=== PATIENT | male | born 1950 ===

== ENCOUNTER 2020-12-06 06:42 | Inpatient (IN) | payer MEDICARE ==
[2020-12-06] MEDS ORDERED: SODIUM CHLORIDE 0.9% 1000 ML 1,000 ML IV ONE (07:09)
--- NOTE | 2020-12-06 07:13 | Emergency Department Report ---
ED General Adult HPI - General Chief complaint: Altered Mental Status Stated complaint: AMS Time Seen by Provider: 12/06/20 06:56 Source: patient, EMS Mode of arrival: Stretcher Limitations: Altered Mental Status - History of Present Illness Initial comments: The patient presents to the emergency department via EMS for altered mental status. The patient has a history of diabetes, hypertension, and hyperlipidemia. Due to the patient's mental status is not able to participate in the gathering of information. Patient is hypotensive on arrival with a BP of 93/59 -: unknown Consistency: constant Improves with: none Worsens with: none Treatments Prior to Arrival: none - Related Data Allergies Allergy/AdvReac Type Severity Reaction Status Date / Time Unable to Assess Allergy Unverified 12/06/20 07:58 ED Review of Systems ROS: Stated complaint: AMS Other details as noted in HPI Comment: Unobtainable due to pts medical conditions ED Past Medical Hx - Past Medical History Previous Medical History?: Yes Hx Hypertension: Yes Hx Diabetes: Yes Hx Renal Disease: Yes Additional medical history: high cholesterol - Surgical History Past Surgical History?: No Additional Surgical History: unobtainable ED Physical Exam - General Limitations: Altered Mental Status General appearance: other (Altered) - Head Head exam: Present: atraumatic, normocephalic - Eye Eye exam: Absent: scleral icterus - ENT ENT exam: Present: mucous membranes dry - Respiratory Respiratory exam: Present: normal lung sounds bilaterally. Absent: respiratory distress - Cardiovascular Cardiovascular Exam: Present: normal rhythm, tachycardia - GI/Abdominal GI/Abdominal exam: Present: soft. Absent: distended - Extremities Exam Extremities exam: Present: normal inspection - Neurological Exam Neurological exam: Present: altered - Psychiatric Psychiatric exam: Present: other (Not able to assess due to the patient's condition) - Skin Skin exam: Present: warm, dry, intact ED Course Vital Signs 12/06/20 12/06/20 12/06/20 06:54 07:00 07:25 Temperature 98.4 F Pulse Rate 111 H 108 H Respiratory 23 13 Rate Blood Pressure 93/66 90/61 Blood Pressure 93/59 [Left] O2 Sat by Pulse 100 95 100 Oximetry 12/06/20 12/06/20 12/06/20 07:35 08:00 08:21 Temperature Pulse Rate 105 H 106 H 103 H Respiratory 26 H 26 H 21 Rate Blood Pressure 95/66 102/69 90/61 Blood Pressure [Left] O2 Sat by Pulse 97 99 99 Oximetry 12/06/20 09:31 Temperature Pulse Rate 101 H Respiratory 24 Rate Blood Pressure 120/81 Blood Pressure [Left] O2 Sat by Pulse 100 Oximetry ED Medical Decision Making - Lab Data Result diagrams: 12/06/20 07:36 Lab Results 12/06/20 12/06/20 12/06/20 Range/Units 07:36 07:36 07:36 WBC 17.0 H (4.5-11.0) K/mm3 RBC 2.37 L (3.65-5.03) M/mm3 Hgb 7.3 L (11.8-15.2) gm/dl Hct 21.6 L (35.5-45.6) % MCV 91 (84-94) fl MCH 31 (28-32) pg MCHC 34 (32-34) % RDW 14.8 (13.2-15.2) % Plt Count 156 (140-440) K/mm3 Add Manual Diff Complete Total Counted 100 Seg Neuts % (Manual) 96.0 H (40.0-70.0) % Lymphocytes % (Manual) 2.0 L (13.4-35.0) % Monocytes % (Manual) 2.0 (0.0-7.3) % Nucleated RBC % Not Reportable Seg Neutrophils # Man 16.3 H (1.8-7.7) K/mm3 Band Neutrophils # 0.0 K/mm3 Lymphocytes # (Manual) 0.3 L (1.2-5.4) K/mm3 Abs React Lymphs (Man) 0.0 K/mm3 Monocytes # (Manual) 0.3 (0.0-0.8) K/mm3 Eosinophils # (Manual) 0.0 (0.0-0.4) K/mm3 Basophils # (Manual) 0.0 (0.0-0.1) K/mm3 Metamyelocytes # 0.0 K/mm3 Myelocytes # 0.0 K/mm3 Promyelocytes # 0.0 K/mm3 Blast Cells # 0.0 K/mm3 WBC Morphology Not Reportable Hypersegmented Neuts Not Reportable Hyposegmented Neuts Not Reportable Hypogranular Neuts Not Reportable Smudge Cells Not Reportable Toxic Granulation Not Reportable Toxic Vacuolation Not Reportable Dohle Bodies Not Reportable Pelger-Huet Anomaly Not Reportable Brianda Rods Not Reportable Platelet Estimate Consistent w auto Clumped Platelets Not Reportable Plt Clumps, EDTA Not Reportable Large Platelets Not Reportable Giant Platelets Not Reportable Platelet Satelliting Not Reportable Plt Morphology Comment Not Reportable RBC Morphology Not Reportable Dimorphic RBCs Not Reportable Polychromasia Not Reportable Hypochromasia Not Reportable Poikilocytosis Not Reportable Anisocytosis Not Reportable Microcytosis Not Reportable Macrocytosis Not Reportable Spherocytes Not Reportable Pappenheimer Bodies Not Reportable Sickle Cells Not Reportable Target Cells Not Reportable Tear Drop Cells Not Reportable Ovalocytes Not Reportable Helmet Cells Not Reportable Rangel-Movico Bodies Not Reportable [place] Rings Not Reportable [place] Cells Not Reportable Bite Cells Not Reportable Crenated Cell Not Reportable Elliptocytes Not Reportable Acanthocytes (Spur) Not Reportable Rouleaux Not Reportable Hemoglobin C Crystals Not Reportable Schistocytes Rare Malaria parasites Not Reportable [place] Bodies Not Reportable Hem Pathologist Commnt No PT 21.3 H (12.2-14.9) Sec. INR 1.84 H (0.87-1.13) APTT 35.4 (24.2-36.6) Sec. Lactic Acid 2.30 H* (0.7-2.0) mmol/L Ammonia (25-60) umol/L Total Creatine Kinase (55-170) units/L NT-Pro-B Natriuret Pep (0-900) pg/mL TSH (0.270-4.200) mlU/mL Salicylates (2.8-20.0) mg/dL Acetaminophen (10.0-30.0) ug/mL Plasma/Serum Alcohol (0-0.07) % Blood Type Antibody Screen 12/06/20 12/06/20 12/06/20 Range/Units 07:36 07:36 07:36 WBC (4.5-11.0) K/mm3 RBC (3.65-5.03) M/mm3 Hgb (11.8-15.2) gm/dl Hct (35.5-45.6) % MCV (84-94) fl MCH (28-32) pg MCHC (32-34) % RDW (13.2-15.2) % Plt Count (140-440) K/mm3 Add Manual Diff Total Counted Seg Neuts % (Manual) (40.0-70.0) % Lymphocytes % (Manual) (13.4-35.0) % Monocytes % (Manual) (0.0-7.3) % Nucleated RBC % Seg Neutrophils # Man (1.8-7.7) K/mm3 Band Neutrophils # K/mm3 Lymphocytes # (Manual) (1.2-5.4) K/mm3 Abs React Lymphs (Man) K/mm3 Monocytes # (Manual) (0.0-0.8) K/mm3 Eosinophils # (Manual) (0.0-0.4) K/mm3 Basophils # (Manual) (0.0-0.1) K/mm3 Metamyelocytes # K/mm3 Myelocytes # K/mm3 Promyelocytes # K/mm3 Blast Cells # K/mm3 WBC Morphology Hypersegmented Neuts Hyposegmented Neuts Hypogranular Neuts Smudge Cells Toxic Granulation Toxic Vacuolation Dohle Bodies Pelger-Huet Anomaly Brianda Rods Platelet Estimate Clumped Platelets Plt Clumps, EDTA Large Platelets Giant Platelets Platelet Satelliting Plt Morphology Comment RBC Morphology Dimorphic RBCs Polychromasia Hypochromasia Poikilocytosis Anisocytosis Microcytosis Macrocytosis Spherocytes Pappenheimer Bodies Sickle Cells Target Cells Tear Drop Cells Ovalocytes Helmet Cells Rangel-Movico Bodies [place] Rings Boyd Cells Bite Cells Crenated Cell Elliptocytes Acanthocytes (Spur) Rouleaux Hemoglobin C Crystals Schistocytes Malaria parasites [place] Bodies Hem Pathologist Commnt PT (12.2-14.9) Sec. INR (0.87-1.13) APTT (24.2-36.6) Sec. Lactic Acid (0.7-2.0) mmol/L Ammonia (25-60) umol/L Total Creatine Kinase (55-170) units/L NT-Pro-B Natriuret Pep (0-900) pg/mL TSH (0.270-4.200) mlU/mL Salicylates 0.3 L (2.8-20.0) mg/dL Acetaminophen 5.0 L (10.0-30.0) ug/mL Plasma/Serum Alcohol < 0.01 (0-0.07) % Blood Type Antibody Screen 12/06/20 12/06/20 12/06/20 Range/Units 07:36 07:36 07:36 WBC (4.5-11.0) K/mm3 RBC (3.65-5.03) M/mm3 Hgb (11.8-15.2) gm/dl Hct (35.5-45.6) % MCV (84-94) fl MCH (28-32) pg MCHC (32-34) % RDW (13.2-15.2) % Plt Count (140-440) K/mm3 Add Manual Diff Total Counted Seg Neuts % (Manual) (40.0-70.0) % Lymphocytes % (Manual) (13.4-35.0) % Monocytes % (Manual) (0.0-7.3) % Nucleated RBC % Seg Neutrophils # Man (1.8-7.7) K/mm3 Band Neutrophils # K/mm3 Lymphocytes # (Manual) (1.2-5.4) K/mm3 Abs React Lymphs (Man) K/mm3 Monocytes # (Manual) (0.0-0.8) K/mm3 Eosinophils # (Manual) (0.0-0.4) K/mm3 Basophils # (Manual) (0.0-0.1) K/mm3 Metamyelocytes # K/mm3 Myelocytes # K/mm3 Promyelocytes # K/mm3 Blast Cells # K/mm3 WBC Morphology Hypersegmented Neuts Hyposegmented Neuts Hypogranular Neuts Smudge Cells Toxic Granulation Toxic Vacuolation Dohle Bodies Pelger-Huet Anomaly Brianda Rods Platelet Estimate Clumped Platelets Plt Clumps, EDTA Large Platelets Giant Platelets Platelet Satelliting Plt Morphology Comment RBC Morphology Dimorphic RBCs Polychromasia Hypochromasia Poikilocytosis Anisocytosis Microcytosis Macrocytosis Spherocytes Pappenheimer Bodies Sickle Cells Target Cells Tear Drop Cells Ovalocytes Helmet Cells Rangel-Movico Bodies [place] Rings Dung Cells Bite Cells Crenated Cell Elliptocytes Acanthocytes (Spur) Rouleaux Hemoglobin C Crystals Schistocytes Malaria parasites [place] Bodies Hem Pathologist Commnt PT (12.2-14.9) Sec. INR (0.87-1.13) APTT (24.2-36.6) Sec. Lactic Acid (0.7-2.0) mmol/L Ammonia 14.0 L (25-60) umol/L Total Creatine Kinase 573 H (55-170) units/L NT-Pro-B Natriuret Pep (0-900) pg/mL TSH 2.020 (0.270-4.200) mlU/mL Salicylates (2.8-20.0) mg/dL Acetaminophen (10.0-30.0) ug/mL Plasma/Serum Alcohol (0-0.07) % Blood Type Antibody Screen 12/06/20 12/06/20 Range/Units 07:36 07:36 WBC (4.5-11.0) K/mm3 RBC (3.65-5.03) M/mm3 Hgb (11.8-15.2) gm/dl Hct (35.5-45.6) % MCV (84-94) fl MCH (28-32) pg MCHC (32-34) % RDW (13.2-15.2) % Plt Count (140-440) K/mm3 Add Manual Diff Total Counted Seg Neuts % (Manual) (40.0-70.0) % Lymphocytes % (Manual) (13.4-35.0) % Monocytes % (Manual) (0.0-7.3) % Nucleated RBC % Seg Neutrophils # Man (1.8-7.7) K/mm3 Band Neutrophils # K/mm3 Lymphocytes # (Manual) (1.2-5.4) K/mm3 Abs React Lymphs (Man) K/mm3 Monocytes # (Manual) (0.0-0.8) K/mm3 Eosinophils # (Manual) (0.0-0.4) K/mm3 Basophils # (Manual) (0.0-0.1) K/mm3 Metamyelocytes # K/mm3 Myelocytes # K/mm3 Promyelocytes # K/mm3 Blast Cells # K/mm3 WBC Morphology Hypersegmented Neuts Hyposegmented Neuts Hypogranular Neuts Smudge Cells Toxic Granulation Toxic Vacuolation Dohle Bodies Pelger-Huet Anomaly Brianda Rods Platelet Estimate Clumped Platelets Plt Clumps, EDTA Large Platelets Giant Platelets Platelet Satelliting Plt Morphology Comment RBC Morphology Dimorphic RBCs Polychromasia Hypochromasia Poikilocytosis Anisocytosis Microcytosis Macrocytosis Spherocytes Pappenheimer Bodies Sickle Cells Target Cells Tear Drop Cells Ovalocytes Helmet Cells Rangel-Movico Bodies [place] Rings Dung Cells Bite Cells Crenated Cell Elliptocytes Acanthocytes (Spur) Rouleaux Hemoglobin C Crystals Schistocytes Malaria parasites [place] Bodies Hem Pathologist Commnt PT (12.2-14.9) Sec. INR (0.87-1.13) APTT (24.2-36.6) Sec. Lactic Acid (0.7-2.0) mmol/L Ammonia (25-60) umol/L Total Creatine Kinase (55-170) units/L NT-Pro-B Natriuret Pep 16873 H (0-900) pg/mL TSH (0.270-4.200) mlU/mL Salicylates (2.8-20.0) mg/dL Acetaminophen (10.0-30.0) ug/mL Plasma/Serum Alcohol (0-0.07) % Blood Type A POSITIVE Antibody Screen Negative - Radiology Data Radiology results: report reviewed - Medical Decision Making Upon patient's arrival sepsis protocol initiated Due to the patient's hypotension IV fluids given which were successful and maintaining a systolic blood pressure greater than 100 IV Lasix given IV antibiotics given Critical Care Time: Yes Critical care time in (mins) excluding proc time.: 35 Critical care attestation.: If time is entered above; I have spent that time in minutes in the direct care of this critically ill patient, excluding procedure time. ED Disposition Clinical Impression: Sepsis, Pulmonary vascular congestion Disposition: OP ADMIT IP TO THIS HOSP Is pt being admited?: Yes Does the pt Need Aspirin: No Condition: Fair Referrals: PRIMARY CARE, [Primary Care Provider] - 3-5 Days
[2020-12-06 07:47] LABS: Hematocrit 21.6 % (35.5-45.6); Hemoglobin 7.3 gm/dl (11.8-15.2); Mean Corpuscular HGB Conc 34 % (32-34); Mean Corpuscular Volume 91 fl (84-94); Platelet Count 156 K/mm3 (140-440); Red Blood Count 2.37 M/mm3 (3.65-5.03); Red Cell Distribution Width 14.8 % (13.2-15.2)
--- NOTE | 2020-12-06 07:48 | XRay Report ---
CHEST 1 VIEW INDICATION: Altered Mental Status. COMPARISON: None FINDINGS: Support devices: None. Heart: Mild cardiomegaly is evident. The aorta is mildly ectatic but well defined. Lungs/Pleura: There is mild central pulmonary venous congestion. No infiltrate, pleural effusion or p neumothorax. Additional findings: None. IMPRESSION: Mild cardiomegaly and pulmonary venous congestion but no CHF. Ectatic aorta. Signer Name: Wagner Reece Jr, MD Signed: 12/06/2020 7:43 AM Workstation Name: [id number]
[2020-12-06 07:58] LABS: INR 1.84 (0.87-1.13); Partial Thromboplastin Time 35.4 Sec. (24.2-36.6)
--- NOTE | 2020-12-06 08:04 | Cat Scan Report ---
CT HEAD WITHOUT CONTRAST INDICATION: Altered Mental Status TECHNIQUE: All CT scans at this location are performed using CT dose reduction for ALARA by means of automated exposure control. COMPARISON: None available. FINDINGS: BRAIN: No hemorrhage or mass effect are seen. No evidence of acute cortical infarction is noted. Mode rate white matter microvascular changes are seen. Atrophic changes are noted. ORBITS: Normal as visualized. SOFT TISSUES OF HEAD: Normal. CALVARIUM: Normal. VISUALIZED PARANASAL SINUSES AND MASTOID AIR CELLS: Clear. ADDITIONAL FINDINGS: None. IMPRESSION: No acute intracranial abnormality. Signer Name: Selwyn Pedraza MD Signed: 12/06/2020 8:00 AM Workstation Name: [id number]
[2020-12-06 09:47] LABS: Total Cells Counted 100
[2020-12-06 09:49] LABS: Platelet Estimate Consistent w Auto; Schistocytes Rare
[2020-12-06] MEDS ORDERED: CEFEPIME/NS 2 GM/100 ML 2 GM/100 ML BAG IV ONE (09:52)
[2020-12-06] MEDS ORDERED: FUROSEMIDE 40 MG/4 ML INJ IV ONE (10:20)
[2020-12-06 10:46] LABS: Amphetamine Screen,Urine PRESUMPTIVE NEGATIVE; Benzodiazepines Screen,Urine PRESUMPTIVE NEGATIVE; Cannabinoid Screen,Urine PRESUMPTIVE NEGATIVE; Cocaine Screen,Urine PRESUMPTIVE NEGATIVE; Methadone Screen,Urine PRESUMPTIVE NEGATIVE; Opiate Screen,Urine PRESUMPTIVE NEGATIVE
[2020-12-06 10:48] LABS: Bacteria,Urine 4+ /HPF (Negative); Bilirubin,Urine NEG (Negative); Blood,Urine MOD (Negative); Color,Urine Amber (Yellow); Mucus,Urine FEW /HPF; Urobilinogen,Urine < 2.0 mg/dL (<2.0)
[2020-12-06 10:51] LABS: Protein,Urine >500 mg/dL (Negative)
[2020-12-06 10:54] LABS: Albumin 2.8 g/dL (3.9-5)
[2020-12-06 11:23] LABS: Chol/HDL Ratio 7.35 %
[2020-12-06] MEDS ORDERED: ASPIRIN 600 MG RECT SUPP PR ONE (11:36)
[2020-12-06] MEDS: ASPIRIN 300 MG RECT SUPP PR SCH (11:39)
--- NOTE | 2020-12-06 11:40 | History and Physical Report ---
History of Present Illness Date of examination: 12/06/20 Date of admission: 12/06/20 10:35 Chief complaint: Altered mental status History of present illness: 70-year-old -[place] male was presented via EMS for altered mental status. Patient could not give any history. I called his Ms. Baumann and she gave me his history. 70-year-old -[place] male with past medical history significant for diabetes on insulin, DVT, on Eliquis, hypertension, CKD was complaining of abdominal pain, cramping after he was eating at [employer] last day. Progressively patient was getting weak. Patient was also complaining diarrhea multiple times, did not characterize the diarrhea. She said he was incontinent to urine occasionally. She stated that he is a and follow-up at [facility], she states he has some heart problems and he has something placed in his chart that she do not know. Patient did not answer questions but he said yes for chest pain. In the emergency department patient was altered and was not able to give any history. Labs are significant for leukocytosis, elevated troponin level, elevated BUN and creatinine with GFR of 8%. Urinalysis is suggestive of UTI. Patient was placed on cefepime. Chest x-ray was negative, CT head was negative. Nephrology was consulted but his said she does not want to start dialysis on him at this time. Covid test was ordered and ID was consulted. For anemia GI consult was placed. For non-STEMI cardiology was consulted. Vital signs were stable. Patient will be admitted to medical floor. Past History Past Medical History: diabetes, DVT, hypertension, renal failure Past Surgical History: Other (Device placement in his chest) Social history: full code. denies: smoking, alcohol abuse, prescription drug abuse, IV drug use Family history: other (Could not obtain because patient was altered.) Medications and Allergies Allergies Allergy/AdvReac Type Severity Reaction Status Date / Time Unable to Assess Allergy Unverified 12/06/20 07:58 Home Medications Medication Instructions Recorded Confirmed Last Taken Type No Known Home Medications [No 12/06/20 12/06/20 Unknown History Reported Home Medications] Active Meds: Active Medications Aspirin (Aspirin 300 Mg Rect Supp) 300 mg [place] QDAY [facility] Last Admin: 12/06/20 11:39 Dose: 300 mg Documented by: Review of Systems ROS unobtainable: due to mental status (Could not obtain because patient was altered) Exam - Physical Exam Narrative exam: Not in cardiopulmonary distress. The patient appeared well nourished and normally developed. Vital signs as documented. Head exam is unremarkable. No scleral icterus . Neck is without jugular venous distension, thyromegaly, or carotid bruits. Lungs are clear to auscultation. Cardiac exam reveals regular rate and Rhythm. Abdominal exam reveals normal bowel sounds, nontender, no organomegaly. Extremities are nonedematous and both femoral and pedal pulses are normal. [employer]: Patient was altered - Constitutional Vitals: Temp Pulse Resp BP Pulse Ox 98.4 F 90 20 112/77 100 12/06/20 06:54 12/06/20 11:15 12/06/20 11:15 12/06/20 11:15 12/06/20 11:15 HEART Score - HEART Score Troponin: Troponin T 3.350 ng/mL (0.00-0.029) H* 12/06/20 07:36 Results - Labs CBC & Chem 7: 12/06/20 07:36 12/06/20 07:36 Labs: Laboratory Last Values WBC 17.0 K/mm3 (4.5-11.0) H 12/06/20 07:36 RBC 2.37 M/mm3 (3.65-5.03) L 12/06/20 07:36 Hgb 7.3 gm/dl (11.8-15.2) L 12/06/20 07:36 Hct 21.6 % (35.5-45.6) L 12/06/20 07:36 MCV 91 fl (84-94) 12/06/20 07:36 MCH 31 pg (28-32) 12/06/20 07:36 MCHC 34 % (32-34) 12/06/20 07:36 RDW 14.8 % (13.2-15.2) 12/06/20 07:36 Plt Count 156 K/mm3 (140-440) 12/06/20 07:36 Add Manual Diff Complete 12/06/20 07:36 Total Counted 100 12/06/20 07:36 Seg Neuts % (Manual) 96.0 % (40.0-70.0) H 12/06/20 07:36 Lymphocytes % (Manual) 2.0 % (13.4-35.0) L 12/06/20 07:36 Monocytes % (Manual) 2.0 % (0.0-7.3) 12/06/20 07:36 Nucleated RBC % Not Reportable 12/06/20 07:36 Seg Neutrophils # Man 16.3 K/mm3 (1.8-7.7) H 12/06/20 07:36 Band Neutrophils # 0.0 K/mm3 12/06/20 07:36 Lymphocytes # (Manual) 0.3 K/mm3 (1.2-5.4) L 12/06/20 07:36 Abs React Lymphs (Man) 0.0 K/mm3 12/06/20 07:36 Monocytes # (Manual) 0.3 K/mm3 (0.0-0.8) 12/06/20 07:36 Eosinophils # (Manual) 0.0 K/mm3 (0.0-0.4) 12/06/20 07:36 Basophils # (Manual) 0.0 K/mm3 (0.0-0.1) 12/06/20 07:36 Metamyelocytes # 0.0 K/mm3 12/06/20 07:36 Myelocytes # 0.0 K/mm3 12/06/20 07:36 Promyelocytes # 0.0 K/mm3 12/06/20 07:36 Blast Cells # 0.0 K/mm3 12/06/20 07:36 WBC Morphology Not Reportable 12/06/20 07:36 Hypersegmented Neuts Not Reportable 12/06/20 07:36 Hyposegmented Neuts Not Reportable 12/06/20 07:36 Hypogranular Neuts Not Reportable 12/06/20 07:36 Smudge Cells Not Reportable 12/06/20 07:36 Toxic Granulation Not Reportable 12/06/20 07:36 Toxic Vacuolation Not Reportable 12/06/20 07:36 Dohle Bodies Not Reportable 12/06/20 07:36 Pelger-Huet Anomaly Not Reportable 12/06/20 07:36 Brianda Rods Not Reportable 12/06/20 07:36 Platelet Estimate Consistent w auto 12/06/20 07:36 Clumped Platelets Not Reportable 12/06/20 07:36 Plt Clumps, EDTA Not Reportable 12/06/20 07:36 Large Platelets Not Reportable 12/06/20 07:36 Giant Platelets Not Reportable 12/06/20 07:36 Platelet Satelliting Not Reportable 12/06/20 07:36 Plt Morphology Comment Not Reportable 12/06/20 07:36 RBC Morphology Not Reportable 12/06/20 07:36 Dimorphic RBCs Not Reportable 12/06/20 07:36 Polychromasia Not Reportable 12/06/20 07:36 Hypochromasia Not Reportable 12/06/20 07:36 Poikilocytosis Not Reportable 12/06/20 07:36 Anisocytosis Not Reportable 12/06/20 07:36 Microcytosis Not Reportable 12/06/20 07:36 Macrocytosis Not Reportable 12/06/20 07:36 Spherocytes Not Reportable 12/06/20 07:36 Pappenheimer Bodies Not Reportable 12/06/20 07:36 Sickle Cells Not Reportable 12/06/20 07:36 Target Cells Not Reportable 12/06/20 07:36 Tear Drop Cells Not Reportable 12/06/20 07:36 Ovalocytes Not Reportable 12/06/20 07:36 Helmet Cells Not Reportable 12/06/20 07:36 Rangel-Samson Bodies Not Reportable 12/06/20 07:36 [place] Rings Not Reportable 12/06/20 07:36 [place] Cells Not Reportable 12/06/20 07:36 Bite Cells Not Reportable 12/06/20 07:36 Crenated Cell Not Reportable 12/06/20 07:36 Elliptocytes Not Reportable 12/06/20 07:36 Acanthocytes (Spur) Not Reportable 12/06/20 07:36 Rouleaux Not Reportable 12/06/20 07:36 Hemoglobin C Crystals Not Reportable 12/06/20 07:36 Schistocytes Rare 12/06/20 07:36 Malaria parasites Not Reportable 12/06/20 07:36 [place] Bodies Not Reportable 12/06/20 07:36 Hem Pathologist Commnt No 12/06/20 07:36 PT 21.3 Sec. (12.2-14.9) H 12/06/20 07:36 INR 1.84 (0.87-1.13) H 12/06/20 07:36 APTT 35.4 Sec. (24.2-36.6) 12/06/20 07:36 Sodium 131 mmol/L (137-145) L 12/06/20 07:36 Potassium 4.9 mmol/L (3.6-5.0) 12/06/20 07:36 Chloride 97.5 mmol/L (98-107) L 12/06/20 07:36 Carbon Dioxide 15 mmol/L (22-30) L 12/06/20 07:36 Anion Gap 23 mmol/L 12/06/20 07:36 BUN 79 mg/dL (9-20) H 12/06/20 07:36 Creatinine 7.2 mg/dL (0.8-1.3) H 12/06/20 07:36 Estimated GFR 8 ml/min 12/06/20 07:36 BUN/Creatinine Ratio 11 % 12/06/20 07:36 Glucose 147 mg/dL (75-100) H 12/06/20 07:36 Lactic Acid 1.80 mmol/L (0.7-2.0) 12/06/20 10:26 Calcium 8.0 mg/dL (8.4-10.2) L 12/06/20 07:36 Total Bilirubin 0.70 mg/dL (0.1-1.2) 12/06/20 07:36 AST 52 units/L (5-40) H 12/06/20 07:36 ALT 14 units/L (7-56) 12/06/20 07:36 Alkaline Phosphatase 80 units/L (35-129) 12/06/20 07:36 Ammonia 14.0 umol/L (25-60) L 12/06/20 07:36 Total Creatine Kinase 573 units/L (55-170) H 12/06/20 07:36 Troponin T 3.350 ng/mL (0.00-0.029) H* 12/06/20 07:36 NT-Pro-B Natriuret Pep 75731 pg/mL (0-900) H 12/06/20 07:36 Total Protein 8.6 g/dL (6.3-8.2) H 12/06/20 07:36 Albumin 2.8 g/dL (3.9-5) L 12/06/20 07:36 Albumin/Globulin Ratio 0.5 % 12/06/20 07:36 Triglycerides 226 mg/dL (2-149) H 12/06/20 07:36 Cholesterol 103 mg/dL (50-199) 12/06/20 07:36 LDL Cholesterol Direct 13 mg/dL (50-130) L 12/06/20 07:36 HDL Cholesterol 14 mg/dL (40-59) L 12/06/20 07:36 Cholesterol/HDL Ratio 7.35 % 12/06/20 07:36 TSH 2.020 mlU/mL (0.270-4.200) 12/06/20 07:36 Urine Color Hina (Yellow) 12/06/20 Unknown Urine Turbidity Cloudy (Clear) 12/06/20 Unknown Urine pH 5.0 (5.0-7.0) 12/06/20 Unknown Ur Specific [place] 1.014 (1.003-1.030) 12/06/20 Unknown Urine Protein >500 mg/dL (Negative) 12/06/20 Unknown Urine Glucose (UA) Neg mg/dL (Negative) 12/06/20 Unknown Urine Ketones Neg mg/dL (Negative) 12/06/20 Unknown Urine Blood Mod (Negative) 12/06/20 Unknown Urine Nitrite Neg (Negative) 12/06/20 Unknown Urine Bilirubin Neg (Negative) 12/06/20 Unknown Urine Urobilinogen < 2.0 mg/dL (<2.0) 12/06/20 Unknown Ur Leukocyte Esterase Lg (Negative) 12/06/20 Unknown Urine WBC (Auto) 58.0 /HPF (0.0-6.0) H 12/06/20 Unknown Urine RBC (Auto) 9.0 /HPF (0.0-6.0) 12/06/20 Unknown U Epithel Cells (Auto) < 1.0 /HPF (0-13.0) 12/06/20 Unknown Urine Bacteria (Auto) 4+ /HPF (Negative) 12/06/20 Unknown Urine WBC Clumps 2+ /HPF 12/06/20 Unknown Urine Mucus Few /HPF 12/06/20 Unknown Salicylates 0.3 mg/dL (2.8-20.0) L 12/06/20 07:36 Urine Opiates Screen Presumptive negative 12/06/20 Unknown Urine Methadone Screen Presumptive negative 12/06/20 Unknown Acetaminophen 5.0 ug/mL (10.0-30.0) L 12/06/20 07:36 Ur Barbiturates Screen Presumptive negative 12/06/20 Unknown Ur Phencyclidine Scrn Presumptive negative 12/06/20 Unknown Ur Amphetamines Screen Presumptive negative 12/06/20 Unknown U Benzodiazepines Scrn Presumptive negative 12/06/20 Unknown Urine Cocaine Screen Presumptive negative 12/06/20 Unknown U Marijuana (THC) Screen Presumptive negative 12/06/20 Unknown Drugs of Abuse Note Disclamer 12/06/20 Unknown Plasma/Serum Alcohol < 0.01 % (0-0.07) 12/06/20 07:36 Blood Type A POSITIVE 12/06/20 07:36 Antibody Screen Negative 12/06/20 07:36 Microbiology: Microbiology 12/06/20 07:36 Peripheral/Venous Blood Culture - Preliminary Culture in Progress 12/06/20 07:36 Peripheral/Venous Blood Culture - Preliminary Culture in Progress Assessment and Plan Assessment and plan: Altered mental Status, metabolic encephalopathy -CT head was negative -No grossly focal neurologic deficit -We will treat underlying condition Acute on chronic renal failure -Patient has CKD, and currently GFR is 8 -Patient was diagnosed with CKD before and was suggested for dialysis but patient declined. -I discussed with his over the phone and she does not want dialysis. -Nephrology consulted. NSTEMI -Troponin was more than 3 -EKG normal sinus rhythm, no ST elevation, cardiology consulted Severe sepsis, PUI -Likely due to UTI -Patient is on cefepime -We will get urine and blood culture -Covid test is pending Acute gastroenteritis -Symptomatic management -Continue antibiotics -C. difficile ordered Anemia -Hemoglobin this morning was 7.3 -Anemia work-up was ordered, and consulted GI Diabetes mellitus -Sliding scale insulin, Accu-Chek, ADA diet and adjust insulin as needed History of DVT, on Eliquis -I will hold Eliquis for now due to anemia -Ordered D-dimer Hypertension -Blood pressure is on the low side of normal and I will hold blood pressure med ication for now DVT prophylaxis; SCDs for now because of severe anemia CODE STATUS; full Disposition; to medical floor Management plan was discussed with the daughter and was in agreement with the plan of care. Advance Directives: Yes VTE prophylaxis?: Mechanical Contraindication Mechanical VTE Prophylaxis: Contraindicated Reason for no VTE Prophylaxis: Medical contraindication Plan of care discussed with patient/family: Yes
[2020-12-06] MEDS ORDERED: DEXTROSE 50% IN WATER (25GM) 50 ML SYRINGE IV PRN (11:45)
--- NOTE | 2020-12-06 12:05 | Consultation ---
History of Present Illness - Reason for Consult Consult date: 12/06/20 acute renal failure, chronic renal failure - History of Present Illness patient was admitted today for worsening weakness and alteredd mental status, I Labs are significant for leukocytosis, elevated troponin level, elevated BUN and creatinine with GFR of 8%. Urinalysis is suggestive of UTI. Patient was placed on cefepime. Chest x-ray was negative, CT head was negative.. Covid test was ordered and ID was consulted. renal consult was requested for severe renal failure, however, per hospitalist note, stated the patient does not want dialysis Past History Past Medical History: diabetes, DVT, hypertension, renal failure Past Surgical History: Other (Device placement in his chest) Social history: full code. denies: smoking, alcohol abuse, prescription drug abuse, IV drug use Family history: other (Could not obtain because patient was altered.) Medications and Allergies Allergies Allergy/AdvReac Type Severity Reaction Status Date / Time No Known Allergies Allergy Unverified 12/06/20 12:39 Home Medications Medication Instructions Recorded Confirmed Last Taken Type Acetaminophen [Non-Aspirin Extra 1,000 mg PO TID PRN 12/06/20 12/06/20 Unknown History Strength] Apixaban [Eliquis] 5 mg PO BID 12/06/20 12/06/20 Unknown History AtorvaSTATin [Lipitor] 40 mg PO QHS 12/06/20 12/06/20 Unknown History Metoprolol [Lopressor] 12.5 mg PO QDAY 12/06/20 12/06/20 Unknown History Active Meds: Active Medications Aspirin (Aspirin 300 Mg Rect Supp) 300 mg [place] [facility]DAY [facility] Last Admin: 12/06/20 11:39 Dose: 300 mg Documented by: Dextrose (Dextrose 50% In Water (25gm) 50 Ml Syringe) 50 ml IV Q30MIN PRN; Protocol PRN Reason: Hypoglycemia Cefepime HCl (Cefepime/Ns 1 Gm/100 Ml) 1 gm in 100 mls @ 200 mls/hr IV QPM [facility]; Protocol Exam - Vital Signs Vital signs: Vital Signs Temp Pulse Resp BP Pulse Ox 98.4 F 111 H 23 93/59 100 12/06/20 06:54 12/06/20 06:54 12/06/20 06:54 12/06/20 06:54 12/06/20 06:54 - General Appearance General appearance: well-developed, well-nourished EENT: ATNC, PERRL Neck: Present: neck supple Respiratory: Clear to Ascultation Heart: regular Gastrointestinal: Present: normoactive bowel sounds. Absent: tenderness, distended Integumentary: no rash, warm and dry Musculoskeletal: Present: other Results - Lab Results 12/06/20 07:36 12/06/20 07:36 Most recent lab results Calcium 8.0 mg/dL (8.4-10.2) L 12/06/20 07:36 Assessment and Plan Altered mental Status, metabolic encephalopathy Acute on chronic renal failure NSTEMI Acute gastroenteritis Anemia Diabetes mellitus History of DVT, on Eliquis Hypertension patient with advanced CKD per chart and was nearing dialysis but declined in the past currently with pulm congestion and elevated BNP, will no start IV fluid challenge renal US ordered urine lytes, CK and secondary GN work up ordered reanlly dose meds strict I&O daily weight
[2020-12-06 12:55] LABS: Iron 11 ug/dL (49-181); Total Iron Binding Capacity 129 mcg/dL (250-450)
[2020-12-06 12:56] LABS: C-Reactive Protein 28.5 mg/dL (0.00-1.30)
--- NOTE | 2020-12-06 13:40 | Consultation ---
History of Present Illness - Reason for Consult Consult date: 12/06/20 sepsis Requesting physician: CALEB MARLEY - History of Present Illness The patient is a 70-year-old male with diabetes, hypertension, DVT, CKD was admitted to the hospital with altered mental status. Upon evaluation in the ER, noted to be hypotensive, labs showed leukocytosis. Patient otherwise afebrile. Infectious diseases was consulted to evaluate for sepsis. Chest x-ray did not reveal any pneumonia. CT head without any acute abnormality. Review of Systems: Limited due to altered mental status Past History Past Medical History: diabetes, DVT, hypertension, renal failure Past Surgical History: Other (Device placement in his chest) Social history: full code. denies: smoking, alcohol abuse, prescription drug abuse, IV drug use Family history: other (Could not obtain because patient was altered.) Medications and Allergies Allergies Allergy/AdvReac Type Severity Reaction Status Date / Time No Known Allergies Allergy Unverified 12/06/20 12:39 Home Medications Medication Instructions Recorded Confirmed Last Taken Type Acetaminophen [Non-Aspirin Extra 1,000 mg PO TID PRN 12/06/20 12/06/20 Unknown History Strength] Apixaban [Eliquis] 5 mg PO BID 12/06/20 12/06/20 Unknown History AtorvaSTATin [Lipitor] 40 mg PO QHS 12/06/20 12/06/20 Unknown History Metoprolol [Lopressor] 12.5 mg PO QDAY 12/06/20 12/06/20 Unknown History Active Meds: Active Medications Aspirin (Aspirin 300 Mg Rect Supp) 300 mg [place] QDAY [facility] Last Admin: 12/06/20 11:39 Dose: 300 mg Documented by: Dextrose (Dextrose 50% In Water (25gm) 50 Ml Syringe) 50 ml IV Q30MIN PRN; Protocol PRN Reason: Hypoglycemia Cefepime HCl (Cefepime/Ns 1 Gm/100 Ml) 1 gm in 100 mls @ 200 mls/hr IV QPM [facility]; Protocol Sodium Chloride (Nacl 0.9% 1000 Ml) 1,000 mls @ 100 mls/hr IV DIRECT [facility] Metronidazole (Flagyl 500 Mg/100 Ml) 500 mg in 100 mls @ 100 mls/hr IV Q8H [facility]; Protocol Physical Examination - Physical Exam Narrative exam: Physical Exam: Constitutional: Awake, confused Head, Ears, Nose: Normocephalic, atraumatic. External ears, nose normal Eyes: Conjunctivae/corneas clear. No icterus. No ptosis. Neck: Supple, no meningeal signs Cardiovascular: S1, S2 normal. Respiratory: Good air entry, clear to auscultation bilaterally GI: Tenderness present, bowel sounds present Musculoskeletal: No pedal edema, no cyanosis. Skin: No rash or abscess Hem/Lymphatic: No palpable cervical or supraclavicular nodes. No lymphangitis Psych: No agitation Neurological: Awake, not oriented - Constitutional Vitals: Vital Signs Temp Pulse Resp BP Pulse Ox 98.4 F 92 H 22 112/77 100 12/06/20 06:54 12/06/20 12:55 12/06/20 12:55 12/06/20 11:15 12/06/20 11:15 Temperature -Last 24 Hours Temperature 98.4 F Results - Labs CBC & Chem 7: 12/06/20 07:36 12/06/20 07:36 Labs: Abnormal lab results 12/06/20 12/06/20 12/06/20 Range/Units 07:36 07:36 07:36 WBC 17.0 H (4.5-11.0) K/mm3 RBC 2.37 L (3.65-5.03) M/mm3 Hgb 7.3 L (11.8-15.2) gm/dl Hct 21.6 L (35.5-45.6) % Seg Neuts % (Manual) 96.0 H (40.0-70.0) % Lymphocytes % (Manual) 2.0 L (13.4-35.0) % Seg Neutrophils # Man 16.3 H (1.8-7.7) K/mm3 Lymphocytes # (Manual) 0.3 L (1.2-5.4) K/mm3 PT 21.3 H (12.2-14.9) Sec. INR 1.84 H (0.87-1.13) D-Dimer (0-234) ng/mlDDU Sodium 131 L (137-145) mmol/L Chloride 97.5 L (98-107) mmol/L Carbon Dioxide 15 L (22-30) mmol/L BUN 79 H (9-20) mg/dL Creatinine 7.2 H (0.8-1.3) mg/dL Glucose 147 H (75-100) mg/dL Lactic Acid (0.7-2.0) mmol/L Calcium 8.0 L (8.4-10.2) mg/dL Iron (49-181) ug/dL TIBC (250-450) mcg/dL Ferritin (30.0-300.0) ng/mL AST 52 H (5-40) units/L Ammonia (25-60) umol/L Lactate Dehydrogenase (91-180) units/L Total Creatine Kinase (55-170) units/L Troponin T 3.350 H* (0.00-0.029) ng/mL C-Reactive Protein (0.00-1.30) mg/dL NT-Pro-B Natriuret Pep (0-900) pg/mL Total Protein 8.6 H (6.3-8.2) g/dL Albumin 2.8 L (3.9-5) g/dL Triglycerides 226 H (2-149) mg/dL LDL Cholesterol Direct 13 L (50-130) mg/dL HDL Cholesterol 14 L (40-59) mg/dL Urine WBC (Auto) (0.0-6.0) /HPF Salicylates (2.8-20.0) mg/dL Acetaminophen (10.0-30.0) ug/mL 12/06/20 12/06/20 12/06/20 Range/Units 07:36 07:36 07:36 WBC (4.5-11.0) K/mm3 RBC (3.65-5.03) M/mm3 Hgb (11.8-15.2) gm/dl Hct (35.5-45.6) % Seg Neuts % (Manual) (40.0-70.0) % Lymphocytes % (Manual) (13.4-35.0) % Seg Neutrophils # Man (1.8-7.7) K/mm3 Lymphocytes # (Manual) (1.2-5.4) K/mm3 PT (12.2-14.9) Sec. INR (0.87-1.13) D-Dimer (0-234) ng/mlDDU Sodium (137-145) mmol/L Chloride (98-107) mmol/L Carbon Dioxide (22-30) mmol/L BUN (9-20) mg/dL Creatinine (0.8-1.3) mg/dL Glucose (75-100) mg/dL Lactic Acid 2.30 H* (0.7-2.0) mmol/L Calcium (8.4-10.2) mg/dL Iron (49-181) ug/dL TIBC (250-450) mcg/dL Ferritin (30.0-300.0) ng/mL AST (5-40) units/L Ammonia (25-60) umol/L Lactate Dehydrogenase (91-180) units/L Total Creatine Kinase (55-170) units/L Troponin T (0.00-0.029) ng/mL C-Reactive Protein (0.00-1.30) mg/dL NT-Pro-B Natriuret Pep (0-900) pg/mL Total Protein (6.3-8.2) g/dL Albumin (3.9-5) g/dL Triglycerides (2-149) mg/dL LDL Cholesterol Direct (50-130) mg/dL HDL Cholesterol (40-59) mg/dL Urine WBC (Auto) (0.0-6.0) /HPF Salicylates 0.3 L (2.8-20.0) mg/dL Acetaminophen 5.0 L (10.0-30.0) ug/mL 12/06/20 12/06/20 12/06/20 Range/Units 07:36 07:36 07:36 WBC (4.5-11.0) K/mm3 RBC (3.65-5.03) M/mm3 Hgb (11.8-15.2) gm/dl Hct (35.5-45.6) % Seg Neuts % (Manual) (40.0-70.0) % Lymphocytes % (Manual) (13.4-35.0) % Seg Neutrophils # Man (1.8-7.7) K/mm3 Lymphocytes # (Manual) (1.2-5.4) K/mm3 PT (12.2-14.9) Sec. INR (0.87-1.13) D-Dimer (0-234) ng/mlDDU Sodium (137-145) mmol/L Chloride (98-107) mmol/L Carbon Dioxide (22-30) mmol/L BUN (9-20) mg/dL Creatinine (0.8-1.3) mg/dL Glucose (75-100) mg/dL Lactic Acid (0.7-2.0) mmol/L Calcium (8.4-10.2) mg/dL Iron (49-181) ug/dL TIBC (250-450) mcg/dL Ferritin (30.0-300.0) ng/mL AST (5-40) units/L Ammonia 14.0 L (25-60) umol/L Lactate Dehydrogenase (91-180) units/L Total Creatine Kinase 573 H (55-170) units/L Troponin T (0.00-0.029) ng/mL C-Reactive Protein (0.00-1.30) mg/dL NT-Pro-B Natriuret Pep 87822 H (0-900) pg/mL Total Protein (6.3-8.2) g/dL Albumin (3.9-5) g/dL Triglycerides (2-149) mg/dL LDL Cholesterol Direct (50-130) mg/dL HDL Cholesterol (40-59) mg/dL Urine WBC (Auto) (0.0-6.0) /HPF Salicylates (2.8-20.0) mg/dL Acetaminophen (10.0-30.0) ug/mL 12/06/20 12/06/20 12/06/20 Range/Units 11:54 11:54 11:54 WBC (4.5-11.0) K/mm3 RBC (3.65-5.03) M/mm3 Hgb (11.8-15.2) gm/dl Hct (35.5-45.6) % Seg Neuts % (Manual) (40.0-70.0) % Lymphocytes % (Manual) (13.4-35.0) % Seg Neutrophils # Man (1.8-7.7) K/mm3 Lymphocytes # (Manual) (1.2-5.4) K/mm3 PT (12.2-14.9) Sec. INR (0.87-1.13) D-Dimer 3967.83 H (0-234) ng/mlDDU Sodium (137-145) mmol/L Chloride (98-107) mmol/L Carbon Dioxide (22-30) mmol/L BUN (9-20) mg/dL Creatinine (0.8-1.3) mg/dL Glucose (75-100) mg/dL Lactic Acid (0.7-2.0) mmol/L Calcium (8.4-10.2) mg/dL Iron (49-181) ug/dL TIBC (250-450) mcg/dL Ferritin 722.5 H (30.0-300.0) ng/mL AST (5-40) units/L Ammonia (25-60) umol/L Lactate Dehydrogenase 274 H (91-180) units/L Total Creatine Kinase (55-170) units/L Troponin T (0.00-0.029) ng/mL C-Reactive Protein 28.50 H (0.00-1.30) mg/dL NT-Pro-B Natriuret Pep (0-900) pg/mL Total Protein (6.3-8.2) g/dL Albumin (3.9-5) g/dL Triglycerides (2-149) mg/dL LDL Cholesterol Direct (50-130) mg/dL HDL Cholesterol (40-59) mg/dL Urine WBC (Auto) (0.0-6.0) /HPF Salicylates (2.8-20.0) mg/dL Acetaminophen (10.0-30.0) ug/mL 12/06/20 12/06/20 12/06/20 Range/Units 11:54 11:54 Unknown WBC (4.5-11.0) K/mm3 RBC (3.65-5.03) M/mm3 Hgb (11.8-15.2) gm/dl Hct (35.5-45.6) % Seg Neuts % (Manual) (40.0-70.0) % Lymphocytes % (Manual) (13.4-35.0) % Seg Neutrophils # Man (1.8-7.7) K/mm3 Lymphocytes # (Manual) (1.2-5.4) K/mm3 PT (12.2-14.9) Sec. INR (0.87-1.13) D-Dimer (0-234) ng/mlDDU Sodium (137-145) mmol/L Chloride (98-107) mmol/L Carbon Dioxide (22-30) mmol/L BUN (9-20) mg/dL Creatinine (0.8-1.3) mg/dL Glucose (75-100) mg/dL Lactic Acid (0.7-2.0) mmol/L Calcium (8.4-10.2) mg/dL Iron 11 L (49-181) ug/dL TIBC 129 L (250-450) mcg/dL Ferritin (30.0-300.0) ng/mL AST (5-40) units/L Ammonia 11.0 L (25-60) umol/L Lactate Dehydrogenase (91-180) units/L Total Creatine Kinase (55-170) units/L Troponin T (0.00-0.029) ng/mL C-Reactive Protein (0.00-1.30) mg/dL NT-Pro-B Natriuret Pep (0-900) pg/mL Total Protein (6.3-8.2) g/dL Albumin (3.9-5) g/dL Triglycerides (2-149) mg/dL LDL Cholesterol Direct (50-130) mg/dL HDL Cholesterol (40-59) mg/dL Urine WBC (Auto) 58.0 H (0.0-6.0) /HPF Salicylates (2.8-20.0) mg/dL Acetaminophen (10.0-30.0) ug/mL - Imaging and Cardiology Chest x-ray: report reviewed, image reviewed (no pneumonia seen) Assessment and Plan Cultures: 12/06/2020 blood culture: In process A/P: 70-year-old male with diabetes, hypertension, DVT, CKD was admitted to the hospital with altered mental status: #Sepsis: Possibly from UTI. Does have abdominal tenderness. Not hypoxic. #UTI: UA showed pyuria. Cultures pending. CRP is elevated. #DEX versus advanced CKD: Nephrology following. #Diarrhea: Agree with checking for C. difficile #Acute encephalopathy: ?uremia v/s infection. Recs: Continue IV cefepime, renally dosed Follow-up CT abdomen and pelvis Empiric Flagyl added Agree with checking for C. difficile Anthony Walker MD, FACP [facility] O: [phone] F: [phone]
[2020-12-06] MEDS: metroNIDAZOLE/NS 500 MG/100 ML 500 MG/100 ML BAG IV SCH ×2 (14:28→21:23)
--- NOTE | 2020-12-06 16:02 | Nuclear Medicine Report ---
NM perfusion only lung scan INDICATION / CLINICAL INFORMATION: elevated d-dimer, hx of DVT. TRACER: Technetium 99m MAA 4.8 mCi IV injection. COMPARISON: Chest x-ray earlier the same day. FINDINGS: No suspicious perfusion defect. IMPRESSION: No suspicious perfusion defect. Signer Name: Clark Alcantara MD Signed: 12/06/2020 3:57 PM Workstation Name: [id number]
--- NOTE | 2020-12-06 16:09 | Cat Scan Report ---
CT ABDOMEN AND PELVIS WITHOUT CONTRAST INDICATION / CLINICAL INFORMATION: abdominal pain. TECHNIQUE: Axial CT images were obtained through the abdomen and pelvis without IV contrast. All CT scans at this location are performed using CT dose reduction for ALARA by means of automated exposure control. COMPARISON: None available. FINDINGS: LOWER CHEST: Mild basilar interstitial disease and left basilar atelectasis. He Morton and dense tisha nary artery calcification. LIVER: No significant abnormality. GALLBLADDER: Multiple calcified gallstones. BILE DUCTS: No significant abnormality. PANCREAS: No significant abnormality. SPLEEN: No significant abnormality. ADRENALS: No significant abnormality. RIGHT KIDNEY / URETER: Chronic appearing perirenal inflammation. LEFT KIDNEY / URETER: Chronic appearing perirenal inflammation. Mild distention left renal collecting system and ureter. STOMACH / SMALL BOWEL: No significant abnormality. COLON: A few noninflamed diverticula greatest at the sigmoid colon. Possible fecal impaction. APPENDIX: No significant abnormality. PERITONEUM: No free fluid. No free air. No fluid collection. LYMPH NODES: Multiple retroperitoneal nodes. The largest is at the left periaortic region just below the left renal hilum measuring 2.3 x 1.3 cm (series 2, image 85). VASCULAR STRUCTURES: Diffuse atherosclerotic vascular calcification. Mild atherosclerotic ectasia of the aorta. URINARY BLADDER: Mild/moderate diffuse symmetric thickening. REPRODUCTIVE ORGANS: No significant abnormality. ADDITIONAL FINDINGS: None. SKELETAL SYSTEM: No significant abnormality. IMPRESSION: 1. Diffuse symmetric bladder wall thickening. Dilatation of the left renal collecting system may be o n this basis. Inflammation adjacent to the kidneys is favored to be chronic. 2. Retroperitoneal adenopathy of uncertain etiology/significance. Findings are worrisome for malignan cy. 3. Calcified gallstones. 4. Noninflamed colonic diverticulosis. 5. Possible fecal impaction. Signer Name: Clark Alcantara MD Signed: 12/06/2020 4:04 PM Workstation Name: [email or web address]
--- NOTE | 2020-12-06 16:21 | Consultation ---
History of Present Illness Consult date: 12/06/20 Requesting physician: LUIS E ACOSTA Consult reason: elevated troponin History of present illness: This patient is a 70-year-old male with a significant history of insulin- dependent diabetes, DVT anticoagulated at home on Eliquis, hypertension, CKD. Patient is previously unknown to our practice. He presents to [facility] ER with altered mental status. states patient has been deteriorating over several days complaining of weakness, abdominal pain, urine incontinence. In the ER labs are significant for severe anemia, leukocytosis, elevated troponins, elevated BUN and creatinine with a GFR of 8%. Urinalysis suggestive of UTI. Patient is a Covid PUI and PCR testing is pending. states patient does not want to start dialysis at this time. Patient is a and regularly followed at the [facility]. reports patient has cardiac history but is unsure of any details. Patient is altered mental status thus history is obtained via the chart. Past History Past Medical History: diabetes, DVT, hypertension, renal failure, other (Per HPI) Past Surgical History: Other (Device placement in his chest) Social history: full code. denies: smoking, alcohol abuse, prescription drug abuse, IV drug use Family history: other (Could not obtain because patient was altered.) Medications and Allergies Allergies Allergy/AdvReac Type Severity Reaction Status Date / Time No Known Allergies Allergy Unverified 12/06/20 12:39 Home Medications Medication Instructions Recorded Confirmed Last Taken Type Acetaminophen [Non-Aspirin Extra 1,000 mg PO TID PRN 12/06/20 12/06/20 Unknown History Strength] Apixaban [Eliquis] 5 mg PO BID 12/06/20 12/06/20 Unknown History AtorvaSTATin [Lipitor] 40 mg PO QHS 12/06/20 12/06/20 Unknown History Metoprolol [Lopressor] 12.5 mg PO QDAY 12/06/20 12/06/20 Unknown History Active Meds: Active Medications Aspirin (Aspirin 300 Mg Rect Supp) 300 mg AK QDAY KIRK Last Admin: 12/06/20 11:39 Dose: 300 mg Documented by: Dextrose (Dextrose 50% In Water (25gm) 50 Ml Syringe) 50 ml IV Q30MIN PRN; Protocol PRN Reason: Hypoglycemia Cefepime HCl (Cefepime/Ns 1 Gm/100 Ml) 1 gm in 100 mls @ 200 mls/hr IV QPM KIRK; Protocol Sodium Chloride (Nacl 0.9% 1000 Ml) 1,000 mls @ 100 mls/hr IV DIRECT KIRK Metronidazole (Flagyl 500 Mg/100 Ml) 500 mg in 100 mls @ 100 mls/hr IV Q8H KIRK; Protocol Last Admin: 12/06/20 14:28 Dose: 100 mls/hr Documented by: Review of Systems ROS unobtainable: due to mental status Physical Examination Last Vital Signs Temp 98.4 F 12/06/20 06:54 Pulse 107 H 12/06/20 14:01 Resp 16 12/06/20 14:01 BP 119/86 12/06/20 14:01 Pulse Ox 100 12/06/20 12:00 General appearance: other (Altered mental status) HEENT: Positive: Other (Altered mental status) Neck: Positive: neck supple, trachea midline Cardiac: Positive: Reg Rate and Rhythm, S1/S2 Lungs: Positive: Decreased Breath Sounds Neuro: Positive: Other (Altered mental status) Abdomen: Positive: Unremarkable Skin: Negative: Rash, Wound Extremities: Present: upper extr. pulses, lower extr. pulses. Absent: edema Results 12/06/20 07:36 12/06/20 11:54 Cardiac Enzymes 12/06/20 12/06/20 Range/Units 07:36 11:54 AST 52 H (5-40) units/L Lactate Dehydrogenase 274 H (91-180) units/L Coagulation 12/06/20 Range/Units 07:36 PT 21.3 H (12.2-14.9) Sec. INR 1.84 H (0.87-1.13) APTT 35.4 (24.2-36.6) Sec. Lipids 12/06/20 Range/Units 07:36 Triglycerides 226 H (2-149) mg/dL Cholesterol 103 (50-199) mg/dL HDL Cholesterol 14 L (40-59) mg/dL Cholesterol/HDL Ratio 7.35 % CBC 12/06/20 Range/Units 07:36 WBC 17.0 H (4.5-11.0) K/mm3 RBC 2.37 L (3.65-5.03) M/mm3 Hgb 7.3 L (11.8-15.2) gm/dl Hct 21.6 L (35.5-45.6) % Plt Count 156 (140-440) K/mm3 Comprehensive Metabolic Panel 12/06/20 12/06/20 Range/Units 07:36 11:54 Sodium 131 L (137-145) mmol/L Potassium 4.9 (3.6-5.0) mmol/L Chloride 97.5 L (98-107) mmol/L Carbon Dioxide 15 L (22-30) mmol/L BUN 79 H (9-20) mg/dL Creatinine 7.2 H (0.8-1.3) mg/dL Glucose 147 H 147 H (75-100) mg/dL Calcium 8.0 L (8.4-10.2) mg/dL AST 52 H (5-40) units/L ALT 14 (7-56) units/L Alkaline Phosphatase 80 (35-129) units/L Total Protein 8.6 H (6.3-8.2) g/dL Albumin 2.8 L (3.9-5) g/dL - Imaging and Cardiology Echo: pending EKG: report reviewed, image reviewed EKG interpretations - Telemetry EKG Rhythm: Sinus Rhythm - EKG Sinus rhythms and dysrhythmias: sinus rhythm Assessment and Plan Altered mental status secondary to suspected sepsis UTI Currently on IV antibiotics. Management per primary team NSTEMI 12-lead reviewed no ST segment elevation. Troponins are elevated x1. Continue to trend CE's. Echocardiogram pending resolution of Covid 19 status. Hypertension Patient has history of hypertension. Currently he is normotensive. Home medications are unknown. Continue supportive measures. acute on chronic renal disease Patient's baseline renal function is unknown. No ALEX inhibitor in setting of DEX. Avoid nephrotoxic agents. Nephrology is following. Repeat BMP in a.m. DVT prophylaxis Patient anticoagulated on Eliquis We will follow. This patient was seen in conjunction with Dr Hernandes who agrees with this assess ment and plan of care. - Patient Problems (1) Altered mental status Current Visit: Yes Status: Acute (2) NSTEMI (non-ST elevated myocardial infarction) Current Visit: Yes Status: Acute (3) Person under investigation for COVID-19 Current Visit: Yes Status: Acute (4) Sepsis Current Visit: Yes Status: Acute (5) Anemia Current Visit: Yes Status: Acute (6) Metabolic acidosis Current Visit: Yes Status: Acute (7) Acute kidney injury Current Visit: Yes Status: Acute (8) UTI (urinary tract infection) Current Visit: Yes Status: Acute (9) Insulin dependent diabetes mellitus Current Visit: Yes Status: Chronic (10) History of DVT (deep vein thrombosis) Current Visit: Yes Status: Chronic (11) Chronic anticoagulation Current Visit: Yes Status: Acute (12) Hypertension Current Visit: Yes Status: Chronic (13) CKD (chronic kidney disease) Current Visit: Yes Status: Chronic
--- NOTE | 2020-12-06 17:29 | Vascular Lab Report ---
DUPLEX DOPPLER LOWER EXTREMITY VEINS, BILATERAL INDICATION / CLINICAL INFORMATION: hx of DVT, elevated d-dimer. TECHNIQUE: Duplex doppler imaging was performed through the veins of both lower extremities using venous mathew kierra and other maneuvers. COMPARISON: None available. FINDINGS: RIGHT COMMON FEMORAL VEIN: Negative. RIGHT FEMORAL VEIN: Negative. RIGHT POPLITEAL VEIN: Negative. RIGHT CALF VEINS: Negative. LEFT COMMON FEMORAL VEIN: Negative. LEFT FEMORAL VEIN: Negative. LEFT POPLITEAL VEIN: Negative. LEFT CALF VEINS: Negative. ADDITIONAL FINDINGS: None. IMPRESSION: 1. No sonographic evidence for DVT in either lower extremity. Signer Name: Irvin Espinal MD Signed: 12/06/2020 5:24 PM Workstation Name: [id number]
--- NOTE | 2020-12-06 17:32 | Gastroenterology Consultation ---
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 He is a poor historian. He also has dark stools on Eliquis but no gross hematemesis or hematochezia. 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 He denies a hx of PUD. He denies NSAID use OTC. The patient denies any abdominal pain, but feels swollen; he has a poor appetite with nausea, but no gross vomiting. Past History Past Medical History: diabetes, DVT, hypertension, renal failure, other (Per HPI) Past Surgical History: Other (Device placement in his chest) Social history: full code. denies: smoking, alcohol abuse, prescription drug abuse, IV drug use Family history: other (Could not obtain because patient was altered.) Medications and Allergies Allergies Allergy/AdvReac Type Severity Reaction Status Date / Time No Known Allergies Allergy Unverified 12/06/20 12:39 Home Medications Medication Instructions Recorded Confirmed Last Taken Type Acetaminophen [Non-Aspirin Extra 1,000 mg PO TID PRN 12/06/20 12/06/20 Unknown History Strength] Apixaban [Eliquis] 5 mg PO BID 12/06/20 12/06/20 Unknown History AtorvaSTATin [Lipitor] 40 mg PO QHS 12/06/20 12/06/20 Unknown History Metoprolol [Lopressor] 12.5 mg PO QDAY 12/06/20 12/06/20 Unknown History Active Meds: Active Medications Aspirin (Aspirin 300 Mg Rect Supp) 300 mg FL QDAY KIRK Last Admin: 12/06/20 11:39 Dose: 300 mg Documented by: Dextrose (Dextrose 50% In Water (25gm) 50 Ml Syringe) 50 ml IV Q30MIN PRN; Protocol PRN Reason: Hypoglycemia Cefepime HCl (Cefepime/Ns 1 Gm/100 Ml) 1 gm in 100 mls @ 200 mls/hr IV QPM KIRK; Protocol Sodium Chloride (Nacl 0.9% 1000 Ml) 1,000 mls @ 100 mls/hr IV DIRECT KIRK Metronidazole (Flagyl 500 Mg/100 Ml) 500 mg in 100 mls @ 100 mls/hr IV Q8H [facility]; Protocol Last Admin: 12/06/20 14:28 Dose: 100 mls/hr Documented by: I HAVE REVIEWED/RECONCILED MEDS Review of Systems - Review of Systems All systems: negative (as noted in the HPI) Exam - Constitutional Vital Signs: Temp Pulse Resp BP Pulse Ox 98.4 F 107 H 16 119/86 100 12/06/20 06:54 12/06/20 14:01 12/06/20 14:01 12/06/20 14:01 12/06/20 12:00 General appearance: no acute distress - EENT Eyes: PERRL, EOM intact ENT: hearing intact, clear oral mucosa - Neck Neck: supple, normal ROM - Respiratory Respiratory effort: normal Respiratory: bilateral: CTA - Cardiovascular Rhythm: regular Heart Sounds: Present: S1 & S2 Extremities: no ischemia, No edema - Gastrointestinal General gastrointestinal: Present: soft, non-tender, non-distended - Integumentary Integumentary: Present: clear, warm, dry - Neurologic Neurological: alert and oriented x3 - Labs CBC & Chem 7: 12/06/20 18:19 12/06/20 11:54 Lab Results: Laboratory Results - last 24 hr 12/06/20 12/06/20 12/06/20 07:36 07:36 07:36 WBC 17.0 H RBC 2.37 L Hgb 7.3 L Hct 21.6 L MCV 91 MCH 31 MCHC 34 RDW 14.8 Plt Count 156 Add Manual Diff Complete Total Counted 100 Seg Neuts % (Manual) 96.0 H Lymphocytes % (Manual) 2.0 L Monocytes % (Manual) 2.0 Nucleated RBC % Not Reportable Seg Neutrophils # Man 16.3 H Band Neutrophils # 0.0 Lymphocytes # (Manual) 0.3 L Abs React Lymphs (Man) 0.0 Monocytes # (Manual) 0.3 Eosinophils # (Manual) 0.0 Basophils # (Manual) 0.0 Metamyelocytes # 0.0 Myelocytes # 0.0 Promyelocytes # 0.0 Blast Cells # 0.0 WBC Morphology Not Reportable Hypersegmented Neuts Not Reportable Hyposegmented Neuts Not Reportable Hypogranular Neuts Not Reportable Smudge Cells Not Reportable Toxic Granulation Not Reportable Toxic Vacuolation Not Reportable Dohle Bodies Not Reportable Pelger-Huet Anomaly Not Reportable Brianda Rods Not Reportable Platelet Estimate Consistent w auto Clumped Platelets Not Reportable Plt Clumps, EDTA Not Reportable Large Platelets Not Reportable Giant Platelets Not Reportable Platelet Satelliting Not Reportable Plt Morphology Comment Not Reportable RBC Morphology Not Reportable Dimorphic RBCs Not Reportable Polychromasia Not Reportable Hypochromasia Not Reportable Poikilocytosis Not Reportable Anisocytosis Not Reportable Microcytosis Not Reportable Macrocytosis Not Reportable Spherocytes Not Reportable Pappenheimer Bodies Not Reportable Sickle Cells Not Reportable Target Cells Not Reportable Tear Drop Cells Not Reportable Ovalocytes Not Reportable Helmet Cells Not Reportable Rangel-Barnard Bodies Not Reportable [place] Rings Not Reportable Dung Cells Not Reportable Bite Cells Not Reportable Crenated Cell Not Reportable Elliptocytes Not Reportable Acanthocytes (Spur) Not Reportable Rouleaux Not Reportable Hemoglobin C Crystals Not Reportable Schistocytes Rare Malaria parasites Not Reportable [place] Bodies Not Reportable Hem Pathologist Commnt No PT 21.3 H INR 1.84 H APTT 35.4 D-Dimer Sodium 131 L Potassium 4.9 Chloride 97.5 L Carbon Dioxide 15 L Anion Gap 23 BUN 79 H Creatinine 7.2 H Estimated GFR 8 BUN/Creatinine Ratio 11 Glucose 147 H Lactic Acid Calcium 8.0 L Iron TIBC Ferritin Total Bilirubin 0.70 AST 52 H ALT 14 Alkaline Phosphatase 80 Ammonia Lactate Dehydrogenase Total Creatine Kinase Troponin T 3.350 H* C-Reactive Protein NT-Pro-B Natriuret Pep Total Protein 8.6 H Albumin 2.8 L Albumin/Globulin Ratio 0.5 Triglycerides 226 H Cholesterol 103 LDL Cholesterol Direct 13 L HDL Cholesterol 14 L Cholesterol/HDL Ratio 7.35 Vitamin B12 Procalcitonin TSH Urine Color Urine Turbidity Urine pH Ur Specific [place] Urine Protein Urine Glucose (UA) Urine Ketones Urine Blood Urine Nitrite Urine Bilirubin Urine Urobilinogen Ur Leukocyte Esterase Urine WBC (Auto) Urine RBC (Auto) U Epithel Cells (Auto) Urine Bacteria (Auto) Urine WBC Clumps Urine Mucus Salicylates Urine Opiates Screen Urine Methadone Screen Acetaminophen Ur Barbiturates Screen Ur Phencyclidine Scrn Ur Amphetamines Screen U Benzodiazepines Scrn Urine Cocaine Screen U Marijuana (THC) Screen Drugs of Abuse Note Plasma/Serum Alcohol Hep Bs Antigen Blood Type Antibody Screen 05/11/2312/06/20 12/06/20 07:36 07:36 07:36 WBC RBC Hgb Hct MCV MCH MCHC RDW Plt Count Add Manual Diff Total Counted Seg Neuts % (Manual) Lymphocytes % (Manual) Monocytes % (Manual) Nucleated RBC % Seg Neutrophils # Man Band Neutrophils # Lymphocytes # (Manual) Abs React Lymphs (Man) Monocytes # (Manual) Eosinophils # (Manual) Basophils # (Manual) Metamyelocytes # Myelocytes # Promyelocytes # Blast Cells # WBC Morphology Hypersegmented Neuts Hyposegmented Neuts Hypogranular Neuts Smudge Cells Toxic Granulation Toxic Vacuolation Dohle Bodies Pelger-Huet Anomaly Brianda Rods Platelet Estimate Clumped Platelets Plt Clumps, EDTA Large Platelets Giant Platelets Platelet Satelliting Plt Morphology Comment RBC Morphology Dimorphic RBCs Polychromasia Hypochromasia Poikilocytosis Anisocytosis Microcytosis Macrocytosis Spherocytes Pappenheimer Bodies Sickle Cells Target Cells Tear Drop Cells Ovalocytes Helmet Cells Rangel-Barnard Bodies [place] Cells Bite Cells Crenated Cell Elliptocytes Acanthocytes (Spur) Rouleaux Hemoglobin C Crystals Schistocytes Malaria parasites [place] Bodies Hem Pathologist Commnt PT INR APTT D-Dimer Sodium Potassium Chloride Carbon Dioxide Anion Gap BUN Creatinine Estimated GFR BUN/Creatinine Ratio Glucose Lactic Acid 2.30 H* Calcium Iron TIBC Ferritin Total Bilirubin AST ALT Alkaline Phosphatase Ammonia Lactate Dehydrogenase Total Creatine Kinase Troponin T C-Reactive Protein NT-Pro-B Natriuret Pep Total Protein Albumin Albumin/Globulin Ratio Triglycerides Cholesterol LDL Cholesterol Direct HDL Cholesterol Cholesterol/HDL Ratio Vitamin B12 Procalcitonin TSH Urine Color Urine Turbidity Urine pH Ur Specific [place] Urine Protein Urine Glucose (UA) Urine Ketones Urine Blood Urine Nitrite Urine Bilirubin Urine Urobilinogen Ur Leukocyte Esterase Urine WBC (Auto) Urine RBC (Auto) U Epithel Cells (Auto) Urine Bacteria (Auto) Urine WBC Clumps Urine Mucus Salicylates 0.3 L Urine Opiates Screen Urine Methadone Screen Acetaminophen 5.0 L Ur Barbiturates Screen Ur Phencyclidine Scrn Ur Amphetamines Screen U Benzodiazepines Scrn Urine Cocaine Screen U Marijuana (THC) Screen Drugs of Abuse Note Plasma/Serum Alcohol Hep Bs Antigen Blood Type Antibody Screen 12/06/20 12/06/20 12/06/20 07:36 07:36 07:36 WBC RBC Hgb Hct MCV MCH MCHC RDW Plt Count Add Manual Diff Total Counted Seg Neuts % (Manual) Lymphocytes % (Manual) Monocytes % (Manual) Nucleated RBC % Seg Neutrophils # Man Band Neutrophils # Lymphocytes # (Manual) Abs React Lymphs (Man) Monocytes # (Manual) Eosinophils # (Manual) Basophils # (Manual) Metamyelocytes # Myelocytes # Promyelocytes # Blast Cells # WBC Morphology Hypersegmented Neuts Hyposegmented Neuts Hypogranular Neuts Smudge Cells Toxic Granulation Toxic Vacuolation Dohle Bodies Pelger-Huet Anomaly Brianda Rods Platelet Estimate Clumped Platelets Plt Clumps, EDTA Large Platelets Giant Platelets Platelet Satelliting Plt Morphology Comment RBC Morphology Dimorphic RBCs Polychromasia Hypochromasia Poikilocytosis Anisocytosis Microcytosis Macrocytosis Spherocytes Pappenheimer Bodies Sickle Cells Target Cells Tear Drop Cells Ovalocytes Helmet Cells Rangel-Barnard Bodies [place] Rings Dung Cells Bite Cells Crenated Cell Elliptocytes Acanthocytes (Spur) Rouleaux Hemoglobin C Crystals Schistocytes Malaria parasites [place] Bodies Hem Pathologist Commnt PT INR APTT D-Dimer Sodium Potassium Chloride Carbon Dioxide Anion Gap BUN Creatinine Estimated GFR BUN/Creatinine Ratio Glucose Lactic Acid Calcium Iron TIBC Ferritin Total Bilirubin AST ALT Alkaline Phosphatase Ammonia 14.0 L Lactate Dehydrogenase Total Creatine Kinase 573 H Troponin T C-Reactive Protein NT-Pro-B Natriuret Pep Total Protein Albumin Albumin/Globulin Ratio Triglycerides Cholesterol LDL Cholesterol Direct HDL Cholesterol Cholesterol/HDL Ratio Vitamin B12 Procalcitonin TSH Urine Color Urine Turbidity Urine pH Ur Specific [place] Urine Protein Urine Glucose (UA) Urine Ketones Urine Blood Urine Nitrite Urine Bilirubin Urine Urobilinogen Ur Leukocyte Esterase Urine WBC (Auto) Urine RBC (Auto) U Epithel Cells (Auto) Urine Bacteria (Auto) Urine WBC Clumps Urine Mucus Salicylates Urine Opiates Screen Urine Methadone Screen Acetaminophen Ur Barbiturates Screen Ur Phencyclidine Scrn Ur Amphetamines Screen U Benzodiazepines Scrn Urine Cocaine Screen U Marijuana (THC) Screen Drugs of Abuse Note Plasma/Serum Alcohol < 0.01 Hep Bs Antigen Blood Type Antibody Screen 12/06/20 12/06/20 12/06/20 07:36 07:36 07:36 WBC RBC Hgb Hct MCV MCH MCHC RDW Plt Count Add Manual Diff Total Counted Seg Neuts % (Manual) Lymphocytes % (Manual) Monocytes % (Manual) Nucleated RBC % Seg Neutrophils # Man Band Neutrophils # Lymphocytes # (Manual) Abs React Lymphs (Man) Monocytes # (Manual) Eosinophils # (Manual) Basophils # (Manual) Metamyelocytes # Myelocytes # Promyelocytes # Blast Cells # WBC Morphology Hypersegmented Neuts Hyposegmented Neuts Hypogranular Neuts Smudge Cells Toxic Granulation Toxic Vacuolation Dohle Bodies Pelger-Huet Anomaly Brianda Rods Platelet Estimate Clumped Platelets Plt Clumps, EDTA Large Platelets Giant Platelets Platelet Satelliting Plt Morphology Comment RBC Morphology Dimorphic RBCs Polychromasia Hypochromasia Poikilocytosis Anisocytosis Microcytosis Macrocytosis Spherocytes Pappenheimer Bodies Sickle Cells Target Cells Tear Drop Cells Ovalocytes Helmet Cells Rangel-Barnard Bodies [place] Cells Bite Cells Crenated Cell Elliptocytes Acanthocytes (Spur) Rouleaux Hemoglobin C Crystals Schistocytes Malaria parasites [place] Bodies Hem Pathologist Commnt PT INR APTT D-Dimer Sodium Potassium Chloride Carbon Dioxide Anion Gap BUN Creatinine Estimated GFR BUN/Creatinine Ratio Glucose Lactic Acid Calcium Iron TIBC Ferritin Total Bilirubin AST ALT Alkaline Phosphatase Ammonia Lactate Dehydrogenase Total Creatine Kinase Troponin T C-Reactive Protein NT-Pro-B Natriuret Pep 46656 H Total Protein Albumin Albumin/Globulin Ratio Triglycerides Cholesterol LDL Cholesterol Direct HDL Cholesterol Cholesterol/HDL Ratio Vitamin B12 Procalcitonin TSH 2.020 Urine Color Urine Turbidity Urine pH Ur Specific [place] Urine Protein Urine Glucose (UA) Urine Ketones Urine Blood Urine Nitrite Urine Bilirubin Urine Urobilinogen Ur Leukocyte Esterase Urine WBC (Auto) Urine RBC (Auto) U Epithel Cells (Auto) Urine Bacteria (Auto) Urine WBC Clumps Urine Mucus Salicylates Urine Opiates Screen Urine Methadone Screen Acetaminophen Ur Barbiturates Screen Ur Phencyclidine Scrn Ur Amphetamines Screen U Benzodiazepines Scrn Urine Cocaine Screen U Marijuana (THC) Screen Drugs of Abuse Note Plasma/Serum Alcohol Hep Bs Antigen Blood Type A POSITIVE Antibody Screen Negative 12/06/20 12/06/20 12/06/20 10:26 10:26 11:54 WBC RBC Hgb Hct MCV MCH MCHC RDW Plt Count Add Manual Diff Total Counted Seg Neuts % (Manual) Lymphocytes % (Manual) Monocytes % (Manual) Nucleated RBC % Seg Neutrophils # Man Band Neutrophils # Lymphocytes # (Manual) Abs React Lymphs (Man) Monocytes # (Manual) Eosinophils # (Manual) Basophils # (Manual) Metamyelocytes # Myelocytes # Promyelocytes # Blast Cells # WBC Morphology Hypersegmented Neuts Hyposegmented Neuts Hypogranular Neuts Smudge Cells Toxic Granulation Toxic Vacuolation Dohle Bodies Pelger-Huet Anomaly Brianda Rods Platelet Estimate Clumped Platelets Plt Clumps, EDTA Large Platelets Giant Platelets Platelet Satelliting Plt Morphology Comment RBC Morphology Dimorphic RBCs Polychromasia Hypochromasia Poikilocytosis Anisocytosis Microcytosis Macrocytosis Spherocytes Pappenheimer Bodies Sickle Cells Target Cells Tear Drop Cells Ovalocytes Helmet Cells Rangel-Barnard Bodies [place] Rings Dung Cells Bite Cells Crenated Cell Elliptocytes Acanthocytes (Spur) Rouleaux Hemoglobin C Crystals Schistocytes Malaria parasites [place] Bodies Hem Pathologist Commnt PT INR APTT D-Dimer Sodium Potassium Chloride Carbon Dioxide Anion Gap BUN Creatinine Estimated GFR BUN/Creatinine Ratio Glucose Lactic Acid 1.80 Calcium Iron TIBC Ferritin Total Bilirubin AST ALT Alkaline Phosphatase Ammonia Lactate Dehydrogenase Total Creatine Kinase Troponin T 3.100 H* C-Reactive Protein NT-Pro-B Natriuret Pep Total Protein Albumin Albumin/Globulin Ratio Triglycerides Cholesterol LDL Cholesterol Direct HDL Cholesterol Cholesterol/HDL Ratio Vitamin B12 Procalcitonin > 200.00 TSH Urine Color Urine Turbidity Urine pH Ur Specific [place] Urine Protein Urine Glucose (UA) Urine Ketones Urine Blood Urine Nitrite Urine Bilirubin Urine Urobilinogen Ur Leukocyte Esterase Urine WBC (Auto) Urine RBC (Auto) U Epithel Cells (Auto) Urine Bacteria (Auto) Urine WBC Clumps Urine Mucus Salicylates Urine Opiates Screen Urine Methadone Screen Acetaminophen Ur Barbiturates Screen Ur Phencyclidine Scrn Ur Amphetamines Screen U Benzodiazepines Scrn Urine Cocaine Screen U Marijuana (THC) Screen Drugs of Abuse Note Plasma/Serum Alcohol Hep Bs Antigen Blood Type Antibody Screen 12/06/20 12/06/20 12/06/20 11:54 11:54 11:54 WBC RBC Hgb Hct MCV MCH MCHC RDW Plt Count Add Manual Diff Total Counted Seg Neuts % (Manual) Lymphocytes % (Manual) Monocytes % (Manual) Nucleated RBC % Seg Neutrophils # Man Band Neutrophils # Lymphocytes # (Manual) Abs React Lymphs (Man) Monocytes # (Manual) Eosinophils # (Manual) Basophils # (Manual) Metamyelocytes # Myelocytes # Promyelocytes # Blast Cells # WBC Morphology Hypersegmented Neuts Hyposegmented Neuts Hypogranular Neuts Smudge Cells Toxic Granulation Toxic Vacuolation Dohle Bodies Pelger-Huet Anomaly Brianda Rods Platelet Estimate Clumped Platelets Plt Clumps, EDTA Large Platelets Giant Platelets Platelet Satelliting Plt Morphology Comment RBC Morphology Dimorphic RBCs Polychromasia Hypochromasia Poikilocytosis Anisocytosis Microcytosis Macrocytosis Spherocytes Pappenheimer Bodies Sickle Cells Target Cells Tear Drop Cells Ovalocytes Helmet Cells Rangel-Barnard Bodies [place] Rings [place] Cells Bite Cells Crenated Cell Elliptocytes Acanthocytes (Spur) Rouleaux Hemoglobin C Crystals Schistocytes Malaria parasites [place] Bodies Hem Pathologist Commnt PT INR APTT D-Dimer 3967.83 H Sodium Potassium Chloride Carbon Dioxide Anion Gap BUN Creatinine Estimated GFR BUN/Creatinine Ratio Glucose 147 H Lactic Acid Calcium Iron TIBC Ferritin 722.5 H Total Bilirubin AST ALT Alkaline Phosphatase Ammonia Lactate Dehydrogenase 274 H Total Creatine Kinase Troponin T C-Reactive Protein 28.50 H NT-Pro-B Natriuret Pep Total Protein Albumin Albumin/Globulin Ratio Triglycerides Cholesterol LDL Cholesterol Direct HDL Cholesterol Cholesterol/HDL Ratio Vitamin B12 Procalcitonin TSH Urine Color Urine Turbidity Urine pH Ur Specific [place] Urine Protein Urine Glucose (UA) Urine Ketones Urine Blood Urine Nitrite Urine Bilirubin Urine Urobilinogen Ur Leukocyte Esterase Urine WBC (Auto) Urine RBC (Auto) U Epithel Cells (Auto) Urine Bacteria (Auto) Urine WBC Clumps Urine Mucus Salicylates Urine Opiates Screen Urine Methadone Screen Acetaminophen Ur Barbiturates Screen Ur Phencyclidine Scrn Ur Amphetamines Screen U Benzodiazepines Scrn Urine Cocaine Screen U Marijuana (THC) Screen Drugs of Abuse Note Plasma/Serum Alcohol Hep Bs Antigen Blood Type Antibody Screen 12/06/20 12/06/20 12/06/20 11:54 11:54 11:54 WBC RBC Hgb Hct MCV MCH MCHC RDW Plt Count Add Manual Diff Total Counted Seg Neuts % (Manual) Lymphocytes % (Manual) Monocytes % (Manual) Nucleated RBC % Seg Neutrophils # Man Band Neutrophils # Lymphocytes # (Manual) Abs React Lymphs (Man) Monocytes # (Manual) Eosinophils # (Manual) Basophils # (Manual) Metamyelocytes # Myelocytes # Promyelocytes # Blast Cells # WBC Morphology Hypersegmented Neuts Hyposegmented Neuts Hypogranular Neuts Smudge Cells Toxic Granulation Toxic Vacuolation Dohle Bodies Pelger-Huet Anomaly Brianda Rods Platelet Estimate Clumped Platelets Plt Clumps, EDTA Large Platelets Giant Platelets Platelet Satelliting Plt Morphology Comment RBC Morphology Dimorphic RBCs Polychromasia Hypochromasia Poikilocytosis Anisocytosis Microcytosis Macrocytosis Spherocytes Pappenheimer Bodies Sickle Cells Target Cells Tear Drop Cells Ovalocytes Helmet Cells Rangel-Barnard Bodies [place] Rings [place] Cells Bite Cells Crenated Cell Elliptocytes Acanthocytes (Spur) Rouleaux Hemoglobin C Crystals Schistocytes Malaria parasites [place] Bodies Hem Pathologist Commnt PT INR APTT D-Dimer Sodium Potassium Chloride Carbon Dioxide Anion Gap BUN Creatinine Estimated GFR BUN/Creatinine Ratio Glucose Lactic Acid Calcium Iron 11 L TIBC 129 L Ferritin Total Bilirubin AST ALT Alkaline Phosphatase Ammonia 11.0 L Lactate Dehydrogenase Total Creatine Kinase Troponin T C-Reactive Protein NT-Pro-B Natriuret Pep Total Protein Albumin Albumin/Globulin Ratio Triglycerides Cholesterol LDL Cholesterol Direct HDL Cholesterol Cholesterol/HDL Ratio Vitamin B12 605.9 Procalcitonin TSH Urine Color Urine Turbidity Urine pH Ur Specific [place] Urine Protein Urine Glucose (UA) Urine Ketones Urine Blood Urine Nitrite Urine Bilirubin Urine Urobilinogen Ur Leukocyte Esterase Urine WBC (Auto) Urine RBC (Auto) U Epithel Cells (Auto) Urine Bacteria (Auto) Urine WBC Clumps Urine Mucus Salicylates Urine Opiates Screen Urine Methadone Screen Acetaminophen Ur Barbiturates Screen Ur Phencyclidine Scrn Ur Amphetamines Screen U Benzodiazepines Scrn Urine Cocaine Screen U Marijuana (THC) Screen Drugs of Abuse Note Plasma/Serum Alcohol Hep Bs Antigen Blood Type Antibody Screen 12/06/20 12/06/20 12/06/20 13:24 13:24 Unknown WBC RBC Hgb Hct MCV MCH MCHC RDW Plt Count Add Manual Diff Total Counted Seg Neuts % (Manual) Lymphocytes % (Manual) Monocytes % (Manual) Nucleated RBC % Seg Neutrophils # Man Band Neutrophils # Lymphocytes # (Manual) Abs React Lymphs (Man) Monocytes # (Manual) Eosinophils # (Manual) Basophils # (Manual) Metamyelocytes # Myelocytes # Promyelocytes # Blast Cells # WBC Morphology Hypersegmented Neuts Hyposegmented Neuts Hypogranular Neuts Smudge Cells Toxic Granulation Toxic Vacuolation Dohle Bodies Pelger-Huet Anomaly Brianda Rods Platelet Estimate Clumped Platelets Plt Clumps, EDTA Large Platelets Giant Platelets Platelet Satelliting Plt Morphology Comment RBC Morphology Dimorphic RBCs Polychromasia Hypochromasia Poikilocytosis Anisocytosis Microcytosis Macrocytosis Spherocytes Pappenheimer Bodies Sickle Cells Target Cells Tear Drop Cells Ovalocytes Helmet Cells Rangel-Barnard Bodies [place] Rings Dung Cells Bite Cells Crenated Cell Elliptocytes Acanthocytes (Spur) Rouleaux Hemoglobin C Crystals Schistocytes Malaria parasites [place] Bodies Hem Pathologist Commnt PT INR APTT D-Dimer Sodium Potassium Chloride Carbon Dioxide Anion Gap BUN Creatinine Estimated GFR BUN/Creatinine Ratio Glucose Lactic Acid Calcium Iron TIBC Ferritin Total Bilirubin AST ALT Alkaline Phosphatase Ammonia Lactate Dehydrogenase Total Creatine Kinase 872 H Troponin T C-Reactive Protein NT-Pro-B Natriuret Pep Total Protein Albumin Albumin/Globulin Ratio Triglycerides Cholesterol LDL Cholesterol Direct HDL Cholesterol Cholesterol/HDL Ratio Vitamin B12 Procalcitonin TSH Urine Color Hina Urine Turbidity Cloudy Urine pH 5.0 Ur Specific [place] 1.014 Urine Protein >500 Urine Glucose (UA) Neg Urine Ketones Neg Urine Blood Mod Urine Nitrite Neg Urine Bilirubin Neg Urine Urobilinogen < 2.0 Ur Leukocyte Esterase Lg Urine WBC (Auto) 58.0 H Urine RBC (Auto) 9.0 U Epithel Cells (Auto) < 1.0 Urine Bacteria (Auto) 4+ Urine WBC Clumps 2+ Urine Mucus Few Salicylates Urine Opiates Screen Urine Methadone Screen Acetaminophen Ur Barbiturates Screen Ur Phencyclidine Scrn Ur Amphetamines Screen U Benzodiazepines Scrn Urine Cocaine Screen U Marijuana (THC) Screen Drugs of Abuse Note Plasma/Serum Alcohol Hep Bs Antigen Non-reactive Blood Type Antibody Screen 12/06/20 Unknown WBC RBC Hgb Hct MCV MCH MCHC RDW Plt Count Add Manual Diff Total Counted Seg Neuts % (Manual) Lymphocytes % (Manual) Monocytes % (Manual) Nucleated RBC % Seg Neutrophils # Man Band Neutrophils # Lymphocytes # (Manual) Abs React Lymphs (Man) Monocytes # (Manual) Eosinophils # (Manual) Basophils # (Manual) Metamyelocytes # Myelocytes # Promyelocytes # Blast Cells # WBC Morphology Hypersegmented Neuts Hyposegmented Neuts Hypogranular Neuts Smudge Cells Toxic Granulation Toxic Vacuolation Dohle Bodies Pelger-Huet Anomaly Brianda Rods Platelet Estimate Clumped Platelets Plt Clumps, EDTA Large Platelets Giant Platelets Platelet Satelliting Plt Morphology Comment RBC Morphology Dimorphic RBCs Polychromasia Hypochromasia Poikilocytosis Anisocytosis Microcytosis Macrocytosis Spherocytes Pappenheimer Bodies Sickle Cells Target Cells Tear Drop Cells Ovalocytes Helmet Cells Rangel-Barnard Bodies [place] Rings Dung Cells Bite Cells Crenated Cell Elliptocytes Acanthocytes (Spur) Rouleaux Hemoglobin C Crystals Schistocytes Malaria parasites [place] Bodies Hem Pathologist Commnt PT INR APTT D-Dimer Sodium Potassium Chloride Carbon Dioxide Anion Gap BUN Creatinine Estimated GFR BUN/Creatinine Ratio Glucose Lactic Acid Calcium Iron TIBC Ferritin Total Bilirubin AST ALT Alkaline Phosphatase Ammonia Lactate Dehydrogenase Total Creatine Kinase Troponin T C-Reactive Protein NT-Pro-B Natriuret Pep Total Protein Albumin Albumin/Globulin Ratio Triglycerides Cholesterol LDL Cholesterol Direct HDL Cholesterol Cholesterol/HDL Ratio Vitamin B12 Procalcitonin TSH Urine Color Urine Turbidity Urine pH Ur Specific [place] Urine Protein Urine Glucose (UA) Urine Ketones Urine Blood Urine Nitrite Urine Bilirubin Urine Urobilinogen Ur Leukocyte Esterase Urine WBC (Auto) Urine RBC (Auto) U Epithel Cells (Auto) Urine Bacteria (Auto) Urine WBC Clumps Urine Mucus Salicylates Urine Opiates Screen Presumptive negative Urine Methadone Screen Presumptive negative Acetaminophen Ur Barbiturates Screen Presumptive negative Ur Phencyclidine Scrn Presumptive negative Ur Amphetamines Screen Presumptive negative U Benzodiazepines Scrn Presumptive negative Urine Cocaine Screen Presumptive negative U Marijuana (THC) Screen Presumptive negative Drugs of Abuse Note Disclamer Plasma/Serum Alcohol Hep Bs Antigen Blood Type Antibody Screen Assessment and Plan - Patient Problems (1) Symptomatic anemia Current Visit: Yes Status: Acute Plan to address problem: - Unclear what his hct baseline is, but on likely low given ESRD. - The patient and decline HD therapy, and may be a candidate for hospice at this point. - Will stop his eliquis, and start protonix therapy. - Appropriate rise in hct with transfusion, and will monitor conservatively given his tenuous electrolyte status.
[2020-12-06] MEDS: SODIUM CHLORIDE 0.9% 1000 ML 1,000 ML IV SCH (17:41)
[2020-12-06] MEDS: PANTOPRAZOLE 40 MG INJ IV SCH (17:41)
[2020-12-06 19:02] LABS: Hematocrit 26.2 % (35.5-45.6); Hemoglobin 8.6 gm/dl (11.8-15.2)
[2020-12-06 23:44] LABS: Bacteria,Urine 1+ /HPF (Negative); Bilirubin,Urine NEG (Negative); Blood,Urine LG (Negative); Color,Urine Yellow (Yellow); Creatinine,Urine 147.7 mg/dL (0.1-20.0); Urobilinogen,Urine < 2.0 mg/dL (<2.0)
[2020-12-07 00:02] LABS: WBC,Urine > 182.0 /HPF (0.0-6.0)
[2020-12-07] MEDS: metroNIDAZOLE/NS 500 MG/100 ML 500 MG/100 ML BAG IV SCH ×3 (05:09→22:24)
--- NOTE | 2020-12-07 08:36 | Progress Note ---
Assessment and Plan Assessment and plan: Altered mental Status, metabolic encephalopathy -CT head was negative -No grossly focal neurologic deficit -We will treat underlying condition Acute on chronic renal failure -Patient has CKD, and currently GFR is 8 -Patient was diagnosed with CKD before and was suggested for dialysis but patient declined. -I discussed with his over the phone and she does not want dialysis. -Nephrology consulted. NSTEMI -Troponin was more than 3 -EKG normal sinus rhythm, no ST elevation, cardiology consulted Severe sepsis, PUI -Likely due to UTI -Patient is on cefepime -We will get urine and blood culture -Covid test is pending Acute gastroenteritis -Symptomatic management -Continue antibiotics -C. difficile ordered Anemia -Hemoglobin this morning was 7.3 -Anemia work-up was ordered, and consulted GI Diabetes mellitus -Sliding scale insulin, Accu-Chek, ADA diet and adjust insulin as needed History of DVT, on Eliquis -I will hold Eliquis for now due to anemia -Ordered D-dimer Hypertension -Blood pressure is on the low side of normal and I will hold blood pressure medication for now DVT prophylaxis; SCDs for now because of severe anemia CODE STATUS; full Disposition; to medical floor Management plan was discussed with the daughter and was in agreement with the plan of care. 12/07/2020 -Patient still altered -Morning labs pending -Was seen by ID and recommended cefepime for now -Was seen by nephrology, his declined dialysis. She also told me he declined dialysis as an outpatient -H&H improved. GI said the likely cause of anemia is renal failure. Recommend to put him on PPI and hold Eliquis -VQ scan and Doppler ultrasound of the lower extremities was done and negative -Uremic encephalopathy; not improved -Non-STEMI; management as per cardiology History Interval history: Patient was seen and evaluated this morning Patient was still confused and could not answer any questions Hospitalist Physical - Physical exam Narrative exam: Not in cardiopulmonary distress. The patient appeared well nourished and normally developed. Vital signs as documented. Head exam is unremarkable. No scleral icterus . Neck is without jugular venous distension, thyromegaly, or carotid bruits. Lungs are clear to auscultation. Cardiac exam reveals regular rate and Rhythm. Abdominal exam reveals normal bowel sounds, nontender, no organomegaly. Extremities are nonedematous and both femoral and pedal pulses are normal. FILTER WASHER: Patient is confused, altered. - Constitutional Vitals: Temp Pulse Resp BP Pulse Ox 98.2 F 96 H 20 108/74 97 12/07/20 04:38 12/07/20 04:38 12/07/20 04:38 12/07/20 04:38 12/07/20 04:38 General appearance: Present: other (Altered mental status) HEART Score - HEART Score Troponin: Troponin T 3.100 ng/mL (0.00-0.029) H* 12/06/20 10:26 Results - Labs CBC & Chem 7: 12/07/20 11:08 12/06/20 11:54 Labs: Laboratory Last Values WBC 17.0 K/mm3 (4.5-11.0) H 12/06/20 07:36 RBC 2.37 M/mm3 (3.65-5.03) L 12/06/20 07:36 Hgb 8.6 gm/dl (11.8-15.2) L 12/06/20 18:19 Hct 26.2 % (35.5-45.6) L 12/06/20 18:19 MCV 91 fl (84-94) 12/06/20 07:36 MCH 31 pg (28-32) 12/06/20 07:36 MCHC 34 % (32-34) 12/06/20 07:36 RDW 14.8 % (13.2-15.2) 12/06/20 07:36 Plt Count 156 K/mm3 (140-440) 12/06/20 07:36 Add Manual Diff Complete 12/06/20 07:36 Total Counted 100 12/06/20 07:36 Seg Neuts % (Manual) 96.0 % (40.0-70.0) H 12/06/20 07:36 Lymphocytes % (Manual) 2.0 % (13.4-35.0) L 12/06/20 07:36 Monocytes % (Manual) 2.0 % (0.0-7.3) 12/06/20 07:36 Nucleated RBC % Not Reportable 12/06/20 07:36 Seg Neutrophils # Man 16.3 K/mm3 (1.8-7.7) H 12/06/20 07:36 Band Neutrophils # 0.0 K/mm3 12/06/20 07:36 Lymphocytes # (Manual) 0.3 K/mm3 (1.2-5.4) L 12/06/20 07:36 Abs React Lymphs (Man) 0.0 K/mm3 12/06/20 07:36 Monocytes # (Manual) 0.3 K/mm3 (0.0-0.8) 12/06/20 07:36 Eosinophils # (Manual) 0.0 K/mm3 (0.0-0.4) 12/06/20 07:36 Basophils # (Manual) 0.0 K/mm3 (0.0-0.1) 12/06/20 07:36 Metamyelocytes # 0.0 K/mm3 12/06/20 07:36 Myelocytes # 0.0 K/mm3 12/06/20 07:36 Promyelocytes # 0.0 K/mm3 12/06/20 07:36 Blast Cells # 0.0 K/mm3 12/06/20 07:36 WBC Morphology Not Reportable 12/06/20 07:36 Hypersegmented Neuts Not Reportable 12/06/20 07:36 Hyposegmented Neuts Not Reportable 12/06/20 07:36 Hypogranular Neuts Not Reportable 12/06/20 07:36 Smudge Cells Not Reportable 12/06/20 07:36 Toxic Granulation Not Reportable 12/06/20 07:36 Toxic Vacuolation Not Reportable 12/06/20 07:36 Dohle Bodies Not Reportable 12/06/20 07:36 Pelger-Huet Anomaly Not Reportable 12/06/20 07:36 Brianda Rods Not Reportable 12/06/20 07:36 Platelet Estimate Consistent w auto 12/06/20 07:36 Clumped Platelets Not Reportable 12/06/20 07:36 Plt Clumps, EDTA Not Reportable 12/06/20 07:36 Large Platelets Not Reportable 12/06/20 07:36 Giant Platelets Not Reportable 12/06/20 07:36 Platelet Satelliting Not Reportable 12/06/20 07:36 Plt Morphology Comment Not Reportable 12/06/20 07:36 RBC Morphology Not Reportable 12/06/20 07:36 Dimorphic RBCs Not Reportable 12/06/20 07:36 Polychromasia Not Reportable 12/06/20 07:36 Hypochromasia Not Reportable 12/06/20 07:36 Poikilocytosis Not Reportable 12/06/20 07:36 Anisocytosis Not Reportable 12/06/20 07:36 Microcytosis Not Reportable 12/06/20 07:36 Macrocytosis Not Reportable 12/06/20 07:36 Spherocytes Not Reportable 12/06/20 07:36 Pappenheimer Bodies Not Reportable 12/06/20 07:36 Sickle Cells Not Reportable 12/06/20 07:36 Target Cells Not Reportable 12/06/20 07:36 Tear Drop Cells Not Reportable 12/06/20 07:36 Ovalocytes Not Reportable 12/06/20 07:36 Helmet Cells Not Reportable 12/06/20 07:36 [place] Bodies Not Reportable 12/06/20 07:36 [place] Rings Not Reportable 12/06/20 07:36 [place] Cells Not Reportable 12/06/20 07:36 Bite Cells Not Reportable 12/06/20 07:36 Crenated Cell Not Reportable 12/06/20 07:36 Elliptocytes Not Reportable 12/06/20 07:36 Acanthocytes (Spur) Not Reportable 12/06/20 07:36 Rouleaux Not Reportable 12/06/20 07:36 Hemoglobin C Crystals Not Reportable 12/06/20 07:36 Schistocytes Rare 12/06/20 07:36 Malaria parasites Not Reportable 12/06/20 07:36 [place] Bodies Not Reportable 12/06/20 07:36 Hem Pathologist Commnt No 12/06/20 07:36 PT 21.3 Sec. (12.2-14.9) H 12/06/20 07:36 INR 1.84 (0.87-1.13) H 12/06/20 07:36 APTT 35.4 Sec. (24.2-36.6) 12/06/20 07:36 D-Dimer 3967.83 ng/mlDDU (0-234) H 12/06/20 11:54 Sodium 131 mmol/L (137-145) L 12/06/20 07:36 Potassium 4.9 mmol/L (3.6-5.0) 12/06/20 07:36 Chloride 97.5 mmol/L (98-107) L 12/06/20 07:36 Carbon Dioxide 15 mmol/L (22-30) L 12/06/20 07:36 Anion Gap 23 mmol/L 12/06/20 07:36 BUN 79 mg/dL (9-20) H 12/06/20 07:36 Creatinine 7.2 mg/dL (0.8-1.3) H 12/06/20 07:36 Estimated GFR 8 ml/min 12/06/20 07:36 BUN/Creatinine Ratio 11 % 12/06/20 07:36 Glucose 147 mg/dL (75-100) H 12/06/20 11:54 Lactic Acid 1.80 mmol/L (0.7-2.0) 12/06/20 10:26 Calcium 8.0 mg/dL (8.4-10.2) L 12/06/20 07:36 Iron 11 ug/dL (49-181) L 12/06/20 11:54 TIBC 129 mcg/dL (250-450) L 12/06/20 11:54 Ferritin 722.5 ng/mL (30.0-300.0) H 12/06/20 11:54 Total Bilirubin 0.70 mg/dL (0.1-1.2) 12/06/20 07:36 AST 52 units/L (5-40) H 12/06/20 07:36 ALT 14 units/L (7-56) 12/06/20 07:36 Alkaline Phosphatase 80 units/L (35-129) 12/06/20 07:36 Ammonia 11.0 umol/L (25-60) L 12/06/20 11:54 Lactate Dehydrogenase 289 units/L (91-180) H 12/06/20 13:24 Total Creatine Kinase 872 units/L (55-170) H 12/06/20 13:24 Troponin T 3.100 ng/mL (0.00-0.029) H* 12/06/20 10:26 C-Reactive Protein 28.50 mg/dL (0.00-1.30) H 12/06/20 11:54 NT-Pro-B Natriuret Pep 81001 pg/mL (0-900) H 12/06/20 07:36 Total Protein 8.6 g/dL (6.3-8.2) H 12/06/20 07:36 Albumin 2.8 g/dL (3.9-5) L 12/06/20 07:36 Albumin/Globulin Ratio 0.5 % 12/06/20 07:36 Triglycerides 226 mg/dL (2-149) H 12/06/20 07:36 Cholesterol 103 mg/dL (50-199) 12/06/20 07:36 LDL Cholesterol Direct 13 mg/dL (50-130) L 12/06/20 07:36 HDL Cholesterol 14 mg/dL (40-59) L 12/06/20 07:36 Cholesterol/HDL Ratio 7.35 % 12/06/20 07:36 Vitamin B12 605.9 pg/mL (211-911) 12/06/20 11:54 Procalcitonin > 200.00 ng/mL (<0.15) 12/06/20 11:54 TSH 2.020 mlU/mL (0.270-4.200) 12/06/20 07:36 Urine Color [place] (Yellow) 12/06/20 Unknown Urine Turbidity Cloudy (Clear) 12/06/20 Unknown Urine pH 5.0 (5.0-7.0) 12/06/20 Unknown Ur Specific [place] 1.014 (1.003-1.030) 12/06/20 Unknown Urine Protein >500 mg/dL (Negative) 12/06/20 Unknown Urine Glucose (UA) Neg mg/dL (Negative) 12/06/20 Unknown Urine Ketones Neg mg/dL (Negative) 12/06/20 Unknown Urine Blood Mod (Negative) 12/06/20 Unknown Urine Nitrite Neg (Negative) 12/06/20 Unknown Urine Bilirubin Neg (Negative) 12/06/20 Unknown Urine Urobilinogen < 2.0 mg/dL (<2.0) 12/06/20 Unknown Ur Leukocyte Esterase Lg (Negative) 12/06/20 Unknown Urine WBC (Auto) 58.0 /HPF (0.0-6.0) H 12/06/20 Unknown Urine RBC (Auto) 9.0 /HPF (0.0-6.0) 12/06/20 Unknown U Epithel Cells (Auto) < 1.0 /HPF (0-13.0) 12/06/20 Unknown Urine Bacteria (Auto) 4+ /HPF (Negative) 12/06/20 Unknown Urine WBC Clumps 2+ /HPF 12/06/20 Unknown Urine Mucus Few /HPF 12/06/20 Unknown Urine Yeast (Budding) 1+ /HPF 12/06/20 23:15 Urine Creatinine 147.7 mg/dL (0.1-20.0) H 12/06/20 23:15 Urine Sodium 38 mmol/L 12/06/20 23:15 Salicylates 0.3 mg/dL (2.8-20.0) L 12/06/20 07:36 Urine Opiates Screen Presumptive negative 12/06/20 Unknown Urine Methadone Screen Presumptive negative 12/06/20 Unknown Acetaminophen 5.0 ug/mL (10.0-30.0) L 12/06/20 07:36 Ur Barbiturates Screen Presumptive negative 12/06/20 Unknown Ur Phencyclidine Scrn Presumptive negative 12/06/20 Unknown Ur Amphetamines Screen Presumptive negative 12/06/20 Unknown U Benzodiazepines Scrn Presumptive negative 12/06/20 Unknown Urine Cocaine Screen Presumptive negative 12/06/20 Unknown U Marijuana (THC) Screen Presumptive negative 12/06/20 Unknown Drugs of Abuse Note Disclamer 12/06/20 Unknown Plasma/Serum Alcohol < 0.01 % (0-0.07) 12/06/20 07:36 Hep Bs Antigen Non-reactive (Negative) 12/06/20 13:24 Blood Type A POSITIVE 12/06/20 07:36 Antibody Screen Negative 12/06/20 07:36 Microbiology: Microbiology 12/06/20 07:36 Peripheral/Venous Blood Culture - Preliminary 12/06/20 07:36 Peripheral/Venous Blood Culture - Preliminary [place]/IV: Voiding Method Condom Catheter Active Medications - Current Medications Current Medications: Generic Name Dose Route Start Last Admin Trade Name Freq PRN Reason Stop Dose Admin Aspirin 300 mg 12/06/20 12:00 12/06/20 11:39 Aspirin [address] 300 mg QDAY KIRK Administration Dextrose 50 ml 12/06/20 11:45 Dextrose 50% In Water (25gm) 50 Ml Syringe IV Q30MIN PRN Hypoglycemia Protocol Cefepime HCl 1 gm in 100 mls @ 200 mls/hr 12/07/20 18:00 Cefepime/Ns 1 Gm/100 Ml IV QPM KIRK Protocol Sodium Chloride 1,000 mls @ 100 mls/hr 12/06/20 13:30 12/06/20 17:41 Nacl 0.9% 1000 Ml IV 100 mls/hr DIRECT KIRK Administration Metronidazole 500 mg in 100 mls @ 100 mls/hr 12/06/20 14:00 12/07/20 05:09 Flagyl 500 Mg/100 Ml IV 100 mls/hr Q8H KIRK Administration Protocol Pantoprazole Sodium 40 mg 12/06/20 10:00 12/06/20 17:41 Pantoprazole 40 Mg Inj IV Not Given QDAY KIRK
--- NOTE | 2020-12-07 09:34 | Progress Note ---
Assessment and Plan Altered mental status secondary to suspected sepsis UTI Currently on IV antibiotics. Management per primary team NSTEMI 12-lead reviewed no ST segment elevation. Troponins are elevated x1. Continue to trend CE's. Echocardiogram pending resolution of Covid 19 status. Hypertension Patient has history of hypertension. Currently he is normotensive. Home medications are unknown. Continue supportive measures. acute on chronic renal disease Patient's baseline renal function is unknown. No ALEX inhibitor in setting of DEX. Avoid nephrotoxic agents. Nephrology is following. Repeat BMP in a.m. DVT prophylaxis Patient anticoagulated on Eliquis We will follow. This patient was seen in conjunction with Dr Hernandes who agrees with this assessment and plan of care. - Patient Problems (1) Altered mental status Current Visit: Yes Status: Acute (2) NSTEMI (non-ST elevated myocardial infarction) Current Visit: Yes Status: Acute (3) Person under investigation for COVID-19 Current Visit: Yes Status: Acute (4) Sepsis Current Visit: Yes Status: Acute (5) Anemia Current Visit: Yes Status: Acute (6) Metabolic acidosis Current Visit: Yes Status: Acute (7) Acute kidney injury Current Visit: Yes Status: Acute (8) UTI (urinary tract infection) Current Visit: Yes Status: Acute (9) Insulin dependent diabetes mellitus Current Visit: Yes Status: Chronic (10) History of DVT (deep vein thrombosis) Current Visit: Yes Status: Chronic (11) Chronic anticoagulation Current Visit: Yes Status: Acute (12) Hypertension Current Visit: Yes Status: Chronic (13) CKD (chronic kidney disease) Current Visit: Yes Status: Chronic Subjective Date of service: 12/07/20 Principal diagnosis: Altered Mental Status, sepsis Objective Last Vital Signs Temp 98.2 F 12/07/20 04:38 Pulse 96 H 12/07/20 04:38 Resp 20 12/07/20 04:38 BP 108/74 12/07/20 04:38 Pulse Ox 97 12/07/20 04:38 - Physical Examination HEENT: Positive: Other (Altered mental status) Neck: Positive: neck supple, trachea midline Neuro: Positive: Other (Altered mental status) Abdomen: Positive: Unremarkable Skin: Negative: Rash, Wound Extremities: Present: upper extr. pulses, lower extr. pulses. Absent: edema - Labs and Meds Cardiac Enzymes 12/06/20 12/06/20 12/06/20 Range/Units 07:36 11:54 13:24 AST 52 H (5-40) units/L Lactate Dehydrogenase 274 H 289 H (91-180) units/L Lipids 12/06/20 Range/Units 07:36 Triglycerides 226 H (2-149) mg/dL Cholesterol 103 (50-199) mg/dL HDL Cholesterol 14 L (40-59) mg/dL Cholesterol/HDL Ratio 7.35 % CBC 12/06/20 12/06/20 Range/Units 07:36 18:19 WBC 17.0 H (4.5-11.0) K/mm3 RBC 2.37 L (3.65-5.03) M/mm3 Hgb 7.3 L 8.6 L (11.8-15.2) gm/dl Hct 21.6 L 26.2 L (35.5-45.6) % Plt Count 156 (140-440) K/mm3 Comprehensive Metabolic Panel 12/06/20 12/06/20 Range/Units 07:36 11:54 Sodium 131 L (137-145) mmol/L Potassium 4.9 (3.6-5.0) mmol/L Chloride 97.5 L (98-107) mmol/L Carbon Dioxide 15 L (22-30) mmol/L BUN 79 H (9-20) mg/dL Creatinine 7.2 H (0.8-1.3) mg/dL Glucose 147 H 147 H (75-100) mg/dL Calcium 8.0 L (8.4-10.2) mg/dL AST 52 H (5-40) units/L ALT 14 (7-56) units/L Alkaline Phosphatase 80 (35-129) units/L Total Protein 8.6 H (6.3-8.2) g/dL Albumin 2.8 L (3.9-5) g/dL - Imaging and Cardiology EKG: report reviewed, image reviewed Echo: pending - EKG Sinus rhythms and dysrhythmias: sinus rhythm
[2020-12-07] MEDS: ASPIRIN 300 MG RECT SUPP PR SCH (11:09)
[2020-12-07] MEDS: PANTOPRAZOLE 40 MG INJ IV SCH (11:09)
[2020-12-07 11:30] LABS: Basophils % (Auto) 0.2 % (0.0-1.8); Eosinophils # (Auto) 0.2 K/mm3 (0.0-0.4); Eosinophils % (Auto) 1.8 % (0.0-4.3); Hematocrit 23.7 % (35.5-45.6); Hemoglobin 7.8 gm/dl (11.8-15.2); Lymphocytes # (Auto) 0.5 K/mm3 (1.2-5.4); Lymphocytes % (Auto) 4.4 % (13.4-35.0); Mean Corpuscular HGB Conc 33 % (32-34); Mean Corpuscular Volume 92 fl (84-94); Monocytes % (Auto) 8.4 % (0.0-7.3); Platelet Count 146 K/mm3 (140-440); Red Blood Count 2.58 M/mm3 (3.65-5.03)
[2020-12-07 11:39] LABS: INR 1.56 (0.87-1.13)
[2020-12-07 11:53] LABS: Calcium 7.8 mg/dL (8.4-10.2)
--- NOTE | 2020-12-07 12:32 | Progress Note ---
Assessment and Plan Assessment: Altered mental Status, metabolic encephalopathy Acute on chronic renal failure NSTEMI Acute gastroenteritis Anemia Diabetes mellitus History of DVT, on Eliquis Hypertension Plan: -No new CMP or BMP levels noted for today but serum creatinine yesterday was 7.2 with a GFR of 8 ml/min -Patient with advanced CKD per chart and was nearing dialysis but declined in t he past, today patient's has agreed for dialysis initiation -Consulted Dr. Saenz for perm-catheter placement -Hemodialysis orders are placed for dialysis after perm-catheter is placed -Currently with pulmonary congestion and elevated BNP, will not start IV fluid challenge -Urine lytes reviewed, has proteinuria -VIANEY,ANCA,C3, C4, Anti-GBM, SPEP and Hep C-pending -Hep B surface antigen-negative -Renal Ultrasound-pending -Renally dose medications -Strict I&O's monitoring -Obtain daily weights -Assess dialysis needs daily -Continue to monitor Subjective Date of service: 12/07/20 Principal diagnosis: Altered Mental Status, sepsis Interval history: Patient seen lying in bed and he is confused. Was updated by hospitalist that now wants HD for patient. Will arrange. Objective - Vital Signs Vital signs: Vital Signs - 12hr 12/07/20 04:38 Temperature 98.2 F Pulse Rate 96 H Respiratory 20 Rate Blood Pressure 108/74 O2 Sat by Pulse 97 Oximetry - General Appearance General appearance: fatigue, other (coughing) EENT: ATNC Neck: no JVD, supple Respiratory: Present: Decreased Breath Sounds Cardiology: S1S2 Gastrointestinal: normoactive bowel sounds Integumentary: warm and dry Neurologic: other (Awakes to verbla stimuli. Not oriented to time or place) Musculoskeletal: other (positive edema) - Lab 12/07/20 11:08 12/07/20 11:08 Most recent lab results Calcium 7.8 mg/dL (8.4-10.2) L 12/07/20 11:08 Phosphorus 4.20 mg/dL (2.5-4.5) 12/07/20 11:08 Urine Creatinine 147.7 mg/dL (0.1-20.0) H 12/06/20 23:15 Urine Sodium 38 mmol/L 12/06/20 23:15 Medications & Allergies - Medications Allergies/Adverse Reactions: Allergies No Known Allergies Allergy (Unverified 12/06/20 12:39) Home Medications: Home Medications Medication Instructions Recorded Confirmed Last Taken Type Acetaminophen [Non-Aspirin Extra 1,000 mg PO TID PRN 12/06/20 12/06/20 Unknown History Strength] Apixaban [Eliquis] 5 mg PO BID 12/06/20 12/06/20 Unknown History AtorvaSTATin [Lipitor] 40 mg PO QHS 12/06/20 12/06/20 Unknown History Metoprolol [Lopressor] 12.5 mg PO QDAY 12/06/20 12/06/20 Unknown History Active Medications: Generic Name Dose Route Start Last Admin Trade Name Freq PRN Reason Stop Dose Admin Aspirin 300 mg 12/06/20 12:00 12/07/20 11:09 Aspirin 300 Mg Rect Supp [place] 300 mg QDAY KIRK Administration Dextrose 50 ml 12/06/20 11:45 Dextrose 50% In Water (25gm) 50 Ml Syringe IV Q30MIN PRN Hypoglycemia Protocol Cefepime HCl 1 gm in 100 mls @ 200 mls/hr 12/07/20 18:00 Cefepime/Ns 1 Gm/100 Ml IV QPM KIRK Protocol Sodium Chloride 1,000 mls @ 100 mls/hr 12/06/20 13:30 12/06/20 17:41 Nacl 0.9% 1000 Ml IV 100 mls/hr DIRECT KIRK Administration Metronidazole 500 mg in 100 mls @ 100 mls/hr 12/06/20 14:00 12/07/20 05:09 Flagyl 500 Mg/100 Ml IV 100 mls/hr Q8H KIRK Administration Protocol Pantoprazole Sodium 40 mg 12/06/20 10:00 12/07/20 11:09 Pantoprazole 40 Mg Inj IV 40 mg QDAY KIRK Administration
--- NOTE | 2020-12-07 14:02 | Progress Note ---
Assessment and Plan Cultures: 12/06/2020 blood culture: GNR A/P: 70-year-old male with diabetes, hypertension, DVT, CKD was admitted to the hospital with altered mental status: #Sepsis: Possibly from UTI. Does have abdominal tenderness. Not hypoxic. CT showed diffuse symmetric bladder wall thickening, dilatation of the left renal collecting system. There was also retroperitoneal adenopathy seen, ?of malignancy raised by radiologist. #UTI: UA showed pyuria. Cultures pending. CRP is elevated. #DEX versus advanced CKD: Nephrology following. #Diarrhea: no more diarrhea, sample for c.diff not collected. #Acute encephalopathy: ?uremia v/s infection. Recs: Continue IV cefepime, renally dosed + Flagyl repeat blood cultures ordered Anthony Walker MD, FACP [facility] ([facility] O: [phone] F: [phone] Subjective Date of service: 12/07/20 Principal diagnosis: Altered Mental Status, sepsis Interval history: Low grade fever. Poor historian. No specific complaints. No diarrhea. Objective - Exam Narrative Exam: Physical Exam: Constitutional: Awake, no distress Head, Ears, Nose: Normocephalic, atraumatic. External ears, nose normal Eyes: Conjunctivae/corneas clear. No icterus. No ptosis. Neck: Supple, no meningeal signs Cardiovascular: S1, S2 normal. Respiratory: Good air entry, clear to auscultation bilaterally GI: Tenderness present, bowel sounds present Musculoskeletal: No pedal edema, no cyanosis. Skin: No rash or abscess Hem/Lymphatic: No palpable cervical or supraclavicular nodes. No lymphangitis Psych: No agitation Neurological: Awake, alert - Constitutional Vitals: Vital Signs Temp Pulse Resp BP Pulse Ox 97.4 F L 87 18 131/83 98 12/07/20 11:05 12/07/20 11:05 12/07/20 11:05 12/07/20 11:05 12/07/20 11:05 Temperature -Last 24 Hours Temperature 97.4 F Temperature 98.2 F Temperature 99.6 F - Labs CBC & Chem 7: 12/07/20 11:08 12/07/20 11:08 Labs: Abnormal lab results 12/06/20 12/06/20 12/06/20 Range/Units 10:26 11:54 13:24 WBC (4.5-11.0) K/mm3 RBC (3.65-5.03) M/mm3 Hgb (11.8-15.2) gm/dl Hct (35.5-45.6) % Lymph % (Auto) (13.4-35.0) % [place] % (Auto) (0.0-7.3) % Lymph # (Auto) (1.2-5.4) K/mm3 [place] # (Auto) (0.0-0.8) K/mm3 Seg Neutrophils % (40.0-70.0) % Seg Neutrophils # (1.8-7.7) K/mm3 PT (12.2-14.9) Sec. INR (0.87-1.13) Sodium (137-145) mmol/L Carbon Dioxide (22-30) mmol/L BUN (9-20) mg/dL Creatinine (0.8-1.3) mg/dL Glucose 147 H (75-100) mg/dL Calcium (8.4-10.2) mg/dL Iron (49-181) ug/dL TIBC (250-450) mcg/dL Ferritin (30.0-300.0) ng/mL Lactate Dehydrogenase (91-180) units/L Total Creatine Kinase 872 H (55-170) units/L Troponin T 3.100 H* (0.00-0.029) ng/mL Urine WBC (Auto) (0.0-6.0) /HPF Urine Creatinine (0.1-20.0) mg/dL 12/06/20 12/06/20 12/06/20 Range/Units 13:24 18:19 23:15 WBC (4.5-11.0) K/mm3 RBC (3.65-5.03) M/mm3 Hgb 8.6 L (11.8-15.2) gm/dl Hct 26.2 L (35.5-45.6) % Lymph % (Auto) (13.4-35.0) % [place] % (Auto) (0.0-7.3) % Lymph # (Auto) (1.2-5.4) K/mm3 [place] # (Auto) (0.0-0.8) K/mm3 Seg Neutrophils % (40.0-70.0) % Seg Neutrophils # (1.8-7.7) K/mm3 PT (12.2-14.9) Sec. INR (0.87-1.13) Sodium (137-145) mmol/L Carbon Dioxide (22-30) mmol/L BUN (9-20) mg/dL Creatinine (0.8-1.3) mg/dL Glucose (75-100) mg/dL Calcium (8.4-10.2) mg/dL Iron (49-181) ug/dL TIBC (250-450) mcg/dL Ferritin (30.0-300.0) ng/mL Lactate Dehydrogenase 289 H (91-180) units/L Total Creatine Kinase (55-170) units/L Troponin T (0.00-0.029) ng/mL Urine WBC (Auto) > 182.0 H (0.0-6.0) /HPF Urine Creatinine (0.1-20.0) mg/dL 12/06/20 12/07/20 12/07/20 Range/Units 23:15 11:08 11:08 WBC 12.2 H (4.5-11.0) K/mm3 RBC 2.58 L (3.65-5.03) M/mm3 Hgb 7.8 L (11.8-15.2) gm/dl Hct 23.7 L (35.5-45.6) % Lymph % (Auto) 4.4 L (13.4-35.0) % [place] % (Auto) 8.4 H (0.0-7.3) % Lymph # (Auto) 0.5 L (1.2-5.4) K/mm3 [place] # (Auto) 1.0 H (0.0-0.8) K/mm3 Seg Neutrophils % 85.2 H (40.0-70.0) % Seg Neutrophils # 10.4 H (1.8-7.7) K/mm3 PT (12.2-14.9) Sec. INR (0.87-1.13) Sodium (137-145) mmol/L Carbon Dioxide (22-30) mmol/L BUN (9-20) mg/dL Creatinine (0.8-1.3) mg/dL Glucose (75-100) mg/dL Calcium (8.4-10.2) mg/dL Iron 22 L (49-181) ug/dL TIBC 119 L (250-450) mcg/dL Ferritin (30.0-300.0) ng/mL Lactate Dehydrogenase (91-180) units/L Total Creatine Kinase (55-170) units/L Troponin T (0.00-0.029) ng/mL Urine WBC (Auto) (0.0-6.0) /HPF Urine Creatinine 147.7 H (0.1-20.0) mg/dL 12/07/20 12/07/20 12/07/20 Range/Units 11:08 11:08 11:08 WBC (4.5-11.0) K/mm3 RBC (3.65-5.03) M/mm3 Hgb (11.8-15.2) gm/dl Hct (35.5-45.6) % Lymph % (Auto) (13.4-35.0) % [place] % (Auto) (0.0-7.3) % Lymph # (Auto) (1.2-5.4) K/mm3 [place] # (Auto) (0.0-0.8) K/mm3 Seg Neutrophils % (40.0-70.0) % Seg Neutrophils # (1.8-7.7) K/mm3 PT 18.7 H (12.2-14.9) Sec. INR 1.56 H (0.87-1.13) Sodium 134 L (137-145) mmol/L Carbon Dioxide 14 L (22-30) mmol/L BUN 94 H (9-20) mg/dL Creatinine 7.4 H (0.8-1.3) mg/dL Glucose 123 H (75-100) mg/dL Calcium 7.8 L (8.4-10.2) mg/dL Iron (49-181) ug/dL TIBC (250-450) mcg/dL Ferritin 800.0 H (30.0-300.0) ng/mL Lactate Dehydrogenase (91-180) units/L Total Creatine Kinase (55-170) units/L Troponin T 3.020 H* (0.00-0.029) ng/mL Urine WBC (Auto) (0.0-6.0) /HPF Urine Creatinine (0.1-20.0) mg/dL
--- NOTE | 2020-12-07 15:08 | Progress Note ---
Assessment and Plan Altered mental status secondary to sepsis UTI Blood cultures: GNR. Currently on IV antibiotics. Management per primary team NSTEMI suspect type II 12-lead reviewed no ST segment elevation. Troponins are elevated x3, trending down. Continue to trend CE's. Echocardiogram is pending. We will plan for stress test once patient is medically stabilized. Anemia GI is consulted. No AC in setting of anemia. Elevated D-dimer VQ scan is not suspicious for VTE Hypertension Patient has history of hypertension. Currently he is normotensive. Home medications are unknown. Continue supportive measures. acute on chronic renal disease Patient's baseline renal function is unknown. No ALEX inhibitor in setting of DEX. Avoid nephrotoxic agents. Nephrology is following. Repeat BMP in a.m. DVT prophylaxis with history of DVT BLE duplex ultrasound negative for DVT AC on hold in setting of anemia We will follow. This patient was seen in conjunction with Dr Hernandes who agrees with this assessment and plan of care. - Patient Problems (1) Altered mental status Current Visit: Yes Status: Acute (2) NSTEMI (non-ST elevated myocardial infarction) Current Visit: Yes Status: Acute (3) Person under investigation for COVID-19 Current Visit: Yes Status: Acute (4) Sepsis Current Visit: Yes Status: Acute (5) Anemia Current Visit: Yes Status: Acute (6) Metabolic acidosis Current Visit: Yes Status: Acute (7) Acute kidney injury Current Visit: Yes Status: Acute (8) UTI (urinary tract infection) Current Visit: Yes Status: Acute (9) Insulin dependent diabetes mellitus Current Visit: Yes Status: Chronic (10) History of DVT (deep vein thrombosis) Current Visit: Yes Status: Chronic (11) Chronic anticoagulation Current Visit: Yes Status: Acute (12) Hypertension Current Visit: Yes Status: Chronic (13) CKD (chronic kidney disease) Current Visit: Yes Status: Chronic Subjective Date of service: 12/07/20 Principal diagnosis: Altered Mental Status, sepsis Interval history: Patient resting in bed. Complains of ongoing chest pain overnight described as 3 out of 10 sharp worse with inspiration and exacerbated with palpation. Telemetry reviewed: Sinus rhythm 89. Episode of 3 beat V. tach noted overnight. Objective Vital Signs Temp Pulse Resp BP Pulse Ox 12/07/20 11:05 97.4 F L 87 18 131/83 98 12/07/20 04:38 98.2 F 96 H 20 108/74 97 12/06/20 22:19 99.6 F 121 H 20 121/90 93 - Physical Examination General: No Apparent Distress HEENT: Positive: PERRL, Normocephaly, Mucus Membranes Moist, Other (Altered mental status) Neck: Positive: neck supple, trachea midline Cardiac: Positive: Reg Rate and Rhythm, S1/S2 Lungs: Positive: clear to auscultation, Normal Breath Sounds Neuro: Positive: Grossly Intact Abdomen: Positive: Unremarkable Skin: Negative: Rash, Wound Extremities: Present: upper extr. pulses, lower extr. pulses. Absent: edema - Labs and Meds Cardiac Enzymes 12/06/20 Range/Units 13:24 Lactate Dehydrogenase 289 H (91-180) units/L Coagulation 12/07/20 Range/Units 11:08 PT 18.7 H (12.2-14.9) Sec. INR 1.56 H (0.87-1.13) CBC 12/06/20 12/07/20 Range/Units 18:19 11:08 WBC 12.2 H (4.5-11.0) K/mm3 RBC 2.58 L (3.65-5.03) M/mm3 Hgb 8.6 L 7.8 L (11.8-15.2) gm/dl Hct 26.2 L 23.7 L (35.5-45.6) % Plt Count 146 (140-440) K/mm3 Lymph # (Auto) 0.5 L (1.2-5.4) K/mm3 [place] # (Auto) 1.0 H (0.0-0.8) K/mm3 Eos # (Auto) 0.2 (0.0-0.4) K/mm3 Baso # (Auto) 0.0 (0.0-0.1) K/mm3 Comprehensive Metabolic Panel 12/06/20 12/07/20 Range/Units 11:54 11:08 Sodium 134 L (137-145) mmol/L Potassium 4.7 (3.6-5.0) mmol/L Chloride 101.8 (98-107) mmol/L Carbon Dioxide 14 L (22-30) mmol/L BUN 94 H (9-20) mg/dL Creatinine 7.4 H (0.8-1.3) mg/dL Glucose 147 H 123 H (75-100) mg/dL Calcium 7.8 L (8.4-10.2) mg/dL - Imaging and Cardiology EKG: report reviewed, image reviewed Nuclear stress test: pending Echo: pending - EKG Sinus rhythms and dysrhythmias: sinus rhythm
[2020-12-07] MEDS ORDERED: LIDOCAINE 1%/EPINEPHRINE 1:100,000 VIAL (20 ML) INFILTRATI ONE (15:41)
[2020-12-07] MEDS ORDERED: HEPARIN 10,000 UNITS/10 ML VIAL ONE (15:41)
[2020-12-07] MEDS ORDERED: HEPARIN/NS 5000 UNIT/500ML 500 ML IR ONE (15:41)
[2020-12-07] MEDS ORDERED: SODIUM CHLORIDE 0.9% 250ML 250 ML ONE (15:44)
--- NOTE | 2020-12-07 16:51 | Consultation ---
History of Present Illness - Reason for Consult Consult date: 12/07/20 [facility] Requesting physician: VEGA LUU - History of Present Illness 70-year-old male with a significant history of insulin-dependent diabetes, DVT anticoagulated at home on Eliquis, hypertension, CKD, who presents with altered mental status. states patient has been deteriorating over several days complaining of weakness, abdominal pain, urine incontinence. In the ER labs are significant for severe anemia, leukocytosis, elevated troponins, elevated BUN and creatinine with a GFR of 8%. Nephrology had a long conversation with the patient's and they decided upon dialysis. Vascular consulted. Patient has altered mental status and dialysis access discussed with patient's who agrees with dialysis access placement. Past History Past Medical History: diabetes, DVT, hypertension, renal failure, other (Per HPI) Past Surgical History: Other (Device placement in his chest) Social history: full code. denies: smoking, alcohol abuse, prescription drug abuse, IV drug use Family history: other (Could not obtain because patient was altered.) Medications and Allergies Allergies Allergy/AdvReac Type Severity Reaction Status Date / Time No Known Allergies Allergy Unverified 12/06/20 12:39 Home Medications Medication Instructions Recorded Confirmed Last Taken Type Acetaminophen [Non-Aspirin Extra 1,000 mg PO TID PRN 12/06/20 12/06/20 Unknown History Strength] Apixaban [Eliquis] 5 mg PO BID 12/06/20 12/06/20 Unknown History AtorvaSTATin [Lipitor] 40 mg PO QHS 12/06/20 12/06/20 Unknown History Metoprolol [Lopressor] 12.5 mg PO QDAY 12/06/20 12/06/20 Unknown History Active Meds: Active Medications Aspirin (Aspirin 300 Mg Rect Supp) 300 mg CA QDAY KIRK Last Admin: 12/07/20 11:09 Dose: 300 mg Documented by: Dextrose (Dextrose 50% In Water (25gm) 50 Ml Syringe) 50 ml IV Q30MIN PRN; Protocol PRN Reason: Hypoglycemia Cefepime HCl (Cefepime/Ns 1 Gm/100 Ml) 1 gm in 100 mls @ 200 mls/hr IV QPM KIRK; Protocol Sodium Chloride (Nacl 0.9% 1000 Ml) 1,000 mls @ 100 mls/hr IV DIRECT KIRK Last Admin: 12/06/20 17:41 Dose: 100 mls/hr Documented by: Metronidazole (Flagyl 500 Mg/100 Ml) 500 mg in 100 mls @ 100 mls/hr IV Q8H [facility]; Protocol Last Admin: 12/07/20 13:44 Dose: 100 mls/hr Documented by: Pantoprazole Sodium (Pantoprazole 40 Mg Inj) 40 mg IV QDAY [facility] Last Admin: 12/07/20 11:09 Dose: 40 mg Documented by: Review of Systems ROS unobtainable: due to mental status Exam - Constitutional Vitals: Temp Pulse Resp BP Pulse Ox 97.4 F L 87 18 131/83 98 12/07/20 11:05 12/07/20 11:05 12/07/20 11:05 12/07/20 11:12/07/20 11:05 General appearance: Present: other (Confused) - EENT Eyes: Present: EOM intact ENT: hearing intact - Respiratory Respiratory effort: normal - Psychiatric Psychiatric: no intact judgment & insight, no memory intact, other (Confused) Results - Labs CBC & Chem 7: 12/07/20 11:08 12/07/20 11:08 Labs: Abnormal lab results 12/06/20 12/06/20 12/06/20 Range/Units 13:24 13:24 18:19 WBC (4.5-11.0) K/mm3 RBC (3.65-5.03) M/mm3 Hgb 8.6 L (11.8-15.2) gm/dl Hct 26.2 L (35.5-45.6) % Lymph % (Auto) (13.4-35.0) % [place] % (Auto) (0.0-7.3) % Lymph # (Auto) (1.2-5.4) K/mm3 [place] # (Auto) (0.0-0.8) K/mm3 Seg Neutrophils % (40.0-70.0) % Seg Neutrophils # (1.8-7.7) K/mm3 PT (12.2-14.9) Sec. INR (0.87-1.13) Sodium (137-145) mmol/L Carbon Dioxide (22-30) mmol/L BUN (9-20) mg/dL Creatinine (0.8-1.3) mg/dL Glucose (75-100) mg/dL Calcium (8.4-10.2) mg/dL Iron (49-181) ug/dL TIBC (250-450) mcg/dL Ferritin (30.0-300.0) ng/mL Lactate Dehydrogenase 289 H (91-180) units/L Total Creatine Kinase 872 H (55-170) units/L Troponin T (0.00-0.029) ng/mL Urine WBC (Auto) (0.0-6.0) /HPF Urine Creatinine (0.1-20.0) mg/dL 12/06/20 12/06/20 12/07/20 Range/Units 23:15 23:15 11:08 WBC 12.2 H (4.5-11.0) K/mm3 RBC 2.58 L (3.65-5.03) M/mm3 Hgb 7.8 L (11.8-15.2) gm/dl Hct 23.7 L (35.5-45.6) % Lymph % (Auto) 4.4 L (13.4-35.0) % [place] % (Auto) 8.4 H (0.0-7.3) % Lymph # (Auto) 0.5 L (1.2-5.4) K/mm3 [place] # (Auto) 1.0 H (0.0-0.8) K/mm3 Seg Neutrophils % 85.2 H (40.0-70.0) % Seg Neutrophils # 10.4 H (1.8-7.7) K/mm3 PT (12.2-14.9) Sec. INR (0.87-1.13) Sodium (137-145) mmol/L Carbon Dioxide (22-30) mmol/L BUN (9-20) mg/dL Creatinine (0.8-1.3) mg/dL Glucose (75-100) mg/dL Calcium (8.4-10.2) mg/dL Iron (49-181) ug/dL TIBC (250-450) mcg/dL Ferritin (30.0-300.0) ng/mL Lactate Dehydrogenase (91-180) units/L Total Creatine Kinase (55-170) units/L Troponin T (0.00-0.029) ng/mL Urine WBC (Auto) > 182.0 H (0.0-6.0) /HPF Urine Creatinine 147.7 H (0.1-20.0) mg/dL 12/07/20 12/07/20 12/07/20 Range/Units 11:08 11:08 11:08 WBC (4.5-11.0) K/mm3 RBC (3.65-5.03) M/mm3 Hgb (11.8-15.2) gm/dl Hct (35.5-45.6) % Lymph % (Auto) (13.4-35.0) % [place] % (Auto) (0.0-7.3) % Lymph # (Auto) (1.2-5.4) K/mm3 [place] # (Auto) (0.0-0.8) K/mm3 Seg Neutrophils % (40.0-70.0) % Seg Neutrophils # (1.8-7.7) K/mm3 PT 18.7 H (12.2-14.9) Sec. INR 1.56 H (0.87-1.13) Sodium 134 L (137-145) mmol/L Carbon Dioxide 14 L (22-30) mmol/L BUN 94 H (9-20) mg/dL Creatinine 7.4 H (0.8-1.3) mg/dL Glucose 123 H (75-100) mg/dL Calcium 7.8 L (8.4-10.2) mg/dL Iron 22 L (49-181) ug/dL TIBC 119 L (250-450) mcg/dL Ferritin (30.0-300.0) ng/mL Lactate Dehydrogenase (91-180) units/L Total Creatine Kinase (55-170) units/L Troponin T 3.020 H* (0.00-0.029) ng/mL Urine WBC (Auto) (0.0-6.0) /HPF Urine Creatinine (0.1-20.0) mg/dL 12/07/20 Range/Units 11:08 WBC (4.5-11.0) K/mm3 RBC (3.65-5.03) M/mm3 Hgb (11.8-15.2) gm/dl Hct (35.5-45.6) % Lymph % (Auto) (13.4-35.0) % [place] % (Auto) (0.0-7.3) % Lymph # (Auto) (1.2-5.4) K/mm3 [place] # (Auto) (0.0-0.8) K/mm3 Seg Neutrophils % (40.0-70.0) % Seg Neutrophils # (1.8-7.7) K/mm3 PT (12.2-14.9) Sec. INR (0.87-1.13) Sodium (137-145) mmol/L Carbon Dioxide (22-30) mmol/L BUN (9-20) mg/dL Creatinine (0.8-1.3) mg/dL Glucose (75-100) mg/dL Calcium (8.4-10.2) mg/dL Iron (49-181) ug/dL TIBC (250-450) mcg/dL Ferritin 800.0 H (30.0-300.0) ng/mL Lactate Dehydrogenase (91-180) units/L Total Creatine Kinase (55-170) units/L Troponin T (0.00-0.029) ng/mL Urine WBC (Auto) (0.0-6.0) /HPF Urine Creatinine (0.1-20.0) mg/dL Assessment and Plan 70-year-old male who presents with altered mental status, gram-negative sepsis, and end-stage renal disease. Nephrology request dialysis access. Discussed access placement with patient's who agrees with placement for dialysis. Patient is actively bacteremic. PermCath cannot be placed at this time. Patient is also anticoagulated with Eliquis and PermCath cannot be placed for 2 days. Recommend conversion of Eliquis to heparin drip. Recommend obtaining new blood cultures. Once blood cultures negative for 48 hours, heparin drip on board for 48 hours, then PermCath can be placed. Once PermCath placement has occurred, then can be restarted on Eliquis the next day. Plan for Vas-Cath at this time.
--- NOTE | 2020-12-07 17:21 | Operative Report ---
Operative Report Operative Report: EXAM: 1. Ultrasound-guided puncture of the right internal jugular vein 2. Fluoroscopic-guided placement of a right internal jugular nontunneled noncuffed hemodialysis catheter. DATE: 12/07/2020 INDICATION: End-stage renal disease requiring hemodialysis. MEDICATIONS: Please see nursing report for full details. DEVICES: 15 cm triple lumen hemodialysis catheter STRINGING MACHINE TENDER: ANA RANDHAWA MD CONTRAST: None PROCEDURE: The risks, benefits, and alternatives were discussed and informed consent was obtained with the patient's . The patient was transported to the angiography suite in satisfactory/stable condition and was transported onto the angiography table. The patient's right internal jugular vein was assessed with ultrasound and determined to be patent prior to procedure. The patient was prepped and draped in a sterile fashion. The puncture site was anesthetized. The right internal jugular vein was patent on ultrasound. Under sonographic guidance, the right internal jugular vein was punctured with a 21-gauge micropuncture needle and a 0.018 inch wire was advanced through the needle. Needle was exchanged for transitional dilator. The inner dilator and wire was removed and a 0.035 inch wire was advanced through the transitional dilator into the inferior vena cava. Over the 0.035 inch wire, serial dilatation was performed. The catheter was advanced over the wire and positioned centrally under fluoroscopic guidance. 2-0 nylon suture was used to secure the catheter. The catheter was charged with heparin 1000 units/mL of space. Sterile dressing and Biopatch applied. The patient was transferred from the angiography suite back to the dialysis unit in stable condition. FINDINGS: 1. Excellent flow was obtained through the dialysis catheter with 20 mL syringes. 2. The catheter tip is in the right atrium. IMPRESSION: 1. Successful sonographically and fluoroscopically guided placement of a right internal jugular nontunneled noncuffed hemodialysis catheter.
--- NOTE | 2020-12-07 17:37 | Gastroenterology Progress Note ---
Assessment and Plan - Patient Problems (1) Symptomatic anemia Current Visit: Yes Status: Acute Plan to address problem: - Unclear what his hct baseline is, but is likely low given ESRD. - The consents to HD therapy, and this will be initiated after VasCath placed. - Will stay off his eliquis, and continue protonix therapy. - Possible endoscopic evaluation based on response to HD. Subjective Date of service: 12/07/20 Principal diagnosis: Acute Blood Loss Anemia Interval history: The patient's consented to HD, so a VasCath has been placed today. HD will begin later today or tomorrow. He has had no hematemesis and no severe melena this afternoon. His vitals are stabilized, and his hct is at 23 after transfusion. He remains confused/disoriented. Objective - Constitutional Vitals: Temp Pulse Resp BP Pulse Ox 97.4 F L 87 18 131/83 98 12/07/20 11:05 12/07/20 11:05 12/07/20 11:05 12/07/20 11:05 12/07/20 11:05 General appearance: no acute distress - Respiratory Respiratory effort: normal Respiratory: bilateral: CTA - Cardiovascular Rhythm: regular Heart Sounds: Present: S1 & S2 - Gastrointestinal General gastrointestinal: Present: soft, non-tender, non-distended - Labs CBC & Chem 7: 12/07/20 11:08 12/07/20 11:08 Labs: Laboratory Results - last 24 hr 12/06/20 12/06/20 12/06/20 09:15 13:24 18:19 WBC RBC Hgb 8.6 L Hct 26.2 L MCV MCH MCHC RDW Plt Count Lymph % (Auto) [place] % (Auto) Eos % (Auto) Baso % (Auto) Lymph # (Auto) [place] # (Auto) Eos # (Auto) Baso # (Auto) Seg Neutrophils % Seg Neutrophils # PT INR Sodium Potassium Chloride Carbon Dioxide Anion Gap BUN Creatinine Estimated GFR BUN/Creatinine Ratio Glucose Calcium Phosphorus Iron TIBC Ferritin Lactate Dehydrogenase 289 H Troponin T Urine Color Urine Turbidity Urine pH Ur Specific [place] Urine Protein Urine Glucose (UA) Urine Ketones Urine Blood Urine Nitrite Urine Bilirubin Urine Urobilinogen Ur Leukocyte Esterase Urine WBC (Auto) Urine RBC (Auto) U Epithel Cells (Auto) Urine Bacteria (Auto) Urine WBC Clumps Urine Yeast (Budding) Urine Creatinine Urine Sodium Coronavirus (PCR) Negative 12/06/20 12/06/20 12/07/20 23:15 23:15 11:08 WBC 12.2 H RBC 2.58 L Hgb 7.8 L Hct 23.7 L MCV 92 MCH 30 MCHC 33 RDW 15.0 Plt Count 146 Lymph % (Auto) 4.4 L [place] % (Auto) 8.4 H Eos % (Auto) 1.8 Baso % (Auto) 0.2 Lymph # (Auto) 0.5 L [place] # (Auto) 1.0 H Eos # (Auto) 0.2 Baso # (Auto) 0.0 Seg Neutrophils % 85.2 H Seg Neutrophils # 10.4 H PT INR Sodium Potassium Chloride Carbon Dioxide Anion Gap BUN Creatinine Estimated GFR BUN/Creatinine Ratio Glucose Calcium Phosphorus Iron TIBC Ferritin Lactate Dehydrogenase Troponin T Urine Color Yellow Urine Turbidity Cloudy Urine pH 5.0 Ur Specific [place] 1.013 Urine Protein 100 mg/dl Urine Glucose (UA) Neg Urine Ketones Neg Urine Blood Lg Urine Nitrite Neg Urine Bilirubin Neg Urine Urobilinogen < 2.0 Ur Leukocyte Esterase Lg Urine WBC (Auto) > 182.0 H Urine RBC (Auto) 29.0 U Epithel Cells (Auto) < 1.0 Urine Bacteria (Auto) 1+ Urine WBC Clumps 2+ Urine Yeast (Budding) 1+ Urine Creatinine 147.7 H Urine Sodium 38 Coronavirus (PCR) 12/07/20 12/07/20 12/07/20 11:08 11:08 11:08 WBC RBC Hgb Hct MCV MCH MCHC RDW Plt Count Lymph % (Auto) [place] % (Auto) Eos % (Auto) Baso % (Auto) Lymph # (Auto) [place] # (Auto) Eos # (Auto) Baso # (Auto) Seg Neutrophils % Seg Neutrophils # PT 18.7 H INR 1.56 H Sodium 134 L Potassium 4.7 Chloride 101.8 Carbon Dioxide 14 L Anion Gap 23 BUN 94 H Creatinine 7.4 H Estimated GFR 7 BUN/Creatinine Ratio 13 Glucose 123 H Calcium 7.8 L Phosphorus 4.20 Iron 22 L TIBC 119 L Ferritin Lactate Dehydrogenase Troponin T 3.020 H* Urine Color Urine Turbidity Urine pH Ur Specific [place] Urine Protein Urine Glucose (UA) Urine Ketones Urine Blood Urine Nitrite Urine Bilirubin Urine Urobilinogen Ur Leukocyte Esterase Urine WBC (Auto) Urine RBC (Auto) U Epithel Cells (Auto) Urine Bacteria (Auto) Urine WBC Clumps Urine Yeast (Budding) Urine Creatinine Urine Sodium Coronavirus (PCR) 12/07/20 11:08 WBC RBC Hgb Hct MCV MCH MCHC RDW Plt Count Lymph % (Auto) [place] % (Auto) Eos % (Auto) Baso % (Auto) Lymph # (Auto) [place] # (Auto) Eos # (Auto) Baso # (Auto) Seg Neutrophils % Seg Neutrophils # PT INR Sodium Potassium Chloride Carbon Dioxide Anion Gap BUN Creatinine Estimated GFR BUN/Creatinine Ratio Glucose Calcium Phosphorus Iron TIBC Ferritin 800.0 H Lactate Dehydrogenase Troponin T Urine Color Urine Turbidity Urine pH Ur Specific [place] Urine Protein Urine Glucose (UA) Urine Ketones Urine Blood Urine Nitrite Urine Bilirubin Urine Urobilinogen Ur Leukocyte Esterase Urine WBC (Auto) Urine RBC (Auto) U Epithel Cells (Auto) Urine Bacteria (Auto) Urine WBC Clumps Urine Yeast (Budding) Urine Creatinine Urine Sodium Coronavirus (PCR)
[2020-12-07] MEDS: CEFEPIME/NS 1 GM/100 ML 1 GM/100 ML BAG IV SCH (19:05)
[2020-12-08] MEDS: SODIUM CHLORIDE 0.9% 1000 ML 1,000 ML IV SCH ×2 (05:10→23:36)
[2020-12-08] MEDS: metroNIDAZOLE/NS 500 MG/100 ML 500 MG/100 ML BAG IV SCH (05:10)
[2020-12-08 06:28] LABS: Hematocrit 22.9 % (35.5-45.6); Hemoglobin 7.7 gm/dl (11.8-15.2); Mean Corpuscular HGB Conc 34 % (32-34); Mean Corpuscular Volume 90 fl (84-94); Platelet Count 163 K/mm3 (140-440); Red Blood Count 2.53 M/mm3 (3.65-5.03); Red Cell Distribution Width 14.8 % (13.2-15.2)
[2020-12-08 06:48] LABS: Calcium 7.5 mg/dL (8.4-10.2)
[2020-12-08 07:24] LABS: Total Cells Counted 100
[2020-12-08 07:25] LABS: Anisocytosis 1+; Platelet Estimate Consistent w Auto
--- NOTE | 2020-12-08 08:14 | Progress Note ---
Assessment and Plan Assessment and plan: Altered mental Status, metabolic encephalopathy -CT head was negative -No grossly focal neurologic deficit -We will treat underlying condition Acute on chronic renal failure -Patient has CKD, and currently GFR is 8 -Patient was diagnosed with CKD before and was suggested for dialysis but patient declined. -I discussed with his over the phone and she does not want dialysis. -Nephrology consulted. NSTEMI -Troponin was more than 3 -EKG normal sinus rhythm, no ST elevation, cardiology consulted Severe sepsis, PUI -Likely due to UTI -Patient is on cefepime -We will get urine and blood culture -Covid test is pending Acute gastroenteritis -Symptomatic management -Continue antibiotics -C. difficile ordered Anemia -Hemoglobin this morning was 7.3 -Anemia work-up was ordered, and consulted GI Diabetes mellitus -Sliding scale insulin, Accu-Chek, ADA diet and adjust insulin as needed History of DVT, on Eliquis -I will hold Eliquis for now due to anemia -Ordered D-dimer Hypertension -Blood pressure is on the low side of normal and I will hold blood pressure medication for now DVT prophylaxis; SCDs for now because of severe anemia CODE STATUS; full Disposition; to medical floor Management plan was discussed with the daughter and was in agreement with the plan of care. 12/07/2020 -Patient still altered -Morning labs pending -Was seen by ID and recommended cefepime for now -Was seen by nephrology, his declined dialysis. She also told me he declined dialysis as an outpatient -H&H improved. GI said the likely cause of anemia is renal failure. Recommend to put him on PPI and hold Eliquis -VQ scan and Doppler ultrasound of the lower extremities was done and negative -Uremic encephalopathy; not improved -Non-STEMI; management as per cardiology 12/08/2020 -Patient had hemodialysis yesterday, he is alert and oriented -Blood cultures still for gram-negative rods continue antibiotics for now. Identification pending -Non-STEMI management is per cardiology. -We will update the History Interval history: Patient was seen and evaluated this morning Patient was alert and oriented this morning Patient had hemodialysis yesterday Hospitalist Physical - Physical exam Narrative exam: Not in cardiopulmonary distress. The patient appeared well nourished and normally developed. Vital signs as documented. Head exam is unremarkable. No scleral icterus . Neck is without jugular venous distension, thyromegaly, or carotid bruits. Lungs are clear to auscultation. Cardiac exam reveals regular rate and Rhythm. Abdominal exam reveals normal bowel sounds, nontender, no organomegaly. Extremities are nonedematous and both femoral and pedal pulses are normal. MEDICAL DEVICE ENGINEER: Patient was alert and oriented. - Constitutional Vitals: Temp Pulse Resp BP Pulse Ox 98.3 F 91 H 18 107/67 100 12/08/20 04:05 12/07/20 23:08 12/08/20 04:05 12/08/20 04:05 12/07/20 23:08 General appearance: Present: other (Confused) HEART Score - HEART Score Troponin: Troponin T 2.900 ng/mL (0.00-0.029) H* 12/08/20 05:34 Results - Labs CBC & Chem 7: 12/08/20 05:34 12/08/20 05:34 Labs: Laboratory Last Values WBC 11.7 K/mm3 (4.5-11.0) H 12/08/20 05:34 RBC 2.53 M/mm3 (3.65-5.03) L 12/08/20 05:34 Hgb 7.7 gm/dl (11.8-15.2) L 12/08/20 05:34 Hct 22.9 % (35.5-45.6) L 12/08/20 05:34 MCV 90 fl (84-94) 12/08/20 05:34 MCH 31 pg (28-32) 12/08/20 05:34 MCHC 34 % (32-34) 12/08/20 05:34 RDW 14.8 % (13.2-15.2) 12/08/20 05:34 Plt Count 163 K/mm3 (140-440) 12/08/20 05:34 Lymph % (Auto) Surg Physician Asst 12/08/20 05:34 [place] % (Auto) Surg Physician Asst 12/08/20 05:34 Eos % (Auto) Surg Physician Asst 12/08/20 05:34 Baso % (Auto) Surg Physician Asst 12/08/20 05:34 Lymph # (Auto) Surg Physician Asst 12/08/20 05:34 [place] # (Auto) Surg Physician Asst 12/08/20 05:34 Eos # (Auto) Surg Physician Asst 12/08/20 05:34 Baso # (Auto) Surg Physician Asst 12/08/20 05:34 Add Manual Diff Complete 12/08/20 05:34 Total Counted 100 12/08/20 05:34 Seg Neutrophils % Surg Physician Asst 12/08/20 05:34 Seg Neuts % (Manual) 91.0 % (40.0-70.0) H 12/08/20 05:34 Lymphocytes % (Manual) 3.0 % (13.4-35.0) L 12/08/20 05:34 Monocytes % (Manual) 5.0 % (0.0-7.3) 12/08/20 05:34 Eosinophils % (Manual) 1.0 % (0.0-4.3) 12/08/20 05:34 Nucleated RBC % Not Reportable 12/08/20 05:34 Seg Neutrophils # Surg Physician Asst 12/08/20 05:34 Seg Neutrophils # Man 10.6 K/mm3 (1.8-7.7) H 12/08/20 05:34 Band Neutrophils # 0.0 K/mm3 12/08/20 05:34 Lymphocytes # (Manual) 0.4 K/mm3 (1.2-5.4) L 12/08/20 05:34 Abs React Lymphs (Man) 0.0 K/mm3 12/08/20 05:34 Monocytes # (Manual) 0.6 K/mm3 (0.0-0.8) 12/08/20 05:34 Eosinophils # (Manual) 0.1 K/mm3 (0.0-0.4) 12/08/20 05:34 Basophils # (Manual) 0.0 K/mm3 (0.0-0.1) 12/08/20 05:34 Metamyelocytes # 0.0 K/mm3 12/08/20 05:34 Myelocytes # 0.0 K/mm3 12/08/20 05:34 Promyelocytes # 0.0 K/mm3 12/08/20 05:34 Blast Cells # 0.0 K/mm3 12/08/20 05:34 WBC Morphology Not Reportable 12/08/20 05:34 Hypersegmented Neuts Not Reportable 12/08/20 05:34 Hyposegmented Neuts Not Reportable 12/08/20 05:34 Hypogranular Neuts Not Reportable 12/08/20 05:34 Smudge Cells Not Reportable 12/08/20 05:34 Toxic Granulation Not Reportable 12/08/20 05:34 Toxic Vacuolation Not Reportable 12/08/20 05:34 Dohle Bodies Not Reportable 12/08/20 05:34 Pelger-Huet Anomaly Not Reportable 12/08/20 05:34 Brianda Rods Not Reportable 12/08/20 05:34 Platelet Estimate Consistent w auto 12/08/20 05:34 Clumped Platelets Not Reportable 12/08/20 05:34 Plt Clumps, EDTA Not Reportable 12/08/20 05:34 Large Platelets Not Reportable 12/08/20 05:34 Giant Platelets Not Reportable 12/08/20 05:34 Platelet Satelliting Not Reportable 12/08/20 05:34 Plt Morphology Comment Not Reportable 12/08/20 05:34 RBC Morphology Not Reportable 12/08/20 05:34 Dimorphic RBCs Not Reportable 12/08/20 05:34 Polychromasia Not Reportable 12/08/20 05:34 Hypochromasia Not Reportable 12/08/20 05:34 Poikilocytosis Not Reportable 12/08/20 05:34 Anisocytosis 1+ 12/08/20 05:34 Microcytosis Not Reportable 12/08/20 05:34 Macrocytosis Not Reportable 12/08/20 05:34 Spherocytes Not Reportable 12/08/20 05:34 Pappenheimer Bodies Not Reportable 12/08/20 05:34 Sickle Cells Not Reportable 12/08/20 05:34 Target Cells Not Reportable 12/08/20 05:34 Tear Drop Cells Not Reportable 12/08/20 05:34 Ovalocytes Not Reportable 12/08/20 05:34 Helmet Cells Not Reportable 12/08/20 05:34 [place] Bodies Not Reportable 12/08/20 05:34 [place] Rings Not Reportable 12/08/20 05:34 Dung Cells Not Reportable 12/08/20 05:34 Bite Cells Not Reportable 12/08/20 05:34 Crenated Cell Not Reportable 12/08/20 05:34 Elliptocytes Not Reportable 12/08/20 05:34 Acanthocytes (Spur) Not Reportable 12/08/20 05:34 Rouleaux Not Reportable 12/08/20 05:34 Hemoglobin C Crystals Not Reportable 12/08/20 05:34 Schistocytes Not Reportable 12/08/20 05:34 Malaria parasites Not Reportable 12/08/20 05:34 [place] Bodies Not Reportable 12/08/20 05:34 Hem Pathologist Commnt No 12/08/20 05:34 PT 18.7 Sec. (12.2-14.9) H 12/07/20 11:08 INR 1.56 (0.87-1.13) H 12/07/20 11:08 APTT 35.4 Sec. (24.2-36.6) 12/06/20 07:36 D-Dimer 3967.83 ng/mlDDU (0-234) H 12/06/20 11:54 Sodium 137 mmol/L (137-145) 12/08/20 05:34 Potassium 3.7 mmol/L (3.6-5.0) D 12/08/20 05:34 Chloride 101.0 mmol/L (98-107) 12/08/20 05:34 Carbon Dioxide 22 mmol/L (22-30) D 12/08/20 05:34 Anion Gap 18 mmol/L 12/08/20 05:34 BUN 51 mg/dL (9-20) H 12/08/20 05:34 Creatinine 4.5 mg/dL (0.8-1.3) H 12/08/20 05:34 Estimated GFR 13 ml/min 12/08/20 05:34 BUN/Creatinine Ratio 11 % 12/08/20 05:34 Glucose 96 mg/dL (75-100) 12/08/20 05:34 Lactic Acid 1.80 mmol/L (0.7-2.0) 12/06/20 10:26 Calcium 7.5 mg/dL (8.4-10.2) L 12/08/20 05:34 Phosphorus 2.60 mg/dL (2.5-4.5) D 12/08/20 05:34 Iron 22 ug/dL (49-181) L 12/07/20 11:08 TIBC 119 mcg/dL (250-450) L 12/07/20 11:08 Ferritin 800.0 ng/mL (30.0-300.0) H 12/07/20 11:08 Total Bilirubin 0.70 mg/dL (0.1-1.2) 12/06/20 07:36 AST 52 units/L (5-40) H 12/06/20 07:36 ALT 14 units/L (7-56) 12/06/20 07:36 Alkaline Phosphatase 80 units/L (35-129) 12/06/20 07:36 Ammonia 11.0 umol/L (25-60) L 12/06/20 11:54 Lactate Dehydrogenase 289 units/L (91-180) H 12/06/20 13:24 Total Creatine Kinase 872 units/L (55-170) H 12/06/20 13:24 Troponin T 2.900 ng/mL (0.00-0.029) H* 12/08/20 05:34 C-Reactive Protein 28.50 mg/dL (0.00-1.30) H 12/06/20 11:54 NT-Pro-B Natriuret Pep 97626 pg/mL (0-900) H 12/06/20 07:36 Total Protein 8.6 g/dL (6.3-8.2) H 12/06/20 07:36 Albumin 2.8 g/dL (3.9-5) L 12/06/20 07:36 Albumin/Globulin Ratio 0.5 % 12/06/20 07:36 Triglycerides 226 mg/dL (2-149) H 12/06/20 07:36 Cholesterol 103 mg/dL (50-199) 12/06/20 07:36 LDL Cholesterol Direct 13 mg/dL (50-130) L 12/06/20 07:36 HDL Cholesterol 14 mg/dL (40-59) L 12/06/20 07:36 Cholesterol/HDL Ratio 7.35 % 12/06/20 07:36 Vitamin B12 605.9 pg/mL (211-911) 12/06/20 11:54 Procalcitonin > 200.00 ng/mL (<0.15) 12/06/20 11:54 TSH 2.020 mlU/mL (0.270-4.200) 12/06/20 07:36 Urine Color [place] (Yellow) 12/06/20 Unknown Urine Turbidity Cloudy (Clear) 12/06/20 Unknown Urine pH 5.0 (5.0-7.0) 12/06/20 Unknown Ur Specific [place] 1.014 (1.003-1.030) 12/06/20 Unknown Urine Protein >500 mg/dL (Negative) 12/06/20 Unknown Urine Glucose (UA) Neg mg/dL (Negative) 12/06/20 Unknown Urine Ketones Neg mg/dL (Negative) 12/06/20 Unknown Urine Blood Mod (Negative) 12/06/20 Unknown Urine Nitrite Neg (Negative) 12/06/20 Unknown Urine Bilirubin Neg (Negative) 12/06/20 Unknown Urine Urobilinogen < 2.0 mg/dL (<2.0) 12/06/20 Unknown Ur Leukocyte Esterase Lg (Negative) 12/06/20 Unknown Urine WBC (Auto) 58.0 /HPF (0.0-6.0) H 12/06/20 Unknown Urine RBC (Auto) 9.0 /HPF (0.0-6.0) 12/06/20 Unknown U Epithel Cells (Auto) < 1.0 /HPF (0-13.0) 12/06/20 Unknown Urine Bacteria (Auto) 4+ /HPF (Negative) 12/06/20 Unknown Urine WBC Clumps 2+ /HPF 12/06/20 Unknown Urine Mucus Few /HPF 12/06/20 Unknown Urine Yeast (Budding) 1+ /HPF 12/06/20 23:15 Urine Creatinine 147.7 mg/dL (0.1-20.0) H 12/06/20 23:15 Urine Sodium 38 mmol/L 12/06/20 23:15 Salicylates 0.3 mg/dL (2.8-20.0) L 12/06/20 07:36 Urine Opiates Screen Presumptive negative 12/06/20 Unknown Urine Methadone Screen Presumptive negative 12/06/20 Unknown Acetaminophen 5.0 ug/mL (10.0-30.0) L 12/06/20 07:36 Ur Barbiturates Screen Presumptive negative 12/06/20 Unknown Ur Phencyclidine Scrn Presumptive negative 12/06/20 Unknown Ur Amphetamines Screen Presumptive negative 12/06/20 Unknown U Benzodiazepines Scrn Presumptive negative 12/06/20 Unknown Urine Cocaine Screen Presumptive negative 12/06/20 Unknown U Marijuana (THC) Screen Presumptive negative 12/06/20 Unknown Drugs of Abuse Note Disclamer 12/06/20 Unknown Plasma/Serum Alcohol < 0.01 % (0-0.07) 12/06/20 07:36 Coronavirus (PCR) Negative (Negative) 12/06/20 09:15 Hep Bs Antigen Non-reactive (Negative) 12/06/20 13:24 Blood Type A POSITIVE 12/06/20 07:36 Antibody Screen Negative 12/06/20 07:36 Microbiology: Microbiology 12/07/20 15:58 Peripheral/Venous Blood Culture - Preliminary Culture in Progress 12/07/20 15:58 Peripheral/Venous Blood Culture - Preliminary Culture in Progress 12/06/20 07:36 Peripheral/Venous Blood Culture - Preliminary [place]/IV: Voiding Method Incontinent Active Medications - Current Medications Current Medications: Generic Name Dose Route Start Last Admin Trade Name Freq PRN Reason Stop Dose Admin Aspirin 300 mg 12/06/20 12:00 12/07/20 11:09 Aspirin 300 Mg Rect Supp [place] 300 mg QDAY KIRK Administration Dextrose 50 ml 12/06/20 11:45 Dextrose 50% In Water (25gm) 50 Ml Syringe IV Q30MIN PRN Hypoglycemia Protocol Cefepime HCl 1 gm in 100 mls @ 200 mls/hr 12/07/20 18:00 12/07/20 19:05 Cefepime/Ns 1 Gm/100 Ml IV Not Given QPM KIRK Protocol Sodium Chloride 1,000 mls @ 100 mls/hr 12/06/20 13:30 12/08/20 05:10 Nacl 0.9% 1000 Ml IV 100 mls/hr DIRECT KIRK Administration Metronidazole 500 mg in 100 mls @ 100 mls/hr 12/06/20 14:00 12/08/20 05:10 Flagyl 500 Mg/100 Ml IV 100 mls/hr Q8H KIRK Administration Protocol Pantoprazole Sodium 40 mg 12/06/20 10:00 12/07/20 11:09 Pantoprazole 40 Mg Inj IV 40 mg QDAY KIRK Administration
[2020-12-08] MEDS: PANTOPRAZOLE 40 MG INJ IV SCH (09:49)
[2020-12-08] MEDS: ASPIRIN 325 MG TAB PO SCH (09:52)
[2020-12-08] MEDS ORDERED: SODIUM CHLORIDE 0.9% 100 ML IV PRN (10:10)
--- NOTE | 2020-12-08 10:47 | Gastroenterology Progress Note ---
Assessment and Plan - Patient Problems (1) Symptomatic anemia Current Visit: Yes Status: Acute Plan to address problem: - Unclear what his hct baseline is, but is likely low given ESRD. - The consents to HD therapy, and this will be initiated after VasCath placed. - Will stay off his eliquis, and continue protonix therapy. - Possible endoscopic evaluation based on response to HD; will plan EGD/colon Saturday if OK with Cards once he has had a few more HD sessions (to clear prior to any planned cardiac cath given severe cardiomyopathy noted on his TTE). Subjective Date of service: 12/08/20 Principal diagnosis: Acute Blood Loss Anemia Interval history: The patient is much more alert, and eating without N/V/abdominal pain after HD. He has had no dark stools since admit. Objective - Constitutional Vitals: Temp Pulse Resp BP Pulse Ox 98.3 F 91 H 18 107/67 100 12/08/20 04:05 12/07/20 23:08 12/08/20 04:05 12/08/20 04:05 12/07/20 23:08 General appearance: no acute distress - EENT Eyes: PERRL, EOM intact - Respiratory Respiratory effort: normal Respiratory: bilateral: CTA - Cardiovascular Rhythm: regular Heart Sounds: Present: S1 & S2 - Gastrointestinal General gastrointestinal: Present: soft, non-tender, non-distended - Labs CBC & Chem 7: 12/08/20 05:34 12/08/20 05:34 Labs: Laboratory Results - last 24 hr 12/06/20 12/07/20 12/07/20 09:15 11:08 11:08 WBC 12.2 H RBC 2.58 L Hgb 7.8 L Hct 23.7 L MCV 92 MCH 30 MCHC 33 RDW 15.0 Plt Count 146 Lymph % (Auto) 4.4 L [place] % (Auto) 8.4 H Eos % (Auto) 1.8 Baso % (Auto) 0.2 Lymph # (Auto) 0.5 L [place] # (Auto) 1.0 H Eos # (Auto) 0.2 Baso # (Auto) 0.0 Add Manual Diff Total Counted Seg Neutrophils % 85.2 H Seg Neuts % (Manual) Lymphocytes % (Manual) Monocytes % (Manual) Eosinophils % (Manual) Nucleated RBC % Seg Neutrophils # 10.4 H Seg Neutrophils # Man Band Neutrophils # Lymphocytes # (Manual) Abs React Lymphs (Man) Monocytes # (Manual) Eosinophils # (Manual) Basophils # (Manual) Metamyelocytes # Myelocytes # Promyelocytes # Blast Cells # WBC Morphology Hypersegmented Neuts Hyposegmented Neuts Hypogranular Neuts Smudge Cells Toxic Granulation Toxic Vacuolation Dohle Bodies Pelger-Huet Anomaly Brianda Rods Platelet Estimate Clumped Platelets Plt Clumps, EDTA Large Platelets Giant Platelets Platelet Satelliting Plt Morphology Comment RBC Morphology Dimorphic RBCs Polychromasia Hypochromasia Poikilocytosis Anisocytosis Microcytosis Macrocytosis Spherocytes Pappenheimer Bodies Sickle Cells Target Cells Tear Drop Cells Ovalocytes Helmet Cells [place]angel-[place] Bodies [place] Rings [place] Cells Bite Cells Crenated Cell Elliptocytes Acanthocytes (Spur) Rouleaux Hemoglobin C Crystals Schistocytes Malaria parasites [place] Bodies Hem Pathologist Commnt PT INR Sodium Potassium Chloride Carbon Dioxide Anion Gap BUN Creatinine Estimated GFR BUN/Creatinine Ratio Glucose Calcium Phosphorus 4.20 Iron 22 L TIBC 119 L Ferritin Troponin T Coronavirus (PCR) Negative 12/07/20 12/07/20 12/07/20 11:08 11:08 11:08 WBC RBC Hgb Hct MCV MCH MCHC RDW Plt Count Lymph % (Auto) [place] % (Auto) Eos % (Auto) Baso % (Auto) Lymph # (Auto) [place] # (Auto) Eos # (Auto) Baso # (Auto) Add Manual Diff Total Counted Seg Neutrophils % Seg Neuts % (Manual) Lymphocytes % (Manual) Monocytes % (Manual) Eosinophils % (Manual) Nucleated RBC % Seg Neutrophils # Seg Neutrophils # Man Band Neutrophils # Lymphocytes # (Manual) Abs React Lymphs (Man) Monocytes # (Manual) Eosinophils # (Manual) Basophils # (Manual) Metamyelocytes # Myelocytes # Promyelocytes # Blast Cells # WBC Morphology Hypersegmented Neuts Hyposegmented Neuts Hypogranular Neuts Smudge Cells Toxic Granulation Toxic Vacuolation Dohle Bodies Pelger-Huet Anomaly Brianda Rods Platelet Estimate Clumped Platelets Plt Clumps, EDTA Large Platelets Giant Platelets Platelet Satelliting Plt Morphology Comment RBC Morphology Dimorphic RBCs Polychromasia Hypochromasia Poikilocytosis Anisocytosis Microcytosis Macrocytosis Spherocytes Pappenheimer Bodies Sickle Cells Target Cells Tear Drop Cells Ovalocytes Helmet Cells [place]angel-[place] Bodies [place] Rings Dung Cells Bite Cells Crenated Cell Elliptocytes Acanthocytes (Spur) Rouleaux Hemoglobin C Crystals Schistocytes Malaria parasites [place] Bodies Hem Pathologist Commnt PT 18.7 H INR 1.56 H Sodium 134 L Potassium 4.7 Chloride 101.8 Carbon Dioxide 14 L Anion Gap 23 BUN 94 H Creatinine 7.4 H Estimated GFR 7 BUN/Creatinine Ratio 13 Glucose 123 H Calcium 7.8 L Phosphorus Iron TIBC Ferritin 800.0 H Troponin T 3.020 H* Coronavirus (PCR) 12/08/20 12/08/20 05:34 05:34 WBC 11.7 H RBC 2.53 L Hgb 7.7 L Hct 22.9 L MCV 90 MCH 31 MCHC 34 RDW 14.8 Plt Count 163 Lymph % (Auto) Finance Mgr [place] % (Auto) Finance Mgr Eos % (Auto) Finance Mgr Baso % (Auto) Finance Mgr Lymph # (Auto) Finance Mgr [place] # (Auto) Finance Mgr Eos # (Auto) Finance Mgr Baso # (Auto) Finance Mgr Add Manual Diff Complete Total Counted 100 Seg Neutrophils % Finance Mgr Seg Neuts % (Manual) 91.0 H Lymphocytes % (Manual) 3.0 L Monocytes % (Manual) 5.0 Eosinophils % (Manual) 1.0 Nucleated RBC % Not Reportable Seg Neutrophils # Finance Mgr Seg Neutrophils # Man 10.6 H Band Neutrophils # 0.0 Lymphocytes # (Manual) 0.4 L Abs React Lymphs (Man) 0.0 Monocytes # (Manual) 0.6 Eosinophils # (Manual) 0.1 Basophils # (Manual) 0.0 Metamyelocytes # 0.0 Myelocytes # 0.0 Promyelocytes # 0.0 Blast Cells # 0.0 WBC Morphology Not Reportable Hypersegmented Neuts Not Reportable Hyposegmented Neuts Not Reportable Hypogranular Neuts Not Reportable Smudge Cells Not Reportable Toxic Granulation Not Reportable Toxic Vacuolation Not Reportable Dohle Bodies Not Reportable Pelger-[place]uet Anomaly Not Reportable Brianda Rods Not Reportable Platelet Estimate Consistent w auto Clumped Platelets Not Reportable Plt Clumps, EDTA Not Reportable Large Platelets Not Reportable Giant Platelets Not Reportable Platelet Satelliting Not Reportable Plt Morphology Comment Not Reportable RBC Morphology Not Reportable Dimorphic RBCs Not Reportable Polychromasia Not Reportable Hypochromasia Not Reportable Poikilocytosis Not Reportable Anisocytosis 1+ Microcytosis Not Reportable Macrocytosis Not Reportable Spherocytes Not Reportable Pappenheimer Bodies Not Reportable Sickle Cells Not Reportable Target Cells Not Reportable Tear Drop Cells Not Reportable Ovalocytes Not Reportable Helmet Cells Not Reportable [place]angel-[place] Bodies Not Reportable [place] Rings Not Reportable [place] Cells Not Reportable Bite Cells Not Reportable Crenated Cell Not Reportable Elliptocytes Not Reportable Acanthocytes (Spur) Not Reportable Rouleaux Not Reportable Hemoglobin C Crystals Not Reportable Schistocytes Not Reportable Malaria parasites Not Reportable [place] Bodies Not Reportable Hem Pathologist Commnt No PT INR Sodium 137 Potassium 3.7 D Chloride 101.0 Carbon Dioxide 22 D Anion Gap 18 BUN 51 H Creatinine 4.5 H Estimated GFR 13 BUN/Creatinine Ratio 11 Glucose 96 Calcium 7.5 L Phosphorus 2.60 D Iron TIBC Ferritin Troponin T 2.900 H* Coronavirus (PCR)
--- NOTE | 2020-12-08 11:06 | Progress Note ---
Assessment and Plan Altered mental Status, metabolic encephalopathy Acute on chronic renal failure NSTEMI Acute gastroenteritis Anemia Diabetes mellitus History of DVT, on Eliquis Hypertension Plan: -HD again today for clearance and volume removal -Patient with advanced CKD per chart and was nearing dialysis but declined in the past, today patient's has agreed for dialysis initiation -Consulted Dr. Saenz for perm-catheter placement, vascath was placed because pt needs to be off Eliquis for 48 hours and repeated blood culture needeed -Hep B surface antigen-negative -Renal Ultrasound-pending -Renally dose medications -Strict I&O's monitoring -Obtain daily weights -Assess dialysis needs daily -Continue to monitor Dakota gordillo MD [phone] Subjective Date of service: 12/08/20 Principal diagnosis: Acute Blood Loss Anemia Interval history: tolerated HD yesterday Objective - Vital Signs Vital signs: Vital Signs - 12hr 12/07/20 12/08/20 23:08 04:05 Temperature 98.3 F Pulse Rate 91 H Respiratory 18 Rate Blood Pressure 107/67 O2 Sat by Pulse 100 Oximetry - General Appearance General appearance: well-developed, well-nourished EENT: ATNC, PERRL, mucous membranes moist Neck: no JVD, no carotid bruit Respiratory: Present: Clear to Ascultation Gastrointestinal: normoactive bowel sounds, no tenderness, no distended Integumentary: no rash, warm and dry Neurologic: no focal deficit Musculoskeletal: other (no edema in BLE) Psychiatric: cooperative - Lab 12/08/20 05:34 12/08/20 05:34 Most recent lab results Calcium 7.5 mg/dL (8.4-10.2) L 12/08/20 05:34 Phosphorus 2.60 mg/dL (2.5-4.5) D 12/08/20 05:34 Urine Creatinine 147.7 mg/dL (0.1-20.0) H 12/06/20 23:15 Urine Sodium 38 mmol/L 12/06/20 23:15 Medications & Allergies - Medications Allergies/Adverse Reactions: Allergies No Known Allergies Allergy (Unverified 12/06/20 12:39) Home Medications: Home Medications Medication Instructions Recorded Confirmed Last Taken Type Acetaminophen [Non-Aspirin Extra 1,000 mg PO TID PRN 12/06/20 12/06/20 Unknown History Strength] Apixaban [Eliquis] 5 mg PO BID 12/06/20 12/06/20 Unknown History AtorvaSTATin [Lipitor] 40 mg PO QHS 12/06/20 12/06/20 Unknown History Metoprolol [Lopressor] 12.5 mg PO QDAY 12/06/20 12/06/20 Unknown History Active Medications: Generic Name Dose Route Start Last Admin Trade Name Freq PRN Reason Stop Dose Admin Aspirin 325 mg 12/08/20 10:00 12/08/20 09:52 Aspirin 325 Mg Tab PO 325 mg QDAY KIRK Administration Dextrose 50 ml 12/06/20 11:45 Dextrose 50% In Water (25gm) 50 Ml Syringe IV Q30MIN PRN Hypoglycemia Protocol Cefepime HCl 1 gm in 100 mls @ 200 mls/hr 12/07/20 18:00 12/07/20 19:05 Cefepime/Ns 1 Gm/100 Ml IV Not Given QPM KIRK Protocol Sodium Chloride 1,000 mls @ 100 mls/hr 12/06/20 13:30 12/08/20 05:10 Nacl 0.9% 1000 Ml IV 100 mls/hr DIRECT KIRK Administration Metronidazole 500 mg in 100 mls @ 100 mls/hr 12/06/20 14:00 12/08/20 05:10 Flagyl 500 Mg/100 Ml IV 100 mls/hr Q8H KIRK Administration Protocol Sodium Chloride 100 mls @ 999 mls/hr 12/08/20 10:10 Nacl 0.9% IV CHRISTA PRN Hypotension Pantoprazole Sodium 40 mg 12/06/20 10:00 12/08/20 09:49 Pantoprazole 40 Mg Inj IV 40 mg QDAY KIRK Administration
--- NOTE | 2020-12-08 13:12 | Progress Note ---
Assessment and Plan Telemetry reviewed: Sinus rhythm 92. No events Card consulted for elevated troponin * Bacteremia secondary to UTI * Blood cultures: GNR. Management per primary team * NSTEMI suspect type II * 12-lead reviewed no ST segment elevation. Troponins are elevated x3, trending down. Continue to trend CE's. * Echocardiogram is pending. We will plan for stress test once patient is medically stabilized. * Anemia suspected GI bleed * GI is consulted. No AC in setting of anemia. * Elevated D-dimer * VQ scan is not suspicious for VTE * Hypertension * Patient has history of hypertension. Currently he is normotensive. Home medications are unknown. Continue supportive measures. * acute on chronic renal disease * Vas-Cath placement this a.m. for planned hemodialysis. * Patient has been previously recommended for hemodialysis but has refused. Patient's baseline renal function is unknown. No ALEX inhibitor in setting of DEX. Avoid nephrotoxic agents. Nephrology is following. Repeat BMP in a.m. * DVT prophylaxis with history of DVT * BLE duplex ultrasound negative for DVT * AC on hold in setting of anemia We will follow. This patient was seen in conjunction with Dr Hernandes who agrees with this assessment and plan of care. - Patient Problems (1) Altered mental status Current Visit: Yes Status: Acute (2) NSTEMI (non-ST elevated myocardial infarction) Current Visit: Yes Status: Acute (3) Person under investigation for COVID-19 Current Visit: Yes Status: Acute (4) Sepsis Current Visit: Yes Status: Acute (5) Anemia Current Visit: Yes Status: Acute (6) Metabolic acidosis Current Visit: Yes Status: Acute (7) Acute kidney injury Current Visit: Yes Status: Acute (8) UTI (urinary tract infection) Current Visit: Yes Status: Acute (9) Insulin dependent diabetes mellitus Current Visit: Yes Status: Chronic (10) History of DVT (deep vein thrombosis) Current Visit: Yes Status: Chronic (11) Chronic anticoagulation Current Visit: Yes Status: Acute (12) Hypertension Current Visit: Yes Status: Chronic (13) CKD (chronic kidney disease) Current Visit: Yes Status: Chronic Subjective Date of service: 12/08/20 Principal diagnosis: Acute Blood Loss Anemia Interval history: Patient resting in bed. No chest pain or shortness of breath overnight Telemetry reviewed: Sinus rhythm 92. No events Objective Last Vital Signs Temp 97.9 F 12/08/20 11:11 Pulse 88 12/08/20 12:00 Resp 22 12/08/20 11:11 BP 120/74 12/08/20 12:00 Pulse Ox 97 12/08/20 11:11 - Physical Examination General: No Apparent Distress HEENT: Positive: PERRL, Normocephaly, Mucus Membranes Moist, Other (Altered mental status) Neck: Positive: neck supple, trachea midline Cardiac: Positive: Reg Rate and Rhythm, S1/S2 Lungs: Positive: clear to auscultation, Normal Breath Sounds Neuro: Positive: Grossly Intact Abdomen: Positive: Unremarkable Skin: Negative: Rash, Wound Extremities: Present: upper extr. pulses, lower extr. pulses. Absent: edema - Labs and Meds CBC 12/08/20 Range/Units 05:34 WBC 11.7 H (4.5-11.0) K/mm3 RBC 2.53 L (3.65-5.03) M/mm3 Hgb 7.7 L (11.8-15.2) gm/dl Hct 22.9 L (35.5-45.6) % Plt Count 163 (140-440) K/mm3 Lymph # (Auto) Loans Consultant [place] # (Auto) Loans Consultant Eos # (Auto) Loans Consultant Baso # (Auto) Loans Consultant Comprehensive Metabolic Panel 12/08/20 Range/Units 05:34 Sodium 137 (137-145) mmol/L Potassium 3.7 D (3.6-5.0) mmol/L Chloride 101.0 (98-107) mmol/L Carbon Dioxide 22 D (22-30) mmol/L BUN 51 H (9-20) mg/dL Creatinine 4.5 H (0.8-1.3) mg/dL Glucose 96 (75-100) mg/dL Calcium 7.5 L (8.4-10.2) mg/dL - Imaging and Cardiology EKG: report reviewed, image reviewed Echo: pending - Telemetry EKG Rhythm: Sinus Rhythm - EKG Sinus rhythms and dysrhythmias: sinus rhythm
--- NOTE | 2020-12-08 13:41 | Progress Note ---
Assessment and Plan Cultures: 12/06/2020 blood culture: GNR 12/06/2020 urine culture: mixed oliverio A/P: 70-year-old male with diabetes, hypertension, DVT, CKD was admitted to the hospital with altered mental status: #Sepsis secondary to GNR bacteremia likely from UTI. CT showed diffuse symmetric bladder wall thickening, dilatation of the left renal collecting system. There was also retroperitoneal adenopathy seen, ?of malignancy raised by radiologist. #UTI: UA showed pyuria. Cultures mixed oliverio. CRP is elevated. #DEX versus advanced CKD: Nephrology following, now on HD. #Diarrhea: no more diarrhea, sample for c.diff not collected. #Acute encephalopathy: ?uremia v/s infection. #Retroperitoneal lymphadenopathy: work up per primary. Recs: Continue IV Cefepime till cultures finalize f/u repeat blood cultures, need to be negative till PermCath can be placed Flagyl discontinued Anthony Walker MD, FACP [facility] ([facility] O: [phone] F: [phone] Subjective Date of service: 12/08/20 Principal diagnosis: Acute Blood Loss Anemia Interval history: Seen at dialysis, has no complaints. No abdominal pain. No fever. Objective - Exam Narrative Exam: Physical Exam: Constitutional: Awake, alert, no distress Head, Ears, Nose: Normocephalic, atraumatic. External ears, nose normal Eyes: Conjunctivae/corneas clear. No icterus. No ptosis. Neck: Supple, no meningeal signs Cardiovascular: S1, S2 normal. Respiratory: Good air entry, clear to auscultation bilaterally GI: soft, non tender, bowel sounds present Musculoskeletal: No pedal edema, no cyanosis. Skin: No rash or abscess Hem/Lymphatic: No palpable cervical or supraclavicular nodes. No lymphangitis Psych: No agitation Neurological: Awake, alert - Constitutional Vitals: Vital Signs Temp Pulse Resp BP Pulse Ox 98.2 F 75 18 97/65 97 12/08/20 11:20 12/08/20 13:00 12/08/20 11:20 12/08/20 13:00 12/08/20 11:11 Temperature -Last 24 Hours Temperature 98.2 F Temperature 97.9 F Temperature 98.3 F Temperature 97.6 F Temperature 97.4 F - Labs CBC & Chem 7: 12/08/20 05:34 12/08/20 05:34 Labs: Abnormal lab results 12/08/20 12/08/20 Range/Units 05:34 05:34 WBC 11.7 H (4.5-11.0) K/mm3 RBC 2.53 L (3.65-5.03) M/mm3 Hgb 7.7 L (11.8-15.2) gm/dl Hct 22.9 L (35.5-45.6) % Seg Neuts % (Manual) 91.0 H (40.0-70.0) % Lymphocytes % (Manual) 3.0 L (13.4-35.0) % Seg Neutrophils # Man 10.6 H (1.8-7.7) K/mm3 Lymphocytes # (Manual) 0.4 L (1.2-5.4) K/mm3 BUN 51 H (9-20) mg/dL Creatinine 4.5 H (0.8-1.3) mg/dL Calcium 7.5 L (8.4-10.2) mg/dL Troponin T 2.900 H* (0.00-0.029) ng/mL
[2020-12-08] MEDS: CEFEPIME/NS 1 GM/100 ML 1 GM/100 ML BAG IV SCH (17:14)
--- NOTE | 2020-12-08 17:22 | Electrocardiograph Report ---
[facility] Test Date: 2020-12-06 Test Time: 11:04:06 Pat Name: GUY MONZON Department: Room: A374 Gender: M Reinsurance Claim Analyst: MONCHO : 1950 Requested By: LUIS E ACOSTA Order Number: [id number] Reading MD: Oscar Hernandes Measurements Intervals [place] Rate: 92 P: 39 TX: 175 QRS: -46 QRSD: 94 T: 136 QT: 391 QTc: 483 Interpretive Statements Sinus rhythm Left anterior fascicular block Nonspecific repol abnormality, diffuse leads No previous ECG available for comparison Electronically Signed On 12-08-2020 17:21:51 EDT by Oscar Hernandes
--- NOTE | 2020-12-08 17:58 | Electrocardiograph Report ---
[facility] Test Date: 2020-12-08 Test Time: 07:16:25 Pat Name: GUY MONZON Department: Room: A374 Gender: M Latex Dipper: JAYNA : 1950 Requested By: DAMEON ARELLANO Order Number: [id number] Reading MD: Oscar Hernaneds Measurements Intervals [place] Rate: 85 P: 62 PA: 164 QRS: -61 QRSD: 101 T: 265 QT: 405 QTc: 481 Interpretive Statements Sinus rhythm Atrial premature complex Left anterior fascicular block Repol abnrm suggests ischemia, diffuse leads Compared to ECG 12/06/2020 11:04:06 Atrial premature complex(es) now present Possible ischemia now present Electronically Signed On 12-08-2020 17:58:05 EDT by Oscar Hernandes
--- NOTE | 2020-12-09 07:30 | Progress Note ---
Assessment and Plan Assessment and plan: Altered mental Status, metabolic encephalopathy -CT head was negative -No grossly focal neurologic deficit -We will treat underlying condition Acute on chronic renal failure -Patient has CKD, and currently GFR is 8 -Patient was diagnosed with CKD before and was suggested for dialysis but patient declined. -I discussed with his over the phone and she does not want dialysis. -Nephrology consulted. NSTEMI -Troponin was more than 3 -EKG normal sinus rhythm, no ST elevation, cardiology consulted Severe sepsis, PUI -Likely due to UTI -Patient is on cefepime -We will get urine and blood culture -Covid test is pending Acute gastroenteritis -Symptomatic management -Continue antibiotics -C. difficile ordered Anemia -Hemoglobin this morning was 7.3 -Anemia work-up was ordered, and consulted GI Diabetes mellitus -Sliding scale insulin, Accu-Chek, ADA diet and adjust insulin as needed History of DVT, on Eliquis -I will hold Eliquis for now due to anemia -Ordered D-dimer Hypertension -Blood pressure is on the low side of normal and I will hold blood pressure medication for now DVT prophylaxis; SCDs for now because of severe anemia CODE STATUS; full Disposition; to medical floor Management plan was discussed with the daughter and was in agreement with the plan of care. 12/07/2020 -Patient still altered -Morning labs pending -Was seen by ID and recommended cefepime for now -Was seen by nephrology, his declined dialysis. She also told me he declined dialysis as an outpatient -H&H improved. GI said the likely cause of anemia is renal failure. Recommend to put him on PPI and hold Eliquis -VQ scan and Doppler ultrasound of the lower extremities was done and negative -Uremic encephalopathy; not improved -Non-STEMI; management as per cardiology 12/08/2020 -Patient had hemodialysis yesterday, he is alert and oriented -Blood cultures still for gram-negative rods continue antibiotics for now. Identification pending -Non-STEMI management is per cardiology. -We will update the 12/09/2020 -First set of blood culture was grew gram-negative vishal, repeat blood cultures are negative -Patient had dialysis, yesterday and the day before, patient's mentation is getting better. -We will get records from [place] -Patient need outpatient dialysis arrangement. -Non-STEMI management as per cardiology -Discussed with the about the plan of care and she was in agreement with the plan of care History Interval history: Patient was seen and evaluated this morning Patient was alert and oriented this morning Patient had hemodialysis yesterday and the day before Hospitalist Physical - Physical exam Narrative exam: Not in cardiopulmonary distress. The patient appeared well nourished and normally developed. Vital signs as documented. Head exam is unremarkable. No scleral icterus . Neck is without jugular venous distension, thyromegaly, or carotid bruits. Lungs are clear to auscultation. Cardiac exam reveals regular rate and Rhythm. Abdominal exam reveals normal bowel sounds, nontender, no organomegaly. Extremities are nonedematous and both femoral and pedal pulses are normal. BENEFITS ADMINISTRATOR: Patient was alert and oriented. - Constitutional Vitals: Temp Pulse Resp BP Pulse Ox 98.6 F 88 20 121/78 98 12/09/20 06:25 12/09/20 06:25 12/09/20 06:25 12/09/20 06:25 12/09/20 06:25 General appearance: Present: other (Confused) HEART Score - HEART Score Troponin: Troponin T 2.900 ng/mL (0.00-0.029) H* 12/08/20 05:34 Results - Labs CBC & Chem 7: 12/08/20 05:34 12/08/20 05:34 Labs: Laboratory Last Values WBC 11.7 K/mm3 (4.5-11.0) H 12/08/20 05:34 RBC 2.53 M/mm3 (3.65-5.03) L 12/08/20 05:34 Hgb 7.7 gm/dl (11.8-15.2) L 12/08/20 05:34 Hct 22.9 % (35.5-45.6) L 12/08/20 05:34 MCV 90 fl (84-94) 12/08/20 05:34 MCH 31 pg (28-32) 12/08/20 05:34 MCHC 34 % (32-34) 12/08/20 05:34 RDW 14.8 % (13.2-15.2) 12/08/20 05:34 Plt Count 163 K/mm3 (140-440) 12/08/20 05:34 Lymph % (Auto) Bar Machine Operator 12/08/20 05:34 [place] % (Auto) Bar Machine Operator 12/08/20 05:34 Eos % (Auto) Bar Machine Operator 12/08/20 05:34 Baso % (Auto) Bar Machine Operator 12/08/20 05:34 Lymph # (Auto) Bar Machine Operator 12/08/20 05:34 [place] # (Auto) Bar Machine Operator 12/08/20 05:34 Eos # (Auto) Bar Machine Operator 12/08/20 05:34 Baso # (Auto) Bar Machine Operator 12/08/20 05:34 Add Manual Diff Complete 12/08/20 05:34 Total Counted 100 12/08/20 05:34 Seg Neutrophils % Bar Machine Operator 12/08/20 05:34 Seg Neuts % (Manual) 91.0 % (40.0-70.0) H 12/08/20 05:34 Lymphocytes % (Manual) 3.0 % (13.4-35.0) L 12/08/20 05:34 Monocytes % (Manual) 5.0 % (0.0-7.3) 12/08/20 05:34 Eosinophils % (Manual) 1.0 % (0.0-4.3) 12/08/20 05:34 Nucleated RBC % Not Reportable 12/08/20 05:34 Seg Neutrophils # Bar Machine Operator 12/08/20 05:34 Seg Neutrophils # Man 10.6 K/mm3 (1.8-7.7) H 12/08/20 05:34 Band Neutrophils # 0.0 K/mm3 12/08/20 05:34 Lymphocytes # (Manual) 0.4 K/mm3 (1.2-5.4) L 12/08/20 05:34 Abs React Lymphs (Man) 0.0 K/mm3 12/08/20 05:34 Monocytes # (Manual) 0.6 K/mm3 (0.0-0.8) 12/08/20 05:34 Eosinophils # (Manual) 0.1 K/mm3 (0.0-0.4) 12/08/20 05:34 Basophils # (Manual) 0.0 K/mm3 (0.0-0.1) 12/08/20 05:34 Metamyelocytes # 0.0 K/mm3 12/08/20 05:34 Myelocytes # 0.0 K/mm3 12/08/20 05:34 Promyelocytes # 0.0 K/mm3 12/08/20 05:34 Blast Cells # 0.0 K/mm3 12/08/20 05:34 WBC Morphology Not Reportable 12/08/20 05:34 Hypersegmented Neuts Not Reportable 12/08/20 05:34 Hyposegmented Neuts Not Reportable 12/08/20 05:34 Hypogranular Neuts Not Reportable 12/08/20 05:34 Smudge Cells Not Reportable 12/08/20 05:34 Toxic Granulation Not Reportable 12/08/20 05:34 Toxic Vacuolation Not Reportable 12/08/20 05:34 Dohle Bodies Not Reportable 12/08/20 05:34 Pelger-Huet Anomaly Not Reportable 12/08/20 05:34 Brianda Rods Not Reportable 12/08/20 05:34 Platelet Estimate Consistent w auto 12/08/20 05:34 Clumped Platelets Not Reportable 12/08/20 05:34 Plt Clumps, EDTA Not Reportable 12/08/20 05:34 Large Platelets Not Reportable 12/08/20 05:34 Giant Platelets Not Reportable 12/08/20 05:34 Platelet Satelliting Not Reportable 12/08/20 05:34 Plt Morphology Comment Not Reportable 12/08/20 05:34 RBC Morphology Not Reportable 12/08/20 05:34 Dimorphic RBCs Not Reportable 12/08/20 05:34 Polychromasia Not Reportable 12/08/20 05:34 Hypochromasia Not Reportable 12/08/20 05:34 Poikilocytosis Not Reportable 12/08/20 05:34 Anisocytosis 1+ 12/08/20 05:34 Microcytosis Not Reportable 12/08/20 05:34 Macrocytosis Not Reportable 12/08/20 05:34 Spherocytes Not Reportable 12/08/20 05:34 Pappenheimer Bodies Not Reportable 12/08/20 05:34 Sickle Cells Not Reportable 12/08/20 05:34 Target Cells Not Reportable 12/08/20 05:34 Tear Drop Cells Not Reportable 12/08/20 05:34 Ovalocytes Not Reportable 12/08/20 05:34 Helmet Cells Not Reportable 12/08/20 05:34 Rangel[employer] Bodies Not Reportable 12/08/20 05:34 [place] Rings Not Reportable 12/08/20 05:34 Dung Cells Not Reportable 12/08/20 05:34 Bite Cells Not Reportable 12/08/20 05:34 Crenated Cell Not Reportable 12/08/20 05:34 Elliptocytes Not Reportable 12/08/20 05:34 Acanthocytes (Spur) Not Reportable 12/08/20 05:34 Rouleaux Not Reportable 12/08/20 05:34 Hemoglobin C Crystals Not Reportable 12/08/20 05:34 Schistocytes Not Reportable 12/08/20 05:34 Malaria parasites Not Reportable 12/08/20 05:34 [place] Bodies Not Reportable 12/08/20 05:34 Hem Pathologist Commnt No 12/08/20 05:34 PT 18.7 Sec. (12.2-14.9) H 12/07/20 11:08 INR 1.56 (0.87-1.13) H 12/07/20 11:08 APTT 35.4 Sec. (24.2-36.6) 12/06/20 07:36 D-Dimer 3967.83 ng/mlDDU (0-234) H 12/06/20 11:54 Sodium 137 mmol/L (137-145) 12/08/20 05:34 Potassium 3.7 mmol/L (3.6-5.0) D 12/08/20 05:34 Chloride 101.0 mmol/L (98-107) 12/08/20 05:34 Carbon Dioxide 22 mmol/L (22-30) D 12/08/20 05:34 Anion Gap 18 mmol/L 12/08/20 05:34 BUN 51 mg/dL (9-20) H 12/08/20 05:34 Creatinine 4.5 mg/dL (0.8-1.3) H 12/08/20 05:34 Estimated GFR 13 ml/min 12/08/20 05:34 BUN/Creatinine Ratio 11 % 12/08/20 05:34 Glucose 96 mg/dL (75-100) 12/08/20 05:34 POC Glucose 139 mg/dL (70-105) H 12/08/20 21:58 Lactic Acid 1.80 mmol/L (0.7-2.0) 12/06/20 10:26 Calcium 7.5 mg/dL (8.4-10.2) L 12/08/20 05:34 Phosphorus 2.60 mg/dL (2.5-4.5) D 12/08/20 05:34 Iron 22 ug/dL (49-181) L 12/07/20 11:08 TIBC 119 mcg/dL (250-450) L 12/07/20 11:08 Ferritin 800.0 ng/mL (30.0-300.0) H 12/07/20 11:08 Total Bilirubin 0.70 mg/dL (0.1-1.2) 12/06/20 07:36 AST 52 units/L (5-40) H 12/06/20 07:36 ALT 14 units/L (7-56) 12/06/20 07:36 Alkaline Phosphatase 80 units/L (35-129) 12/06/20 07:36 Ammonia 11.0 umol/L (25-60) L 12/06/20 11:54 Lactate Dehydrogenase 289 units/L (91-180) H 12/06/20 13:24 Total Creatine Kinase 872 units/L (55-170) H 12/06/20 13:24 Troponin T 2.900 ng/mL (0.00-0.029) H* 12/08/20 05:34 C-Reactive Protein 28.50 mg/dL (0.00-1.30) H 12/06/20 11:54 NT-Pro-B Natriuret Pep 98863 pg/mL (0-900) H 12/06/20 07:36 Total Protein 8.6 g/dL (6.3-8.2) H 12/06/20 07:36 Albumin 2.8 g/dL (3.9-5) L 12/06/20 07:36 Albumin/Globulin Ratio 0.5 % 12/06/20 07:36 Triglycerides 226 mg/dL (2-149) H 12/06/20 07:36 Cholesterol 103 mg/dL (50-199) 12/06/20 07:36 LDL Cholesterol Direct 13 mg/dL (50-130) L 12/06/20 07:36 HDL Cholesterol 14 mg/dL (40-59) L 12/06/20 07:36 Cholesterol/HDL Ratio 7.35 % 12/06/20 07:36 Vitamin B12 605.9 pg/mL (211-911) 12/06/20 11:54 Procalcitonin > 200.00 ng/mL (<0.15) 12/06/20 11:54 TSH 2.020 mlU/mL (0.270-4.200) 12/06/20 07:36 Urine Color Hina (Yellow) 12/06/20 Unknown Urine Turbidity Cloudy (Clear) 12/06/20 Unknown Urine pH 5.0 (5.0-7.0) 12/06/20 Unknown Ur Specific [place] 1.014 (1.003-1.030) 12/06/20 Unknown Urine Protein >500 mg/dL (Negative) 12/06/20 Unknown Urine Glucose (UA) Neg mg/dL (Negative) 12/06/20 Unknown Urine Ketones Neg mg/dL (Negative) 12/06/20 Unknown Urine Blood Mod (Negative) 12/06/20 Unknown Urine Nitrite Neg (Negative) 12/06/20 Unknown Urine Bilirubin Neg (Negative) 12/06/20 Unknown Urine Urobilinogen < 2.0 mg/dL (<2.0) 12/06/20 Unknown Ur Leukocyte Esterase Lg (Negative) 12/06/20 Unknown Urine WBC (Auto) 58.0 /HPF (0.0-6.0) H 12/06/20 Unknown Urine RBC (Auto) 9.0 /HPF (0.0-6.0) 12/06/20 Unknown U Epithel Cells (Auto) < 1.0 /HPF (0-13.0) 12/06/20 Unknown Urine Bacteria (Auto) 4+ /HPF (Negative) 12/06/20 Unknown Urine WBC Clumps 2+ /HPF 12/06/20 Unknown Urine Mucus Few /HPF 12/06/20 Unknown Urine Yeast (Budding) 1+ /HPF 12/06/20 23:15 Urine Creatinine 147.7 mg/dL (0.1-20.0) H 12/06/20 23:15 Urine Sodium 38 mmol/L 12/06/20 23:15 Salicylates 0.3 mg/dL (2.8-20.0) L 12/06/20 07:36 Urine Opiates Screen Presumptive negative 12/06/20 Unknown Urine Methadone Screen Presumptive negative 12/06/20 Unknown Acetaminophen 5.0 ug/mL (10.0-30.0) L 12/06/20 07:36 Ur Barbiturates Screen Presumptive negative 12/06/20 Unknown Ur Phencyclidine Scrn Presumptive negative 12/06/20 Unknown Ur Amphetamines Screen Presumptive negative 12/06/20 Unknown U Benzodiazepines Scrn Presumptive negative 12/06/20 Unknown Urine Cocaine Screen Presumptive negative 12/06/20 Unknown U Marijuana (THC) Screen Presumptive negative 12/06/20 Unknown Drugs of Abuse Note Disclamer 12/06/20 Unknown Plasma/Serum Alcohol < 0.01 % (0-0.07) 12/06/20 07:36 Coronavirus (PCR) Negative (Negative) 12/06/20 09:15 Hep Bs Antigen Non-reactive (Negative) 12/06/20 13:24 Blood Type A POSITIVE 12/06/20 07:36 Antibody Screen Negative 12/06/20 07:36 Microbiology: Microbiology 12/07/20 15:58 Peripheral/Venous Blood Culture - Preliminary NO GROWTH AFTER 24 HOURS 12/07/20 15:58 Peripheral/Venous Blood Culture - Preliminary NO GROWTH AFTER 24 HOURS 12/06/20 07:36 Peripheral/Venous Blood Culture - Preliminary Gram Negative Vishal 12/06/20 10:12 Urine,Catheterized - Straight Catheter Urine Culture - Preliminary [place]allister/IV: Voiding Method Incontinent Active Medications - Current Medications Current Medications: Generic Name Dose Route Start Last Admin Trade Name Freq PRN Reason Stop Dose Admin Aspirin 325 mg 12/08/20 10:00 12/08/20 09:52 Aspirin 325 Mg Tab PO 325 mg QDAY KIRK Administration Dextrose 50 ml 12/06/20 11:45 Dextrose 50% In Water (25gm) 50 Ml Syringe IV Q30MIN PRN Hypoglycemia Protocol Cefepime HCl 1 gm in 100 mls @ 200 mls/hr 12/07/20 18:00 12/08/20 17:14 Cefepime/Ns 1 Gm/100 Ml IV 200 mls/hr QPM KIRK Administration Protocol Sodium Chloride 1,000 mls @ 100 mls/hr 12/06/20 13:30 12/08/20 23:36 Nacl 0.9% 1000 Ml IV 100 mls/hr DIRECT KIRK Administration Sodium Chloride 100 mls @ 999 mls/hr 12/08/20 10:10 Nacl 0.9% IV CHRISTA PRN Hypotension Pantoprazole Sodium 40 mg 12/06/20 10:00 12/08/20 09:49 Pantoprazole 40 Mg Inj IV 40 mg QDAY KIRK Administration
--- NOTE | 2020-12-09 07:38 | Ultrasound Report ---
ULTRASOUND RENAL INDICATION / CLINICAL INFORMATION: renal failure. COMPARISON: CT abdomen pelvis 12/06/2020 FINDINGS: RIGHT KIDNEY: Length = 9.5 cm. [normal > 9 cm] - Parenchymal Thickness = 1.2 cm. [normal > 1.5 cm] - Echogenicity: Increased - Hydronephrosis: None. - Cyst or mass: No significant abnormality. - Stones: None seen. LEFT KIDNEY: Length = 10.8 cm. [normal > 9 cm] - Parenchymal Thickness = 1.5 cm. [normal > 1.5 cm] - Echogenicity: Increased - Hydronephrosis: Mild left hydronephrosis is present. - Cyst or mass: No significant abnormality. - Stones: None seen. URINARY BLADDER: There is moderate layering debris in the bladder. No wall abnormality or obvious mas s. FREE FLUID: None. ADDITIONAL FINDINGS: None. IMPRESSION: Echogenic kidneys consistent with medical renal disease. Mild left hydronephrosis. Not significantly changed since the CT 2 days ago. Moderate debris in the bladder suggesting cystitis. Signer Name: Wagner Reece Jr, MD Signed: 12/09/2020 7:34 AM Workstation Name: [id number]
[2020-12-09 07:48] LABS: Basophils % (Auto) 0.3 % (0.0-1.8); Eosinophils # (Auto) 0.1 K/mm3 (0.0-0.4); Eosinophils % (Auto) 0.8 % (0.0-4.3); Hematocrit 23.7 % (35.5-45.6); Hemoglobin 7.7 gm/dl (11.8-15.2); Lymphocytes # (Auto) 1.4 K/mm3 (1.2-5.4); Lymphocytes % (Auto) 11.3 % (13.4-35.0); Mean Corpuscular HGB Conc 33 % (32-34); Mean Corpuscular Volume 92 fl (84-94); Monocytes # (Auto) 1.6 K/mm3 (0.0-0.8); Monocytes % (Auto) 13.1 % (0.0-7.3); Platelet Count 186 K/mm3 (140-440); Red Blood Count 2.57 M/mm3 (3.65-5.03); Red Cell Distribution Width 15.1 % (13.2-15.2)
[2020-12-09 08:07] LABS: Calcium 7.5 mg/dL (8.4-10.2)
[2020-12-09] MEDS: ASPIRIN 325 MG TAB PO SCH (10:00)
[2020-12-09] MEDS: PANTOPRAZOLE 40 MG INJ IV SCH (10:00)
--- NOTE | 2020-12-09 12:25 | Progress Note ---
Assessment and Plan Cultures: 12/06/2020 blood culture: E.coli 12/06/2020 urine culture: mixed oliverio 12/07/2020 blood culture: no growth A/P: 70-year-old male with diabetes, hypertension, DVT, CKD was admitted to the hospital with altered mental status: #Sepsis secondary to E.coli bacteremia likely from UTI. CT showed diffuse symme tric bladder wall thickening, dilatation of the left renal collecting system. There was also retroperitoneal adenopathy seen, ?of malignancy raised by radiologist. #UTI: UA showed pyuria. Cultures mixed oliverio. CRP elevated. #DEX versus advanced CKD: Nephrology following, now on HD. #Diarrhea: no more diarrhea, sample for c.diff not collected. #Acute encephalopathy: ?uremia v/s infection. #Retroperitoneal lymphadenopathy: work up per primary. Recs: -de-escalated to IV Ceftriaxone 2 gm daily -once repeat blood cultures from 12/07/2020 are negative at 48 hrs, OK for Pe rmCath can be placed -when discharged, convert to PO Ciprofloxacin 500 mg daily with end date of 12/03 Anthony Walker MD, FACP [facility] O: [phone] F: [phone] Subjective Date of service: 12/09/20 Principal diagnosis: Acute Blood Loss Anemia Interval history: No fever. States he feels much better. Objective - Exam Narrative Exam: Physical Exam: Constitutional: Awake, alert, no distress Head, Ears, Nose: Normocephalic, atraumatic. External ears, nose normal Eyes: Conjunctivae/corneas clear. No icterus. No ptosis. Neck: Supple, no meningeal signs Cardiovascular: S1, S2 normal. Respiratory: Good air entry, clear to auscultation bilaterally GI: soft, non tender, bowel sounds present Musculoskeletal: No pedal edema, no cyanosis. Skin: No rash or abscess Hem/Lymphatic: No palpable cervical or supraclavicular nodes. No lymphangitis Psych: No agitation Neurological: Awake, alert - Constitutional Vitals: Vital Signs Temp Pulse Resp BP Pulse Ox 98.6 F 88 20 121/78 98 12/09/20 06:25 12/09/20 06:25 12/09/20 06:25 12/09/20 06:25 12/09/20 06:25 Temperature -Last 24 Hours Temperature 98.6 F Temperature 98.3 F Temperature 98.1 F Temperature 97.9 F - Labs CBC & Chem 7: 12/09/20 06:57 12/09/20 06:57 Labs: Abnormal lab results 12/08/20 12/09/20 12/09/20 Range/Units 21:58 06:57 06:57 WBC 12.5 H (4.5-11.0) K/mm3 RBC 2.57 L (3.65-5.03) M/mm3 Hgb 7.7 L (11.8-15.2) gm/dl Hct 23.7 L (35.5-45.6) % Lymph % (Auto) 11.3 L (13.4-35.0) % [place] % (Auto) 13.1 H (0.0-7.3) % [place] # (Auto) 1.6 H (0.0-0.8) K/mm3 Seg Neutrophils % 74.5 H (40.0-70.0) % Seg Neutrophils # 9.3 H (1.8-7.7) K/mm3 Potassium 3.3 L (3.6-5.0) mmol/L BUN 29 H (9-20) mg/dL Creatinine 3.6 H (0.8-1.3) mg/dL Glucose 111 H (75-100) mg/dL POC Glucose 139 H (70-105) mg/dL Calcium 7.5 L (8.4-10.2) mg/dL Phosphorus 2.10 L (2.5-4.5) mg/dL Troponin T 3.130 H* (0.00-0.029) ng/mL
--- NOTE | 2020-12-09 12:46 | Progress Note ---
Assessment and Plan Altered mental Status, metabolic encephalopathy Acute on chronic renal failure NSTEMI Acute gastroenteritis Anemia Diabetes mellitus History of DVT, on Eliquis Hypertension Plan: -no indication for HD today -Consulted Dr. Saenz for perm-catheter placement, vascath was placed because pt needs to be off Eliquis for 48 hours and repeated blood culture needed, hopefully permcath Saturday -Hep B surface antigen-negative -Renal Ultrasound-pending -Renally dose medications -Strict I&O's monitoring -Obtain daily weights -Assess dialysis needs daily -Continue to monitor Dakota gordillo MD [phone] Subjective Date of service: 12/09/20 Principal diagnosis: Acute Blood Loss Anemia Interval history: appears comfortable Objective - Vital Signs Vital signs: Vital Signs - 12hr 12/09/20 12/09/20 06:25 10:00 Temperature 98.6 F Pulse Rate 88 Respiratory 20 20 Rate Blood Pressure 121/78 O2 Sat by Pulse 98 Oximetry - General Appearance General appearance: well-developed, well-nourished, appears stated age EENT: ATNC, PERRL Neck: no JVD, no carotid bruit Respiratory: Present: Clear to Ascultation Gastrointestinal: normoactive bowel sounds - Lab 12/09/20 06:57 12/09/20 06:57 Most recent lab results Calcium 7.5 mg/dL (8.4-10.2) L 12/09/20 06:57 Phosphorus 2.10 mg/dL (2.5-4.5) L 12/09/20 06:57 Urine Creatinine 147.7 mg/dL (0.1-20.0) H 12/06/20 23:15 Urine Sodium 38 mmol/L 12/06/20 23:15 Medications & Allergies - Medications Allergies/Adverse Reactions: Allergies No Known Allergies Allergy (Unverified 12/06/20 12:39) Home Medications: Home Medications Medication Instructions Recorded Confirmed Last Taken Type Acetaminophen [Non-Aspirin Extra 1,000 mg PO TID PRN 12/06/20 12/06/20 Unknown History Strength] Apixaban [Eliquis] 5 mg PO BID 12/06/20 12/06/20 Unknown History AtorvaSTATin [Lipitor] 40 mg PO QHS 12/06/20 12/06/20 Unknown History Metoprolol [Lopressor] 12.5 mg PO QDAY 12/06/20 12/06/20 Unknown History Active Medications: Generic Name Dose Route Start Last Admin Trade Name Torrey PRN Reason Stop Dose Admin Aspirin 325 mg 12/08/20 10:00 12/09/20 10:00 Aspirin 325 Mg Tab PO 325 mg QDAY KIRK Administration Dextrose 50 ml 12/06/20 11:45 Dextrose 50% In Water (25gm) 50 Ml Syringe IV Q30MIN PRN Hypoglycemia Protocol Sodium Chloride 1,000 mls @ 100 mls/hr 12/06/20 13:30 12/08/20 23:36 Nacl 0.9% 1000 Ml IV 100 mls/hr DIRECT KIRK Administration Sodium Chloride 100 mls @ 999 mls/hr 12/08/20 10:10 Nacl 0.9% IV CHRISTA PRN Hypotension Ceftriaxone Sodium 2 gm in 100 mls @ 200 mls/hr 12/09/20 13:00 Rocephin/Ns 2 Gm/100 Ml IV 12/16/20 12:59 Q24HR KIRK Protocol Pantoprazole Sodium 40 mg 12/06/20 10:00 12/09/20 10:00 Pantoprazole 40 Mg Inj IV 12/09/20 12:59 40 mg QDAY KIRK Administration Pantoprazole Sodium 40 mg 12/10/20 07:30 Pantoprazole 40 Mg Tab PO QDAC KIRK
[2020-12-09] MEDS ORDERED: cefTRIAXone/NS 2 GM/100 ML 2 GM/100 ML BAG IV SCH (13:00)
--- NOTE | 2020-12-09 14:24 | Progress Note ---
Assessment and Plan Telemetry reviewed: Sinus rhythm 96. No events Card consulted for elevated troponin * Bacteremia secondary to UTI * Blood cultures: GNR. Management per primary team * NSTEMI suspect type II * 12-lead reviewed no ST segment elevation. Troponins are elevated x3, trending down. Continue to trend CE's. * Echocardiogram reviewed (12/07/2020): LVEF is 20 to 25%. LV SF is moderate to severely decreased. Mild to moderate concentric LVH. There is severe hypokinesis of the mid/distal anterior wall, mid/distal inferior wall, only basal parts moving well. Moderate to severe hypokinesis of the lateral wall and septum noted right ventricle is moderately dilated and markedly hypokinetic. Trace to mild aortic regurg. Mild MR. Trace to mild TR. RVSP is 30 mmHg. * Anemia suspected GI bleed * GI is tentatively planning for endoscopy/colonoscopy on Saturday (12/12/2020) pending clinical course. Cardiology has no objections. We will plan for Lexiscan MPI stress test on Saturday (12/13/2020). Lexiscan MPI stress test discussed with patient who is agreeable to proceed at this time. N.p.o. after midnight Saturday night. No AC in setting of anemia. * Elevated D-dimer * VQ scan is not suspicious for VTE * acute on chronic renal disease * Patient has Vas-Cath placed for hemodialysis. Receiving hemodialysis today . Patient states he feels much better. Mental acuity significantly improved. * Patient has been previously recommended for hemodialysis but has refused. Patient's baseline renal function is unknown. No ALEX inhibitor in setting of DEX. Avoid nephrotoxic agents. Nephrology is following. Repeat BMP in a.m. * DVT prophylaxis with history of DVT * BLE duplex ultrasound negative for DVT * AC on hold in setting of anemia Patient is currently stable cardiac status. No objections to gastro planned Endo/colonoscopy on Saturday. Lexiscan stress test on Saturday. Will follow This patient was seen in conjunction with Dr Hernandes who agrees with this assessment and plan of care. - Patient Problems (1) Altered mental status Current Visit: Yes Status: Acute (2) NSTEMI (non-ST elevated myocardial infarction) Current Visit: Yes Status: Acute (3) Person under investigation for COVID-19 Current Visit: Yes Status: Acute (4) Sepsis Current Visit: Yes Status: Acute (5) Anemia Current Visit: Yes Status: Acute (6) Metabolic acidosis Current Visit: Yes Status: Acute (7) Acute kidney injury Current Visit: Yes Status: Acute (8) UTI (urinary tract infection) Current Visit: Yes Status: Acute (9) Insulin dependent diabetes mellitus Current Visit: Yes Status: Chronic (10) History of DVT (deep vein thrombosis) Current Visit: Yes Status: Chronic (11) Chronic anticoagulation Current Visit: Yes Status: Acute (12) Hypertension Current Visit: Yes Status: Chronic (13) CKD (chronic kidney disease) Current Visit: Yes Status: Chronic Subjective Date of service: 12/09/20 Principal diagnosis: Acute Blood Loss Anemia Interval history: Patient resting in bed. No chest pain or shortness of breath overnight Telemetry reviewed: Sinus rhythm 96. No events Objective Last Vital Signs Temp 98.5 F 12/09/20 10:39 Pulse 87 12/09/20 10:39 Resp 22 12/09/20 10:39 BP 122/80 12/09/20 10:39 Pulse Ox 97 12/09/20 10:39 - Physical Examination General: No Apparent Distress HEENT: Positive: PERRL, Normocephaly, Mucus Membranes Moist, Other (Altered mental status) Neck: Positive: neck supple, trachea midline Cardiac: Positive: Reg Rate and Rhythm, S1/S2 Lungs: Positive: clear to auscultation, Normal Breath Sounds Neuro: Positive: Grossly Intact Abdomen: Positive: Unremarkable Skin: Negative: Rash, Wound Extremities: Present: upper extr. pulses, lower extr. pulses. Absent: edema - Labs and Meds CBC 12/09/20 Range/Units 06:57 WBC 12.5 H (4.5-11.0) K/mm3 RBC 2.57 L (3.65-5.03) M/mm3 Hgb 7.7 L (11.8-15.2) gm/dl Hct 23.7 L (35.5-45.6) % Plt Count 186 (140-440) K/mm3 Lymph # (Auto) 1.4 (1.2-5.4) K/mm3 [place] # (Auto) 1.6 H (0.0-0.8) K/mm3 Eos # (Auto) 0.1 (0.0-0.4) K/mm3 Baso # (Auto) 0.0 (0.0-0.1) K/mm3 Comprehensive Metabolic Panel 12/09/20 Range/Units 06:57 Sodium 138 (137-145) mmol/L Potassium 3.3 L (3.6-5.0) mmol/L Chloride 101.6 (98-107) mmol/L Carbon Dioxide 26 (22-30) mmol/L BUN 29 H (9-20) mg/dL Creatinine 3.6 H (0.8-1.3) mg/dL Glucose 111 H (75-100) mg/dL Calcium 7.5 L (8.4-10.2) mg/dL - Imaging and Cardiology EKG: report reviewed, image reviewed Echo: pending - Telemetry EKG Rhythm: Sinus Rhythm - EKG Sinus rhythms and dysrhythmias: sinus rhythm
--- NOTE | 2020-12-09 18:21 | Gastroenterology Progress Note ---
Assessment and Plan - Patient Problems (1) Symptomatic anemia Current Visit: Yes Status: Acute Plan to address problem: - Unclear what his hct baseline is, but is likely low given ESRD. - The patient started HD this admit, and mental status much improved. - Will stay off his eliquis, and continue protonix therapy. - Possible endoscopic evaluation based on response to HD; will re-assess after his stress test Saturday; call us if needed before then. Subjective Date of service: 12/09/20 Principal diagnosis: Acute Blood Loss Anemia Interval history: The patient is doing well without N/V/abdominal pain. Denies CP or SOB. Objective - Constitutional Vitals: Temp Pulse Resp BP Pulse Ox 98.3 F 92 H 22 119/74 98 12/09/20 17:36 12/09/20 17:36 12/09/20 17:36 12/09/20 17:36 12/09/20 17:36 General appearance: no acute distress - EENT Eyes: PERRL, EOM intact ENT: hearing intact - Respiratory Respiratory effort: normal Respiratory: bilateral: CTA - Gastrointestinal General gastrointestinal: Present: soft, non-tender, non-distended - Labs CBC & Chem 7: 12/09/20 06:57 12/09/20 06:57 Labs: Laboratory Results - last 24 hr 12/06/20 12/06/20 12/08/20 13:24 13:24 21:58 WBC RBC Hgb Hct MCV MCH MCHC RDW Plt Count Lymph % (Auto) [place] % (Auto) Eos % (Auto) Baso % (Auto) Lymph # (Auto) [place] # (Auto) Eos # (Auto) Baso # (Auto) Seg Neutrophils % Seg Neutrophils # Sodium Potassium Chloride Carbon Dioxide Anion Gap BUN Creatinine Estimated GFR BUN/Creatinine Ratio Glucose POC Glucose 139 H Calcium Phosphorus Troponin T Complement C3 145 Complement C4 22 12/09/20 12/09/20 06:57 06:57 WBC 12.5 H RBC 2.57 L Hgb 7.7 L Hct 23.7 L MCV 92 MCH 30 MCHC 33 RDW 15.1 Plt Count 186 Lymph % (Auto) 11.3 L [place] % (Auto) 13.1 H Eos % (Auto) 0.8 Baso % (Auto) 0.3 Lymph # (Auto) 1.4 [place] # (Auto) 1.6 H Eos # (Auto) 0.1 Baso # (Auto) 0.0 Seg Neutrophils % 74.5 H Seg Neutrophils # 9.3 H Sodium 138 Potassium 3.3 L Chloride 101.6 Carbon Dioxide 26 Anion Gap 14 BUN 29 H Creatinine 3.6 H Estimated GFR 17 BUN/Creatinine Ratio 8 Glucose 111 H POC Glucose Calcium 7.5 L Phosphorus 2.10 L Troponin T 3.130 H* Complement C3 Complement C4
--- NOTE | 2020-12-09 21:26 | Event Note ---
Date: 12/09/20 Plan for permcath placement on saturday. NPO after MN except sips of water with meds on saturday.
[2020-12-09] MEDS: cefTRIAXone/NS 2 GM/100 ML 2 GM/100 ML BAG IV SCH (21:27)
[2020-12-10 05:56] LABS: Basophils # (Auto) 0.1 K/mm3 (0.0-0.1); Basophils % (Auto) 0.5 % (0.0-1.8); Eosinophils # (Auto) 0.2 K/mm3 (0.0-0.4); Eosinophils % (Auto) 1.8 % (0.0-4.3); Hematocrit 22.4 % (35.5-45.6); Hemoglobin 7.3 gm/dl (11.8-15.2); Lymphocytes # (Auto) 1.5 K/mm3 (1.2-5.4); Lymphocytes % (Auto) 11.6 % (13.4-35.0); Mean Corpuscular HGB Conc 33 % (32-34); Mean Corpuscular Volume 91 fl (84-94); Monocytes # (Auto) 1.4 K/mm3 (0.0-0.8); Monocytes % (Auto) 10.8 % (0.0-7.3); Platelet Count 191 K/mm3 (140-440); Red Blood Count 2.46 M/mm3 (3.65-5.03); Red Cell Distribution Width 14.8 % (13.2-15.2)
[2020-12-10 06:36] LABS: Calcium 7.5 mg/dL (8.4-10.2)
[2020-12-10] MEDS: PANTOPRAZOLE 40 MG TAB PO SCH (07:30)
--- NOTE | 2020-12-10 08:20 | Progress Note ---
Assessment and Plan Assessment and plan: Altered mental Status, metabolic encephalopathy -CT head was negative -No grossly focal neurologic deficit -We will treat underlying condition Acute on chronic renal failure -Patient has CKD, and currently GFR is 8 -Patient was diagnosed with CKD before and was suggested for dialysis but patient declined. -I discussed with his over the phone and she does not want dialysis. -Nephrology consulted. NSTEMI -Troponin was more than 3 -EKG normal sinus rhythm, no ST elevation, cardiology consulted Severe sepsis, PUI -Likely due to UTI -Patient is on cefepime -We will get urine and blood culture -Covid test is pending Acute gastroenteritis -Symptomatic management -Continue antibiotics -C. difficile ordered Anemia -Hemoglobin this morning was 7.3 -Anemia work-up was ordered, and consulted GI Diabetes mellitus -Sliding scale insulin, Accu-Chek, ADA diet and adjust insulin as needed History of DVT, on Eliquis -I will hold Eliquis for now due to anemia -Ordered D-dimer Hypertension -Blood pressure is on the low side of normal and I will hold blood pressure medication for now DVT prophylaxis; SCDs for now because of severe anemia CODE STATUS; full Disposition; to medical floor Management plan was discussed with the daughter and was in agreement with the plan of care. 12/07/2020 -Patient still altered -Morning labs pending -Was seen by ID and recommended cefepime for now -Was seen by nephrology, his declined dialysis. She also told me he declined dialysis as an outpatient -H&H improved. GI said the likely cause of anemia is renal failure. Recommend to put him on PPI and hold Eliquis -VQ scan and Doppler ultrasound of the lower extremities was done and negative -Uremic encephalopathy; not improved -Non-STEMI; management as per cardiology 12/08/2020 -Patient had hemodialysis yesterday, he is alert and oriented -Blood cultures still for gram-negative rods continue antibiotics for now. Identification pending -Non-STEMI management is per cardiology. -We will update the 12/09/2020 -First set of blood culture was grew gram-negative tevin, repeat blood cultures are negative -Patient had dialysis, yesterday and the day before, patient's mentation is getting better. -We will get records from [place] -Patient need outpatient dialysis arrangement. -Non-STEMI management as per cardiology -Discussed with the about the plan of care and she was in agreement with the plan of care 12/10/2020 -Patient's blood culture grew E. coli and antibiotics deescalated to ceftriaxone -Patient will have permacath on Saturday -Patient will have EGD on Saturday for evaluation of his anemia -Patient has echo which showed EF of 20 to 25% with severe hypokinesis, non- STEMI and cardiology was consulted and will do stress test on Saturday History Interval history: Patient was seen and evaluated this morning Patient was alert and oriented this morning Patient is on dialysis Hospitalist Physical - Physical exam Narrative exam: Not in cardiopulmonary distress. The patient appeared well nourished and normally developed. Vital signs as documented. Head exam is unremarkable. No scleral icterus . Neck is without jugular venous distension, thyromegaly, or carotid bruits. Lungs are clear to auscultation. Cardiac exam reveals regular rate and Rhythm. Abdominal exam reveals normal bowel sounds, nontender, no organomegaly. Extremities are nonedematous and both femoral and pedal pulses are normal. 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 - Constitutional Vitals: Temp Pulse Resp BP Pulse Ox 98.4 F 91 H 20 120/74 93 12/10/20 03:32 12/10/20 03:32 12/10/20 03:32 12/10/20 03:32 12/10/20 03:32 General appearance: Present: other (Confused) HEART Score - HEART Score Troponin: Troponin T 3.200 ng/mL (0.00-0.029) H* 12/10/20 05:20 Results - Labs CBC & Chem 7: 12/10/20 05:20 12/10/20 05:20 Labs: Laboratory Last Values WBC 12.9 K/mm3 (4.5-11.0) H 12/10/20 05:20 RBC 2.46 M/mm3 (3.65-5.03) L 12/10/20 05:20 Hgb 7.3 gm/dl (11.8-15.2) L 12/10/20 05:20 Hct 22.4 % (35.5-45.6) L 12/10/20 05:20 MCV 91 fl (84-94) 12/10/20 05:20 MCH 30 pg (28-32) 12/10/20 05:20 MCHC 33 % (32-34) 12/10/20 05:20 RDW 14.8 % (13.2-15.2) 12/10/20 05:20 Plt Count 191 K/mm3 (140-440) 12/10/20 05:20 Lymph % (Auto) 11.6 % (13.4-35.0) L 12/10/20 05:20 [place] % (Auto) 10.8 % (0.0-7.3) H 12/10/20 05:20 Eos % (Auto) 1.8 % (0.0-4.3) 12/10/20 05:20 Baso % (Auto) 0.5 % (0.0-1.8) 12/10/20 05:20 Lymph # (Auto) 1.5 K/mm3 (1.2-5.4) 12/10/20 05:20 [place] # (Auto) 1.4 K/mm3 (0.0-0.8) H 12/10/20 05:20 Eos # (Auto) 0.2 K/mm3 (0.0-0.4) 12/10/20 05:20 Baso # (Auto) 0.1 K/mm3 (0.0-0.1) 12/10/20 05:20 Add Manual Diff Complete 12/08/20 05:34 Total Counted 100 12/08/20 05:34 Seg Neutrophils % 75.3 % (40.0-70.0) H 12/10/20 05:20 Seg Neuts % (Manual) 91.0 % (40.0-70.0) H 12/08/20 05:34 Lymphocytes % (Manual) 3.0 % (13.4-35.0) L 12/08/20 05:34 Monocytes % (Manual) 5.0 % (0.0-7.3) 12/08/20 05:34 Eosinophils % (Manual) 1.0 % (0.0-4.3) 12/08/20 05:34 Nucleated RBC % Not Reportable 12/08/20 05:34 Seg Neutrophils # 9.7 K/mm3 (1.8-7.7) H 12/10/20 05:20 Seg Neutrophils # Man 10.6 K/mm3 (1.8-7.7) H 12/08/20 05:34 Band Neutrophils # 0.0 K/mm3 12/08/20 05:34 Lymphocytes # (Manual) 0.4 K/mm3 (1.2-5.4) L 12/08/20 05:34 Abs React Lymphs (Man) 0.0 K/mm3 12/08/20 05:34 Monocytes # (Manual) 0.6 K/mm3 (0.0-0.8) 12/08/20 05:34 Eosinophils # (Manual) 0.1 K/mm3 (0.0-0.4) 12/08/20 05:34 Basophils # (Manual) 0.0 K/mm3 (0.0-0.1) 12/08/20 05:34 Metamyelocytes # 0.0 K/mm3 12/08/20 05:34 Myelocytes # 0.0 K/mm3 12/08/20 05:34 Promyelocytes # 0.0 K/mm3 12/08/20 05:34 Blast Cells # 0.0 K/mm3 12/08/20 05:34 WBC Morphology Not Reportable 12/08/20 05:34 Hypersegmented Neuts Not Reportable 12/08/20 05:34 Hyposegmented Neuts Not Reportable 12/08/20 05:34 Hypogranular Neuts Not Reportable 12/08/20 05:34 Smudge Cells Not Reportable 12/08/20 05:34 Toxic Granulation Not Reportable 12/08/20 05:34 Toxic Vacuolation Not Reportable 12/08/20 05:34 Dohle Bodies Not Reportable 12/08/20 05:34 Pelger-Huet Anomaly Not Reportable 12/08/20 05:34 Brianda Rods Not Reportable 12/08/20 05:34 Platelet Estimate Consistent w auto 12/08/20 05:34 Clumped Platelets Not Reportable 12/08/20 05:34 Plt Clumps, EDTA Not Reportable 12/08/20 05:34 Large Platelets Not Reportable 12/08/20 05:34 Giant Platelets Not Reportable 12/08/20 05:34 Platelet Satelliting Not Reportable 12/08/20 05:34 Plt Morphology Comment Not Reportable 12/08/20 05:34 RBC Morphology Not Reportable 12/08/20 05:34 Dimorphic RBCs Not Reportable 12/08/20 05:34 Polychromasia Not Reportable 12/08/20 05:34 Hypochromasia Not Reportable 12/08/20 05:34 Poikilocytosis Not Reportable 12/08/20 05:34 Anisocytosis 1+ 12/08/20 05:34 Microcytosis Not Reportable 12/08/20 05:34 Macrocytosis Not Reportable 12/08/20 05:34 Spherocytes Not Reportable 12/08/20 05:34 Pappenheimer Bodies Not Reportable 12/08/20 05:34 Sickle Cells Not Reportable 12/08/20 05:34 Target Cells Not Reportable 12/08/20 05:34 Tear Drop Cells Not Reportable 12/08/20 05:34 Ovalocytes Not Reportable 12/08/20 05:34 Helmet Cells Not Reportable 12/08/20 05:34 [place] Bodies Not Reportable 12/08/20 05:34 [place] Rings Not Reportable 12/08/20 05:34 Dung Cells Not Reportable 12/08/20 05:34 Bite Cells Not Reportable 12/08/20 05:34 Crenated Cell Not Reportable 12/08/20 05:34 Elliptocytes Not Reportable 12/08/20 05:34 Acanthocytes (Spur) Not Reportable 12/08/20 05:34 Rouleaux Not Reportable 12/08/20 05:34 Hemoglobin C Crystals Not Reportable 12/08/20 05:34 Schistocytes Not Reportable 12/08/20 05:34 Malaria parasites Not Reportable 12/08/20 05:34 [place] Bodies Not Reportable 12/08/20 05:34 Hem Pathologist Commnt No 12/08/20 05:34 PT 18.7 Sec. (12.2-14.9) H 12/07/20 11:08 INR 1.56 (0.87-1.13) H 12/07/20 11:08 APTT 35.4 Sec. (24.2-36.6) 12/06/20 07:36 D-Dimer 3967.83 ng/mlDDU (0-234) H 12/06/20 11:54 Sodium 136 mmol/L (137-145) L 12/10/20 05:20 Potassium 3.1 mmol/L (3.6-5.0) L 12/10/20 05:20 Chloride 97.5 mmol/L (98-107) L 12/10/20 05:20 Carbon Dioxide 29 mmol/L (22-30) 12/10/20 05:20 Anion Gap 13 mmol/L 12/10/20 05:20 BUN 17 mg/dL (9-20) 12/10/20 05:20 Creatinine 3.0 mg/dL (0.8-1.3) H 12/10/20 05:20 Estimated GFR 21 ml/min 12/10/20 05:20 BUN/Creatinine Ratio 6 % 12/10/20 05:20 Glucose 126 mg/dL (75-100) H 12/10/20 05:20 POC Glucose 139 mg/dL (70-105) H 12/08/20 21:58 Lactic Acid 1.80 mmol/L (0.7-2.0) 12/06/20 10:26 Calcium 7.5 mg/dL (8.4-10.2) L 12/10/20 05:20 Phosphorus 2.00 mg/dL (2.5-4.5) L 12/10/20 05:20 Iron 22 ug/dL (49-181) L 12/07/20 11:08 TIBC 119 mcg/dL (250-450) L 12/07/20 11:08 Ferritin 800.0 ng/mL (30.0-300.0) H 12/07/20 11:08 Total Bilirubin 0.70 mg/dL (0.1-1.2) 12/06/20 07:36 AST 52 units/L (5-40) H 12/06/20 07:36 ALT 14 units/L (7-56) 12/06/20 07:36 Alkaline Phosphatase 80 units/L (35-129) 12/06/20 07:36 Ammonia 11.0 umol/L (25-60) L 12/06/20 11:54 Lactate Dehydrogenase 289 units/L (91-180) H 12/06/20 13:24 Total Creatine Kinase 872 units/L (55-170) H 12/06/20 13:24 Troponin T 3.200 ng/mL (0.00-0.029) H* 12/10/20 05:20 C-Reactive Protein 28.50 mg/dL (0.00-1.30) H 12/06/20 11:54 NT-Pro-B Natriuret Pep 29417 pg/mL (0-900) H 12/06/20 07:36 Total Protein 8.6 g/dL (6.3-8.2) H 12/06/20 07:36 Albumin 2.8 g/dL (3.9-5) L 12/06/20 07:36 Albumin/Globulin Ratio 0.5 % 12/06/20 07:36 Triglycerides 226 mg/dL (2-149) H 12/06/20 07:36 Cholesterol 103 mg/dL (50-199) 12/06/20 07:36 LDL Cholesterol Direct 13 mg/dL (50-130) L 12/06/20 07:36 HDL Cholesterol 14 mg/dL (40-59) L 12/06/20 07:36 Cholesterol/HDL Ratio 7.35 % 12/06/20 07:36 Vitamin B12 605.9 pg/mL (211-911) 12/06/20 11:54 Procalcitonin > 200.00 ng/mL (<0.15) 12/06/20 11:54 TSH 2.020 mlU/mL (0.270-4.200) 12/06/20 07:36 Urine Color Hina (Yellow) 12/06/20 Unknown Urine Turbidity Cloudy (Clear) 12/06/20 Unknown Urine pH 5.0 (5.0-7.0) 12/06/20 Unknown Ur Specific Stone 1.014 (1.003-1.030) 12/06/20 Unknown Urine Protein >500 mg/dL (Negative) 12/06/20 Unknown Urine Glucose (UA) Neg mg/dL (Negative) 12/06/20 Unknown Urine Ketones Neg mg/dL (Negative) 12/06/20 Unknown Urine Blood Mod (Negative) 12/06/20 Unknown Urine Nitrite Neg (Negative) 12/06/20 Unknown Urine Bilirubin Neg (Negative) 12/06/20 Unknown Urine Urobilinogen < 2.0 mg/dL (<2.0) 12/06/20 Unknown Ur Leukocyte Esterase Lg (Negative) 12/06/20 Unknown Urine WBC (Auto) 58.0 /HPF (0.0-6.0) H 12/06/20 Unknown Urine RBC (Auto) 9.0 /HPF (0.0-6.0) 12/06/20 Unknown U Epithel Cells (Auto) < 1.0 /HPF (0-13.0) 12/06/20 Unknown Urine Bacteria (Auto) 4+ /HPF (Negative) 12/06/20 Unknown Urine WBC Clumps 2+ /HPF 12/06/20 Unknown Urine Mucus Few /HPF 12/06/20 Unknown Urine Yeast (Budding) 1+ /HPF 12/06/20 23:15 Urine Creatinine 147.7 mg/dL (0.1-20.0) H 12/06/20 23:15 Urine Sodium 38 mmol/L 12/06/20 23:15 Salicylates 0.3 mg/dL (2.8-20.0) L 12/06/20 07:36 Urine Opiates Screen Presumptive negative 12/06/20 Unknown Urine Methadone Screen Presumptive negative 12/06/20 Unknown Acetaminophen 5.0 ug/mL (10.0-30.0) L 12/06/20 07:36 Ur Barbiturates Screen Presumptive negative 12/06/20 Unknown Ur Phencyclidine Scrn Presumptive negative 12/06/20 Unknown Ur Amphetamines Screen Presumptive negative 12/06/20 Unknown U Benzodiazepines Scrn Presumptive negative 12/06/20 Unknown Urine Cocaine Screen Presumptive negative 12/06/20 Unknown U Marijuana (THC) Screen Presumptive negative 12/06/20 Unknown Drugs of Abuse Note Disclamer 12/06/20 Unknown Plasma/Serum Alcohol < 0.01 % (0-0.07) 12/06/20 07:36 Complement C3 145 mg/dL (82-185) 12/06/20 13:24 Complement C4 22 mg/dL (15-53) 12/06/20 13:24 Coronavirus (PCR) Negative (Negative) 12/06/20 09:15 Hep Bs Antigen Non-reactive (Negative) 12/06/20 13:24 Blood Type A POSITIVE 12/06/20 07:36 Antibody Screen Negative 12/06/20 07:36 Microbiology: Microbiology 12/07/20 15:58 Peripheral/Venous Blood Culture - Preliminary NO GROWTH AFTER 48 HOURS 12/07/20 15:58 Peripheral/Venous Blood Culture - Preliminary NO GROWTH AFTER 48 HOURS 12/06/20 10:12 Urine,Catheterized - Straight Catheter Urine Culture - Final 12/06/20 07:36 Peripheral/Venous Blood Culture - Final Escherichia Coli Mcallister/IV: Voiding Method Urinal Active Medications - Current Medications Current Medications: Generic Name Dose Route Start Last Admin Trade Name Freq PRN Reason Stop Dose Admin Aspirin 325 mg 12/08/20 10:00 12/09/20 10:00 Aspirin 325 Mg Tab PO 325 mg QDAY KIRK Administration Dextrose 50 ml 12/06/20 11:45 Dextrose 50% In Water (25gm) 50 Ml Syringe IV Q30MIN PRN Hypoglycemia Protocol Sodium Chloride 1,000 mls @ 100 mls/hr 12/06/20 13:30 12/08/20 23:36 Nacl 0.9% 1000 Ml IV 100 mls/hr DIRECT KIRK Administration Sodium Chloride 100 mls @ 999 mls/hr 12/08/20 10:10 Nacl 0.9% IV CHRISTA PRN Hypotension Ceftriaxone Sodium 2 gm in 100 mls @ 200 mls/hr 12/09/20 20:00 12/09/20 21:27 Rocephin/Ns 2 Gm/100 Ml IV 12/16/20 19:59 200 mls/hr 2000 KIRK Administration Protocol Pantoprazole Sodium 40 mg 12/10/20 07:30 Pantoprazole 40 Mg Tab PO QDAC KIRK
[2020-12-10] MEDS: ASPIRIN 325 MG TAB PO SCH (09:02)
--- NOTE | 2020-12-10 10:45 | Progress Note ---
Assessment and Plan Assessment and Plan Altered mental Status, metabolic encephalopathy Acute on chronic renal failure NSTEMI Acute gastroenteritis Anemia Diabetes mellitus History of DVT, on Eliquis Hypertension Plan: -no indication for HD today -Consulted Dr. Saenz for perm-catheter placement, vascath was placed because pt needs to be off Eliquis for 48 hours and repeated blood culture needed, hopefully permcath Saturday if needed -GN w/u was ordered, so far C3/C4 WNLs -Hep B surface antigen-negative -Renal Ultrasound-pending -Renally dose medications -Strict I&O's monitoring -Obtain daily weights -Assess dialysis needs daily -Continue to monitor Subjective Date of service: 12/10/20 Principal diagnosis: Acute Blood Loss Anemia Interval history: Making urine. Objective - Exam Narrative Exam: - General Appearance General appearance: well-developed, well-nourished EENT: ATNC, PERRL, mucous membranes moist Neck: no JVD, no carotid bruit Respiratory: Present: Clear to Ascultation Gastrointestinal: normoactive bowel sounds, no tenderness, no distended Integumentary: no rash, warm and dry Neurologic: no focal deficit Musculoskeletal: other (no edema in BLE) Psychiatric: cooperative - Vital Signs Vital signs: Vital Signs - 12hr 12/10/20 03:32 Temperature 98.4 F Pulse Rate 91 H Respiratory 20 Rate Blood Pressure 120/74 O2 Sat by Pulse 93 Oximetry - Lab 12/10/20 05:20 12/10/20 05:20 Most recent lab results Calcium 7.5 mg/dL (8.4-10.2) L 12/10/20 05:20 Phosphorus 2.00 mg/dL (2.5-4.5) L 12/10/20 05:20 Urine Creatinine 147.7 mg/dL (0.1-20.0) H 12/06/20 23:15 Urine Sodium 38 mmol/L 12/06/20 23:15 Medications & Allergies - Medications Allergies/Adverse Reactions: Allergies No Known Allergies Allergy (Unverified 12/06/20 12:39) Home Medications: Home Medications Medication Instructions Recorded Confirmed Last Taken Type Acetaminophen [Non-Aspirin Extra 1,000 mg PO TID PRN 12/06/20 12/06/20 Unknown History Strength] Apixaban [Eliquis] 5 mg PO BID 12/06/20 12/06/20 Unknown History AtorvaSTATin [Lipitor] 40 mg PO QHS 12/06/20 12/06/20 Unknown History Metoprolol [Lopressor] 12.5 mg PO QDAY 12/06/20 12/06/20 Unknown History Active Medications: Generic Name Dose Route Start Last Admin Trade Name Freq PRN Reason Stop Dose Admin Aspirin 325 mg 12/08/20 10:00 12/10/20 09:02 Aspirin 325 Mg Tab PO 325 mg QDAY KIRK Administration Dextrose 50 ml 12/06/20 11:45 Dextrose 50% In Water (25gm) 50 Ml Syringe IV Q30MIN PRN Hypoglycemia Protocol Sodium Chloride 1,000 mls @ 100 mls/hr 12/06/20 13:30 12/08/20 23:36 Nacl 0.9% 1000 Ml IV 100 mls/hr DIRECT KIRK Administration Sodium Chloride 100 mls @ 999 mls/hr 12/08/20 10:10 Nacl 0.9% IV CHRISTA PRN Hypotension Ceftriaxone Sodium 2 gm in 100 mls @ 200 mls/hr 12/09/20 20:00 12/09/20 21:27 Rocephin/Ns 2 Gm/100 Ml IV 12/16/20 19:59 200 mls/hr 2000 KIRK Administration Protocol Pantoprazole Sodium 40 mg 12/10/20 07:30 12/10/20 07:30 Pantoprazole 40 Mg Tab PO 40 mg QDAC KIRK Administration
--- NOTE | 2020-12-10 12:34 | Progress Note ---
Assessment and Plan Cultures: 12/06/2020 blood culture: E.coli 12/06/2020 urine culture: mixed oliverio 12/07/2020 blood culture: no growth A/P: 70-year-old male with diabetes, hypertension, DVT, CKD was admitted to the hospital with altered mental status: #Sepsis secondary to E.coli bacteremia likely from UTI. CT showed diffuse symme tric bladder wall thickening, dilatation of the left renal collecting system. There was also retroperitoneal adenopathy seen, ?of malignancy raised by radiologist. #UTI: UA showed pyuria. Cultures mixed oliverio. CRP elevated. #DEX versus advanced CKD: Nephrology following, now on HD. #Diarrhea: no more diarrhea, sample for c.diff not collected. #Acute encephalopathy: ?uremia v/s infection. #Retroperitoneal lymphadenopathy: work up per primary. Recs: -continue IV Ceftriaxone 2 gm daily -blood cultures from 12/07/2020 are negative at 48 hrs, hence OK for PermCath placement -when discharged, convert to PO Ciprofloxacin 500 mg daily with end date of 12/16/2020 ID will sign off. Please call with questions. Anthony Walker MD, FACP [facility] ([facility] O: [phone] F: [phone] Subjective Date of service: 12/10/20 Principal diagnosis: Acute Blood Loss Anemia Interval history: No fever. Feels well, wondering when can he go home. Objective - Exam Narrative Exam: Physical Exam: Constitutional: Awake, alert, no distress Head, Ears, Nose: Normocephalic, atraumatic. External ears, nose normal Eyes: Conjunctivae/corneas clear. No icterus. No ptosis. Neck: Supple, no meningeal signs Cardiovascular: S1, S2 normal. Respiratory: Good air entry, clear to auscultation bilaterally GI: soft, non tender, bowel sounds present Musculoskeletal: No pedal edema, no cyanosis. Skin: No rash or abscess Hem/Lymphatic: No palpable cervical or supraclavicular nodes. No lymphangitis Psych: No agitation Neurological: Awake, alert - Constitutional Vitals: Vital Signs Temp Pulse Resp BP Pulse Ox 98.4 F 91 H 20 120/74 93 12/10/20 03:32 12/10/20 03:32 12/10/20 03:32 12/10/20 03:32 12/10/20 03:32 Temperature -Last 24 Hours Temperature 98.4 F Temperature 98.1 F Temperature 98.3 F Temperature 97.9 F Temperature 98.2 F - Labs CBC & Chem 7: 12/10/20 05:20 12/10/20 05:20 Labs: Abnormal lab results 12/10/20 12/10/20 12/10/20 Range/Units 05:20 05:20 05:20 WBC 12.9 H (4.5-11.0) K/mm3 RBC 2.46 L (3.65-5.03) M/mm3 Hgb 7.3 L (11.8-15.2) gm/dl Hct 22.4 L (35.5-45.6) % Lymph % (Auto) 11.6 L (13.4-35.0) % [place] % (Auto) 10.8 H (0.0-7.3) % [place] # (Auto) 1.4 H (0.0-0.8) K/mm3 Seg Neutrophils % 75.3 H (40.0-70.0) % Seg Neutrophils # 9.7 H (1.8-7.7) K/mm3 Sodium 136 L (137-145) mmol/L Potassium 3.1 L (3.6-5.0) mmol/L Chloride 97.5 L (98-107) mmol/L Creatinine 3.0 H (0.8-1.3) mg/dL Glucose 126 H (75-100) mg/dL Calcium 7.5 L (8.4-10.2) mg/dL Phosphorus 2.00 L (2.5-4.5) mg/dL Troponin T 3.200 H* (0.00-0.029) ng/mL
--- NOTE | 2020-12-10 14:46 | Hem/Onc Consultation ---
History of Present Illness - History of Present Illness heme/onc prelin eval consult requested for retroperitoneal LA seen on imaging 70yo AA man with CKD, adm for confusion, found to have bacteremia, recent diarrhea found to have isch-appearing CM with EF 25% PMH DVT-->taking eliquis-->new u/s neg for DVT has been receiving IV Abx s/p HD catheter placement imaging revealed retroperitoneal LA, largest 2-3cm DATA REVIEWED BELOW IMP: severe anemia partly due to CKD, but heme malignancy is also possible retroperitoneal LA could be lymphoma, but looks like this would be indolent if it were lymphoma CKD/ESRD, r/o myeloma REC/PLAN: RBC transfusion for severe anemia consider bone marrow biopsy consider LN biopsy if it's feasible labs to include SPEP, hgb electrophoresis Laboratory Last Values WBC 12.9 K/mm3 (4.5-11.0) H 12/10/20 05:20 Hgb 7.3 gm/dl (11.8-15.2) L 12/10/20 05:20 Hct 22.4 % (35.5-45.6) L 12/10/20 05:20 Plt Count 191 K/mm3 (140-440) 12/10/20 05:20 Seg Neutrophils % 75.3 % (40.0-70.0) H 12/10/20 05:20 INR 1.56 (0.87-1.13) H 12/07/20 11:08 APTT 35.4 Sec. (24.2-36.6) 12/06/20 07:36 Potassium 3.1 mmol/L (3.6-5.0) L 12/10/20 05:20 Iron 22 ug/dL (49-181) L 12/07/20 11:08 TIBC 119 mcg/dL (250-450) L 12/07/20 11:08 Ferritin 800.0 ng/mL (30.0-300.0) H 12/07/20 11:08 Lactate Dehydrogenase 289 units/L (91-180) H 12/06/20 13:24 Antibody Screen Negative 12/06/20 07:36 . Past History Past Medical History: diabetes, DVT, hypertension, renal failure, other (Per HPI) Past Surgical History: Other (Device placement in his chest) Social history: full code. denies: smoking, alcohol abuse, prescription drug abuse, IV drug use Family history: other (Could not obtain because patient was altered.) Medications and Allergies Allergies Allergy/AdvReac Type Severity Reaction Status Date / Time No Known Allergies Allergy Unverified 12/06/20 12:39 Home Medications Medication Instructions Recorded Confirmed Last Taken Type Acetaminophen [Non-Aspirin Extra 1,000 mg PO TID PRN 12/06/20 12/06/20 Unknown History Strength] Apixaban [Eliquis] 5 mg PO BID 12/06/20 12/06/20 Unknown History AtorvaSTATin [Lipitor] 40 mg PO QHS 12/06/20 12/06/20 Unknown History Metoprolol [Lopressor] 12.5 mg PO QDAY 12/06/20 12/06/20 Unknown History Active Meds: Active Medications Aspirin (Aspirin 325 Mg Tab) 325 mg PO QDAY [facility] Last Admin: 12/10/20 09:02 Dose: 325 mg Documented by: Dextrose (Dextrose 50% In Water (25gm) 50 Ml Syringe) 50 ml IV Q30MIN PRN; Protocol PRN Reason: Hypoglycemia Sodium Chloride (Nacl 0.9% 1000 Ml) 1,000 mls @ 100 mls/hr IV DIRECT KIRK Last Admin: 12/08/20 23:36 Dose: 100 mls/hr Documented by: Sodium Chloride (Nacl 0.9%) 100 mls @ 999 mls/hr IV CHRISTA PRN PRN Reason: Hypotension Ceftriaxone Sodium (Rocephin/Ns 2 Gm/100 Ml) 2 gm in 100 mls @ 200 mls/hr IV 2000 KIRK; Protocol Stop: 12/16/20 19:59 Last Admin: 12/09/20 21:27 Dose: 200 mls/hr Documented by: Pantoprazole Sodium (Pantoprazole 40 Mg Tab) 40 mg PO QDAC [facility] Last Admin: 12/10/20 07:30 Dose: 40 mg Documented by: Exam - Constitutional Vitals: Last Vital Signs Temp 98.4 F 12/10/20 03:32 Pulse 91 H 12/10/20 03:32 Resp 20 12/10/20 03:32 BP 120/74 12/10/20 03:32 Pulse Ox 93 12/10/20 03:32 Results - Labs lab Results: Laboratory Results - last 24 hr 12/10/20 12/10/20 12/10/20 05:20 05:20 05:20 WBC 12.9 H RBC 2.46 L Hgb 7.3 L Hct 22.4 L MCV 91 MCH 30 MCHC 33 RDW 14.8 Plt Count 191 Lymph % (Auto) 11.[address] [place] % (Auto) 10.8 H Eos % (Auto) 1.8 Baso % (Auto) 0.5 Lymph # (Auto) 1.5 [place] # (Auto) 1.4 H Eos # (Auto) 0.2 Baso # (Auto) 0.1 Seg Neutrophils % 75.3 H Seg Neutrophils # 9.7 H Sodium 136 L Potassium 3.1 L Chloride 97.5 L Carbon Dioxide 29 Anion Gap 13 BUN 17 Creatinine 3.0 H Estimated GFR 21 BUN/Creatinine Ratio 6 Glucose 126 H Calcium 7.5 L Phosphorus 2.00 L Troponin T 3.200 H*
[2020-12-10] MEDS ORDERED: SODIUM CHLORIDE 0.9% 500 ML 500 ML IV SCH (15:00)
[2020-12-10] MEDS: cefTRIAXone/NS 2 GM/100 ML 2 GM/100 ML BAG IV SCH (21:47)
--- NOTE | 2020-12-10 23:28 | Progress Note ---
Subjective Date of service: 12/10/20 Principal diagnosis: Acute Blood Loss Anemia Objective Vital Signs Temp Pulse Resp BP Pulse Ox 12/10/20 15:55 98.7 F 94 H 20 142/73 93 12/10/20 11:28 98.5 F 98 H 18 123/75 95 12/10/20 03:32 98.4 F 91 H 20 120/74 93 - Physical Examination General: No Apparent Distress HEENT: Positive: PERRL, Normocephaly, Mucus Membranes Moist, Other (Altered ment al status) Neck: Positive: neck supple, trachea midline Neuro: Positive: Grossly Intact Abdomen: Positive: Unremarkable Skin: Negative: Rash, Wound Extremities: Present: upper extr. pulses, lower extr. pulses. Absent: edema - Labs and Meds CBC 12/10/20 Range/Units 05:20 WBC 12.9 H (4.5-11.0) K/mm3 RBC 2.46 L (3.65-5.03) M/mm3 Hgb 7.3 L (11.8-15.2) gm/dl Hct 22.4 L (35.5-45.6) % Plt Count 191 (140-440) K/mm3 Lymph # (Auto) 1.5 (1.2-5.4) K/mm3 [place] # (Auto) 1.4 H (0.0-0.8) K/mm3 Eos # (Auto) 0.2 (0.0-0.4) K/mm3 Baso # (Auto) 0.1 (0.0-0.1) K/mm3 Comprehensive Metabolic Panel 12/10/20 Range/Units 05:20 Sodium 136 L (137-145) mmol/L Potassium 3.1 L (3.6-5.0) mmol/L Chloride 97.5 L (98-107) mmol/L Carbon Dioxide 29 (22-30) mmol/L BUN 17 (9-20) mg/dL Creatinine 3.0 H (0.8-1.3) mg/dL Glucose 126 H (75-100) mg/dL Calcium 7.5 L (8.4-10.2) mg/dL - Imaging and Cardiology EKG: report reviewed, image reviewed Echo: pending - EKG Sinus rhythms and dysrhythmias: sinus rhythm
--- NOTE | 2020-12-11 00:18 | Event Note ---
Date: 12/11/20 [facility] Pt resting comfortably in bed upon assessment 12/10/20 PM. He is currently declining HD, does not want to proceed with GI workup, and is refusing stress testing next week. He insists his priority is not missing a previously schedule outpatient Ophthalmology appt for eval of cataracts. Implications of the aforementioned interventions and diagnostics discussed in detail with pt. He states "I understand what you're saying, but I'm 70 and I can decide." Pt continues to decline at this time. Will re-assess in AM. If agreeable, plan to proceed with Lexiscan stress MPI tentatively on Saturday if tolerating HD well and table from a GI perspective. Otherwise continue present cardiac mgmt. CLARY LANCASTER MD / DEVON REHMAN NP
[2020-12-11 05:27] LABS: Calcium 7.2 mg/dL (8.4-10.2)
[2020-12-11 06:49] LABS: Basophils % (Auto) 0.3 % (0.0-1.8); Eosinophils # (Auto) 0.1 K/mm3 (0.0-0.4); Eosinophils % (Auto) 1.2 % (0.0-4.3); Hematocrit 22.3 % (35.5-45.6); Hemoglobin 7.3 gm/dl (11.8-15.2); Lymphocytes # (Auto) 1.6 K/mm3 (1.2-5.4); Lymphocytes % (Auto) 13.2 % (13.4-35.0); Mean Corpuscular HGB Conc 33 % (32-34); Mean Corpuscular Volume 92 fl (84-94); Monocytes # (Auto) 1.2 K/mm3 (0.0-0.8); Monocytes % (Auto) 9.6 % (0.0-7.3); Platelet Count 198 K/mm3 (140-440); Red Blood Count 2.41 M/mm3 (3.65-5.03); Red Cell Distribution Width 15.1 % (13.2-15.2)
[2020-12-11] MEDS: PANTOPRAZOLE 40 MG TAB PO SCH (07:30)
--- NOTE | 2020-12-11 09:12 | Progress Note ---
Assessment and Plan Assessment and plan: Altered mental Status, metabolic encephalopathy -CT head was negative -No grossly focal neurologic deficit -We will treat underlying condition Acute on chronic renal failure -Patient has CKD, and currently GFR is 8 -Patient was diagnosed with CKD before and was suggested for dialysis but patient declined. -I discussed with his over the phone and she does not want dialysis. -Nephrology consulted. NSTEMI -Troponin was more than 3 -EKG normal sinus rhythm, no ST elevation, cardiology consulted Severe sepsis, PUI -Likely due to UTI -Patient is on cefepime -We will get urine and blood culture -Covid test is pending Acute gastroenteritis -Symptomatic management -Continue antibiotics -C. difficile ordered Anemia -Hemoglobin this morning was 7.3 -Anemia work-up was ordered, and consulted GI Diabetes mellitus -Sliding scale insulin, Accu-Chek, ADA diet and adjust insulin as needed History of DVT, on Eliquis -I will hold Eliquis for now due to anemia -Ordered D-dimer Hypertension -Blood pressure is on the low side of normal and I will hold blood pressure medication for now DVT prophylaxis; SCDs for now because of severe anemia CODE STATUS; full Disposition; to medical floor Management plan was discussed with the daughter and was in agreement with the plan of care. 12/07/2020 -Patient still altered -Morning labs pending -Was seen by ID and recommended cefepime for now -Was seen by nephrology, his declined dialysis. She also told me he declined dialysis as an outpatient -H&H improved. GI said the likely cause of anemia is renal failure. Recommend to put him on PPI and hold Eliquis -VQ scan and Doppler ultrasound of the lower extremities was done and negative -Uremic encephalopathy; not improved -Non-STEMI; management as per cardiology 12/08/2020 -Patient had hemodialysis yesterday, he is alert and oriented -Blood cultures still for gram-negative rods continue antibiotics for now. Identification pending -Non-STEMI management is per cardiology. -We will update the 12/09/2020 -First set of blood culture was grew gram-negative tevin, repeat blood cultures are negative -Patient had dialysis, yesterday and the day before, patient's mentation is getting better. -We will get records from [place] -Patient need outpatient dialysis arrangement. -Non-STEMI management as per cardiology -Discussed with the about the plan of care and she was in agreement with the plan of care 12/10/2020 -Patient's blood culture grew E. coli and antibiotics deescalated to ceftriaxone -Patient will have permacath on Saturday -Patient will have EGD on Saturday for evaluation of his anemia -Patient has echo which showed EF of 20 to 25% with severe hypokinesis, non- STEMI and cardiology was consulted and will do stress test on Saturday12/11/2020 -Patient is on IV ceftriaxone for E. coli bacteremia -Continue PermCath and EGD tomorrow; but patient not sure he wants to proceed -Patient has echo which showed EF of 20 to 25% with severe hypokinesis, non- STEMI and cardiology was consulted and will do stress test on Saturday -I called his Cecilia Baumann and I discussed with her about PermCath, EGD, stress test and possible lymph node biopsy; she says she will talk to him and she will let us know the plan. Her numbers in the chart follow up with her. -Please get in touch with interventional radiology if they are able to get retroperitoneal lymph node biopsy, if not patient need bone marrow biopsy. History Interval history: Patient was seen and evaluated this morning Patient was alert and oriented this morning Patient is on dialysis Hospitalist Physical - Physical exam Narrative exam: Not in cardiopulmonary distress. The patient appeared well nourished and normally developed. Vital signs as documented. Head exam is unremarkable. No scleral icterus . Neck is without jugular venous distension, thyromegaly, or carotid bruits. Lungs are clear to auscultation. Cardiac exam reveals regular rate and Rhythm. Abdominal exam reveals normal bowel sounds, nontender, no organomegaly. Extremities are nonedematous and both femoral and pedal pulses are normal. MEDICAL CARE MANAGER: Patient was alert and oriented. - Constitutional Vitals: Temp Pulse Resp BP Pulse Ox 98.5 F 103 H 18 116/79 93 12/11/20 06:42 12/11/20 06:42 12/11/20 06:42 12/11/20 06:42 12/10/20 15:55 General appearance: Present: other (Confused) HEART Score - HEART Score Troponin: Troponin T 3.320 ng/mL (0.00-0.029) H* 12/11/20 04:27 Results - Labs CBC & Chem 7: 12/11/20 05:31 12/11/20 04:27 Labs: Laboratory Last Values WBC 12.1 K/mm3 (4.5-11.0) H 12/11/20 05:31 RBC 2.41 M/mm3 (3.65-5.03) L 12/11/20 05:31 Hgb 7.3 gm/dl (11.8-15.2) L 12/11/20 05:31 Hct 22.3 % (35.5-45.6) L 12/11/20 05:31 MCV 92 fl (84-94) 12/11/20 05:31 MCH 30 pg (28-32) 12/11/20 05:31 MCHC 33 % (32-34) 12/11/20 05:31 RDW 15.1 % (13.2-15.2) 12/11/20 05:31 Plt Count 198 K/mm3 (140-440) 12/11/20 05:31 Lymph % (Auto) 13.2 % (13.4-35.0) L 12/11/20 05:31 [place] % (Auto) 9.6 % (0.0-7.3) H 12/11/20 05:31 Eos % (Auto) 1.2 % (0.0-4.3) 12/11/20 05:31 Baso % (Auto) 0.3 % (0.0-1.8) 12/11/20 05:31 Lymph # (Auto) 1.6 K/mm3 (1.2-5.4) 12/11/20 05:31 [place] # (Auto) 1.2 K/mm3 (0.0-0.8) H 12/11/20 05:31 Eos # (Auto) 0.1 K/mm3 (0.0-0.4) 12/11/20 05:31 Baso # (Auto) 0.0 K/mm3 (0.0-0.1) 12/11/20 05:31 Add Manual Diff Complete 12/08/20 05:34 Total Counted 100 12/08/20 05:34 Seg Neutrophils % 75.7 % (40.0-70.0) H 12/11/20 05:31 Seg Neuts % (Manual) 91.0 % (40.0-70.0) H 12/08/20 05:34 Lymphocytes % (Manual) 3.0 % (13.4-35.0) L 12/08/20 05:34 Monocytes % (Manual) 5.0 % (0.0-7.3) 12/08/20 05:34 Eosinophils % (Manual) 1.0 % (0.0-4.3) 12/08/20 05:34 Nucleated RBC % Not Reportable 12/08/20 05:34 Seg Neutrophils # 9.2 K/mm3 (1.8-7.7) H 12/11/20 05:31 Seg Neutrophils # Man 10.6 K/mm3 (1.8-7.7) H 12/08/20 05:34 Band Neutrophils # 0.0 K/mm3 12/08/20 05:34 Lymphocytes # (Manual) 0.4 K/mm3 (1.2-5.4) L 12/08/20 05:34 Abs React Lymphs (Man) 0.0 K/mm3 12/08/20 05:34 Monocytes # (Manual) 0.6 K/mm3 (0.0-0.8) 12/08/20 05:34 Eosinophils # (Manual) 0.1 K/mm3 (0.0-0.4) 12/08/20 05:34 Basophils # (Manual) 0.0 K/mm3 (0.0-0.1) 12/08/20 05:34 Metamyelocytes # 0.0 K/mm3 12/08/20 05:34 Myelocytes # 0.0 K/mm3 12/08/20 05:34 Promyelocytes # 0.0 K/mm3 12/08/20 05:34 Blast Cells # 0.0 K/mm3 12/08/20 05:34 WBC Morphology Not Reportable 12/08/20 05:34 Hypersegmented Neuts Not Reportable 12/08/20 05:34 Hyposegmented Neuts Not Reportable 12/08/20 05:34 Hypogranular Neuts Not Reportable 12/08/20 05:34 Smudge Cells Not Reportable 12/08/20 05:34 Toxic Granulation Not Reportable 12/08/20 05:34 Toxic Vacuolation Not Reportable 12/08/20 05:34 Dohle Bodies Not Reportable 12/08/20 05:34 Pelger-Huet Anomaly Not Reportable 12/08/20 05:34 Brianda Rods Not Reportable 12/08/20 05:34 Platelet Estimate Consistent w auto 12/08/20 05:34 Clumped Platelets Not Reportable 12/08/20 05:34 Plt Clumps, EDTA Not Reportable 12/08/20 05:34 Large Platelets Not Reportable 12/08/20 05:34 Giant Platelets Not Reportable 12/08/20 05:34 Platelet Satelliting Not Reportable 12/08/20 05:34 Plt Morphology Comment Not Reportable 12/08/20 05:34 RBC Morphology Not Reportable 12/08/20 05:34 Dimorphic RBCs Not Reportable 12/08/20 05:34 Polychromasia Not Reportable 12/08/20 05:34 Hypochromasia Not Reportable 12/08/20 05:34 Poikilocytosis Not Reportable 12/08/20 05:34 Anisocytosis 1+ 12/08/20 05:34 Microcytosis Not Reportable 12/08/20 05:34 Macrocytosis Not Reportable 12/08/20 05:34 Spherocytes Not Reportable 12/08/20 05:34 Pappenheimer Bodies Not Reportable 12/08/20 05:34 Sickle Cells Not Reportable 12/08/20 05:34 Target Cells Not Reportable 12/08/20 05:34 Tear Drop Cells Not Reportable 12/08/20 05:34 Ovalocytes Not Reportable 12/08/20 05:34 Helmet Cells Not Reportable 12/08/20 05:34 [employer] Bodies Not Reportable 12/08/20 05:34 [place] Rings Not Reportable 12/08/20 05:34 [place] Cells Not Reportable 12/08/20 05:34 Bite Cells Not Reportable 12/08/20 05:34 Crenated Cell Not Reportable 12/08/20 05:34 Elliptocytes Not Reportable 12/08/20 05:34 Acanthocytes (Spur) Not Reportable 12/08/20 05:34 Rouleaux Not Reportable 12/08/20 05:34 Hemoglobin C Crystals Not Reportable 12/08/20 05:34 Schistocytes Not Reportable 12/08/20 05:34 Malaria parasites Not Reportable 12/08/20 05:34 [place] Bodies Not Reportable 12/08/20 05:34 Hem Pathologist Commnt No 12/08/20 05:34 PT 18.7 Sec. (12.2-14.9) H 12/07/20 11:08 INR 1.56 (0.87-1.13) H 12/07/20 11:08 APTT 35.4 Sec. (24.2-36.6) 12/06/20 07:36 D-Dimer 3967.83 ng/mlDDU (0-234) H 12/06/20 11:54 Sodium 131 mmol/L (137-145) L 12/11/20 04:27 Potassium 3.4 mmol/L (3.6-5.0) L 12/11/20 04:27 Chloride 94.1 mmol/L (98-107) L 12/11/20 04:27 Carbon Dioxide 27 mmol/L (22-30) 12/11/20 04:27 Anion Gap 13 mmol/L 12/11/20 04:27 BUN 21 mg/dL (9-20) H 12/11/20 04:27 Creatinine 4.2 mg/dL (0.8-1.3) H 12/11/20 04:27 Estimated GFR 14 ml/min 12/11/20 04:27 BUN/Creatinine Ratio 5 % 12/11/20 04:27 Glucose 135 mg/dL (75-100) H 12/11/20 04:27 POC Glucose 139 mg/dL (70-105) H 12/08/20 21:58 Lactic Acid 1.80 mmol/L (0.7-2.0) 12/06/20 10:26 Calcium 7.2 mg/dL (8.4-10.2) L 12/11/20 04:27 Phosphorus 2.60 mg/dL (2.5-4.5) D 12/11/20 04:27 Iron 22 ug/dL (49-181) L 12/07/20 11:08 TIBC 119 mcg/dL (250-450) L 12/07/20 11:08 Ferritin 800.0 ng/mL (30.0-300.0) H 12/07/20 11:08 Total Bilirubin 0.70 mg/dL (0.1-1.2) 12/06/20 07:36 AST 52 units/L (5-40) H 12/06/20 07:36 ALT 14 units/L (7-56) 12/06/20 07:36 Alkaline Phosphatase 80 units/L (35-129) 12/06/20 07:36 Ammonia 11.0 umol/L (25-60) L 12/06/20 11:54 Lactate Dehydrogenase 289 units/L (91-180) H 12/06/20 13:24 Total Creatine Kinase 872 units/L (55-170) H 12/06/20 13:24 Troponin T 3.320 ng/mL (0.00-0.029) H* 12/11/20 04:27 C-Reactive Protein 28.50 mg/dL (0.00-1.30) H 12/06/20 11:54 NT-Pro-B Natriuret Pep 23462 pg/mL (0-900) H 12/06/20 07:36 Total Protein 8.6 g/dL (6.3-8.2) H 12/06/20 07:36 Albumin 2.8 g/dL (3.9-5) L 12/06/20 07:36 Albumin/Globulin Ratio 0.5 % 12/06/20 07:36 Triglycerides 226 mg/dL (2-149) H 12/06/20 07:36 Cholesterol 103 mg/dL (50-199) 12/06/20 07:36 LDL Cholesterol Direct 13 mg/dL (50-130) L 12/06/20 07:36 HDL Cholesterol 14 mg/dL (40-59) L 12/06/20 07:36 Cholesterol/HDL Ratio 7.35 % 12/06/20 07:36 Vitamin B12 605.9 pg/mL (211-911) 12/06/20 11:54 Procalcitonin > 200.00 ng/mL (<0.15) 12/06/20 11:54 TSH 2.020 mlU/mL (0.270-4.200) 12/06/20 07:36 Urine Color [place] (Yellow) 12/06/20 Unknown Urine Turbidity Cloudy (Clear) 12/06/20 Unknown Urine pH 5.0 (5.0-7.0) 12/06/20 Unknown Ur Specific [place] 1.014 (1.003-1.030) 12/06/20 Unknown Urine Protein >500 mg/dL (Negative) 12/06/20 Unknown Urine Glucose (UA) Neg mg/dL (Negative) 12/06/20 Unknown Urine Ketones Neg mg/dL (Negative) 12/06/20 Unknown Urine Blood Mod (Negative) 12/06/20 Unknown Urine Nitrite Neg (Negative) 12/06/20 Unknown Urine Bilirubin Neg (Negative) 12/06/20 Unknown Urine Urobilinogen < 2.0 mg/dL (<2.0) 12/06/20 Unknown Ur Leukocyte Esterase Lg (Negative) 12/06/20 Unknown Urine WBC (Auto) 58.0 /HPF (0.0-6.0) H 12/06/20 Unknown Urine RBC (Auto) 9.0 /HPF (0.0-6.0) 12/06/20 Unknown U Epithel Cells (Auto) < 1.0 /HPF (0-13.0) 12/06/20 Unknown Urine Bacteria (Auto) 4+ /HPF (Negative) 12/06/20 Unknown Urine WBC Clumps 2+ /HPF 12/06/20 Unknown Urine Mucus Few /HPF 12/06/20 Unknown Urine Yeast (Budding) 1+ /HPF 12/06/20 23:15 Urine Creatinine 147.7 mg/dL (0.1-20.0) H 12/06/20 23:15 Urine Sodium 38 mmol/L 12/06/20 23:15 Salicylates 0.3 mg/dL (2.8-20.0) L 12/06/20 07:36 Urine Opiates Screen Presumptive negative 12/06/20 Unknown Urine Methadone Screen Presumptive negative 12/06/20 Unknown Acetaminophen 5.0 ug/mL (10.0-30.0) L 12/06/20 07:36 Ur Barbiturates Screen Presumptive negative 12/06/20 Unknown Ur Phencyclidine Scrn Presumptive negative 12/06/20 Unknown Ur Amphetamines Screen Presumptive negative 12/06/20 Unknown U Benzodiazepines Scrn Presumptive negative 12/06/20 Unknown Urine Cocaine Screen Presumptive negative 12/06/20 Unknown U Marijuana (THC) Screen Presumptive negative 12/06/20 Unknown Drugs of Abuse Note Disclamer 12/06/20 Unknown Plasma/Serum Alcohol < 0.01 % (0-0.07) 12/06/20 07:36 Complement C3 145 mg/dL (82-185) 12/06/20 13:24 Complement C4 22 mg/dL (15-53) 12/06/20 13:24 Coronavirus (PCR) Negative (Negative) 12/06/20 09:15 Hep Bs Antigen Non-reactive (Negative) 12/06/20 13:24 Blood Type A POSITIVE 12/11/20 05:31 Antibody Screen Negative 12/11/20 05:31 Crossmatch See Detail 12/11/20 05:31 Microbiology: Microbiology 12/07/20 15:58 Peripheral/Venous Blood Culture - Preliminary NO GROWTH AFTER 72 HOURS 12/07/20 15:58 Peripheral/Venous Blood Culture - Preliminary NO GROWTH AFTER 72 HOURS 12/06/20 07:36 Peripheral/Venous Blood Culture - Preliminary Escherichia Coli Mcallister/IV: Voiding Method Urinal Active Medications - Current Medications Current Medications: Generic Name Dose Route Start Last Admin Trade Name Freq PRN Reason Stop Dose Admin Dextrose 50 ml 12/06/20 11:45 Dextrose 50% In Water (25gm) 50 Ml Syringe IV Q30MIN PRN Hypoglycemia Protocol Sodium Chloride 1,000 mls @ 100 mls/hr 12/06/20 13:30 12/08/20 23:36 Nacl 0.9% 1000 Ml IV 100 mls/hr DIRECT KIRK Administration Sodium Chloride 100 mls @ 999 mls/hr 12/08/20 10:10 Nacl 0.9% IV CHRISTA PRN Hypotension Ceftriaxone Sodium 2 gm in 100 mls @ 200 mls/hr 12/09/20 20:00 12/11/20 05:31 Rocephin/Ns 2 Gm/100 Ml IV 12/16/20 19:59 Infused 2000 KIRK Infusion Protocol Pantoprazole Sodium 40 mg 12/10/20 07:30 12/10/20 07:30 Pantoprazole 40 Mg Tab PO 40 mg QDAC KIRK Administration
[2020-12-11] MEDS ORDERED: POTASSIUM CHLORIDE ER 20 MEQ TAB PO ONE (09:22)
--- NOTE | 2020-12-11 11:49 | Progress Note ---
Assessment and Plan Plans for possible Permcath in AM noted. Cardiac enzymes trending up slightly. Repeat ECG reviewed - SR w/PACs, no acute changes. Pt remains chest pain-free. Will consider ischemic eval on Saturday if clinically stable. Will add low-dose BB for now. Consider addition of ACEi/ARB when consistent HD schedule is established if BP permits. Continue to hold OAC in the setting of severe anemia. Indication to resume Eliquis is minimal given neg V/Q scan and neg BLE Dopplers. Pt seen in conjunction with Dr. Parson, who agrees with the assessment and plan of care. - Patient Problems (1) Altered mental status Current Visit: Yes Status: Acute (2) Sepsis Current Visit: Yes Status: Acute (3) UTI (urinary tract infection) Current Visit: Yes Status: Acute (4) ESRD on hemodialysis Current Visit: Yes Status: Acute (5) Symptomatic anemia Current Visit: Yes Status: Acute (6) Cardiomyopathy Current Visit: Yes Status: Acute Qualifiers: Cardiomyopathy type: unspecified Qualified Code(s): I42.9 - Cardiomyopathy, unspecified (7) NSTEMI (non-ST elevated myocardial infarction) Current Visit: Yes Status: Acute (8) Hypertension Current Visit: Yes Status: Chronic Qualifiers: Hypertension type: essential hypertension Qualified Code(s): I10 - Essential (primary) hypertension (9) Insulin dependent diabetes mellitus Current Visit: Yes Status: Chronic (10) History of DVT (deep vein thrombosis) Current Visit: Yes Status: Chronic Subjective Date of service: 12/11/20 Principal diagnosis: Anemia/?GIB, ESRD/HD, NSTEMI Interval history: More altered upon exam this AM. Still declining stress testing, but no longer seems to understand why we are recommending the aforementioned workup. Pt denies chest pain, SOB, or any additional complaints. Tele reviewed - SR in the low 100s, no events. Objective Last Vital Signs Temp 98.5 F 12/11/20 06:42 Pulse 103 H 12/11/20 06:42 Resp 18 12/11/20 06:42 BP 116/79 12/11/20 06:42 Pulse Ox 93 12/10/20 15:55 - Physical Examination General: No Apparent Distress, Other (confused) HEENT: Positive: EOMI, Normocephaly, Mucus Membranes Moist Neck: Positive: neck supple, trachea midline. Negative: JVD/HJR Cardiac: Positive: Reg Rate and Rhythm, S1/S2 Lungs: Positive: Decreased Breath Sounds (anteriorly) Neuro: Positive: Grossly Intact, Other (confused) Abdomen: Positive: Soft. Negative: Tender Skin: Negative: Rash Musculoskeletal: No Pain, Normal Range of Motion Extremities: Present: upper extr. pulses, lower extr. pulses. Absent: edema - Labs and Meds CBC 12/11/20 Range/Units 05:31 WBC 12.1 H (4.5-11.0) K/mm3 RBC 2.41 L (3.65-5.03) M/mm3 Hgb 7.3 L (11.8-15.2) gm/dl Hct 22.3 L (35.5-45.6) % Plt Count 198 (140-440) K/mm3 Lymph # (Auto) 1.6 (1.2-5.4) K/mm3 [place] # (Auto) 1.2 H (0.0-0.8) K/mm3 Eos # (Auto) 0.1 (0.0-0.4) K/mm3 Baso # (Auto) 0.0 (0.0-0.1) K/mm3 Comprehensive Metabolic Panel 12/11/20 Range/Units 04:27 Sodium 131 L (137-145) mmol/L Potassium 3.4 L (3.6-5.0) mmol/L Chloride 94.1 L (98-107) mmol/L Carbon Dioxide 27 (22-30) mmol/L BUN 21 H (9-20) mg/dL Creatinine 4.2 H (0.8-1.3) mg/dL Glucose 135 H (75-100) mg/dL Calcium 7.2 L (8.4-10.2) mg/dL - Imaging and Cardiology EKG: report reviewed, image reviewed Echo: report reviewed (12/07/2020 - EF 20-25%, mild-mod concentric LVH, severe hypokinesis of mid/distal anterior wall, mid/distal inferior wall, mod-severe hypokinesis of lateral wall & septum, LA pressure severely elevated) - Telemetry EKG Rhythm: Sinus Rhythm - EKG Sinus rhythms and dysrhythmias: sinus rhythm Supraventricular dysrhythmia: atrial premature complexe AV and intraventricular conduction: left anterior fascicular Repolarization changes or abnormalities: nonspecific abnormality, ST segment, and/or T wave
[2020-12-11] MEDS ORDERED: SODIUM CHLORIDE 0.9% 250ML 250 ML IV ONE (11:52)
--- NOTE | 2020-12-11 11:57 | Progress Note ---
Assessment and Plan Assessment and Plan Altered mental Status, metabolic encephalopathy Acute on chronic renal failure NSTEMI Acute gastroenteritis Anemia Diabetes mellitus History of DVT, on Eliquis Hypertension Plan: -no indication for HD today -Consulted Dr. Saenz for perm-catheter placement, vascath was placed because pt needs to be off Eliquis for 48 hours and repeated blood culture needed, hopefully permcath Saturday if needed -GN w/u was ordered, so far C3/C4 WNLs -Hep B surface antigen-negative -Renal Ultrasound-pending -Renally dose medications -Strict I&O's monitoring -Obtain daily weights -Assess dialysis needs daily -Continue to monitor Subjective Date of service: 12/11/20 Principal diagnosis: Anemia/?GIB, ESRD/HD, NSTEMI Interval history: Making urine. Objective - Exam Narrative Exam: - General Appearance General appearance: well-developed, well-nourished EENT: ATNC, PERRL, mucous membranes moist Neck: no JVD, no carotid bruit Respiratory: Present: Clear to Ascultation Gastrointestinal: normoactive bowel sounds, no tenderness, no distended Integumentary: no rash, warm and dry Neurologic: no focal deficit Musculoskeletal: other (no edema in BLE) Psychiatric: cooperative - Vital Signs Vital signs: Vital Signs - 12hr 12/11/20 06:42 Temperature 98.5 F Pulse Rate 103 H Respiratory 18 Rate Blood Pressure 116/79 [Left] - Lab 12/11/20 05:31 12/11/20 04:27 Most recent lab results Calcium 7.2 mg/dL (8.4-10.2) L 12/11/20 04:27 Phosphorus 2.60 mg/dL (2.5-4.5) D 12/11/20 04:27 Urine Creatinine 147.7 mg/dL (0.1-20.0) H 12/06/20 23:15 Urine Sodium 38 mmol/L 12/06/20 23:15 Medications & Allergies - Medications Allergies/Adverse Reactions: Allergies No Known Allergies Allergy (Unverified 12/06/20 12:39) Home Medications: Home Medications Medication Instructions Recorded Confirmed Last Taken Type Acetaminophen [Non-Aspirin Extra 1,000 mg PO TID PRN 12/06/20 12/06/20 Unknown History Strength] Apixaban [Eliquis] 5 mg PO BID 12/06/20 12/06/20 Unknown History AtorvaSTATin [Lipitor] 40 mg PO QHS 12/06/20 12/06/20 Unknown History Metoprolol [Lopressor] 12.5 mg PO QDAY 12/06/20 12/06/20 Unknown History Active Medications: Generic Name Dose Route Start Last Admin Trade Name Freq PRN Reason Stop Dose Admin Dextrose 50 ml 12/06/20 11:45 Dextrose 50% In Water (25gm) 50 Ml Syringe IV Q30MIN PRN Hypoglycemia Protocol Sodium Chloride 1,000 mls @ 100 mls/hr 12/06/20 13:30 12/08/20 23:36 Nacl 0.9% 1000 Ml IV 100 mls/hr DIRECT KIRK Administration Sodium Chloride 100 mls @ 999 mls/hr 12/08/20 10:10 Nacl 0.9% IV CHRISTA PRN Hypotension Ceftriaxone Sodium 2 gm in 100 mls @ 200 mls/hr 12/09/20 20:00 12/11/20 05:31 Rocephin/Ns 2 Gm/100 Ml IV 12/16/20 19:59 Infused 2000 KIRK Infusion Protocol Sodium Chloride 250 mls @ 50 mls/hr 12/11/20 11:52 Nacl 0.9% 250ml IV 12/11/20 16:51 ONCE ONE Pantoprazole Sodium 40 mg 12/10/20 07:30 12/11/20 07:30 Pantoprazole 40 Mg Tab PO 40 mg QDAC KIRK Administration
[2020-12-11] MEDS: ACETAMINOPHEN 325 MG TAB PO PRN (12:29)
[2020-12-11] MEDS: carvediloL 3.125 MG TAB PO SCH ×2 (13:00→21:23)
[2020-12-11] MEDS ORDERED: POLYETHYLENE GLYCOL/ELECT SOLN 4000 ML PO ONE (17:26)
--- NOTE | 2020-12-11 17:30 | Gastroenterology Progress Note ---
Assessment and Plan # Anemia - unknown baseline H/H. - Hgb remains low at 7 but stable. - previous report of black stool while on eliquis but no current symptoms of GI bleeding. - no prior EGD or colonoscopy per patient. - patient evaluated by cardiology and moderate risk for sedation. Rec - will plan for EGD/colonoscopy tomorrow. discussed risks with the patient. - clears today and NPO MN - Golytely prep. - in case, patient is not prepped for colonoscopy, may proceed with only EGD - will need to coordinate with IR as patient is ordered for perm cath placement tomorrow as well. Subjective Date of service: 12/11/20 Principal diagnosis: Anemia/?GIB, ESRD/HD, NSTEMI Interval history: Patient denies any blood in his stools. No abdominal pain. Wants to go home to make the eye appt on Saturday for cataract. Objective - Constitutional Vitals: Temp Pulse Resp BP Pulse Ox 98.0 F 98 H 20 119/86 99 12/11/20 14:35 12/11/20 14:35 12/11/20 14:35 12/11/20 14:35 12/11/20 14:35 General appearance: no acute distress - EENT Eyes: EOM intact ENT: hearing intact - Respiratory Respiratory effort: normal - Cardiovascular Rhythm: regular Heart Sounds: Present: S1 & S2 - Gastrointestinal General gastrointestinal: Present: soft, non-tender, non-distended - Integumentary Integumentary: Present: clear, warm - Psychiatric Psychiatric: appropriate mood/affect - Labs CBC & Chem 7: 12/11/20 05:31 12/11/20 04:27 Labs: Laboratory Results - last 24 hr 12/11/20 12/11/20 12/11/20 04:27 04:27 05:31 WBC 12.1 H RBC 2.41 L Hgb 7.3 L Hct 22.3 L MCV 92 MCH 30 MCHC 33 RDW 15.1 Plt Count 198 Lymph % (Auto) 13.2 L Dickson % (Auto) 9.6 H Eos % (Auto) 1.2 Baso % (Auto) 0.3 Lymph # (Auto) 1.6 Dickson # (Auto) 1.2 H Eos # (Auto) 0.1 Baso # (Auto) 0.0 Seg Neutrophils % 75.7 H Seg Neutrophils # 9.2 H Sodium 131 L Potassium 3.4 L Chloride 94.1 L Carbon Dioxide 27 Anion Gap 13 BUN 21 H Creatinine 4.2 H Estimated GFR 14 BUN/Creatinine Ratio 5 Glucose 135 H Calcium 7.2 L Phosphorus 2.60 D Troponin T 3.320 H* Blood Type Antibody Screen Crossmatch 12/11/20 05:31 WBC RBC Hgb Hct MCV MCH MCHC RDW Plt Count Lymph % (Auto) Dickson % (Auto) Eos % (Auto) Baso % (Auto) Lymph # (Auto) Dickson # (Auto) Eos # (Auto) Baso # (Auto) Seg Neutrophils % Seg Neutrophils # Sodium Potassium Chloride Carbon Dioxide Anion Gap BUN Creatinine Estimated GFR BUN/Creatinine Ratio Glucose Calcium Phosphorus Troponin T Blood Type A POSITIVE Antibody Screen Negative Crossmatch See Detail
--- NOTE | 2020-12-11 17:57 | Event Note ---
Date: 12/11/20 [facility] Case d/w GI this evening. Pt is currently scheduled for Permcath placement, as well as EGD +/- colonoscopy tomorrow. There are no cardiac contraindications to any of the aforementioned procedures at this time; however, if preferred from an Anesthesia perspective, may consider Lexiscan stress MPI in AM prior to proceeding with any procedures that require sedation. Will tentatively schedule stress test for tomorrow AM, though pt is still declining at this time. CLARY LANCASTER MD / DEVON REHMAN NP
[2020-12-11] MEDS: cefTRIAXone/NS 2 GM/100 ML 2 GM/100 ML BAG IV SCH ×2 (20:52→21:24)
[2020-12-11 22:45] LABS: Albumin 2.3 g/dL (3.8-4.8); Gamma Globulin 2.7 g/dL (0.8-1.7)
[2020-12-12 06:45] LABS: Basophils % (Auto) 0.4 % (0.0-1.8); Eosinophils # (Auto) 0.1 K/mm3 (0.0-0.4); Eosinophils % (Auto) 0.8 % (0.0-4.3); Hematocrit 24.8 % (35.5-45.6); Hemoglobin 8.1 gm/dl (11.8-15.2); Lymphocytes # (Auto) 1.1 K/mm3 (1.2-5.4); Lymphocytes % (Auto) 9.3 % (13.4-35.0); Mean Corpuscular HGB Conc 33 % (32-34); Mean Corpuscular Volume 92 fl (84-94); Monocytes # (Auto) 0.9 K/mm3 (0.0-0.8); Monocytes % (Auto) 7.8 % (0.0-7.3); Platelet Count 232 K/mm3 (140-440); Red Blood Count 2.69 M/mm3 (3.65-5.03); Red Cell Distribution Width 16.1 % (13.2-15.2)
[2020-12-12 06:53] LABS: Calcium 7.3 mg/dL (8.4-10.2)
[2020-12-12] MEDS ORDERED: HEPARIN/NS 5000 UNIT/500ML 500 ML IR ONE (08:17)
[2020-12-12] MEDS ORDERED: LIDOCAINE 1%/EPINEPHRINE 1:100,000 VIAL (20 ML) INFILTRATI ONE (08:18)
[2020-12-12] MEDS ORDERED: ceFAZolin/Water 2 GM/20 ML 2 GM/20 ML SYRINGE IV ONE (08:18)
[2020-12-12] MEDS ORDERED: SODIUM CHLORIDE 0.9% 250ML 250 ML ONE (08:18)
[2020-12-12] MEDS ORDERED: HEPARIN 10,000 UNITS/10 ML VIAL ONE (08:18)
[2020-12-12] MEDS ORDERED: REGADENOSON 0.4 MG/5 ML INJ IV ONE (08:35)
[2020-12-12] MEDS: fentaNYL 100 MCG/2 ML INJ ONE ×2 (09:06→09:32)
[2020-12-12] MEDS: MIDAZOLAM 2 MG/2 ML INJ ONE ×2 (09:06→09:32)
[2020-12-12] MEDS ORDERED: diphenhydrAMINE 50 MG/ML VIAL ONE (09:18)
[2020-12-12] MEDS ORDERED: SODIUM CHLORIDE 0.9% 100 ML IV PRN (10:00)
[2020-12-12] MEDS: PANTOPRAZOLE 40 MG TAB PO SCH (10:19)
[2020-12-12] MEDS: carvediloL 3.125 MG TAB PO SCH ×2 (10:19→21:04)
--- NOTE | 2020-12-12 10:19 | Operative Report ---
Operative Report Operative Report: EXAM: 1. Fluoroscopic-guided placement of a tunneled cuffed hemodialysis catheter. DATE: 12/12/2020 INDICATION: End-stage renal disease requiring hemodialysis access. MEDICATIONS: Please see nursing report for full details. DEVICES: 27 cm tip to cuff dual lumen hemodialysis catheter INSULATION NOZZLEMAN: ANA RANDHAWA MD CONTRAST: None PROCEDURE: The risks, benefits, and alternatives were discussed and informed consent was obtained. The patient was transported to the angiography suite in satisfactory/stable condition and was transported onto the angiography table. The patient was prepped and draped in a sterile fashion. The existing vascath was prepped and draped in a sterile fashion. Suture was cut. 0.035 inch wire was advanced through the Vas-Cath into the IVC. Vas-Cath was removed. The wire was cleaned with ChloraPrep. Over the 0.035 inch wire, serial dilatation was performed with ultimate p lacement of a peel-away sheath. A suitable exit site was identified on the patient's chest inferior and lateral to the venotomy. The site was anesthetized with local anesthetic and the track was anesthetized. Dermatotomy was made. Tunneler was then tunneled from dermatotomy to the venotomy site/catheter. The PermCath was attached to the tunneling device and removed through the venotomy. Catheter was then passed through the peel-away sheath and positioned in the right atrium. Peel-away sheath removed. 4-0 Vicryl suture was used to close the venotomy and Dermabond was then applied. 2-0 Ethilon suture was used to secure the catheter at the dermatotomy. The catheter was charged with heparin 1000 units/mL space. Sterile dressing and Biopatch applied. The patient was transferred from the angiography suite back to the floor in stable condition. FINDINGS: 1. Excellent flow was obtained through the dialysis catheter with 20 mL syringes. 2. The catheter tip is in the right atrium. IMPRESSION: 1. Fluoroscopic-guided placement of a tunneled cuffed hemodialysis catheter.
--- NOTE | 2020-12-12 11:06 | Progress Note ---
Assessment and Plan Assessment: Altered mental Status, metabolic encephalopathy Acute on chronic renal failure NSTEMI Acute gastroenteritis Anemia Diabetes mellitus History of DVT, on Eliquis Hypertension Plan: -S/P perm-cath placement this morning -Hemodialysis today for UF and clearance -Renal ultrasound review-Possible cystitis. Medical renal disease. Mild left hydronephrosis. Consulted Urology-Dr. Salomon -GN work-up in progress, so far -VIANEY,ANCA,C3, C4, Anti-GBM, SPEP and Hep C-pending -Hep B surface antigen-negative -Urine lytes reviewed, has proteinuria -Fluid restriction of 1 liter per day -Renally dose medications -Strict I&O's monitoring -Obtain daily weights -Accepted at [facility], T,T,S 10:30 a.m schedule upon discharge -Assess dialysis needs daily -Plan of care reviewed with Dr. Peters Subjective Date of service: 12/12/20 Principal diagnosis: Anemia/?GIB, ESRD/HD, NSTEMI Interval history: Patient seen in dialysis unit. S/p perm-cath placement today. Objective - Vital Signs Vital signs: Vital Signs - 12hr 12/12/20 12/12/20 12/12/20 05:09 10:10 10:15 Temperature 98.4 F 97.8 F Pulse Rate 114 H 90 89 Respiratory 18 21 Rate Blood Pressure 134/81 135/85 Blood Pressure 140/74 [Left] O2 Sat by Pulse 94 Oximetry - General Appearance General appearance: well-developed, appears stated age EENT: ATNC, PERRL, hearing intact, vision intact Neck: no JVD, supple Respiratory: Present: Decreased Breath Sounds Cardiology: S1S2 Gastrointestinal: normoactive bowel sounds Integumentary: warm and dry Neurologic: other (awake and alert) Musculoskeletal: other (No edema) - Lab 12/12/20 05:00 12/12/20 05:00 Most recent lab results Calcium 7.3 mg/dL (8.4-10.2) L 12/12/20 05:00 Phosphorus 2.80 mg/dL (2.5-4.5) 12/12/20 05:00 Urine Creatinine 147.7 mg/dL (0.1-20.0) H 12/06/20 23:15 Urine Sodium 38 mmol/L 12/06/20 23:15 Medications & Allergies - Medications Allergies/Adverse Reactions: Allergies No Known Allergies Allergy (Unverified 12/06/20 12:39) Home Medications: Home Medications Medication Instructions Recorded Confirmed Last Taken Type Acetaminophen [Non-Aspirin Extra 1,000 mg PO TID PRN 12/06/20 12/06/20 Unknown History Strength] Apixaban [Eliquis] 5 mg PO BID 12/06/20 12/06/20 Unknown History AtorvaSTATin [Lipitor] 40 mg PO QHS 12/06/20 12/06/20 Unknown History Metoprolol [Lopressor] 12.5 mg PO QDAY 12/06/20 12/06/20 Unknown History Active Medications: Generic Name Dose Route Start Last Admin Trade Name Freq PRN Reason Stop Dose Admin Acetaminophen 650 mg 12/11/20 12:18 12/11/20 12:29 Acetaminophen 325 Mg Tab PO 650 mg Q6H PRN Administration Pain, Mild (1-3) Carvedilol 3.125 mg 12/11/20 13:00 12/12/20 10:19 Carvedilol 3.125 Mg Tab PO Not Given BID KIRK Dextrose 50 ml 12/06/20 11:45 Dextrose 50% In Water (25gm) 50 Ml Syringe IV Q30MIN PRN Hypoglycemia Protocol Sodium Chloride 1,000 mls @ 100 mls/hr 12/06/20 13:30 12/08/20 23:36 Nacl 0.9% 1000 Ml IV 100 mls/hr DIRECT KIRK Administration Ceftriaxone Sodium 2 gm in 100 mls @ 200 mls/hr 12/09/20 20:00 12/11/20 22:12 Rocephin/Ns 2 Gm/100 Ml IV 12/16/20 19:59 Infused 2000 KIRK Infusion Protocol Sodium Chloride 100 mls @ 999 mls/hr 12/12/20 10:00 Nacl 0.9% IV CHRISTA PRN Hypotension Pantoprazole Sodium 40 mg 12/10/20 07:30 12/12/20 10:19 Pantoprazole 40 Mg Tab PO Not Given QDAC KIRK
--- NOTE | 2020-12-12 11:51 | Progress Note ---
Assessment and Plan Assessment and plan: Altered mental Status, metabolic encephalopathy -CT head was negative -No grossly focal neurologic deficit -We will treat underlying condition Acute on chronic renal failure -Patient has CKD, and currently GFR is 8 -Patient was diagnosed with CKD before and was suggested for dialysis but patient declined. -I discussed with his over the phone and she does not want dialysis. -Nephrology consulted. NSTEMI -Troponin was more than 3 -EKG normal sinus rhythm, no ST elevation, cardiology consulted Severe sepsis, PUI -Likely due to UTI -Patient is on cefepime -We will get urine and blood culture -Covid test is pending Acute gastroenteritis -Symptomatic management -Continue antibiotics -C. difficile ordered Anemia -Hemoglobin this morning was 7.3 -Anemia work-up was ordered, and consulted GI Diabetes mellitus -Sliding scale insulin, Accu-Chek, ADA diet and adjust insulin as needed History of DVT, on Eliquis -I will hold Eliquis for now due to anemia -Ordered D-dimer Hypertension -Blood pressure is on the low side of normal and I will hold blood pressure medication for now DVT prophylaxis; SCDs for now because of severe anemia CODE STATUS; full Disposition; to medical floor Management plan was discussed with the daughter and was in agreement with the plan of care. 12/07/2020 -Patient still altered -Morning labs pending -Was seen by ID and recommended cefepime for now -Was seen by nephrology, his declined dialysis. She also told me he declined dialysis as an outpatient -H&H improved. GI said the likely cause of anemia is renal failure. Recommend to put him on PPI and hold Eliquis -VQ scan and Doppler ultrasound of the lower extremities was done and negative -Uremic encephalopathy; not improved -Non-STEMI; management as per cardiology 12/08/2020 -Patient had hemodialysis yesterday, he is alert and oriented -Blood cultures still for gram-negative rods continue antibiotics for now. Identification pending -Non-STEMI management is per cardiology. -We will update the 12/09/2020 -First set of blood culture was grew gram-negative tevin, repeat blood cultures are negative -Patient had dialysis, yesterday and the day before, patient's mentation is getting better. -We will get records from [place] -Patient need outpatient dialysis arrangement. -Non-STEMI management as per cardiology -Discussed with the about the plan of care and she was in agreement with the plan of care 12/10/2020 -Patient's blood culture grew E. coli and antibiotics deescalated to ceftriaxone -Patient will have permacath on Saturday -Patient will have EGD on Saturday for evaluation of his anemia -Patient has echo which showed EF of 20 to 25% with severe hypokinesis, non- STEMI and cardiology was consulted and will do stress test on Saturday12/11/2020 -Patient is on IV ceftriaxone for E. coli bacteremia -Continue PermCath and EGD tomorrow; but patient not sure he wants to proceed -Patient has echo which showed EF of 20 to 25% with severe hypokinesis, non- STEMI and cardiology was consulted and will do stress test on Saturday -I called his Cecilia Baumann and I discussed with her about PermCath, EGD, stress test and possible lymph node biopsy; she says she will talk to him and she will let us know the plan. Her numbers in the chart follow up with her. -Please get in touch with interventional radiology if they are able to get retroperitoneal lymph node biopsy, if not patient need bone marrow biopsy. 12/12: Patient today underwent successful fluoroscopic-guided placement of a tunneled cuffed hemodialysis catheter. Patient is pending endoscopy and colonoscopy cardiology had cleared the patient for the procedure but will obtain a stress test if so wishes by anesthesia prior. History Interval history: Patient seen and examined, went for hd access this am. awaiting EGD Hospitalist Physical - Physical exam Narrative exam: Not in cardiopulmonary distress. The patient appeared well nourished and normally developed. Vital signs as documented. Head exam is unremarkable. No scleral icterus . Neck is without jugular venous distension, thyromegaly, or carotid bruits. Lungs are clear to auscultation. Cardiac exam reveals regular rate and Rhythm. Abdominal exam reveals normal bowel sounds, nontender, no organomegaly. Extremities are nonedematous and both femoral and pedal pulses are normal. I&C TECHNICIAN: Patient was alert and oriented. - Constitutional Vitals: Temp Pulse Resp BP Pulse Ox 97.8 F 87 21 140/87 94 12/12/20 10:10 12/12/20 11:15 12/12/20 10:10 12/12/20 11:15 12/12/20 05:09 General appearance: Present: other (Confused) HEART Score - HEART Score Troponin: Troponin T 3.070 ng/mL (0.00-0.029) H* 12/12/20 05:00 Results - Labs CBC & Chem 7: 12/13/20 07:23 12/12/20 05:00 Labs: Laboratory Last Values WBC 11.5 K/mm3 (4.5-11.0) H 12/12/20 05:00 RBC 2.69 M/mm3 (3.65-5.03) L 12/12/20 05:00 Hgb 8.1 gm/dl (11.8-15.2) L 12/12/20 05:00 Hct 24.8 % (35.5-45.6) L 12/12/20 05:00 MCV 92 fl (84-94) 12/12/20 05:00 MCH 30 pg (28-32) 12/12/20 05:00 MCHC 33 % (32-34) 12/12/20 05:00 RDW 16.1 % (13.2-15.2) H 12/12/20 05:00 Plt Count 232 K/mm3 (140-440) 12/12/20 05:00 Lymph % (Auto) 9.3 % (13.4-35.0) L 12/12/20 05:00 Creek % (Auto) 7.8 % (0.0-7.3) H 12/12/20 05:00 Eos % (Auto) 0.8 % (0.0-4.3) 12/12/20 05:00 Baso % (Auto) 0.4 % (0.0-1.8) 12/12/20 05:00 Lymph # (Auto) 1.1 K/mm3 (1.2-5.4) L 12/12/20 05:00 Creek # (Auto) 0.9 K/mm3 (0.0-0.8) H 12/12/20 05:00 Eos # (Auto) 0.1 K/mm3 (0.0-0.4) 12/12/20 05:00 Baso # (Auto) 0.0 K/mm3 (0.0-0.1) 12/12/20 05:00 Add Manual Diff Complete 12/08/20 05:34 Total Counted 100 12/08/20 05:34 Seg Neutrophils % 81.7 % (40.0-70.0) H 12/12/20 05:00 Seg Neuts % (Manual) 91.0 % (40.0-70.0) H 12/08/20 05:34 Lymphocytes % (Manual) 3.0 % (13.4-35.0) L 12/08/20 05:34 Monocytes % (Manual) 5.0 % (0.0-7.3) 12/08/20 05:34 Eosinophils % (Manual) 1.0 % (0.0-4.3) 12/08/20 05:34 Nucleated RBC % Not Reportable 12/08/20 05:34 Seg Neutrophils # 9.4 K/mm3 (1.8-7.7) H 12/12/20 05:00 Seg Neutrophils # Man 10.6 K/mm3 (1.8-7.7) H 12/08/20 05:34 Band Neutrophils # 0.0 K/mm3 12/08/20 05:34 Lymphocytes # (Manual) 0.4 K/mm3 (1.2-5.4) L 12/08/20 05:34 Abs React Lymphs (Man) 0.0 K/mm3 12/08/20 05:34 Monocytes # (Manual) 0.6 K/mm3 (0.0-0.8) 12/08/20 05:34 Eosinophils # (Manual) 0.1 K/mm3 (0.0-0.4) 12/08/20 05:34 Basophils # (Manual) 0.0 K/mm3 (0.0-0.1) 12/08/20 05:34 Metamyelocytes # 0.0 K/mm3 12/08/20 05:34 Myelocytes # 0.0 K/mm3 12/08/20 05:34 Promyelocytes # 0.0 K/mm3 12/08/20 05:34 Blast Cells # 0.0 K/mm3 12/08/20 05:34 WBC Morphology Not Reportable 12/08/20 05:34 Hypersegmented Neuts Not Reportable 12/08/20 05:34 Hyposegmented Neuts Not Reportable 12/08/20 05:34 Hypogranular Neuts Not Reportable 12/08/20 05:34 Smudge Cells Not Reportable 12/08/20 05:34 Toxic Granulation Not Reportable 12/08/20 05:34 Toxic Vacuolation Not Reportable 12/08/20 05:34 Dohle Bodies Not Reportable 12/08/20 05:34 Pelger-Huet Anomaly Not Reportable 12/08/20 05:34 Brianda Rods Not Reportable 12/08/20 05:34 Platelet Estimate Consistent w auto 12/08/20 05:34 Clumped Platelets Not Reportable 12/08/20 05:34 Plt Clumps, EDTA Not Reportable 12/08/20 05:34 Large Platelets Not Reportable 12/08/20 05:34 Giant Platelets Not Reportable 12/08/20 05:34 Platelet Satelliting Not Reportable 12/08/20 05:34 Plt Morphology Comment Not Reportable 12/08/20 05:34 RBC Morphology Not Reportable 12/08/20 05:34 Dimorphic RBCs Not Reportable 12/08/20 05:34 Polychromasia Not Reportable 12/08/20 05:34 Hypochromasia Not Reportable 12/08/20 05:34 Poikilocytosis Not Reportable 12/08/20 05:34 Anisocytosis 1+ 12/08/20 05:34 Microcytosis Not Reportable 12/08/20 05:34 Macrocytosis Not Reportable 12/08/20 05:34 Spherocytes Not Reportable 12/08/20 05:34 Pappenheimer Bodies Not Reportable 12/08/20 05:34 Sickle Cells Not Reportable 12/08/20 05:34 Target Cells Not Reportable 12/08/20 05:34 Tear Drop Cells Not Reportable 12/08/20 05:34 Ovalocytes Not Reportable 12/08/20 05:34 Helmet Cells Not Reportable 12/08/20 05:34 Rangel-Huetter Bodies Not Reportable 12/08/20 05:34 Salado Rings Not Reportable 12/08/20 05:34 Scandia Cells Not Reportable 12/08/20 05:34 Bite Cells Not Reportable 12/08/20 05:34 Crenated Cell Not Reportable 12/08/20 05:34 Elliptocytes Not Reportable 12/08/20 05:34 Acanthocytes (Spur) Not Reportable 12/08/20 05:34 Rouleaux Not Reportable 12/08/20 05:34 Hemoglobin C Crystals Not Reportable 12/08/20 05:34 Schistocytes Not Reportable 12/08/20 05:34 Malaria parasites Not Reportable 12/08/20 05:34 Boston Bodies Not Reportable 12/08/20 05:34 Hem Pathologist Commnt No 12/08/20 05:34 PT 18.7 Sec. (12.2-14.9) H 12/07/20 11:08 INR 1.56 (0.87-1.13) H 12/07/20 11:08 APTT 35.4 Sec. (24.2-36.6) 12/06/20 07:36 D-Dimer 3967.83 ng/mlDDU (0-234) H 12/06/20 11:54 Sodium 134 mmol/L (137-145) L 12/12/20 05:00 Potassium 3.7 mmol/L (3.6-5.0) 12/12/20 05:00 Chloride 95.7 mmol/L (98-107) L 12/12/20 05:00 Carbon Dioxide 24 mmol/L (22-30) 12/12/20 05:00 Anion Gap 18 mmol/L 12/12/20 05:00 BUN 28 mg/dL (9-20) H 12/12/20 05:00 Creatinine 5.0 mg/dL (0.8-1.3) H 12/12/20 05:00 Estimated GFR 11 ml/min 12/12/20 05:00 BUN/Creatinine Ratio 6 % 12/12/20 05:00 Glucose 163 mg/dL (75-100) H 12/12/20 05:00 POC Glucose 139 mg/dL (70-105) H 12/08/20 21:58 Lactic Acid 1.80 mmol/L (0.7-2.0) 12/06/20 10:26 Calcium 7.3 mg/dL (8.4-10.2) L 12/12/20 05:00 Phosphorus 2.80 mg/dL (2.5-4.5) 12/12/20 05:00 Iron 22 ug/dL (49-181) L 12/07/20 11:08 TIBC 119 mcg/dL (250-450) L 12/07/20 11:08 Ferritin 800.0 ng/mL (30.0-300.0) H 12/07/20 11:08 Total Bilirubin 0.70 mg/dL (0.1-1.2) 12/06/20 07:36 AST 52 units/L (5-40) H 12/06/20 07:36 ALT 14 units/L (7-56) 12/06/20 07:36 Alkaline Phosphatase 80 units/L (35-129) 12/06/20 07:36 Ammonia 11.0 umol/L (25-60) L 12/06/20 11:54 Lactate Dehydrogenase 289 units/L (91-180) H 12/06/20 13:24 Total Creatine Kinase 872 units/L (55-170) H 12/06/20 13:24 Troponin T 3.070 ng/mL (0.00-0.029) H* 12/12/20 05:00 C-Reactive Protein 28.50 mg/dL (0.00-1.30) H 12/06/20 11:54 NT-Pro-B Natriuret Pep 46458 pg/mL (0-900) H 12/06/20 07:36 Serum Total Protein 7.5 g/dL (6.1-8.1) 12/07/20 11:08 Total Protein 8.6 g/dL (6.3-8.2) H 12/06/20 07:36 Albumin 2.3 g/dL (3.8-4.8) L 12/07/20 11:08 Albumin/Globulin Ratio 0.5 % 12/06/20 07:36 Tpamh-4-Zfqpizibw 0.5 g/dL (0.2-0.3) H 12/07/20 11:08 Dftfg-0-Qyswxdwom 0.9 g/dL (0.5-0.9) 12/07/20 11:08 Beta Globulins 0.7 g/dL (0.2-0.5) H 12/07/20 11:08 Gamma Globulins 2.7 g/dL (0.8-1.7) H 12/07/20 11:08 Abnorm Protein Band 1 see below 12/07/20 11:08 PEP Interpretation see below H 12/07/20 11:08 Triglycerides 226 mg/dL (2-149) H 12/06/20 07:36 Cholesterol 103 mg/dL (50-199) 12/06/20 07:36 LDL Cholesterol Direct 13 mg/dL (50-130) L 12/06/20 07:36 HDL Cholesterol 14 mg/dL (40-59) L 12/06/20 07:36 Cholesterol/HDL Ratio 7.35 % 12/06/20 07:36 Vitamin B12 605.9 pg/mL (211-911) 12/06/20 11:54 Procalcitonin > 200.00 ng/mL (<0.15) 12/06/20 11:54 TSH 2.020 mlU/mL (0.270-4.200) 12/06/20 07:36 Urine Color Hina (Yellow) 12/06/20 Unknown Urine Turbidity Cloudy (Clear) 12/06/20 Unknown Urine pH 5.0 (5.0-7.0) 12/06/20 Unknown Ur Specific Wainwright 1.014 (1.003-1.030) 12/06/20 Unknown Urine Protein >500 mg/dL (Negative) 12/06/20 Unknown Urine Glucose (UA) Neg mg/dL (Negative) 12/06/20 Unknown Urine Ketones Neg mg/dL (Negative) 12/06/20 Unknown Urine Blood Mod (Negative) 12/06/20 Unknown Urine Nitrite Neg (Negative) 12/06/20 Unknown Urine Bilirubin Neg (Negative) 12/06/20 Unknown Urine Urobilinogen < 2.0 mg/dL (<2.0) 12/06/20 Unknown Ur Leukocyte Esterase Lg (Negative) 12/06/20 Unknown Urine WBC (Auto) 58.0 /HPF (0.0-6.0) H 12/06/20 Unknown Urine RBC (Auto) 9.0 /HPF (0.0-6.0) 12/06/20 Unknown U Epithel Cells (Auto) < 1.0 /HPF (0-13.0) 12/06/20 Unknown Urine Bacteria (Auto) 4+ /HPF (Negative) 12/06/20 Unknown Urine WBC Clumps 2+ /HPF 12/06/20 Unknown Urine Mucus Few /HPF 12/06/20 Unknown Urine Yeast (Budding) 1+ /HPF 12/06/20 23:15 Urine Creatinine 147.7 mg/dL (0.1-20.0) H 12/06/20 23:15 Urine Sodium 38 mmol/L 12/06/20 23:15 Salicylates 0.3 mg/dL (2.8-20.0) L 12/06/20 07:36 Urine Opiates Screen Presumptive negative 12/06/20 Unknown Urine Methadone Screen Presumptive negative 12/06/20 Unknown Acetaminophen 5.0 ug/mL (10.0-30.0) L 12/06/20 07:36 Ur Barbiturates Screen Presumptive negative 12/06/20 Unknown Ur Phencyclidine Scrn Presumptive negative 12/06/20 Unknown Ur Amphetamines Screen Presumptive negative 12/06/20 Unknown U Benzodiazepines Scrn Presumptive negative 12/06/20 Unknown Urine Cocaine Screen Presumptive negative 12/06/20 Unknown U Marijuana (THC) Screen Presumptive negative 12/06/20 Unknown Drugs of Abuse Note Disclamer 12/06/20 Unknown Plasma/Serum Alcohol < 0.01 % (0-0.07) 12/06/20 07:36 Complement C3 145 mg/dL (82-185) 12/06/20 13:24 Complement C4 22 mg/dL (15-53) 12/06/20 13:24 Coronavirus (PCR) Negative (Negative) 12/06/20 09:15 Hep Bs Antigen Non-reactive (Negative) 12/06/20 13:24 Blood Type A POSITIVE 12/11/20 05:31 Antibody Screen Negative 12/11/20 05:31 Crossmatch See Detail 12/11/20 05:31 Microbiology: Microbiology 12/07/20 15:58 Peripheral/Venous Blood Culture - Preliminary NO GROWTH AFTER 4 DAYS 12/07/20 15:58 Peripheral/Venous Blood Culture - Preliminary NO GROWTH AFTER 4 DAYS Mcallister/IV: Voiding Method Urinal Active Medications - Current Medications Current Medications: Generic Name Dose Route Start Last Admin Trade Name Freq PRN Reason Stop Dose Admin Acetaminophen 650 mg 12/11/20 12:18 12/11/20 12:29 Acetaminophen 325 Mg Tab PO 650 mg Q6H PRN Administration Pain, Mild (1-3) Carvedilol 3.125 mg 12/11/20 13:00 12/12/20 10:19 Carvedilol 3.125 Mg Tab PO Not Given BID KIRK Dextrose 50 ml 12/06/20 11:45 Dextrose 50% In Water (25gm) 50 Ml Syringe IV Q30MIN PRN Hypoglycemia Protocol Sodium Chloride 1,000 mls @ 100 mls/hr 12/06/20 13:30 12/08/20 23:36 Nacl 0.9% 1000 Ml IV 100 mls/hr DIRECT KIRK Administration Ceftriaxone Sodium 2 gm in 100 mls @ 200 mls/hr 12/09/20 20:00 12/11/20 22:12 Rocephin/Ns 2 Gm/100 Ml IV 12/16/20 19:59 Infused 2000 KIRK Infusion Protocol Sodium Chloride 100 mls @ 999 mls/hr 12/12/20 10:00 Nacl 0.9% IV CHRISTA PRN Hypotension Pantoprazole Sodium 40 mg 12/10/20 07:30 12/12/20 10:19 Pantoprazole 40 Mg Tab PO Not Given QDAC KIRK
[2020-12-12] MEDS: EPOETIN ALFA-EPBX 10,000 UNIT/1 ML VIAL IV PRN (13:00)
--- NOTE | 2020-12-12 14:19 | Gastroenterology Progress Note ---
Assessment and Plan # Anemia - unknown baseline H/H. - Hgb remains low at 7 but stable. - previous report of black stool while on eliquis but no current symptoms of GI bleeding. - no prior EGD or colonoscopy per patient. - patient evaluated by cardiology and moderate risk for sedation. - patient did not take any colon prep - patient refused to do EGD today. Discussed that it would be to evaluate for anemia and possible GI bleed. States he understands but he changed his mind and does not want to have it done. Also spoke with his and she will talk with him. She states he will have colonoscopy done as outpatient. Rec - resume diet today - EGD cancelled today with patient declining the procedure. - if patient is agreeable, we can proceed with EGD tomorrow. Subjective Date of service: 12/12/20 Principal diagnosis: Anemia/?GIB, ESRD/HD, NSTEMI Interval history: Patient underwent HD this morning after permcath placement. Did not take any colon prep. Objective - Constitutional Vitals: Temp Pulse Resp BP Pulse Ox 97.8 F 94 H 21 117/56 94 12/12/20 10:10 12/12/20 13:00 12/12/20 10:10 12/12/20 13:00 12/12/20 05:09 General appearance: no acute distress - EENT Eyes: EOM intact ENT: hearing intact - Respiratory Respiratory effort: normal - Cardiovascular Rhythm: regular Heart Sounds: Present: S1 & S2 - Gastrointestinal General gastrointestinal: Present: soft, non-tender - Neurologic Neurological: alert and oriented x3 - Labs CBC & Chem 7: 12/12/20 05:00 12/12/20 05:00 Labs: Laboratory Results - last 24 hr 12/07/20 12/11/20 12/12/20 11:08 05:31 05:00 WBC 11.5 H RBC 2.69 L Hgb 8.1 L Hct 24.8 L MCV 92 MCH 30 MCHC 33 RDW 16.1 H Plt Count 232 Lymph % (Auto) 9.3 L [place] % (Auto) 7.8 H Eos % (Auto) 0.8 Baso % (Auto) 0.4 Lymph # (Auto) 1.1 L [place] # (Auto) 0.9 H Eos # (Auto) 0.1 Baso # (Auto) 0.0 Seg Neutrophils % 81.7 H Seg Neutrophils # 9.4 H Sodium Potassium Chloride Carbon Dioxide Anion Gap BUN Creatinine Estimated GFR BUN/Creatinine Ratio Glucose Calcium Phosphorus Troponin T Serum Total Protein 7.5 Albumin 2.3 L Qibso-2-Vcsmhwmpt 0.5 H Ohjst-8-Kuwjzvrfy 0.9 Beta Globulins 0.7 H Gamma Globulins 2.7 H Abnorm Protein Band 1 see below PEP Interpretation see below H Crossmatch See Detail 12/12/20 05:00 WBC RBC Hgb Hct MCV MCH MCHC RDW Plt Count Lymph % (Auto) [place] % (Auto) Eos % (Auto) Baso % (Auto) Lymph # (Auto) [place] # (Auto) Eos # (Auto) Baso # (Auto) Seg Neutrophils % Seg Neutrophils # Sodium 134 L Potassium 3.7 Chloride 95.7 L Carbon Dioxide 24 Anion Gap 18 BUN 28 H Creatinine 5.0 H Estimated GFR 11 BUN/Creatinine Ratio 6 Glucose 163 H Calcium 7.3 L Phosphorus 2.80 Troponin T 3.070 H* Serum Total Protein Albumin Torqd-7-Robxqazve Jllsq-5-Wouwqmmus Beta Globulins Gamma Globulins Abnorm Protein Band 1 PEP Interpretation Crossmatch
--- NOTE | 2020-12-12 15:22 | Progress Note ---
Assessment and Plan Telemetry reviewed: Sinus rhythm 96. No events Card consulted for elevated troponin * Bacteremia secondary to UTI * Blood cultures: GNR. Management per primary team * NSTEMI suspect type II * 12-lead reviewed no ST segment elevation. Troponins are elevated x3, trending down. Continue to trend CE's. * Patient is refusing Lexiscan MPI stress testing at this time. Potential risks and benefits of the procedure have been reviewed with the patient including risk of not performing stress test. Patient is aware and is of sound mind and body and does not wish to proceed at this point. * Cardiomyopathy * Echocardiogram reviewed (12/07/2020): LVEF is 20 to 25%. LV SF is moderate to severely decreased. Mild to moderate concentric LVH. There is severe hypokinesis of the mid/distal anterior wall, mid/distal inferior wall, only basal parts moving well. Moderate to severe hypokinesis of the lateral wall and septum noted right ventricle is moderately dilated and markedly hypokinetic. Trace to mild aortic regurg. Mild MR. Trace to mild TR. RVSP is 30 mmHg. * Ischemic evaluation is indicated to further classify severe cardiomyopathy but patient is declining at this point * Appropriate medication regimen assessed. Patient currently receiving aspirin and beta-varun. No statin in setting of low HDL and LDL labs. No ALEX inhibitors in setting of DEX. Referral for outpatient cardiac rehab recommended. * Anemia suspected GI bleed * GI is tentatively planning for endoscopy/colonoscopy and was awaiting risk stratification recommendations from cardiology after stress testing. Patient has refused stress testing and at this point there is no plans for further ischemic work-up. * Elevated D-dimer * VQ scan is not suspicious for VTE. Indication for anticoagulation in setting of nonsuspicious VQ scan is low. * acute on chronic renal disease * Patient is receiving regular dialysis at this point including dialysis this a.m. Patient is feeling much better, alert and oriented times person place time and event. * No ALEX inhibitor in setting of DEX. Avoid nephrotoxic agents. Nephrology is following. * DVT prophylaxis with history of DVT * BLE duplex ultrasound negative for DVT * AC on hold in setting of anemia Patient is currently stable cardiac status. No objections to gastro planned E ndo/colonoscopy. No plans for further ischemic eval at this point. will follow This patient was seen in conjunction with Dr Itzel Parnell who agrees with this assessment and plan of care. - Patient Problems (1) Altered mental status Current Visit: Yes Status: Acute (2) NSTEMI (non-ST elevated myocardial infarction) Current Visit: Yes Status: Acute (3) Person under investigation for COVID-19 Current Visit: Yes Status: Acute (4) Sepsis Current Visit: Yes Status: Acute (5) Anemia Current Visit: Yes Status: Acute (6) Metabolic acidosis Current Visit: Yes Status: Acute (7) Acute kidney injury Current Visit: Yes Status: Acute (8) UTI (urinary tract infection) Current Visit: Yes Status: Acute (9) Insulin dependent diabetes mellitus Current Visit: Yes Status: Chronic (10) History of DVT (deep vein thrombosis) Current Visit: Yes Status: Chronic (11) Chronic anticoagulation Current Visit: Yes Status: Acute (12) Hypertension Current Visit: Yes Status: Chronic Qualifiers: Hypertension type: essential hypertension Qualified Code(s): I10 - Essential (primary) hypertension (13) CKD (chronic kidney disease) Current Visit: Yes Status: Chronic Subjective Date of service: 12/12/20 Principal diagnosis: Anemia/?GIB, ESRD/HD, NSTEMI Interval history: Patient resting in bed. No chest pain or shortness of breath overnight Telemetry reviewed: Sinus rhythm 91. No events Objective Last Vital Signs Temp 97.8 F 12/12/20 10:10 Pulse 94 H 12/12/20 13:00 Resp 21 12/12/20 10:10 BP 117/56 12/12/20 13:00 Pulse Ox 94 12/12/20 05:09 - Physical Examination General: No Apparent Distress, Other (confused) HEENT: Positive: EOMI, Normocephaly, Mucus Membranes Moist Neck: Positive: neck supple, trachea midline. Negative: JVD/HJR Cardiac: Positive: Reg Rate and Rhythm, S1/S2 Lungs: Positive: Normal Exam, Normal Breath Sounds Neuro: Positive: Grossly Intact, Other (confused) Abdomen: Positive: Soft. Negative: Tender Skin: Negative: Rash Musculoskeletal: No Pain, Normal Range of Motion Extremities: Present: upper extr. pulses, lower extr. pulses. Absent: edema - Labs and Meds CBC 12/12/20 Range/Units 05:00 WBC 11.5 H (4.5-11.0) K/mm3 RBC 2.69 L (3.65-5.03) M/mm3 Hgb 8.1 L (11.8-15.2) gm/dl Hct 24.8 L (35.5-45.6) % Plt Count 232 (140-440) K/mm3 Lymph # (Auto) 1.1 L (1.2-5.4) K/mm3 [place] # (Auto) 0.9 H (0.0-0.8) K/mm3 Eos # (Auto) 0.1 (0.0-0.4) K/mm3 Baso # (Auto) 0.0 (0.0-0.1) K/mm3 Comprehensive Metabolic Panel 12/07/20 12/12/20 Range/Units 11:08 05:00 Sodium 134 L (137-145) mmol/L Potassium 3.7 (3.6-5.0) mmol/L Chloride 95.7 L (98-107) mmol/L Carbon Dioxide 24 (22-30) mmol/L BUN 28 H (9-20) mg/dL Creatinine 5.0 H (0.8-1.3) mg/dL Glucose 163 H (75-100) mg/dL Calcium 7.3 L (8.4-10.2) mg/dL Albumin 2.3 L (3.8-4.8) g/dL - Imaging and Cardiology EKG: report reviewed, image reviewed Echo: report reviewed (12/07/2020 - EF 20-25%, mild-mod concentric LVH, severe hypokinesis of mid/distal anterior wall, mid/distal inferior wall, mod-severe hypokinesis of lateral wall & septum, LA pressure severely elevated) - Telemetry EKG Rhythm: Sinus Rhythm - EKG Sinus rhythms and dysrhythmias: sinus rhythm AV and intraventricular conduction: left anterior fascicular Repolarization changes or abnormalities: nonspecific abnormality, ST segment, and/or T wave
--- NOTE | 2020-12-12 16:39 | Progress Note ---
Assessment and Plan consult dictated rec stent Subjective Date of service: 12/12/20 Principal diagnosis: Anemia/?GIB, ESRD/HD, NSTEMI Objective - Constitutional Vitals: Vital Signs - 12hr 12/12/20 12/12/20 12/12/20 05:09 10:10 10:15 Temperature 98.4 F 97.8 F Pulse Rate 114 H 90 89 Respiratory 18 21 Rate Blood Pressure 134/81 135/85 Blood Pressure 140/74 [Left] O2 Sat by Pulse 94 Oximetry 12/12/20 12/12/20 12/12/20 10:30 10:45 11:00 Temperature Pulse Rate 87 86 88 Respiratory Rate Blood Pressure 138/83 131/85 137/86 Blood Pressure [Left] O2 Sat by Pulse Oximetry 12/12/20 12/12/20 12/12/20 11:15 11:30 11:45 Temperature Pulse Rate 87 88 89 Respiratory Rate Blood Pressure 140/87 131/94 139/85 Blood Pressure [Left] O2 Sat by Pulse Oximetry 12/12/20 12/12/20 12/12/20 12:00 12:15 12:30 Temperature Pulse Rate 94 H 92 H 91 H Respiratory Rate Blood Pressure 145/98 141/90 132/81 Blood Pressure [Left] O2 Sat by Pulse Oximetry 12/12/20 12/12/20 12:45 13:00 Temperature Pulse Rate 102 H 94 H Respiratory Rate Blood Pressure 129/75 117/56 Blood Pressure [Left] O2 Sat by Pulse Oximetry General appearance: Present: no acute distress - Labs CBC & Chem 7: 12/12/20 05:00 12/12/20 05:00 Labs: Abnormal lab results 12/07/20 12/12/20 12/12/20 Range/Units 11:08 05:00 05:00 WBC 11.5 H (4.5-11.0) K/mm3 RBC 2.69 L (3.65-5.03) M/mm3 Hgb 8.1 L (11.8-15.2) gm/dl Hct 24.8 L (35.5-45.6) % RDW 16.1 H (13.2-15.2) % Lymph % (Auto) 9.3 L (13.4-35.0) % [place] % (Auto) 7.8 H (0.0-7.3) % Lymph # (Auto) 1.1 L (1.2-5.4) K/mm3 [place] # (Auto) 0.9 H (0.0-0.8) K/mm3 Seg Neutrophils % 81.7 H (40.0-70.0) % Seg Neutrophils # 9.4 H (1.8-7.7) K/mm3 Sodium 134 L (137-145) mmol/L Chloride 95.7 L (98-107) mmol/L BUN 28 H (9-20) mg/dL Creatinine 5.0 H (0.8-1.3) mg/dL Glucose 163 H (75-100) mg/dL Calcium 7.3 L (8.4-10.2) mg/dL Troponin T 3.070 H* (0.00-0.029) ng/mL Albumin 2.3 L (3.8-4.8) g/dL Hyawu-5-Ugghvahqd 0.5 H (0.2-0.3) g/dL Beta Globulins 0.7 H (0.2-0.5) g/dL Gamma Globulins 2.7 H (0.8-1.7) g/dL PEP Interpretation see below H Medications & Allergies - Medications Allergies/Adverse Reactions: Allergies No Known Allergies Allergy (Unverified 12/06/20 12:39) Home Medications: Home Medications Medication Instructions Recorded Confirmed Last Taken Type Acetaminophen [Non-Aspirin Extra 1,000 mg PO TID PRN 12/06/20 12/06/20 Unknown History Strength] Apixaban [Eliquis] 5 mg PO BID 12/06/20 12/06/20 Unknown History AtorvaSTATin [Lipitor] 40 mg PO QHS 12/06/20 12/06/20 Unknown History Metoprolol [Lopressor] 12.5 mg PO QDAY 12/06/20 12/06/20 Unknown History Active Medications: Generic Name Dose Route Start Last Admin Trade Name Freq PRN Reason Stop Dose Admin Acetaminophen 650 mg 12/11/20 12:18 12/11/20 12:29 Acetaminophen 325 Mg Tab PO 650 mg Q6H PRN Administration Pain, Mild (1-3) Carvedilol 3.125 mg 12/11/20 13:00 12/12/20 10:19 Carvedilol 3.125 Mg Tab PO Not Given BID KIRK Dextrose 50 ml 12/06/20 11:45 Dextrose 50% In Water (25gm) 50 Ml Syringe IV Q30MIN PRN Hypoglycemia Protocol Sodium Chloride 1,000 mls @ 100 mls/hr 12/06/20 13:30 12/08/20 23:36 Nacl 0.9% 1000 Ml IV 100 mls/hr DIRECT KIRK Administration Ceftriaxone Sodium 2 gm in 100 mls @ 200 mls/hr 12/09/20 20:00 12/11/20 22:12 Rocephin/Ns 2 Gm/100 Ml IV 12/16/20 19:59 Infused 2000 KIRK Infusion Protocol Sodium Chloride 100 mls @ 999 mls/hr 12/12/20 10:00 Nacl 0.9% IV CHRISTA PRN Hypotension Pantoprazole Sodium 40 mg 12/10/20 07:30 12/12/20 10:19 Pantoprazole 40 Mg Tab PO Not Given QDAC [facility] HEART Score - HEART Score Troponin: Troponin T 3.070 ng/mL (0.00-0.029) H* 12/12/20 05:00
[2020-12-12] MEDS: cefTRIAXone/NS 2 GM/100 ML 2 GM/100 ML BAG IV SCH (21:04)
[2020-12-13 00:35] LABS: ANA Screen, IFA Negative (Negative)
[2020-12-13 07:48] LABS: Basophils # (Auto) 0.1 K/mm3 (0.0-0.1); Basophils % (Auto) 0.7 % (0.0-1.8); Eosinophils # (Auto) 0.1 K/mm3 (0.0-0.4); Eosinophils % (Auto) 1.1 % (0.0-4.3); Hematocrit 24.1 % (35.5-45.6); Hemoglobin 8.1 gm/dl (11.8-15.2); Lymphocytes # (Auto) 1.5 K/mm3 (1.2-5.4); Mean Corpuscular HGB Conc 34 % (32-34); Mean Corpuscular Volume 91 fl (84-94); Monocytes % (Auto) 12.5 % (0.0-7.3); Platelet Count 231 K/mm3 (140-440); Red Blood Count 2.65 M/mm3 (3.65-5.03)
[2020-12-13 08:08] LABS: Calcium 7.3 mg/dL (8.4-10.2)
--- NOTE | 2020-12-13 08:18 | Consultation ---
DATE OF CONSULTATION: 12/12/2020 HISTORY OF PRESENT ILLNESS: The patient is a 70-year-old gentleman with a mildly elevated white count, increasing creatinine, hydronephrosis, and retroperitoneal adenopathy. He now presents for urological consultation. He is quite anemic. He refuses upper endoscopy. PAST MEDICAL HISTORY: Cardiomyopathy, anemia, GI bleeding, adenopathy, diabetes. SOCIAL HISTORY: Negative. PAST SURGICAL HISTORY: Past surgery is denied. FAMILY HISTORY: Negative. REVIEW OF SYSTEMS: He has no flank pain. PHYSICAL EXAMINATION: GENERAL: He is awake. He is in no distress. ABDOMEN: Soft, nondistended. No guarding or rebound. GENITALIA: Mildly atrophic testis. No masses. DIGITAL RECTAL EXAM: No nodules. Small prostate, no irregularities. Normal tone. IMPRESSION AND PLAN: Hydronephrosis, adenopathy, on dialysis now. May be able to take him off dialysis if part of this is related to obstruction. Recommend cystoscopy and stenting. Significant hydronephrosis with bladder wall thickening, left kidney. We need Oncology as well to evaluate the adenopathy. TID: [id number] RECEIPT: [id number] RENÉ/PALMER
[2020-12-13] MEDS: PANTOPRAZOLE 40 MG TAB PO SCH (08:25)
[2020-12-13] MEDS: carvediloL 3.125 MG TAB PO SCH ×2 (09:13→21:29)
--- NOTE | 2020-12-13 10:46 | Progress Note ---
Assessment and Plan Telemetry reviewed: Sinus rhythm 92. No events Card consulted for elevated troponin * Bacteremia secondary to UTI * Blood cultures: GNR. Management per primary team * NSTEMI suspect type II * 12-lead reviewed no ST segment elevation. Troponins are elevated x3, trending down. Continue to trend CE's. * Patient is refusing Lexiscan MPI stress testing at this time. Potential risks and benefits of the procedure have been reviewed with the patient including risk of not performing stress test. Patient is aware and is of sound mind and body and does not wish to proceed at this point. * Cardiomyopathy * Echocardiogram reviewed (12/07/2020): LVEF is 20 to 25%. LV SF is moderate to severely decreased. Mild to moderate concentric LVH. There is severe hypokinesis of the mid/distal anterior wall, mid/distal inferior wall, only basal parts moving well. Moderate to severe hypokinesis of the lateral wall and septum noted right ventricle is moderately dilated and markedly hypokinetic. Trace to mild aortic regurg. Mild MR. Trace to mild TR. RVSP is 30 mmHg. * Ischemic evaluation is indicated to further classify severe cardiomyopathy but patient is declining at this point * Appropriate medication regimen assessed. Patient currently receiving aspirin and beta-varun. No statin in setting of low HDL and LDL labs. No ALEX inhibitors in setting of DEX. Referral for outpatient cardiac rehab recommended. * Anemia suspected GI bleed * GI is tentatively planning for endoscopy/colonoscopy and was awaiting risk stratification recommendations from cardiology after stress testing. Patient has refused stress testing and at this point there is no plans for further ischemic work-up. * Elevated D-dimer * VQ scan is not suspicious for VTE. Indication for anticoagulation in setting of nonsuspicious VQ scan is low. * acute on chronic renal disease * Patient is receiving regular dialysis at this point including dialysis this a.m. Patient is feeling much better, alert and oriented times person place time and event. * No ALEX inhibitor in setting of DEX. Avoid nephrotoxic agents. Nephrology is following. * DVT prophylaxis with history of DVT * BLE duplex ultrasound negative for DVT * AC on hold in setting of anemia Patient is currently stable cardiac status. No plans for further ischemic eval at this point. At this point patient has declined MPI stress testing and declines recommended endoscopy/colonoscopy. Patient is refusing further procedures and is requesting to go home. Patient may discharge from cardiology standpoint. Patient should follow-up with Dr Hernandes in our office within 1 to 2 weeks of discharge #[phone] This patient was seen in conjunction with Dr Itzel Parnell who agrees with this assessment and plan of care. - Patient Problems (1) Altered mental status Current Visit: Yes Status: Acute (2) NSTEMI (non-ST elevated myocardial infarction) Current Visit: Yes Status: Acute (3) Person under investigation for COVID-19 Current Visit: Yes Status: Acute (4) Sepsis Current Visit: Yes Status: Acute (5) Anemia Current Visit: Yes Status: Acute (6) Metabolic acidosis Current Visit: Yes Status: Acute (7) Acute kidney injury Current Visit: Yes Status: Acute (8) UTI (urinary tract infection) Current Visit: Yes Status: Acute (9) Insulin dependent diabetes mellitus Current Visit: Yes Status: Chronic (10) History of DVT (deep vein thrombosis) Current Visit: Yes Status: Chronic (11) Chronic anticoagulation Current Visit: Yes Status: Acute (12) Hypertension Current Visit: Yes Status: Chronic Qualifiers: Hypertension type: essential hypertension Qualified Code(s): I10 - Esse ntial (primary) hypertension (13) CKD (chronic kidney disease) Current Visit: Yes Status: Chronic Subjective Date of service: 12/13/20 Principal diagnosis: Anemia/?GIB, ESRD/HD, NSTEMI Interval history: Patient resting in bed. No chest pain or shortness of breath overnight Telemetry reviewed: Sinus rhythm 92. No events Objective Last Vital Signs Temp 98.2 F 12/13/20 04:16 Pulse 91 H 12/13/20 09:13 Resp 20 12/13/20 04:16 BP 123/79 12/13/20 09:13 Pulse Ox 93 12/13/20 04:16 - Physical Examination General: No Apparent Distress, Other (confused) HEENT: Positive: EOMI, Normocephaly, Mucus Membranes Moist Neck: Positive: neck supple, trachea midline. Negative: JVD/HJR Cardiac: Positive: Reg Rate and Rhythm, S1/S2 Lungs: Positive: clear to auscultation, Normal Breath Sounds Neuro: Positive: Grossly Intact, Other (confused) Abdomen: Positive: Soft. Negative: Tender Skin: Negative: Rash Musculoskeletal: No Pain, Normal Range of Motion Extremities: Present: upper extr. pulses, lower extr. pulses. Absent: edema - Labs and Meds CBC 12/13/20 Range/Units 07:23 WBC 8.1 (4.5-11.0) K/mm3 RBC 2.65 L (3.65-5.03) M/mm3 Hgb 8.1 L (11.8-15.2) gm/dl Hct 24.1 L (35.5-45.6) % Plt Count 231 (140-440) K/mm3 Lymph # (Auto) 1.5 (1.2-5.4) K/mm3 [place] # (Auto) 1.0 H (0.0-0.8) K/mm3 Eos # (Auto) 0.1 (0.0-0.4) K/mm3 Baso # (Auto) 0.1 (0.0-0.1) K/mm3 Comprehensive Metabolic Panel 12/13/20 Range/Units 07:23 Sodium 135 L (137-145) mmol/L Potassium 3.8 (3.6-5.0) mmol/L Chloride 98.2 (98-107) mmol/L Carbon Dioxide 27 (22-30) mmol/L BUN 16 (9-20) mg/dL Creatinine 4.0 H (0.8-1.3) mg/dL Glucose 128 H (75-100) mg/dL Calcium 7.3 L (8.4-10.2) mg/dL - Imaging and Cardiology EKG: report reviewed, image reviewed Echo: report reviewed (12/07/2020 - EF 20-25%, mild-mod concentric LVH, severe hypokinesis of mid/distal anterior wall, mid/distal inferior wall, mod-severe hypokinesis of lateral wall & septum, LA pressure severely elevated) - Telemetry EKG Rhythm: Sinus Rhythm - EKG Sinus rhythms and dysrhythmias: sinus rhythm AV and intraventricular conduction: left anterior fascicular Repolarization changes or abnormalities: nonspecific abnormality, ST segment, and/or T wave
--- NOTE | 2020-12-13 12:08 | Progress Note ---
Assessment and Plan Altered mental Status, metabolic encephalopathy Acute on chronic renal failure NSTEMI Acute gastroenteritis Anemia Diabetes mellitus History of DVT, on Eliquis Hypertension Plan: -S/P perm-cath placement this 12/12 -no indication for HD today -Renal ultrasound review-Possible cystitis. Medical renal disease. Mild left hydronephrosis. Consulted Urology-Dr. Salomon. patient refused stent placement this AM -GN work-up in progress, so far -VIANEY,ANCA,C3, C4, Anti-GBM, SPEP and Hep C-pending -Hep B surface antigen-negative -Urine lytes reviewed, has proteinuria -Fluid restriction of 1 liter per day -Renally dose medications -Strict I&O's monitoring -Obtain daily weights -Accepted at [facility], T,T,S 10:30 a.m schedule upon discharge Subjective Date of service: 12/13/20 Principal diagnosis: Anemia/?GIB, ESRD/HD, NSTEMI Interval history: refused stent palcement this AM Objective - Vital Signs Vital signs: Vital Signs - 12hr 12/13/20 12/13/20 04:16 09:13 Temperature 98.2 F Pulse Rate 91 H 91 H Respiratory 20 Rate Blood Pressure 123/79 123/79 O2 Sat by Pulse 93 Oximetry - Lab 12/13/20 07:23 12/13/20 07:23 Most recent lab results Calcium 7.3 mg/dL (8.4-10.2) L 12/13/20 07:23 Phosphorus 2.80 mg/dL (2.5-4.5) 12/12/20 05:00 Urine Creatinine 147.7 mg/dL (0.1-20.0) H 12/06/20 23:15 Urine Sodium 38 mmol/L 12/06/20 23:15 Medications & Allergies - Medications Allergies/Adverse Reactions: Allergies No Known Allergies Allergy (Unverified 12/06/20 12:39) Home Medications: Home Medications Medication Instructions Recorded Confirmed Last Taken Type Acetaminophen [Non-Aspirin Extra 1,000 mg PO TID PRN 12/06/20 12/06/20 Unknown History Strength] Apixaban [Eliquis] 5 mg PO BID 12/06/20 12/06/20 Unknown History AtorvaSTATin [Lipitor] 40 mg PO QHS 12/06/20 12/06/20 Unknown History Metoprolol [Lopressor] 12.5 mg PO QDAY 12/06/20 12/06/20 Unknown History Active Medications: Generic Name Dose Route Start Last Admin Trade Name Freq PRN Reason Stop Dose Admin Acetaminophen 650 mg 12/11/20 12:18 12/11/20 12:29 Acetaminophen 325 Mg Tab PO 650 mg Q6H PRN Administration Pain, Mild (1-3) Carvedilol 3.125 mg 12/11/20 13:00 12/13/20 09:13 Carvedilol 3.125 Mg Tab PO 3.125 mg BID KIRK Administration Dextrose 50 ml 12/06/20 11:45 Dextrose 50% In Water (25gm) 50 Ml Syringe IV Q30MIN PRN Hypoglycemia Protocol Sodium Chloride 1,000 mls @ 100 mls/hr 12/06/20 13:30 12/08/20 23:36 Nacl 0.9% 1000 Ml IV 100 mls/hr DIRECT KIRK Administration Ceftriaxone Sodium 2 gm in 100 mls @ 200 mls/hr 12/09/20 20:00 12/12/20 21:04 Rocephin/Ns 2 Gm/100 Ml IV 12/16/20 19:59 200 mls/hr 2000 KIRK Administration Protocol Sodium Chloride 100 mls @ 999 mls/hr 12/12/20 10:00 Nacl 0.9% IV CHRISTA PRN Hypotension Pantoprazole Sodium 40 mg 12/10/20 07:30 12/13/20 08:25 Pantoprazole 40 Mg Tab PO 40 mg QDAC KIRK Administration
--- NOTE | 2020-12-13 12:12 | Progress Note ---
Assessment and Plan Assessment and plan: Altered mental Status, metabolic encephalopathy -CT head was negative -No grossly focal neurologic deficit -We will treat underlying condition Acute on chronic renal failure -Patient has CKD, and currently GFR is 8 -Patient was diagnosed with CKD before and was suggested for dialysis but patient declined. -I discussed with his over the phone and she does not want dialysis. -Nephrology consulted. NSTEMI -Troponin was more than 3 -EKG normal sinus rhythm, no ST elevation, cardiology consulted Severe sepsis, PUI -Likely due to UTI -Patient is on cefepime -We will get urine and blood culture -Covid test is pending Acute gastroenteritis -Symptomatic management -Continue antibiotics -C. difficile ordered Anemia -Hemoglobin this morning was 7.3 -Anemia work-up was ordered, and consulted GI Diabetes mellitus -Sliding scale insulin, Accu-Chek, ADA diet and adjust insulin as needed History of DVT, on Eliquis -I will hold Eliquis for now due to anemia -Ordered D-dimer Hypertension -Blood pressure is on the low side of normal and I will hold blood pressure medication for now DVT prophylaxis; SCDs for now because of severe anemia CODE STATUS; full Disposition; to medical floor Management plan was discussed with the daughter and was in agreement with the plan of care. 12/07/2020 -Patient still altered -Morning labs pending -Was seen by ID and recommended cefepime for now -Was seen by nephrology, his declined dialysis. She also told me he declined dialysis as an outpatient -H&H improved. GI said the likely cause of anemia is renal failure. Recommend to put him on PPI and hold Eliquis -VQ scan and Doppler ultrasound of the lower extremities was done and negative -Uremic encephalopathy; not improved -Non-STEMI; management as per cardiology 12/08/2020 -Patient had hemodialysis yesterday, he is alert and oriented -Blood cultures still for gram-negative rods continue antibiotics for now. Identification pending -Non-STEMI management is per cardiology. -We will update the 12/09/2020 -First set of blood culture was grew gram-negative tevin, repeat blood cultures are negative -Patient had dialysis, yesterday and the day before, patient's mentation is getting better. -We will get records from [place] -Patient need outpatient dialysis arrangement. -Non-STEMI management as per cardiology -Discussed with the about the plan of care and she was in agreement with the plan of care 12/10/2020 -Patient's blood culture grew E. coli and antibiotics deescalated to ceftriaxone -Patient will have permacath on Saturday -Patient will have EGD on Saturday for evaluation of his anemia -Patient has echo which showed EF of 20 to 25% with severe hypokinesis, non- STEMI and cardiology was consulted and will do stress test on Saturday12/11/2020 -Patient is on IV ceftriaxone for E. coli bacteremia -Continue PermCath and EGD tomorrow; but patient not sure he wants to proceed -Patient has echo which showed EF of 20 to 25% with severe hypokinesis, non- STEMI and cardiology was consulted and will do stress test on Saturday -I called his Cecilia Baumann and I discussed with her about PermCath, EGD, stress test and possible lymph node biopsy; she says she will talk to him and she will let us know the plan. Her numbers in the chart follow up with her. -Please get in touch with interventional radiology if they are able to get retroperitoneal lymph node biopsy, if not patient need bone marrow biopsy. 12/12: Patient today underwent successful fluoroscopic-guided placement of a tunneled cuffed hemodialysis catheter. Patient is pending endoscopy and colonoscopy cardiology had cleared the patient for the procedure but will obtain a stress test if so wishes by anesthesia prior. 12/13: Patient likely has some underlying early dementia will check TSH folic acid level. Recommended outpatient neurology evaluation. 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 Outpatient reevaluation. Anemia remains stable again he refused EGD or colonoscopy I did discuss the importance of this with the spouse including rule out for any malignancy. She tells me that he does go through this bout off and on and I will reevaluate outpatient and discussed with him. Again he has this retroperitoneal lymph node that interventional radiology will attempt to biopsy again this was set up outpatient as patient is continually refusing medical management. We are waiting approval from [facility] for him to be discharged to continue some SNF work-up. History Interval history: Patient seen and examined, was for stent placement today but refused. Spoke to his who states that he goes through this period of forgetfullness and con fusion sometime every now and then. She will speak with him on discharge. Hospitalist Physical - Physical exam Narrative exam: Not in cardiopulmonary distress. Resting comfortably states he wants to go home The patient appeared well nourished and normally developed. Vital signs as documented. Head exam is unremarkable. No scleral icterus . Neck is without jugular venous distension, thyromegaly, or carotid bruits. Lungs are clear to auscultation. Cardiac exam reveals regular rate and Rhythm. Abdominal exam reveals normal bowel sounds, nontender, no organomegaly. Extremities are nonedematous and both femoral and pedal pulses are normal. 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 - Constitutional Vitals: Temp Pulse Resp BP Pulse Ox 98.2 F 91 H 20 123/79 93 12/13/20 04:16 12/13/20 09:13 12/13/20 04:16 12/13/20 09:13 12/13/20 04:16 General appearance: Present: other (Confused) HEART Score - HEART Score Troponin: Troponin T 3.070 ng/mL (0.00-0.029) H* 12/12/20 05:00 Results - Labs CBC & Chem 7: 12/13/20 07:23 12/13/20 07:23 Labs: Laboratory Last Values WBC 8.1 K/mm3 (4.5-11.0) 12/13/20 07:23 RBC 2.65 M/mm3 (3.65-5.03) L 12/13/20 07:23 Hgb 8.1 gm/dl (11.8-15.2) L 12/13/20 07:23 Hct 24.1 % (35.5-45.6) L 12/13/20 07:23 MCV 91 fl (84-94) 12/13/20 07:23 MCH 31 pg (28-32) 12/13/20 07:23 MCHC 34 % (32-34) 12/13/20 07:23 RDW 16.0 % (13.2-15.2) H 12/13/20 07:23 Plt Count 231 K/mm3 (140-440) 12/13/20 07:23 Lymph % (Auto) 19.0 % (13.4-35.0) 12/13/20 07:23 [place] % (Auto) 12.5 % (0.0-7.3) H 12/13/20 07:23 Eos % (Auto) 1.1 % (0.0-4.3) 12/13/20 07:23 Baso % (Auto) 0.7 % (0.0-1.8) 12/13/20 07:23 Lymph # (Auto) 1.5 K/mm3 (1.2-5.4) 12/13/20 07:23 [place] # (Auto) 1.0 K/mm3 (0.0-0.8) H 12/13/20 07:23 Eos # (Auto) 0.1 K/mm3 (0.0-0.4) 12/13/20 07:23 Baso # (Auto) 0.1 K/mm3 (0.0-0.1) 12/13/20 07:23 Add Manual Diff Complete 12/08/20 05:34 Total Counted 100 12/08/20 05:34 Seg Neutrophils % 66.7 % (40.0-70.0) 12/13/20 07:23 Seg Neuts % (Manual) 91.0 % (40.0-70.0) H 12/08/20 05:34 Lymphocytes % (Manual) 3.0 % (13.4-35.0) L 12/08/20 05:34 Monocytes % (Manual) 5.0 % (0.0-7.3) 12/08/20 05:34 Eosinophils % (Manual) 1.0 % (0.0-4.3) 12/08/20 05:34 Nucleated RBC % Not Reportable 12/08/20 05:34 Seg Neutrophils # 5.4 K/mm3 (1.8-7.7) 12/13/20 07:23 Seg Neutrophils # Man 10.6 K/mm3 (1.8-7.7) H 12/08/20 05:34 Band Neutrophils # 0.0 K/mm3 12/08/20 05:34 Lymphocytes # (Manual) 0.4 K/mm3 (1.2-5.4) L 12/08/20 05:34 Abs React Lymphs (Man) 0.0 K/mm3 12/08/20 05:34 Monocytes # (Manual) 0.6 K/mm3 (0.0-0.8) 12/08/20 05:34 Eosinophils # (Manual) 0.1 K/mm3 (0.0-0.4) 12/08/20 05:34 Basophils # (Manual) 0.0 K/mm3 (0.0-0.1) 12/08/20 05:34 Metamyelocytes # 0.0 K/mm3 12/08/20 05:34 Myelocytes # 0.0 K/mm3 12/08/20 05:34 Promyelocytes # 0.0 K/mm3 12/08/20 05:34 Blast Cells # 0.0 K/mm3 12/08/20 05:34 WBC Morphology Not Reportable 12/08/20 05:34 Hypersegmented Neuts Not Reportable 12/08/20 05:34 Hyposegmented Neuts Not Reportable 12/08/20 05:34 Hypogranular Neuts Not Reportable 12/08/20 05:34 Smudge Cells Not Reportable 12/08/20 05:34 Toxic Granulation Not Reportable 12/08/20 05:34 Toxic Vacuolation Not Reportable 12/08/20 05:34 Dohle Bodies Not Reportable 12/08/20 05:34 Pelger-Huet Anomaly Not Reportable 12/08/20 05:34 Brianda Rods Not Reportable 12/08/20 05:34 Platelet Estimate Consistent w auto 12/08/20 05:34 Clumped Platelets Not Reportable 12/08/20 05:34 Plt Clumps, EDTA Not Reportable 12/08/20 05:34 Large Platelets Not Reportable 12/08/20 05:34 Giant Platelets Not Reportable 12/08/20 05:34 Platelet Satelliting Not Reportable 12/08/20 05:34 Plt Morphology Comment Not Reportable 12/08/20 05:34 RBC Morphology Not Reportable 12/08/20 05:34 Dimorphic RBCs Not Reportable 12/08/20 05:34 Polychromasia Not Reportable 12/08/20 05:34 Hypochromasia Not Reportable 12/08/20 05:34 Poikilocytosis Not Reportable 12/08/20 05:34 Anisocytosis 1+ 12/08/20 05:34 Microcytosis Not Reportable 12/08/20 05:34 Macrocytosis Not Reportable 12/08/20 05:34 Spherocytes Not Reportable 12/08/20 05:34 Pappenheimer Bodies Not Reportable 12/08/20 05:34 Sickle Cells Not Reportable 05/06/21 05:34 Target Cells Not Reportable 12/08/20 05:34 Tear Drop Cells Not Reportable 12/08/20 05:34 Ovalocytes Not Reportable 12/08/20 05:34 Helmet Cells Not Reportable 12/08/20 05:34 [place] Bodies Not Reportable 12/08/20 05:34 [place] Rings Not Reportable 12/08/20 05:34 Dung Cells Not Reportable 12/08/20 05:34 Bite Cells Not Reportable 12/08/20 05:34 Crenated Cell Not Reportable 12/08/20 05:34 Elliptocytes Not Reportable 12/08/20 05:34 Acanthocytes (Spur) Not Reportable 12/08/20 05:34 Rouleaux Not Reportable 12/08/20 05:34 Hemoglobin C Crystals Not Reportable 12/08/20 05:34 Schistocytes Not Reportable 12/08/20 05:34 Malaria parasites Not Reportable 12/08/20 05:34 [place] Bodies Not Reportable 12/08/20 05:34 Hem Pathologist Commnt No 12/08/20 05:34 PT 18.7 Sec. (12.2-14.9) H 12/07/20 11:08 INR 1.56 (0.87-1.13) H 12/07/20 11:08 APTT 35.4 Sec. (24.2-36.6) 12/06/20 07:36 D-Dimer 3967.83 ng/mlDDU (0-234) H 12/06/20 11:54 Sodium 135 mmol/L (137-145) L 12/13/20 07:23 Potassium 3.8 mmol/L (3.6-5.0) 12/13/20 07:23 Chloride 98.2 mmol/L (98-107) 12/13/20 07:23 Carbon Dioxide 27 mmol/L (22-30) 12/13/20 07:23 Anion Gap 14 mmol/L 12/13/20 07:23 BUN 16 mg/dL (9-20) 12/13/20 07:23 Creatinine 4.0 mg/dL (0.8-1.3) H 12/13/20 07:23 Estimated GFR 15 ml/min 12/13/20 07:23 BUN/Creatinine Ratio 4 % 12/13/20 07:23 Glucose 128 mg/dL (75-100) H 12/13/20 07:23 POC Glucose 126 mg/dL (70-105) H 12/13/20 07:45 Lactic Acid 1.80 mmol/L (0.7-2.0) 12/06/20 10:26 Calcium 7.3 mg/dL (8.4-10.2) L 12/13/20 07:23 Phosphorus 2.80 mg/dL (2.5-4.5) 12/12/20 05:00 Iron 22 ug/dL (49-181) L 12/07/20 11:08 TIBC 119 mcg/dL (250-450) L 12/07/20 11:08 Ferritin 800.0 ng/mL (30.0-300.0) H 12/07/20 11:08 Total Bilirubin 0.70 mg/dL (0.1-1.2) 12/06/20 07:36 AST 52 units/L (5-40) H 12/06/20 07:36 ALT 14 units/L (7-56) 12/06/20 07:36 Alkaline Phosphatase 80 units/L (35-129) 12/06/20 07:36 Ammonia 11.0 umol/L (25-60) L 12/06/20 11:54 Lactate Dehydrogenase 289 units/L (91-180) H 12/06/20 13:24 Total Creatine Kinase 872 units/L (55-170) H 12/06/20 13:24 Troponin T 3.070 ng/mL (0.00-0.029) H* 12/12/20 05:00 C-Reactive Protein 28.50 mg/dL (0.00-1.30) H 12/06/20 11:54 NT-Pro-B Natriuret Pep 78104 pg/mL (0-900) H 12/06/20 07:36 Serum Total Protein 7.5 g/dL (6.1-8.1) 12/07/20 11:08 Total Protein 8.6 g/dL (6.3-8.2) H 12/06/20 07:36 Albumin 2.3 g/dL (3.8-4.8) L 12/07/20 11:08 Albumin/Globulin Ratio 0.5 % 12/06/20 07:36 [id number] 0.5 g/dL (0.2-0.3) H 12/07/20 11:08 [id number]-5-[id number] 0.9 g/dL (0.5-0.9) 12/07/20 11:08 Beta Globulins 0.7 g/dL (0.2-0.5) H 12/07/20 11:08 Gamma Globulins 2.7 g/dL (0.8-1.7) H 12/07/20 11:08 Abnorm Protein Band 1 see below 12/07/20 11:08 PEP Interpretation see below H 12/07/20 11:08 Triglycerides 226 mg/dL (2-149) H 12/06/20 07:36 Cholesterol 103 mg/dL (50-199) 12/06/20 07:36 LDL Cholesterol Direct 13 mg/dL (50-130) L 12/06/20 07:36 HDL Cholesterol 14 mg/dL (40-59) L 12/06/20 07:36 Cholesterol/HDL Ratio 7.35 % 12/06/20 07:36 Prostate Specific Ag 2.90 ng/mL (0.00-4.00) 12/12/20 14:29 Vitamin B12 605.9 pg/mL (211-911) 12/06/20 11:54 RBC Folic Acid >1000 ng/mL (>280) 12/06/20 11:54 Procalcitonin > 200.00 ng/mL (<0.15) 12/06/20 11:54 TSH 2.020 mlU/mL (0.270-4.200) 12/06/20 07:36 Urine Color Hina (Yellow) 12/06/20 Unknown Urine Turbidity Cloudy (Clear) 12/06/20 Unknown Urine pH 5.0 (5.0-7.0) 12/06/20 Unknown Ur Specific [place] 1.014 (1.003-1.030) 12/06/20 Unknown Urine Protein >500 mg/dL (Negative) 12/06/20 Unknown Urine Glucose (UA) Neg mg/dL (Negative) 12/06/20 Unknown Urine Ketones Neg mg/dL (Negative) 12/06/20 Unknown Urine Blood Mod (Negative) 12/06/20 Unknown Urine Nitrite Neg (Negative) 12/06/20 Unknown Urine Bilirubin Neg (Negative) 12/06/20 Unknown Urine Urobilinogen < 2.0 mg/dL (<2.0) 12/06/20 Unknown Ur Leukocyte Esterase Lg (Negative) 12/06/20 Unknown Urine WBC (Auto) 58.0 /HPF (0.0-6.0) H 12/06/20 Unknown Urine RBC (Auto) 9.0 /HPF (0.0-6.0) 12/06/20 Unknown U Epithel Cells (Auto) < 1.0 /HPF (0-13.0) 12/06/20 Unknown Urine Bacteria (Auto) 4+ /HPF (Negative) 12/06/20 Unknown Urine WBC Clumps 2+ /HPF 12/06/20 Unknown Urine Mucus Few /HPF 12/06/20 Unknown Urine Yeast (Budding) 1+ /HPF 12/06/20 23:15 Urine Creatinine 147.7 mg/dL (0.1-20.0) H 12/06/20 23:15 Urine Sodium 38 mmol/L 12/06/20 23:15 Salicylates 0.3 mg/dL (2.8-20.0) L 12/06/20 07:36 Urine Opiates Screen Presumptive negative 12/06/20 Unknown Urine Methadone Screen Presumptive negative 12/06/20 Unknown Acetaminophen 5.0 ug/mL (10.0-30.0) L 12/06/20 07:36 Ur Barbiturates Screen Presumptive negative 12/06/20 Unknown Ur Phencyclidine Scrn Presumptive negative 12/06/20 Unknown Ur Amphetamines Screen Presumptive negative 12/06/20 Unknown U Benzodiazepines Scrn Presumptive negative 12/06/20 Unknown Urine Cocaine Screen Presumptive negative 12/06/20 Unknown U Marijuana (THC) Screen Presumptive negative 12/06/20 Unknown Drugs of Abuse Note Disclamer 12/06/20 Unknown Plasma/Serum Alcohol < 0.01 % (0-0.07) 12/06/20 07:36 VIANEY Screen Negative (Negative) 12/06/20 13:24 Complement C3 145 mg/dL (82-185) 12/06/20 13:24 Complement C4 22 mg/dL (15-53) 12/06/20 13:24 Coronavirus (PCR) Negative (Negative) 12/06/20 09:15 Hep Bs Antigen Non-reactive (Negative) 12/06/20 13:24 Blood Type A POSITIVE 12/11/20 05:31 Antibody Screen Negative 12/11/20 05:31 Crossmatch See Detail 12/11/20 05:31 Microbiology: Microbiology 12/07/20 15:58 Peripheral/Venous Blood Culture - Final NO GROWTH AFTER 5 DAYS 12/07/20 15:58 Peripheral/Venous Blood Culture - Final NO GROWTH AFTER 5 DAYS Mcallister/IV: Voiding Method Urinal Active Medications - Current Medications Current Medications: Generic Name Dose Route Start Last Admin Trade Name Freq PRN Reason Stop Dose Admin Acetaminophen 650 mg 12/11/20 12:18 12/11/20 12:29 Acetaminophen 325 Mg Tab PO 650 mg Q6H PRN Administration Pain, Mild (1-3) Carvedilol 3.125 mg 12/11/20 13:00 12/13/20 09:13 Carvedilol 3.125 Mg Tab PO 3.125 mg BID KIRK Administration Dextrose 50 ml 12/06/20 11:45 Dextrose 50% In Water (25gm) 50 Ml Syringe IV Q30MIN PRN Hypoglycemia Protocol Sodium Chloride 1,000 mls @ 100 mls/hr 12/06/20 13:30 12/08/20 23:36 Nacl 0.9% 1000 Ml IV 100 mls/hr DIRECT KIRK Administration Ceftriaxone Sodium 2 gm in 100 mls @ 200 mls/hr 12/09/20 20:00 12/12/20 21:04 Rocephin/Ns 2 Gm/100 Ml IV 12/16/20 19:59 200 mls/hr 2000 KIRK Administration Protocol Sodium Chloride 100 mls @ 999 mls/hr 12/12/20 10:00 Nacl 0.9% IV CHRISTA PRN Hypotension Pantoprazole Sodium 40 mg 12/10/20 07:30 12/13/20 08:25 Pantoprazole 40 Mg Tab PO 40 mg QDAC KIRK Administration Nutrition/Malnutrition Assess - Dietary Evaluation Nutrition/Malnutrition Findings: Nutrition Notes Start: 12/13/20 10:12 Freq: Status: Active Protocol: Document 12/13/20 10:12 AT (Rec: 12/13/20 10:13 AT [id number]) Co-Sign 12/13/20 10:12 LP Nutrition Notes Need for Assessment generated from: LOS Current Diagnosis Acute Kidney Injury,CKD (stage V CKD),Diabetes,Sepsis, Hypertension Other Pertinent Diagnosis Metabolic Encephalopathy, NSTEMI, COVID-19(-) Current Diet NPO
--- NOTE | 2020-12-13 12:28 | Gastroenterology Progress Note ---
Assessment and Plan # Anemia - unknown baseline H/H. - Hgb trended up to 8 and stable. - previous report of black stool while on eliquis but no current symptoms of GI bleeding. - no prior EGD or colonoscopy per patient. - patient evaluated by cardiology and moderate risk for sedation. - patient did not take any colon prep - patient is still refusing EGD or colonoscopy. Also refusing other evaluation and care including stress test. Rec - resume diet today - Continue with PPI - advised patient to follow up in outpatient clinic. - will sign off. please call with questions. Subjective Date of service: 12/13/20 Principal diagnosis: Anemia/?GIB, ESRD/HD, NSTEMI Interval history: Patient denies any BM. No abdominal pain. Objective - Constitutional Vitals: Temp Pulse Resp BP Pulse Ox 98.2 F 91 H 20 123/79 93 12/13/20 04:16 12/13/20 09:13 12/13/20 04:16 12/13/20 09:13 12/13/20 04:16 General appearance: no acute distress - EENT ENT: hearing intact - Respiratory Respiratory effort: normal - Cardiovascular Rhythm: regular Heart Sounds: Present: S1 & S2 - Gastrointestinal General gastrointestinal: Present: soft, non-tender, non-distended - Integumentary Integumentary: Present: clear, warm - Labs CBC & Chem 7: 12/13/20 07:23 12/13/20 07:23 Labs: Laboratory Results - last 24 hr 12/06/20 12/06/20 12/12/20 11:54 13:24 14:29 WBC RBC Hgb Hct MCV MCH MCHC RDW Plt Count Lymph % (Auto) [place] % (Auto) Eos % (Auto) Baso % (Auto) Lymph # (Auto) [place] # (Auto) Eos # (Auto) Baso # (Auto) Seg Neutrophils % Seg Neutrophils # Sodium Potassium Chloride Carbon Dioxide Anion Gap BUN Creatinine Estimated GFR BUN/Creatinine Ratio Glucose POC Glucose Calcium Prostate Specific Ag 2.90 RBC Folic Acid >1000 VIANEY Screen Negative 12/12/20 12/13/20 12/13/20 21:33 07:23 07:23 WBC 8.1 RBC 2.65 L Hgb 8.1 L Hct 24.1 L MCV 91 MCH 31 MCHC 34 RDW 16.0 H Plt Count 231 Lymph % (Auto) 19.0 [place] % (Auto) 12.5 H Eos % (Auto) 1.1 Baso % (Auto) 0.7 Lymph # (Auto) 1.5 [place] # (Auto) 1.0 H Eos # (Auto) 0.1 Baso # (Auto) 0.1 Seg Neutrophils % 66.7 Seg Neutrophils # 5.4 Sodium 135 L Potassium 3.8 Chloride 98.2 Carbon Dioxide 27 Anion Gap 14 BUN 16 Creatinine 4.0 H Estimated GFR 15 BUN/Creatinine Ratio 4 Glucose 128 H POC Glucose 164 H Calcium 7.3 L Prostate Specific Ag RBC Folic Acid VIANEY Screen 12/13/20 07:45 WBC RBC Hgb Hct MCV MCH MCHC RDW Plt Count Lymph % (Auto) [place] % (Auto) Eos % (Auto) Baso % (Auto) Lymph # (Auto) [place] # (Auto) Eos # (Auto) Baso # (Auto) Seg Neutrophils % Seg Neutrophils # Sodium Potassium Chloride Carbon Dioxide Anion Gap BUN Creatinine Estimated GFR BUN/Creatinine Ratio Glucose POC Glucose 126 H Calcium Prostate Specific Ag RBC Folic Acid VIANEY Screen
--- NOTE | 2020-12-13 13:22 | Vascular Lab Report ---
DOPPLER ULTRASOUND UPPER EXTREMITY VENOUS MAPPING, BILATERAL INDICATION / CLINICAL INFORMATION: esrd, vein mapping TECHNIQUE: Grayscale, color and spectral Doppler imaging of the venous system of the right and left upper extrem ities was performed. COMPARISON: None available. FINDINGS: RIGHT UPPER EXTREMITY: Brachial Artery (Diameter, in cm): 0.55 Radial Artery (Diameter, in cm): 0.24 Basilic Vein (Diameter, in cm): - Upper Arm: Not measured - Mid Arm: 0.29 - Lower Arm: 0.41 - Antecubital: 0.28/0.19 - Upper Forearm: 0.14 - Mid Forearm: 0.11 - Distal Forearm: 0.09 Cephalic Vein (Diameter, in cm): - Upper Arm: 0.14 - Mid Arm: 0.1 - Lower Arm: 0.12 - Antecubital: 0.18 - Upper Forearm: 0.13 - Mid Forearm: 0.14 - Distal Forearm: 0.17 LEFT UPPER EXTREMITY: There is limited compressibility and Doppler flow within the left basilic vein at the antecubital fossa. Brachial Artery (Diameter, in cm): 0.54 Radial Artery (Diameter, in cm): 0.22 Basilic Vein (Diameter, in cm): - Upper Arm: Not measured - Mid Arm: 0.2 - Lower Arm: 0.25 - Antecubital: 0.28 - Upper Forearm: 0.1 - Mid Forearm: 0.1 - Distal Forearm: 0.08 Cephalic Vein (Diameter, in cm): - Upper Arm: 0.18 - Mid Arm: 0.15 - Lower Arm: 0.18 - Antecubital: 0.18 - Upper Forearm: 0.22 - Mid Forearm: 0.15 - Distal Forearm: 0.14 Additional Findings: None. IMPRESSION: 1. Upper extremity venous mapping as above. 2. Superficial thrombophlebitis of the left basilic vein at the antecubital fossa. Signer Name: Florin Laguerre MD Signed: 12/13/2020 1:17 PM Workstation Name: [email or web address]
[2020-12-13] MEDS: cefTRIAXone/NS 2 GM/100 ML 2 GM/100 ML BAG IV SCH (21:29)
[2020-12-14 06:41] LABS: Albumin 2.1 g/dL (3.8-4.8); Gamma Globulin 2.8 g/dL (0.8-1.7)
--- NOTE | 2020-12-14 09:10 | Progress Note ---
Assessment and Plan Telemetry reviewed: Sinus rhythm 74. No events Card consulted for elevated troponin * Bacteremia secondary to UTI * Blood cultures: GNR. Management per primary team * NSTEMI suspect type II * 12-lead reviewed no ST segment elevation. Troponins are elevated x3, trending down. Continue to trend CE's. * Patient is refusing Lexiscan MPI stress testing at this time. Potential risks and benefits of the procedure have been reviewed with the patient including risk of not performing stress test. Patient is aware and is of sound mind and body and does not wish to proceed at this point. * Cardiomyopathy * Echocardiogram reviewed (12/07/2020): LVEF is 20 to 25%. LV SF is moderate to severely decreased. Mild to moderate concentric LVH. There is severe hypokinesis of the mid/distal anterior wall, mid/distal inferior wall, only basal parts moving well. Moderate to severe hypokinesis of the lateral wall and septum noted right ventricle is moderately dilated and markedly hypokinetic. Trace to mild aortic regurg. Mild MR. Trace to mild TR. RVSP is 30 mmHg. * Ischemic evaluation is indicated to further classify severe cardiomyopathy but patient is declining at this point * Appropriate medication regimen assessed. Patient currently receiving aspirin and beta-varun. No statin in setting of low HDL and LDL labs. No ALEX inhibitors in setting of DEX. Referral for outpatient cardiac rehab recommended. * Anemia suspected GI bleed * GI is tentatively planning for endoscopy/colonoscopy and was awaiting risk stratification recommendations from cardiology after stress testing. Patient has refused stress testing and at this point there is no plans for further ischemic work-up. * Elevated D-dimer * VQ scan is not suspicious for VTE. Indication for anticoagulation in setting of nonsuspicious VQ scan is low. * acute on chronic renal disease * Patient is receiving regular dialysis at this point including dialysis this a.m. Patient is feeling much better, alert and oriented times person place time and event. * No ALEX inhibitor in setting of DEX. Avoid nephrotoxic agents. Nephrology is following. * DVT prophylaxis with history of DVT * BLE duplex ultrasound negative for DVT * AC on hold in setting of anemia Patient is currently stable cardiac status. At this point patient has declined MPI stress testing and declines recommended endoscopy/colonoscopy. Patient is refusing further procedures and is requesting to go home. Will plan for outpatient ischemic evaluation, stress testing at patient's discretion. Patient may discharge from cardiology standpoint. Patient should follow-up with Dr Hernandes in our office within 1 to 2 weeks of discharge #[id number] This patient was seen in conjunction with Dr Itzel Parnell who agrees with this assessment and plan of care. - Patient Problems (1) Altered mental status Current Visit: Yes Status: Acute (2) NSTEMI (non-ST elevated myocardial infarction) Current Visit: Yes Status: Acute (3) Person under investigation for COVID-19 Current Visit: Yes Status: Acute (4) Sepsis Current Visit: Yes Status: Acute (5) Anemia Current Visit: Yes Status: Acute (6) Metabolic acidosis Current Visit: Yes Status: Acute (7) Acute kidney injury Current Visit: Yes Status: Acute (8) UTI (urinary tract infection) Current Visit: Yes Status: Acute (9) Insulin dependent diabetes mellitus Current Visit: Yes Status: Chronic (10) History of DVT (deep vein thrombosis) Current Visit: Yes Status: Chronic (11) Chronic anticoagulation Current Visit: Yes Status: Acute (12) Hypertension Current Visit: Yes Status: Chronic Qualifiers: Hypertension type: essential hypertension Qualified Code(s): I10 - Essential (primary) hypertension (13) CKD (chronic kidney disease) Current Visit: Yes Status: Chronic Subjective Date of service: 12/14/20 Principal diagnosis: Anemia/?GIB, ESRD/HD, NSTEMI Interval history: Patient resting in bed. No chest pain or shortness of breath overnight Telemetry reviewed: Sinus rhythm 74. No events Objective Last Vital Signs Temp 98.8 F 12/14/20 05:09 Pulse 94 H 12/14/20 09:13 Resp 18 12/14/20 05:09 BP 121/82 12/14/20 09:13 Pulse Ox 95 12/14/20 05:09 - Physical Examination General: No Apparent Distress, Other (confused) HEENT: Positive: EOMI, Normocephaly, Mucus Membranes Moist Neck: Positive: neck supple, trachea midline. Negative: JVD/HJR Cardiac: Positive: Reg Rate and Rhythm, S1/S2 Lungs: Positive: Normal Breath Sounds Neuro: Positive: Grossly Intact, Other (confused) Abdomen: Positive: Soft. Negative: Tender Skin: Negative: Rash Musculoskeletal: No Pain, Normal Range of Motion Extremities: Present: upper extr. pulses, lower extr. pulses. Absent: edema - Labs and Meds Comprehensive Metabolic Panel 12/11/20 Range/Units 05:31 Albumin 2.1 L (3.8-4.8) g/dL - Imaging and Cardiology EKG: report reviewed, image reviewed Echo: report reviewed (12/07/2020 - EF 20-25%, mild-mod concentric LVH, severe hypokinesis of mid/distal anterior wall, mid/distal inferior wall, mod-severe hypokinesis of lateral wall & septum, LA pressure severely elevated) - Telemetry EKG Rhythm: Sinus Rhythm - EKG Sinus rhythms and dysrhythmias: sinus rhythm AV and intraventricular conduction: left anterior fascicular Repolarization changes or abnormalities: nonspecific abnormality, ST segment, and/or T wave
--- NOTE | 2020-12-14 09:11 | Progress Note ---
Assessment and Plan Assessment and plan: 70-year-old -[place] male was presented via EMS for altered mental status. Patient could not give any history. I called his Ms. Baumann and she gave me his history. 70-year-old -[place] male with past medical history significant for diabetes on insulin, DVT, on Eliquis, hypertension, CKD was complaining of abdominal pain, cramping after he was eating at [employer] restaurant last . Progressively patient was getting weak. Patient was also complaining diarrhea multiple times, did not characterize the diarrhea. She said he was incontinent to urine occasionally. She stated that he is a and follow-up at [facility], she states he has some heart problems and he has something placed in his chart that she do not know. Patient did not answer questions but he said yes for chest pain. In the emergency department patient was altered and was not able to give any history. Labs are significant for leukocytosis, elevated troponin level, elevated BUN and creatinine with GFR of 8%. Urinalysis is suggestive of UTI. Patient was placed on cefepime. Chest x-ray was negative, CT head was negative. Nephrology was consulted but his said she does not want to start dialysis on him at this time. Covid test was ordered and ID was consulted. For anemia GI consult was placed. For non-STEMI cardiology was consulted. Vital signs were stable. Patient will be admitted to medical floor. Altered mental Status, metabolic encephalopathy -CT head was negative -No grossly focal neurologic deficit -We will treat underlying condition Ecoli Bactermia likely from UTI S/P ABX Acute on chronic renal failure -Patient has CKD, and currently GFR is 8 -Patient was diagnosed with CKD before and was suggested for dialysis but patient declined. -I discussed with his over the phone and she does not want dialysis. -Nephrology consulted. NSTEMI -Troponin was more than 3 -EKG normal sinus rhythm, no ST elevation, cardiology consulted Severe sepsis, PUI -Likely due to UTI -Patient is on cefepime -We will get urine and blood culture -Covid test is pending Acute gastroenteritis -Symptomatic management -Continue antibiotics -C. difficile ordered Anemia -Hemoglobin this morning was 7.3 -Anemia work-up was ordered, and consulted GI Diabetes mellitus -Sliding scale insulin, Accu-Chek, ADA diet and adjust insulin as needed History of DVT, on Eliquis -I will hold Eliquis for now due to anemia -Ordered D-dimer Cardiomyopathy - Declined work up. Patient currently receiving aspirin and beta-varun. No statin in setting of low HDL and LDL labs. No ALEX inhibitors in setting of DEX. Hypertension -Blood pressure is on the low side of normal and I will hold blood pressure medication for now DVT prophylaxis; SCDs for now because of severe anemia CODE STATUS; full Disposition; to medical floor Management plan was discussed with the daughter and was in agreement with the plan of care. 12/07/2020 -Patient still altered -Morning labs pending -Was seen by ID and recommended cefepime for now -Was seen by nephrology, his declined dialysis. She also told me he declined dialysis as an outpatient -H&H improved. GI said the likely cause of anemia is renal failure. Recommend to put him on PPI and hold Eliquis -VQ scan and Doppler ultrasound of the lower extremities was done and negative -Uremic encephalopathy; not improved -Non-STEMI; management as per cardiology 12/08/2020 -Patient had hemodialysis yesterday, he is alert and oriented -Blood cultures still for gram-negative rods continue antibiotics for now. Identification pending -Non-STEMI management is per cardiology. -We will update the 12/09/2020 -First set of blood culture was grew gram-negative tevin, repeat blood cultures are negative -Patient had dialysis, yesterday and the day before, patient's mentation is getting better. -We will get records from [facility] -Patient need outpatient dialysis arrangement. -Non-STEMI management as per cardiology -Discussed with the about the plan of care and she was in agreement with the plan of care 12/10/2020 -Patient's blood culture grew E. coli and antibiotics deescalated to ceftriaxone -Patient will have permacath on Saturday -Patient will have EGD on Saturday for evaluation of his anemia -Patient has echo which showed EF of 20 to 25% with severe hypokinesis, non- STEMI and cardiology was consulted and will do stress test on Saturday12/11/2020 -Patient is on IV ceftriaxone for E. coli bacteremia -Continue PermCath and EGD tomorrow; but patient not sure he wants to proceed -Patient has echo which showed EF of 20 to 25% with severe hypokinesis, non- STEMI and cardiology was consulted and will do stress test on Saturday -I called his Cecilia Baumann and I discussed with her about PermCath, EGD, stress test and possible lymph node biopsy; she says she will talk to him and she will let us know the plan. Her numbers in the chart follow up with her. -Please get in touch with interventional radiology if they are able to get r etroperitoneal lymph node biopsy, if not patient need bone marrow biopsy. 12/12: Patient today underwent successful fluoroscopic-guided placement of a tunneled cuffed hemodialysis catheter. Patient is pending endoscopy and colonoscopy cardiology had cleared the patient for the procedure but will obtain a stress test if so wishes by anesthesia prior. 12/13: Patient likely has some underlying early dementia will check TSH folic acid level. Recommended outpatient neurology evaluation. 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 Outpatient reevaluation. Anemia remains stable again he refused EGD or colonoscopy I did discuss the importance of this with the spouse including rule out for any malignancy. She tells me that he does go through this bout off and on and I will reevaluate outpatient and discussed with him. Again he has this retroperitoneal lymph node that interventional radiology will attempt to biopsy again this was set up outpatient as patient is continually refusing medical management. We are waiting approval from [facility] for him to be discharged to continue some SNF work-up. 12/14: Patient last night was found on the floor in the bathroom. No injuries are noted no imaging studies obtained. This morning on examination he complains of no injuries. Is currently awaiting placement. Presumed underlying early dementia. Intermittent labs while in house Anticipate discharge in am WILL REQUEST PT RE-EVALUATION FALL PRECAUTIONS History Interval history: Patient seen and examined, resting, no new issues reported overnight Hospitalist Physical - Physical exam Narrative exam: Not in cardiopulmonary distress. Resting comfortably The patient appeared well nourished and normally developed. NO HEAD CONTUSION NOTED Vital signs as documented. Head exam is unremarkable. No scleral icterus . Neck is without jugular venous distension, thyromegaly, or carotid bruits. Lungs are clear to auscultation. Cardiac exam reveals regular rate and Rhythm. Abdominal exam reveals normal bowel sounds, nontender, no organomegaly. Extremities are nonedematous and both femoral and pedal pulses are normal. CHIEF TECHNOLOGY OFFICER: Patient was alert and oriented. - Constitutional Vitals: Temp Pulse Resp BP Pulse Ox 98.8 F 94 H 18 121/82 95 12/14/20 05:09 12/14/20 05:09 12/14/20 05:09 12/14/20 05:09 12/14/20 05:09 General appearance: Present: other (Confused) HEART Score - HEART Score Troponin: Troponin T 3.070 ng/mL (0.00-0.029) H* 12/12/20 05:00 Results - Labs CBC & Chem 7: 12/13/20 07:23 12/13/20 07:23 Labs: Laboratory Last Values WBC 8.1 K/mm3 (4.5-11.0) 12/13/20 07:23 RBC 2.65 M/mm3 (3.65-5.03) L 12/13/20 07:23 Hgb 8.1 gm/dl (11.8-15.2) L 12/13/20 07:23 Hct 24.1 % (35.5-45.6) L 12/13/20 07:23 MCV 91 fl (84-94) 12/13/20 07:23 MCH 31 pg (28-32) 12/13/20 07:23 MCHC 34 % (32-34) 12/13/20 07:23 RDW 16.0 % (13.2-15.2) H 12/13/20 07:23 Plt Count 231 K/mm3 (140-440) 12/13/20 07:23 Lymph % (Auto) 19.0 % (13.4-35.0) 12/13/20 07:23 [place] % (Auto) 12.5 % (0.0-7.3) H 12/13/20 07:23 Eos % (Auto) 1.1 % (0.0-4.3) 12/13/20 07:23 Baso % (Auto) 0.7 % (0.0-1.8) 12/13/20 07:23 Lymph # (Auto) 1.5 K/mm3 (1.2-5.4) 12/13/20 07:23 [place] # (Auto) 1.0 K/mm3 (0.0-0.8) H 12/13/20 07:23 Eos # (Auto) 0.1 K/mm3 (0.0-0.4) 12/13/20 07:23 Baso # (Auto) 0.1 K/mm3 (0.0-0.1) 12/13/20 07:23 Add Manual Diff Complete 12/08/20 05:34 Total Counted 100 12/08/20 05:34 Seg Neutrophils % 66.7 % (40.0-70.0) 12/13/20 07:23 Seg Neuts % (Manual) 91.0 % (40.0-70.0) H 12/08/20 05:34 Lymphocytes % (Manual) 3.0 % (13.4-35.0) L 12/08/20 05:34 Monocytes % (Manual) 5.0 % (0.0-7.3) 12/08/20 05:34 Eosinophils % (Manual) 1.0 % (0.0-4.3) 12/08/20 05:34 Nucleated RBC % Not Reportable 12/08/20 05:34 Seg Neutrophils # 5.4 K/mm3 (1.8-7.7) 12/13/20 07:23 Seg Neutrophils # Man 10.6 K/mm3 (1.8-7.7) H 12/08/20 05:34 Band Neutrophils # 0.0 K/mm3 12/08/20 05:34 Lymphocytes # (Manual) 0.4 K/mm3 (1.2-5.4) L 12/08/20 05:34 Abs React Lymphs (Man) 0.0 K/mm3 12/08/20 05:34 Monocytes # (Manual) 0.6 K/mm3 (0.0-0.8) 12/08/20 05:34 Eosinophils # (Manual) 0.1 K/mm3 (0.0-0.4) 12/08/20 05:34 Basophils # (Manual) 0.0 K/mm3 (0.0-0.1) 12/08/20 05:34 Metamyelocytes # 0.0 K/mm3 12/08/20 05:34 Myelocytes # 0.0 K/mm3 12/08/20 05:34 Promyelocytes # 0.0 K/mm3 12/08/20 05:34 Blast Cells # 0.0 K/mm3 12/08/20 05:34 WBC Morphology Not Reportable 12/08/20 05:34 Hypersegmented Neuts Not Reportable 12/08/20 05:34 Hyposegmented Neuts Not Reportable 12/08/20 05:34 Hypogranular Neuts Not Reportable 12/08/20 05:34 Smudge Cells Not Reportable 12/08/20 05:34 Toxic Granulation Not Reportable 12/08/20 05:34 Toxic Vacuolation Not Reportable 12/08/20 05:34 Dohle Bodies Not Reportable 12/08/20 05:34 Pelger-Huet Anomaly Not Reportable 12/08/20 05:34 Brianda Rods Not Reportable 12/08/20 05:34 Platelet Estimate Consistent w auto 12/08/20 05:34 Clumped Platelets Not Reportable 12/08/20 05:34 Plt Clumps, EDTA Not Reportable 12/08/20 05:34 Large Platelets Not Reportable 12/08/20 05:34 Giant Platelets Not Reportable 12/08/20 05:34 Platelet Satelliting Not Reportable 12/08/20 05:34 Plt Morphology Comment Not Reportable 12/08/20 05:34 RBC Morphology Not Reportable 12/08/20 05:34 Dimorphic RBCs Not Reportable 12/08/20 05:34 Polychromasia Not Reportable 12/08/20 05:34 Hypochromasia Not Reportable 12/08/20 05:34 Poikilocytosis Not Reportable 12/08/20 05:34 Anisocytosis 1+ 12/08/20 05:34 Microcytosis Not Reportable 12/08/20 05:34 Macrocytosis Not Reportable 12/08/20 05:34 Spherocytes Not Reportable 12/08/20 05:34 Pappenheimer Bodies Not Reportable 12/08/20 05:34 Sickle Cells Not Reportable 12/08/20 05:34 Target Cells Not Reportable 12/08/20 05:34 Tear Drop Cells Not Reportable 12/08/20 05:34 Ovalocytes Not Reportable 12/08/20 05:34 Helmet Cells Not Reportable 12/08/20 05:34 Rangel-Maish Vaya Bodies Not Reportable 12/08/20 05:34 [place] Rings Not Reportable 12/08/20 05:34 Dung Cells Not Reportable 12/08/20 05:34 Bite Cells Not Reportable 12/08/20 05:34 Crenated Cell Not Reportable 12/08/20 05:34 Elliptocytes Not Reportable 12/08/20 05:34 Acanthocytes (Spur) Not Reportable 12/08/20 05:34 Rouleaux Not Reportable 12/08/20 05:34 Hemoglobin C Crystals Not Reportable 12/08/20 05:34 Schistocytes Not Reportable 12/08/20 05:34 Malaria parasites Not Reportable 12/08/20 05:34 [place] Bodies Not Reportable 12/08/20 05:34 Hem Pathologist Commnt No 12/08/20 05:34 PT 18.7 Sec. (12.2-14.9) H 12/07/20 11:08 INR 1.56 (0.87-1.13) H 12/07/20 11:08 APTT 35.4 Sec. (24.2-36.6) 12/06/20 07:36 D-Dimer 3967.83 ng/mlDDU (0-234) H 12/06/20 11:54 Sodium 135 mmol/L (137-145) L 12/13/20 07:23 Potassium 3.8 mmol/L (3.6-5.0) 12/13/20 07:23 Chloride 98.2 mmol/L (98-107) 12/13/20 07:23 Carbon Dioxide 27 mmol/L (22-30) 12/13/20 07:23 Anion Gap 14 mmol/L 12/13/20 07:23 BUN 16 mg/dL (9-20) 12/13/20 07:23 Creatinine 4.0 mg/dL (0.8-1.3) H 12/13/20 07:23 Estimated GFR 15 ml/min 12/13/20 07:23 BUN/Creatinine Ratio 4 % 12/13/20 07:23 Glucose 128 mg/dL (75-100) H 12/13/20 07:23 POC Glucose 158 mg/dL (70-105) H 12/13/20 21:29 Lactic Acid 1.80 mmol/L (0.7-2.0) 12/06/20 10:26 Calcium 7.3 mg/dL (8.4-10.2) L 12/13/20 07:23 Phosphorus 2.80 mg/dL (2.5-4.5) 12/12/20 05:00 Iron 22 ug/dL (49-181) L 12/07/20 11:08 TIBC 119 mcg/dL (250-450) L 12/07/20 11:08 Ferritin 800.0 ng/mL (30.0-300.0) H 12/07/20 11:08 Total Bilirubin 0.70 mg/dL (0.1-1.2) 12/06/20 07:36 AST 52 units/L (5-40) H 12/06/20 07:36 ALT 14 units/L (7-56) 12/06/20 07:36 Alkaline Phosphatase 80 units/L (35-129) 12/06/20 07:36 Ammonia 11.0 umol/L (25-60) L 12/06/20 11:54 Lactate Dehydrogenase 289 units/L (91-180) H 12/06/20 13:24 Total Creatine Kinase 872 units/L (55-170) H 12/06/20 13:24 Troponin T 3.070 ng/mL (0.00-0.029) H* 12/12/20 05:00 C-Reactive Protein 28.50 mg/dL (0.00-1.30) H 12/06/20 11:54 NT-Pro-B Natriuret Pep 74213 pg/mL (0-900) H 12/06/20 07:36 Serum Total Protein 7.2 g/dL (6.1-8.1) 12/11/20 05:31 Total Protein 8.6 g/dL (6.3-8.2) H 12/06/20 07:36 Albumin 2.1 g/dL (3.8-4.8) L 12/11/20 05:31 Albumin/Globulin Ratio 0.5 % 12/06/20 07:36 Gquqo-3-Xxasxtysp 0.4 g/dL (0.2-0.3) H 12/11/20 05:31 Xkxpf-5-Aicflwgbv 0.8 g/dL (0.5-0.9) 12/11/20 05:31 Beta Globulins 0.6 g/dL (0.2-0.5) H 12/11/20 05:31 Gamma Globulins 2.8 g/dL (0.8-1.7) H 12/11/20 05:31 Abnorm Protein Band 1 see below 12/11/20 05:31 PEP Interpretation see below H 12/11/20 05:31 Triglycerides 226 mg/dL (2-149) H 12/06/20 07:36 Cholesterol 103 mg/dL (50-199) 12/06/20 07:36 LDL Cholesterol Direct 13 mg/dL (50-130) L 12/06/20 07:36 HDL Cholesterol 14 mg/dL (40-59) L 12/06/20 07:36 Cholesterol/HDL Ratio 7.35 % 12/06/20 07:36 Prostate Specific Ag 2.90 ng/mL (0.00-4.00) 12/12/20 14:29 Vitamin B12 605.9 pg/mL (211-911) 12/06/20 11:54 Folate 18.81 ng/mL (7.3-26.0) 12/13/20 15:29 RBC Folic Acid >1000 ng/mL (>280) 12/06/20 11:54 Procalcitonin > 200.00 ng/mL (<0.15) 12/06/20 11:54 TSH 1.960 mlU/mL (0.270-4.200) 12/13/20 15:29 Urine Color Hina (Yellow) 12/06/20 Unknown Urine Turbidity Cloudy (Clear) 12/06/20 Unknown Urine pH 5.0 (5.0-7.0) 12/06/20 Unknown Ur Specific [place] 1.014 (1.003-1.030) 12/06/20 Unknown Urine Protein >500 mg/dL (Negative) 12/06/20 Unknown Urine Glucose (UA) Neg mg/dL (Negative) 12/06/20 Unknown Urine Ketones Neg mg/dL (Negative) 12/06/20 Unknown Urine Blood Mod (Negative) 12/06/20 Unknown Urine Nitrite Neg (Negative) 12/06/20 Unknown Urine Bilirubin Neg (Negative) 12/06/20 Unknown Urine Urobilinogen < 2.0 mg/dL (<2.0) 12/06/20 Unknown Ur Leukocyte Esterase Lg (Negative) 12/06/20 Unknown Urine WBC (Auto) 58.0 /HPF (0.0-6.0) H 12/06/20 Unknown Urine RBC (Auto) 9.0 /HPF (0.0-6.0) 12/06/20 Unknown U Epithel Cells (Auto) < 1.0 /HPF (0-13.0) 12/06/20 Unknown Urine Bacteria (Auto) 4+ /HPF (Negative) 12/06/20 Unknown Urine WBC Clumps 2+ /HPF 12/06/20 Unknown Urine Mucus Few /HPF 12/06/20 Unknown Urine Yeast (Budding) 1+ /HPF 12/06/20 23:15 Urine Creatinine 147.7 mg/dL (0.1-20.0) H 12/06/20 23:15 Urine Sodium 38 mmol/L 12/06/20 23:15 Salicylates 0.3 mg/dL (2.8-20.0) L 12/06/20 07:36 Urine Opiates Screen Presumptive negative 12/06/20 Unknown Urine Methadone Screen Presumptive negative 12/06/20 Unknown Acetaminophen 5.0 ug/mL (10.0-30.0) L 12/06/20 07:36 Ur Barbiturates Screen Presumptive negative 12/06/20 Unknown Ur Phencyclidine Scrn Presumptive negative 12/06/20 Unknown Ur Amphetamines Screen Presumptive negative 12/06/20 Unknown U Benzodiazepines Scrn Presumptive negative 12/06/20 Unknown Urine Cocaine Screen Presumptive negative 12/06/20 Unknown U Marijuana (THC) Screen Presumptive negative 12/06/20 Unknown Drugs of Abuse Note Disclamer 12/06/20 Unknown Plasma/Serum Alcohol < 0.01 % (0-0.07) 12/06/20 07:36 VIANEY Screen Negative (Negative) 12/06/20 13:24 Complement C3 145 mg/dL (82-185) 12/06/20 13:24 Complement C4 22 mg/dL (15-53) 12/06/20 13:24 Coronavirus (PCR) Negative (Negative) 12/06/20 09:15 Hep Bs Antigen Non-reactive (Negative) 12/06/20 13:24 Blood Type A POSITIVE 12/11/20 05:31 Antibody Screen Negative 12/11/20 05:31 Crossmatch See Detail 12/11/20 05:31 Mcallister/IV: Voiding Method Urinal Active Medications - Current Medications Current Medications: Generic Name Dose Route Start Last Admin Trade Name Freq PRN Reason Stop Dose Admin Acetaminophen 650 mg 12/11/20 12:18 12/11/20 12:29 Acetaminophen 325 Mg Tab PO 650 mg Q6H PRN Administration Pain, Mild (1-3) Carvedilol 3.125 mg 12/11/20 13:00 12/13/20 21:29 Carvedilol 3.125 Mg Tab PO 3.125 mg BID KIRK Administration Dextrose 50 ml 12/06/20 11:45 Dextrose 50% In Water (25gm) 50 Ml Syringe IV Q30MIN PRN Hypoglycemia Protocol Sodium Chloride 1,000 mls @ 100 mls/hr 12/06/20 13:30 12/08/20 23:36 Nacl 0.9% 1000 Ml IV 100 mls/hr DIRECT KIRK Administration Ceftriaxone Sodium 2 gm in 100 mls @ 200 mls/hr 12/09/20 20:00 12/13/20 21:29 Rocephin/Ns 2 Gm/100 Ml IV 12/16/20 19:59 200 mls/hr 2000 KIRK Administration Protocol Sodium Chloride 100 mls @ 999 mls/hr 12/12/20 10:00 Nacl 0.9% IV CHRISTA PRN Hypotension Pantoprazole Sodium 40 mg 12/10/20 07:30 12/13/20 08:25 Pantoprazole 40 Mg Tab PO 40 mg QDAC KIRK Administration Nutrition/Malnutrition Assess - Dietary Evaluation Nutrition/Malnutrition Findings: Nutrition Notes Start: 12/13/20 10:12 Freq: Status: Active Protocol: Document 12/13/20 10:12 AT (Rec: 12/13/20 10:13 AT [email or web address]) Co-Sign 12/13/20 10:12 LP Nutrition Notes Need for Assessment generated from: LOS Initial or Follow up Assessment Current Diagnosis Acute Kidney Injury,CKD (stage V CKD),Diabetes,Sepsis, Hypertension Other Pertinent Diagnosis Metabolic Encephalopathy, NSTEMI, COVID-19(-), AMS Current Diet Renal diet Labs/Tests Na 135 Cr 4.0 BG 128 Ca 7.3 Pertinent Medications NS at 100 mL/hr Height 6 ft Weight 92.2 kg [place] Body Weight (kg) 80.90 BMI 27.6 Weight change and time frame 32% weight loss in 1 year per pt Weight Status Appropriate Subjective/Other Information Screen for LOS. Pt is experiencing AMS per RN. Pt reports consuming 15% of meals due to disliking the food. Food preferences were recorded . Per RN, pt has been NPO intermittently due to pt refusing procedures. Pt would like to try ONS. Percent of energy/protein needs met: 14%/21% Burn Absent Trauma Absent GI Symptoms None Current % PO Negligible Minimum of two criteria Yes Energy Intake (severe) < or equal to 50% Estimated Energy Requirement > or equal to 5 days Interpretation of Weight Loss (severe) > 20% in 1 year Fluid Accumulation Mild (non-severe) #1 Nutrition Diagnosis Malnutrition Etiology AMS, advanced age As Evidenced by Signs and Symptoms <50% EER = or > 5 days, 32% unintentional weight loss in one year, edema Is patient on ventilator? No Is Patient Ambulatory and/or Out of Bed Yes REE-([facility]-ambulatory/OOB) [ 2229.500 [id number]] Calculation Used for Recommendations [facility] Additional Notes PRO needs: 55-74g (0.6-0.8 g/ kg for CKD V, refusing HD) Fluid needs: 500+ Total Output or per MD Nutrition Intervention Change Diet Order: Continue diet as ordered Add Supplement/Snack (indicate name/kcal Nepro BID /protein ) Provides kCal: 850 Provides Protein (gm) 38 Goal #1 Meet at least 80% of estimated energy and protein needs via diet and ONS Goal #2 Weight maintenance Anticipated Discharge Needs: Renal diet with ONS PRN Follow-Up By: 12/15/20 Additional Comments F/U for intakes, ONS tolerance
[2020-12-14] MEDS: PANTOPRAZOLE 40 MG TAB PO SCH (09:13)
[2020-12-14] MEDS: carvediloL 3.125 MG TAB PO SCH ×2 (09:13→23:02)
--- NOTE | 2020-12-14 14:55 | Progress Note ---
Assessment and Plan ssessment and Plan Altered mental Status, metabolic encephalopathy Acute on chronic renal failure NSTEMI Acute gastroenteritis Anemia Diabetes mellitus History of DVT, on Eliquis Hypertension Plan: -Labs pending today -No acute indication for HD at this time, follow up labs -HD tomorrow for UF and clearance with [facility] -Adjust HD prescription as needed -Assess need for HD on daily basis -S/p perm-cath placement this 12/12 -Renal ultrasound showed Possible cystitis. Medical renal disease. Mild left hydronephrosis. Consulted Urology-Dr. Salomon. patient refused stent placement -Ordered GN work -ANCA,Anti-GBM, SPEP and Hep C pending -So far C3, C4, Hep B surface antigen, VIANEY -> negative -Urine lytes reviewed, has proteinuria -Fluid restriction of 1 liter per day -Renally dose medications -Accepted at [facility], T,T,S 10:30 a.m schedule upon meliton [facility] -Renal plan reviewed by Dr Peters Subjective Date of service: 12/14/20 Principal diagnosis: Anemia/?GIB, ESRD/HD, NSTEMI Interval history: Pt seen in bed, states he's breathing better today, no acute distress. Objective - Vital Signs Vital signs: Vital Signs - 12hr 12/14/20 12/14/20 05:09 09:13 Temperature 98.8 F Pulse Rate 94 H 94 H Respiratory 18 Rate Blood Pressure 121/82 121/82 O2 Sat by Pulse 95 Oximetry - General Appearance General appearance: well-developed EENT: ATNC Neck: no JVD Respiratory: Present: Decreased Breath Sounds Cardiology: regular, other (ACCESS: Right IJ Perm Catheter intact) Gastrointestinal: normoactive bowel sounds Integumentary: warm and dry Neurologic: alert and oriented x3 Musculoskeletal: other (trace edema to BLE) Psychiatric: cooperative - Lab 12/13/20 07:23 12/13/20 07:23 Most recent lab results Calcium 7.3 mg/dL (8.4-10.2) L 12/13/20 07:23 Phosphorus 2.80 mg/dL (2.5-4.5) 12/12/20 05:00 Urine Creatinine 147.7 mg/dL (0.1-20.0) H 12/06/20 23:15 Urine Sodium 38 mmol/L 12/06/20 23:15 Medications & Allergies - Medications Allergies/Adverse Reactions: Allergies No Known Allergies Allergy (Unverified 12/06/20 12:39) Home Medications: Home Medications Medication Instructions Recorded Confirmed Last Taken Type Acetaminophen [Non-Aspirin Extra 1,000 mg PO TID PRN 12/06/20 12/06/20 Unknown History Strength] Apixaban [Eliquis] 5 mg PO BID 12/06/20 12/06/20 Unknown History AtorvaSTATin [Lipitor] 40 mg PO QHS 12/06/20 12/06/20 Unknown History Metoprolol [Lopressor] 12.5 mg PO QDAY 12/06/20 12/06/20 Unknown History Active Medications: Generic Name Dose Route Start Last Admin Trade Name Freq PRN Reason Stop Dose Admin Acetaminophen 650 mg 12/11/20 12:18 12/11/20 12:29 Acetaminophen 325 Mg Tab PO 650 mg Q6H PRN Administration Pain, Mild (1-3) Carvedilol 3.125 mg 12/11/20 13:00 12/14/20 09:13 Carvedilol 3.125 Mg Tab PO 3.125 mg BID KIRK Administration Dextrose 50 ml 12/06/20 11:45 Dextrose 50% In Water (25gm) 50 Ml Syringe IV Q30MIN PRN Hypoglycemia Protocol Sodium Chloride 1,000 mls @ 100 mls/hr 12/06/20 13:30 12/08/20 23:36 Nacl 0.9% 1000 Ml IV 100 mls/hr DIRECT KIRK Administration Ceftriaxone Sodium 2 gm in 100 mls @ 200 mls/hr 12/09/20 20:00 12/13/20 21:29 Rocephin/Ns 2 Gm/100 Ml IV 12/16/20 19:59 200 mls/hr 2000 KIRK Administration Protocol Sodium Chloride 100 mls @ 999 mls/hr 12/12/20 10:00 Nacl 0.9% IV CHRISTA PRN Hypotension Pantoprazole Sodium 40 mg 12/10/20 07:30 12/14/20 09:13 Pantoprazole 40 Mg Tab PO 40 mg QDAC KIRK Administration
[2020-12-14] MEDS ORDERED: SODIUM CHLORIDE 0.9% 100 ML IV PRN (16:00)
[2020-12-14 20:12] LABS: Calcium 7.4 mg/dL (8.4-10.2); Hematocrit 23.8 % (35.5-45.6); Mean Corpuscular HGB Conc 34 % (32-34); Mean Corpuscular Volume 92 fl (84-94); Platelet Count 230 K/mm3 (140-440); Red Blood Count 2.59 M/mm3 (3.65-5.03); Red Cell Distribution Width 16.6 % (13.2-15.2)
[2020-12-14] MEDS: cefTRIAXone/NS 2 GM/100 ML 2 GM/100 ML BAG IV SCH (23:03)
[2020-12-15] MEDS: ACETAMINOPHEN 325 MG TAB PO PRN (01:36)
[2020-12-15 08:18] LABS: Basophils # (Auto) 0.1 K/mm3 (0.0-0.1); Basophils % (Auto) 0.8 % (0.0-1.8); Calcium 7.7 mg/dL (8.4-10.2); Eosinophils # (Auto) 0.1 K/mm3 (0.0-0.4); Eosinophils % (Auto) 1.2 % (0.0-4.3); Hematocrit 24.6 % (35.5-45.6); Hemoglobin 8.2 gm/dl (11.8-15.2); Lymphocytes # (Auto) 1.5 K/mm3 (1.2-5.4); Lymphocytes % (Auto) 19.8 % (13.4-35.0); Mean Corpuscular HGB Conc 33 % (32-34); Mean Corpuscular Volume 93 fl (84-94); Monocytes # (Auto) 0.9 K/mm3 (0.0-0.8); Monocytes % (Auto) 11.1 % (0.0-7.3); Platelet Count 235 K/mm3 (140-440); Red Blood Count 2.65 M/mm3 (3.65-5.03); Red Cell Distribution Width 16.5 % (13.2-15.2)
[2020-12-15] MEDS: PANTOPRAZOLE 40 MG TAB PO SCH (08:58)
--- NOTE | 2020-12-15 10:49 | Progress Note ---
Assessment and Plan Assessment and plan: 70-year-old -Turkmen male was presented via EMS for altered mental status. Patient could not give any history. I called his Ms. Baumann and she gave me his history. 70-year-old -Turkmen male with past medical history significant for diabetes on insulin, DVT, on Eliquis, hypertension, CKD was complaining of abdominal pain, cramping after he was eating at [employer] restaurant last . Progressively patient was getting weak. Patient was also complaining diarrhea multiple times, did not characterize the diarrhea. She said he was incontinent to urine occasionally. She stated that he is a and follow-up at [facility], she states he has some heart problems and he has something placed in his chart that she do not know. Patient did not answer questions but he said yes for chest pain. In the emergency department patient was altered and was not able to give any history. Labs are significant for leukocytosis, elevated troponin level, elevated BUN and creatinine with GFR of 8%. Urinalysis is suggestive of UTI. Patient was placed on cefepime. Chest x-ray was negative, CT head was negative. Nephrology was consulted but his said she does not want to start dialysis on him at this time. Covid test was ordered and ID was consulted. For anemia GI consult was placed. For non-STEMI cardiology was consulted. Vital signs were stable. Patient will be admitted to medical floor. Altered mental Status, metabolic encephalopathy -CT head was negative -No grossly focal neurologic deficit -We will treat underlying condition Ecoli Bactermia likely from UTI S/P ABX Acute on chronic renal failure -Patient has CKD, and currently GFR is 8 -Patient was diagnosed with CKD before and was suggested for dialysis but patient declined. -I discussed with his over the phone and she does not want dialysis. -Nephrology consulted. NSTEMI -Troponin was more than 3 -EKG normal sinus rhythm, no ST elevation, cardiology consulted Severe sepsis, PUI -Likely due to UTI -Patient is on cefepime -We will get urine and blood culture -Covid test is pending Acute gastroenteritis -Symptomatic management -Continue antibiotics -C. difficile ordered Anemia -Hemoglobin this morning was 7.3 -Anemia work-up was ordered, and consulted GI Diabetes mellitus -Sliding scale insulin, Accu-Chek, ADA diet and adjust insulin as needed History of DVT, on Eliquis -I will hold Eliquis for now due to anemia -Ordered D-dimer Cardiomyopathy - Declined work up. Patient currently receiving aspirin and beta-varun. No statin in setting of low HDL and LDL labs. No ALEX inhibitors in setting of DEX. Hypertension -Blood pressure is on the low side of normal and I will hold blood pressure medication for now DVT prophylaxis; SCDs for now because of severe anemia CODE STATUS; full Disposition; to medical floor Management plan was discussed with the daughter and was in agreement with the plan of care. 12/07/2020 -Patient still altered -Morning labs pending -Was seen by ID and recommended cefepime for now -Was seen by nephrology, his declined dialysis. She also told me he declined dialysis as an outpatient -H&H improved. GI said the likely cause of anemia is renal failure. Recommend to put him on PPI and hold Eliquis -VQ scan and Doppler ultrasound of the lower extremities was done and negative -Uremic encephalopathy; not improved -Non-STEMI; management as per cardiology 12/08/2020 -Patient had hemodialysis yesterday, he is alert and oriented -Blood cultures still for gram-negative rods continue antibiotics for now. Identification pending -Non-STEMI management is per cardiology. -We will update the 12/09/2020 -First set of blood culture was grew gram-negative tevin, repeat blood cultures are negative -Patient had dialysis, yesterday and the day before, patient's mentation is getting better. -We will get records from [place] -Patient need outpatient dialysis arrangement. -Non-STEMI management as per cardiology -Discussed with the about the plan of care and she was in agreement with the plan of care 12/10/2020 -Patient's blood culture grew E. coli and antibiotics deescalated to ceftriaxone -Patient will have permacath on Saturday -Patient will have EGD on Saturday for evaluation of his anemia -Patient has echo which showed EF of 20 to 25% with severe hypokinesis, non- STEMI and cardiology was consulted and will do stress test on Saturday12/11/2020 -Patient is on IV ceftriaxone for E. coli bacteremia -Continue PermCath and EGD tomorrow; but patient not sure he wants to proceed -Patient has echo which showed EF of 20 to 25% with severe hypokinesis, non- STEMI and cardiology was consulted and will do stress test on Saturday -I called his Cecilia Baumann and I discussed with her about PermCath, EGD, stress test and possible lymph node biopsy; she says she will talk to him and she will let us know the plan. Her numbers in the chart follow up with her. -Please get in touch with interventional radiology if they are able to get r etroperitoneal lymph node biopsy, if not patient need bone marrow biopsy. 12/12: Patient today underwent successful fluoroscopic-guided placement of a tunneled cuffed hemodialysis catheter. Patient is pending endoscopy and colonoscopy cardiology had cleared the patient for the procedure but will obtain a stress test if so wishes by anesthesia prior. 12/13: Patient likely has some underlying early dementia will check TSH folic acid level. Recommended outpatient neurology evaluation. Patient refused a stent placement psychodramatist and urologist aware. Outpatient reevaluation. Anemia remains stable again he refused EGD or colonoscopy I did discuss the importance of this with the spouse including rule out for any malignancy. She tells me that he does go through this bout off and on and I will reevaluate outpatient and discussed with him. Again he has this retroperitoneal lymph node that interventional radiology will attempt to biopsy again this was set up outpatient as patient is continually refusing medical management. We are waiting approval from [facility] for him to be discharged to continue some SNF work-up. 12/14: Patient last night was found on the floor in the bathroom. No injuries are noted no imaging studies obtained. This morning on examination he complains of no injuries. Is currently awaiting placement. Presumed underlying early dementia. Intermittent labs while in house Anticipate discharge in am WILL REQUEST PT RE-EVALUATION FALL PRECAUTIONS 12/15: Continue supportive care, Physical therapy still recommending SNF, expect correct History Interval history: Patient seen and examined, resting, no new issues reported overnight Hospitalist Physical - Physical exam Narrative exam: Not in cardiopulmonary distress. Resting comfortably The patient appeared well nourished and normally developed. NO HEAD CONTUSION NOTED Vital signs as documented. Head exam is unremarkable. No scleral icterus . Neck is without jugular venous distension, thyromegaly, or carotid bruits. Lungs are clear to auscultation. Cardiac exam reveals regular rate and Rhythm. Abdominal exam reveals normal bowel sounds, nontender, no organomegaly. Extremities are nonedematous and both femoral and pedal pulses are normal. 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 - Constitutional Vitals: Temp Pulse Resp BP Pulse Ox 98.3 F 91 H 18 131/89 97 12/15/20 09:40 12/15/20 10:30 12/15/20 09:40 12/15/20 10:30 12/15/20 09:01 General appearance: Present: other (Confused) HEART Score - HEART Score Troponin: Troponin T 2.740 ng/mL (0.00-0.029) H* 12/15/20 07:01 Results - Labs CBC & Chem 7: 12/15/20 07:01 12/15/20 07:01 Labs: Laboratory Last Values WBC 7.7 K/mm3 (4.5-11.0) 12/15/20 07:01 RBC 2.65 M/mm3 (3.65-5.03) L 12/15/20 07:01 Hgb 8.2 gm/dl (11.8-15.2) L 12/15/20 07:01 Hct 24.6 % (35.5-45.6) L 12/15/20 07:01 MCV 93 fl (84-94) 12/15/20 07:01 MCH 31 pg (28-32) 12/15/20 07:01 MCHC 33 % (32-34) 12/15/20 07:01 RDW 16.5 % (13.2-15.2) H 12/15/20 07:01 Plt Count 235 K/mm3 (140-440) 12/15/20 07:01 Lymph % (Auto) 19.8 % (13.4-35.0) 12/15/20 07:01 Rabun % (Auto) 11.1 % (0.0-7.3) H 12/15/20 07:01 Eos % (Auto) 1.2 % (0.0-4.3) 12/15/20 07:01 Baso % (Auto) 0.8 % (0.0-1.8) 12/15/20 07:01 Lymph # (Auto) 1.5 K/mm3 (1.2-5.4) 12/15/20 07:01 Rabun # (Auto) 0.9 K/mm3 (0.0-0.8) H 12/15/20 07:01 Eos # (Auto) 0.1 K/mm3 (0.0-0.4) 12/15/20 07:01 Baso # (Auto) 0.1 K/mm3 (0.0-0.1) 12/15/20 07:01 Add Manual Diff Complete 12/08/20 05:34 Total Counted 100 12/08/20 05:34 Seg Neutrophils % 67.1 % (40.0-70.0) 12/15/20 07:01 Seg Neuts % (Manual) 91.0 % (40.0-70.0) H 12/08/20 05:34 Lymphocytes % (Manual) 3.0 % (13.4-35.0) L 12/08/20 05:34 Monocytes % (Manual) 5.0 % (0.0-7.3) 12/08/20 05:34 Eosinophils % (Manual) 1.0 % (0.0-4.3) 12/08/20 05:34 Nucleated RBC % Not Reportable 12/08/20 05:34 Seg Neutrophils # 5.2 K/mm3 (1.8-7.7) 12/15/20 07:01 Seg Neutrophils # Man 10.6 K/mm3 (1.8-7.7) H 12/08/20 05:34 Band Neutrophils # 0.0 K/mm3 12/08/20 05:34 Lymphocytes # (Manual) 0.4 K/mm3 (1.2-5.4) L 12/08/20 05:34 Abs React Lymphs (Man) 0.0 K/mm3 12/08/20 05:34 Monocytes # (Manual) 0.6 K/mm3 (0.0-0.8) 12/08/20 05:34 Eosinophils # (Manual) 0.1 K/mm3 (0.0-0.4) 12/08/20 05:34 Basophils # (Manual) 0.0 K/mm3 (0.0-0.1) 12/08/20 05:34 Metamyelocytes # 0.0 K/mm3 12/08/20 05:34 Myelocytes # 0.0 K/mm3 12/08/20 05:34 Promyelocytes # 0.0 K/mm3 12/08/20 05:34 Blast Cells # 0.0 K/mm3 12/08/20 05:34 WBC Morphology Not Reportable 12/08/20 05:34 Hypersegmented Neuts Not Reportable 12/08/20 05:34 Hyposegmented Neuts Not Reportable 12/08/20 05:34 Hypogranular Neuts Not Reportable 12/08/20 05:34 Smudge Cells Not Reportable 12/08/20 05:34 Toxic Granulation Not Reportable 12/08/20 05:34 Toxic Vacuolation Not Reportable 12/08/20 05:34 Dohle Bodies Not Reportable 12/08/20 05:34 Pelger-Huet Anomaly Not Reportable 12/08/20 05:34 Brianda Rods Not Reportable 12/08/20 05:34 Platelet Estimate Consistent w auto 12/08/20 05:34 Clumped Platelets Not Reportable 12/08/20 05:34 Plt Clumps, EDTA Not Reportable 12/08/20 05:34 Large Platelets Not Reportable 12/08/20 05:34 Giant Platelets Not Reportable 12/08/20 05:34 Platelet Satelliting Not Reportable 12/08/20 05:34 Plt Morphology Comment Not Reportable 12/08/20 05:34 RBC Morphology Not Reportable 12/08/20 05:34 Dimorphic RBCs Not Reportable 12/08/20 05:34 Polychromasia Not Reportable 12/08/20 05:34 Hypochromasia Not Reportable 12/08/20 05:34 Poikilocytosis Not Reportable 12/08/20 05:34 Anisocytosis 1+ 12/08/20 05:34 Microcytosis Not Reportable 12/08/20 05:34 Macrocytosis Not Reportable 12/08/20 05:34 Spherocytes Not Reportable 12/08/20 05:34 Pappenheimer Bodies Not Reportable 12/08/20 05:34 Sickle Cells Not Reportable 12/08/20 05:34 Target Cells Not Reportable 12/08/20 05:34 Tear Drop Cells Not Reportable 12/08/20 05:34 Ovalocytes Not Reportable 12/08/20 05:34 Helmet Cells Not Reportable 12/08/20 05:34 Rangel-[place] Bodies Not Reportable 12/08/20 05:34 Hodges Rings Not Reportable 12/08/20 05:34 [place] Cells Not Reportable 12/08/20 05:34 Bite Cells Not Reportable 12/08/20 05:34 Crenated Cell Not Reportable 12/08/20 05:34 Elliptocytes Not Reportable 12/08/20 05:34 Acanthocytes (Spur) Not Reportable 12/08/20 05:34 Rouleaux Not Reportable 12/08/20 05:34 Hemoglobin C Crystals Not Reportable 12/08/20 05:34 Schistocytes Not Reportable 12/08/20 05:34 Malaria parasites Not Reportable 12/08/20 05:34 [place] Bodies Not Reportable 12/08/20 05:34 Hem Pathologist Commnt No 12/08/20 05:34 PT 18.7 Sec. (12.2-14.9) H 12/07/20 11:08 INR 1.56 (0.87-1.13) H 12/07/20 11:08 APTT 35.4 Sec. (24.2-36.6) 12/06/20 07:36 D-Dimer 3967.83 ng/mlDDU (0-234) H 12/06/20 11:54 Sodium 138 mmol/L (137-145) 12/15/20 07:01 Potassium 3.5 mmol/L (3.6-5.0) L 12/15/20 07:01 Chloride 99.0 mmol/L (98-107) 12/15/20 07:01 Carbon Dioxide 27 mmol/L (22-30) 12/15/20 07:01 Anion Gap 16 mmol/L 12/15/20 07:01 BUN 24 mg/dL (9-20) H 12/15/20 07:01 Creatinine 5.6 mg/dL (0.8-1.3) H 12/15/20 07:01 Estimated GFR 10 ml/min 12/15/20 07:01 BUN/Creatinine Ratio 4 % 12/15/20 07:01 Glucose 124 mg/dL (75-100) H 12/15/20 07:01 POC Glucose 158 mg/dL (70-105) H 12/13/20 21:29 Lactic Acid 1.80 mmol/L (0.7-2.0) 12/06/20 10:26 Calcium 7.7 mg/dL (8.4-10.2) L 12/15/20 07:01 Phosphorus 2.80 mg/dL (2.5-4.5) 12/12/20 05:00 Iron 22 ug/dL (49-181) L 12/07/20 11:08 TIBC 119 mcg/dL (250-450) L 12/07/20 11:08 Ferritin 800.0 ng/mL (30.0-300.0) H 12/07/20 11:08 Total Bilirubin 0.70 mg/dL (0.1-1.2) 12/06/20 07:36 AST 52 units/L (5-40) H 12/06/20 07:36 ALT 14 units/L (7-56) 12/06/20 07:36 Alkaline Phosphatase 80 units/L (35-129) 12/06/20 07:36 Ammonia 11.0 umol/L (25-60) L 12/06/20 11:54 Lactate Dehydrogenase 289 units/L (91-180) H 12/06/20 13:24 Total Creatine Kinase 872 units/L (55-170) H 12/06/20 13:24 Troponin T 2.740 ng/mL (0.00-0.029) H* 12/15/20 07:01 C-Reactive Protein 28.50 mg/dL (0.00-1.30) H 12/06/20 11:54 NT-Pro-B Natriuret Pep 64015 pg/mL (0-900) H 12/06/20 07:36 Serum Total Protein 7.2 g/dL (6.1-8.1) 12/11/20 05:31 Total Protein 8.6 g/dL (6.3-8.2) H 12/06/20 07:36 Albumin 2.1 g/dL (3.8-4.8) L 12/11/20 05:31 Albumin/Globulin Ratio 0.5 % 12/06/20 07:36 Leugq-9-Aqhpmjnse 0.4 g/dL (0.2-0.3) H 12/11/20 05:31 Zigei-9-Ivhukhbnk 0.8 g/dL (0.5-0.9) 12/11/20 05:31 Beta Globulins 0.6 g/dL (0.2-0.5) H 12/11/20 05:31 Gamma Globulins 2.8 g/dL (0.8-1.7) H 12/11/20 05:31 Abnorm Protein Band 1 see below 12/11/20 05:31 PEP Interpretation see below H 12/11/20 05:31 Triglycerides 226 mg/dL (2-149) H 12/06/20 07:36 Cholesterol 103 mg/dL (50-199) 12/06/20 07:36 LDL Cholesterol Direct 13 mg/dL (50-130) L 12/06/20 07:36 HDL Cholesterol 14 mg/dL (40-59) L 12/06/20 07:36 Cholesterol/HDL Ratio 7.35 % 12/06/20 07:36 Prostate Specific Ag 2.90 ng/mL (0.00-4.00) 12/12/20 14:29 Vitamin B12 605.9 pg/mL (211-911) 12/06/20 11:54 Folate 18.81 ng/mL (7.3-26.0) 12/13/20 15:29 RBC Folic Acid >1000 ng/mL (>280) 12/06/20 11:54 Procalcitonin > 200.00 ng/mL (<0.15) 12/06/20 11:54 TSH 1.960 mlU/mL (0.270-4.200) 12/13/20 15:29 Urine Color Hina (Yellow) 12/06/20 Unknown Urine Turbidity Cloudy (Clear) 12/06/20 Unknown Urine pH 5.0 (5.0-7.0) 12/06/20 Unknown Ur Specific [place] 1.014 (1.003-1.030) 12/06/20 Unknown Urine Protein >500 mg/dL (Negative) 12/06/20 Unknown Urine Glucose (UA) Neg mg/dL (Negative) 12/06/20 Unknown Urine Ketones Neg mg/dL (Negative) 12/06/20 Unknown Urine Blood Mod (Negative) 12/06/20 Unknown Urine Nitrite Neg (Negative) 12/06/20 Unknown Urine Bilirubin Neg (Negative) 12/06/20 Unknown Urine Urobilinogen < 2.0 mg/dL (<2.0) 12/06/20 Unknown Ur Leukocyte Esterase Lg (Negative) 12/06/20 Unknown Urine WBC (Auto) 58.0 /HPF (0.0-6.0) H 12/06/20 Unknown Urine RBC (Auto) 9.0 /HPF (0.0-6.0) 12/06/20 Unknown U Epithel Cells (Auto) < 1.0 /HPF (0-13.0) 12/06/20 Unknown Urine Bacteria (Auto) 4+ /HPF (Negative) 12/06/20 Unknown Urine WBC Clumps 2+ /HPF 12/06/20 Unknown Urine Mucus Few /HPF 12/06/20 Unknown Urine Yeast (Budding) 1+ /HPF 12/06/20 23:15 Urine Creatinine 147.7 mg/dL (0.1-20.0) H 12/06/20 23:15 Urine Sodium 38 mmol/L 12/06/20 23:15 Salicylates 0.3 mg/dL (2.8-20.0) L 12/06/20 07:36 Urine Opiates Screen Presumptive negative 12/06/20 Unknown Urine Methadone Screen Presumptive negative 12/06/20 Unknown Acetaminophen 5.0 ug/mL (10.0-30.0) L 12/06/20 07:36 Ur Barbiturates Screen Presumptive negative 12/06/20 Unknown Ur Phencyclidine Scrn Presumptive negative 12/06/20 Unknown Ur Amphetamines Screen Presumptive negative 12/06/20 Unknown U Benzodiazepines Scrn Presumptive negative 12/06/20 Unknown Urine Cocaine Screen Presumptive negative 12/06/20 Unknown U Marijuana (THC) Screen Presumptive negative 12/06/20 Unknown Drugs of Abuse Note Disclamer 12/06/20 Unknown Plasma/Serum Alcohol < 0.01 % (0-0.07) 12/06/20 07:36 VIANEY Screen Negative (Negative) 12/06/20 13:24 Complement C3 145 mg/dL (82-185) 12/06/20 13:24 Complement C4 22 mg/dL (15-53) 12/06/20 13:24 Coronavirus (PCR) Negative (Negative) 12/06/20 09:15 Hep Bs Antigen Non-reactive (Negative) 12/06/20 13:24 Blood Type A POSITIVE 12/11/20 05:31 Antibody Screen Negative 12/11/20 05:31 Crossmatch See Detail 12/11/20 05:31 Mcallister/IV: Voiding Method Urinal Active Medications - Current Medications Current Medications: Generic Name Dose Route Start Last Admin Trade Name Freq PRN Reason Stop Dose Admin Acetaminophen 650 mg 12/11/20 12:18 12/15/20 01:36 Acetaminophen 325 Mg Tab PO 650 mg Q6H PRN Administration Pain, Mild (1-3) Carvedilol 3.125 mg 12/11/20 13:00 12/14/20 23:02 Carvedilol 3.125 Mg Tab PO 3.125 mg BID KIRK Administration Dextrose 50 ml 12/06/20 11:45 Dextrose 50% In Water (25gm) 50 Ml Syringe IV Q30MIN PRN Hypoglycemia Protocol Sodium Chloride 1,000 mls @ 100 mls/hr 12/06/20 13:30 12/08/20 23:36 Nacl 0.9% 1000 Ml IV 100 mls/hr DIRECT KIRK Administration Ceftriaxone Sodium 2 gm in 100 mls @ 200 mls/hr 12/09/20 20:00 12/14/20 23:03 Rocephin/Ns 2 Gm/100 Ml IV 12/16/20 19:59 200 mls/hr 2000 KIRK Administration Protocol Sodium Chloride 100 mls @ 999 mls/hr 12/14/20 16:00 Nacl 0.9% IV CHRISTA PRN Hypotension Pantoprazole Sodium 40 mg 12/10/20 07:30 12/15/20 08:58 Pantoprazole 40 Mg Tab PO 40 mg QDAC KIRK Administration Nutrition/Malnutrition Assess - Dietary Evaluation Nutrition/Malnutrition Findings: Nutrition Notes Start: 12/13/20 10:12 Freq: Status: Active Protocol: Document 12/15/20 09:30 AT (Rec: 12/15/20 09:40 AT [email or web address]) Co-Sign 12/15/20 09:30 Nutrition Notes Initial or Follow up Reassessment Current Diagnosis Acute Kidney Injury,CKD (stage V CKD),Diabetes,Sepsis, Hypertension Other Pertinent Diagnosis on HD, Metabolic Encephalopathy, NSTEMI, COVID- 19(-), AMS Current Diet Renal diet Labs/Tests K 3.5 BUN 24 Cr 5.6 BG 124 Ca 7.7 Pertinent Medications Reviewed Height 6 ft Weight 102.7 kg [place] Body Weight (kg) 80.90 BMI 30.7 Weight change and time frame Wt fluctuation may be due to HD Weight Status Obese Subjective/Other Information Follow up for intakes and ONS tolerance. Pt at HD at time of visit. Per chart, pt consumed between 0-25% of meals yesterday. Burn Absent Trauma Absent Current % PO Negligible Minimum of two criteria Yes Energy Intake (severe) < or equal to 50% Estimated Energy Requirement > or equal to 5 days Interpretation of Weight Loss (severe) > 20% in 1 year Fluid Accumulation Mild (non-severe) #1 Nutrition Diagnosis Malnutrition Diagnosis Progress(for reassessment Continues documentation) Is patient on ventilator? No Is Patient Ambulatory and/or Out of Bed Yes REE-(Sawyer-St. Jeor-ambulatory/OOB) [ 2366.000 [id number]] Kcal/Kg value to use for calculation 21 Approximate Energy Requirements Using 2157 kcal/Kg Calculation Used for Recommendations Kcal/kg Additional Notes PRO needs: >110g (>1.2 g/kg AdBW 92kg HD) Fluid needs: 1000 mL per MD Nutrition Intervention Change Diet Order: Continue diet as ordered Add Supplement/Snack (indicate name/kcal Nepro BID /protein ) Provides kCal: 850 Provides Protein (gm) 38 Goal #1 Meet at least 80% of estimated energy and protein needs via diet and ONS Goal #2 Weight maintenance Anticipated Discharge Needs: Renal diet with ONS PRN Follow-Up By: 12/19/20 Additional Comments F/U for stable intakes
[2020-12-15] MEDS ORDERED: ALBUTEROL 2.5 MG/3 ML NEBU IH PRN (10:50)
[2020-12-15] MEDS ORDERED: HALOPERIDOL LACTATE 5 MG/1 ML INJ IM SCH (11:00)
[2020-12-15] MEDS ORDERED: HALOPERIDOL LACTATE 5 MG/1 ML INJ IM NR (11:00)
--- NOTE | 2020-12-15 11:53 | Progress Note ---
Assessment and Plan AAltered mental Status, metabolic encephalopathy Acute on chronic renal failure NSTEMI Acute gastroenteritis Anemia Diabetes mellitus History of DVT, on Eliquis Hypertension Plan: -HD today for UF and clearance with [facility] -Adjust HD prescription as needed -Assess need for HD on daily basis -S/p perm-cath placement this 12/12 -Renal ultrasound showed Possible cystitis. Medical renal disease. Mild left hydronephrosis. Consulted Urology-Dr. Salomon. patient refused stent placement -Ordered GN work -ANCA,Anti-GBM, SPEP and Hep C pending -So far C3, C4, Hep B surface antigen, VIANEY -> negative -Urine lytes reviewed, has proteinuria -Fluid restriction of 1 liter per day -Renally dose medications -Accepted at [facility], T,T,S 10:30 a.m schedule upon discharge Subjective Date of service: 12/15/20 Principal diagnosis: Anemia/?GIB, ESRD/HD, NSTEMI Interval history: In HD this AM Objective - Vital Signs Vital signs: Vital Signs - 12hr 12/15/20 12/15/20 12/15/20 01:36 01:44 05:18 Temperature 98.1 F 97.7 F Pulse Rate 84 87 Respiratory 17 16 18 Rate Blood Pressure 124/86 Blood Pressure 128/60 [Left] O2 Sat by Pulse 95 97 Oximetry 12/15/20 12/15/20 12/15/20 09:01 09:40 09:45 Temperature 98.3 F Pulse Rate 88 82 Respiratory 20 18 Rate Blood Pressure 129/84 120/80 Blood Pressure [Left] O2 Sat by Pulse 97 Oximetry 12/15/20 12/15/20 12/15/20 10:00 10:15 10:30 Temperature Pulse Rate 92 H 88 91 H Respiratory Rate Blood Pressure 125/91 123/93 131/89 Blood Pressure [Left] O2 Sat by Pulse Oximetry 12/15/20 12/15/20 12/15/20 10:45 11:00 11:15 Temperature Pulse Rate 83 85 93 H Respiratory Rate Blood Pressure 123/58 120/83 122/95 Blood Pressure [Left] O2 Sat by Pulse Oximetry - Lab 12/15/20 07:01 12/15/20 07:01 Most recent lab results Calcium 7.7 mg/dL (8.4-10.2) L 12/15/20 07:01 Phosphorus 2.80 mg/dL (2.5-4.5) 12/12/20 05:00 Urine Creatinine 147.7 mg/dL (0.1-20.0) H 12/06/20 23:15 Urine Sodium 38 mmol/L 12/06/20 23:15 Medications & Allergies - Medications Allergies/Adverse Reactions: Allergies No Known Allergies Allergy (Unverified 12/06/20 12:39) Home Medications: Home Medications Medication Instructions Recorded Confirmed Last Taken Type Acetaminophen [Non-Aspirin Extra 1,000 mg PO TID PRN 12/06/20 12/06/20 Unknown History Strength] Apixaban [Eliquis] 5 mg PO BID 12/06/20 12/06/20 Unknown History AtorvaSTATin [Lipitor] 40 mg PO QHS 12/06/20 12/06/20 Unknown History Metoprolol [Lopressor] 12.5 mg PO QDAY 12/06/20 12/06/20 Unknown History Active Medications: Generic Name Dose Route Start Last Admin Trade Name Freq PRN Reason Stop Dose Admin Acetaminophen 650 mg 12/11/20 12:18 12/15/20 01:36 Acetaminophen 325 Mg Tab PO 650 mg Q6H PRN Administration Pain, Mild (1-3) Albuterol 2.5 mg 12/15/20 10:50 Albuterol 2.5 Mg/3 Ml Nebu IH Q4HRT PRN Shortness Of Breath Carvedilol 3.125 mg 12/11/20 13:00 12/14/20 23:02 Carvedilol 3.125 Mg Tab PO 3.125 mg BID KIRK Administration Dextrose 50 ml 12/06/20 11:45 Dextrose 50% In Water (25gm) 50 Ml Syringe IV Q30MIN PRN Hypoglycemia Protocol Haloperidol Lactate 5 mg 12/15/20 11:00 12/15/20 11:08 Haloperidol Lactate 5 Mg/1 Ml Inj IM 12/15/20 16:00 5 mg ONCE KIRK Administration Sodium Chloride 1,000 mls @ 100 mls/hr 12/06/20 13:30 12/08/20 23:36 Nacl 0.9% 1000 Ml IV 100 mls/hr DIRECT KIRK Administration Ceftriaxone Sodium 2 gm in 100 mls @ 200 mls/hr 12/09/20 20:00 12/14/20 23:03 Rocephin/Ns 2 Gm/100 Ml IV 12/16/20 19:59 200 mls/hr 2000 KIRK Administration Protocol Sodium Chloride 100 mls @ 999 mls/hr 12/14/20 16:00 Nacl 0.9% IV CHRISTA PRN Hypotension Pantoprazole Sodium 40 mg 12/10/20 07:30 12/15/20 08:58 Pantoprazole 40 Mg Tab PO 40 mg QDAC KIRK Administration
[2020-12-15] MEDS: EPOETIN ALFA-EPBX 10,000 UNIT/1 ML VIAL IV PRN (12:05)
--- NOTE | 2020-12-15 12:06 | Electrocardiograph Report ---
[facility] Test Date: 2020-12-14 Test Time: 12:28:08 Pat Name: GUY MONZON Department: Room: A374 Gender: M [employer]: CLAIRE : 1950 Requested By: DAMEON ARELLANO Order Number: [id number] Reading MD: Ava Whitfield Measurements Intervals [place] Rate: 88 P: 61 [place]: 171 QRS: -48 QRSD: 102 T: 125 QT: 427 QTc: 516 Interpretive Statements Sinus rhythm Left anterior fascicular block Repol abnrm suggests ischemia, diffuse leads Prolonged QT interval Compared to ECG 12/08/2020 07:16:25 Electronically Signed On 12-15-2020 12:06:24 EDT by Ava Whitfield
[2020-12-15 13:07] VITALS: BP 143/85
[2020-12-15] MEDS: carvediloL 3.125 MG TAB PO SCH (14:36)
--- NOTE | 2020-12-15 14:53 | Discharge Summary ---
Providers - Providers Date of Admission: 12/06/20 10:35 Attending physician: JERICHO MCCRARY MD 12/06/20 11:15 Consult to Cardiology [CONS] Routine Consulting Provider: CLARY LANCASTER Reason For Exam: elevated trop 12/06/20 11:19 Consult to Physician [CONS] Routine Comment: Consulting Provider: CHEMO HENDERSON Physician Instructions: Reason For Exam: acute on CKD 12/06/20 11:38 Consult to Physician [CONS] Routine Comment: Consulting Provider: HEIDY MARCH Physician Instructions: Reason For Exam: anemia 12/06/20 11:39 Consult to Physician [CONS] Routine Comment: Consulting Provider: SIMONE PASTRANA Physician Instructions: Reason For Exam: sepsis 12/07/20 12:40 Consult to Physician [CONS] Routine Comment: Consulting Provider: ANA RANDHAWA Physician Instructions: Reason For Exam: Perm-cath placement 12/08/20 11:21 Consult to Case Management [CONS] Routine Services Needed at Discharge: Other Notified:: cm Additional Physician Instructions: Address: [address] [place] [address] 12/08/20 14:12 Physical Therapy Evaluation and Treat [CONS] Stat Comment: Reason For Exam: eval and treat 12/08/20 14:15 Occupational Therapy Evaluate and Treat [CONS] Stat Comment: Reason For Exam: eval and treat 12/10/20 08:17 Consult to Physician [CONS] Routine Comment: Consulting Provider: RODO JALLOH Physician Instructions: Reason For Exam: Retroperitoneal adenopathy suspicious for malignan 12/12/20 10:22 Consult to Case Management [CONS] Routine Services Needed at Discharge: Other Notified:: cm Comment:: needs followup appointment with DORI with DR. DAVEY at [phone] 12/12/20 12:40 Consult to Physician [CONS] Routine Comment: Consulting Provider: SUMMER SOTOMAYOR Physician Instructions: Reason For Exam: Mild left hydronephrosis 12/12/20 15:23 Consult to Cardiac Rehabilitation [CONS] Routine Reason For Exam: cardiomyopathy 12/14/20 10:41 Occupational Therapy Evaluate and Treat [CONS] Routine Comment: Reason For Exam: debility Physical Therapy Evaluation and Treat [CONS] Routine Comment: re-eval post fall Reason For Exam: debility Primary care physician: SENIOR NET DEVELOPER ARCHITECT Hospitalization Reason for admission: ams Condition: Stable Hospital course: 70-year-old -[place] male was presented via EMS for altered mental status. Patient could not give any history. I called his Ms. Baumann and she gave me his history. 70-year-old -[place] male with past medical history significant for diabetes on insulin, DVT, on Eliquis, hypertension, CKD was complaining of abdominal pain, cramping after he was eating at [employer] last . Progressively patient was getting weak. Patient was also complaining diarrhea multiple times, did not characterize the diarrhea. She said he was incontinent to urine occasionally. She stated that he is a and follow-up at [facility], she states he has some heart problems and he has something placed in his chart that she do not know. Patient did not answer questions but he said yes for chest pain. In the emergency department patient was altered and was not able to give any history. Labs are significant for leukocytosis, elevated troponin level, elevated BUN and creatinine with GFR of 8%. Urinalysis is suggestive of UTI. Patient was placed on cefepime. Chest x-ray was negative, CT head was negative. Nephrology was consulted but his said she does not want to start dialysis on him at this time. Covid test was ordered and ID was consulted. For anemia GI consult was placed. For non-STEMI cardiology was consulted. Vital signs were stable. Patient will be admitted to medical floor. Altered mental Status, metabolic encephalopathy -CT head was negative -No grossly focal neurologic deficit -We will treat underlying condition Ecoli Bactermia likely from UTI S/P ABX Acute on chronic renal failure -Patient has CKD, and currently GFR is 8 -Patient was diagnosed with CKD before and was suggested for dialysis but patient declined. -I discussed with his over the phone and she does not want dialysis. -Nephrology consulted. NSTEMI -Troponin was more than 3 -EKG normal sinus rhythm, no ST elevation, cardiology consulted Severe sepsis, PUI -Likely due to UTI -Patient is on cefepime -We will get urine and blood culture -Covid test is pending Acute gastroenteritis -Symptomatic management -Continue antibiotics -C. difficile ordered Anemia -Hemoglobin this morning was 7.3 -Anemia work-up was ordered, and consulted GI Diabetes mellitus -Sliding scale insulin, Accu-Chek, ADA diet and adjust insulin as needed History of DVT, on Eliquis -I will hold Eliquis for now due to anemia -Ordered D-dimer Cardiomyopathy - Declined work up. Patient currently receiving aspirin and beta-varun. No statin in setting of low HDL and LDL labs. No ALEX inhibitors in setting of DEX. Hypertension -Blood pressure is on the low side of normal and I will hold blood pressure medication for now DVT prophylaxis; SCDs for now because of severe anemia CODE STATUS; full Disposition; to medical floor Management plan was discussed with the daughter and was in agreement with the plan of care. 12/07/2020 -Patient still altered -Morning labs pending -Was seen by ID and recommended cefepime for now -Was seen by nephrology, his declined dialysis. She also told me he decl ined dialysis as an outpatient -H&H improved. GI said the likely cause of anemia is renal failure. Recommend to put him on PPI and hold Eliquis -VQ scan and Doppler ultrasound of the lower extremities was done and negative -Uremic encephalopathy; not improved -Non-STEMI; management as per cardiology 12/08/2020 -Patient had hemodialysis yesterday, he is alert and oriented -Blood cultures still for gram-negative rods continue antibiotics for now. Identification pending -Non-STEMI management is per cardiology. -We will update the 12/09/2020 -First set of blood culture was grew gram-negative tevin, repeat blood cultures are negative -Patient had dialysis, yesterday and the day before, patient's mentation is getting better. -We will get records from [facility] -Patient need outpatient dialysis arrangement. -Non-STEMI management as per cardiology -Discussed with the about the plan of care and she was in agreement with the plan of care 12/10/2020 -Patient's blood culture grew E. coli and antibiotics deescalated to ceftriaxone -Patient will have permacath on Saturday -Patient will have EGD on Saturday for evaluation of his anemia -Patient has echo which showed EF of 20 to 25% with severe hypokinesis, non- STEMI and cardiology was consulted and will do stress test on Saturday12/11/2020 -Patient is on IV ceftriaxone for E. coli bacteremia -Continue PermCath and EGD tomorrow; but patient not sure he wants to proceed -Patient has echo which showed EF of 20 to 25% with severe hypokinesis, non- STEMI and cardiology was consulted and will do stress test on Saturday -I called his Cecilia Baumann and I discussed with her about PermCath, EGD, stress test and possible lymph node biopsy; she says she will talk to him and she will let us know the plan. Her numbers in the chart follow up with her. -Please get in touch with interventional radiology if they are able to get retroperitoneal lymph node biopsy, if not patient need bone marrow biopsy. 12/12: Patient today underwent successful fluoroscopic-guided placement of a tunneled cuffed hemodialysis catheter. Patient is pending endoscopy and colonoscopy cardiology had cleared the patient for the procedure but will obtain a stress test if so wishes by anesthesia prior. 12/13: Patient likely has some underlying early dementia will check TSH folic acid level. Recommended outpatient neurology evaluation. 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 Outpatient reevaluation. Anemia remains stable again he refused EGD or colonoscopy I did discuss the importance of this with the spouse including rule out for any malignancy. She tells me that he does go through this bout off and on and I will reevaluate outpatient and discussed with him. Again he has this retroperitoneal lymph node that interventional radiology will attempt to biopsy again this was set up outpatient as patient is continually refusing medical management. We are waiting approval from [facility] for him to be discharged to continue some SNF work-up. 12/14: Patient last night was found on the floor in the bathroom. No injuries are noted no imaging studies obtained. This morning on examination he complains of no injuries. Is currently awaiting placement. Presumed underlying early dementia. Intermittent labs while in house Anticipate discharge in am WILL REQUEST PT RE-EVALUATION FALL PRECAUTIONS 12/15: Continue supportive care, Physical therapy still recommending SNF, restart Eliquis on discharge again as noted above patient will follow with GI and urology outpatient for continued work-up. This was discussed in detail with the family. Disposition: [id number] SNF W [facility] CERT Final Discharge Diagnosis (Prints w/discharge instructions): sepsis secondary to ECOLI bacteremia related uti Time spent for discharge: 35 MINS Core Measure Documentation - Palliative Care Palliative Care/ Comfort Measures: Not Applicable - Core Measures Any of the following diagnoses?: none Exam - Physical Exam Narrative exam: Not in cardiopulmonary distress. Resting comfortably The patient appeared well nourished and normally developed. NO HEAD CONTUSION NOTED Vital signs as documented. Head exam is unremarkable. No scleral icterus . Neck is without jugular venous distension, thyromegaly, or carotid bruits. Lungs are clear to auscultation. Cardiac exam reveals regular rate and Rhythm. Abdominal exam reveals normal bowel sounds, nontender, no organomegaly. Extremities are nonedematous and both femoral and pedal pulses are normal. 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 - Constitutional Vitals: Temp Pulse Resp BP Pulse Ox 97.9 F 90 20 143/85 97 12/15/20 12:50 12/15/20 14:36 12/15/20 12:50 12/15/20 14:36 12/15/20 09:01 Plan Activity: advance as tolerated, fall precautions Diet: renal Special Instructions: record daily weights, record daily BP diary, record blood sugar diary Follow up with: SUMMER SOTOMAYOR MD [Staff Physician] - 7 Days ARLEEN GEORGE MD [Staff Physician] - 7 Days ANA RANDHAWA MD [Staff Physician] - 7 Days PRIMARY CAREMD [Primary Care Provider] - 3-5 Days Prescriptions: carvediloL [Coreg] 3.125 mg PO BID #60 tablet Pantoprazole [Protonix TAB] 40 mg PO QDAC #30 tablet
[2020-12-19 09:03] LABS: Hemoglobin A2 Prime SEE SCANNED RESULT; Hemoglobin Barts SEE SCANNED RESULT; Hemoglobin E SEE SCANNED RESULT; Hemoglobin G SEE SCANNED RESULT; Hemoglobin Lepore SEE SCANNED RESULT; Hemoglobin O-Arab SEE SCANNED RESULT; IEF Confirm SEE SCANNED RESULT; Interpretation SEE SCANNED RESULT; Sickle Solubility Test SEE SCANNED RESULT
[2020-12-20 21:05] LABS: Myeloperoxidase Antibody <1.0 AI (<1.0)
== END 2020-12-15 18:30 | DRG 871 ==
LOC: ED 06:42 → 3A 10:35
PROVIDERS: ADMIT Internal Medicine; ATTEND Internal Medicine
PROC: 02H633Z Insertion of Infusion Device into Right Atrium, Percutaneous Approach (ICD-10-PCS; principal; 2020-12-07)
PROC: B5181ZA Fluoroscopy of Superior Vena Cava using Low Osmolar Contrast, Guidance (ICD-10-PCS; 2020-12-07)
PROC: B543ZZA Ultrasonography of Right Jugular Veins, Guidance (ICD-10-PCS; 2020-12-07)
PROC: 5A1D70Z Performance of Urinary Filtration, Intermittent, Less than 6 Hours Per Day (ICD-10-PCS; 2020-12-07)
PROC: 5A1D70Z Performance of Urinary Filtration, Intermittent, Less than 6 Hours Per Day (ICD-10-PCS; 2020-12-08)
PROC: 5A1D70Z Performance of Urinary Filtration, Intermittent, Less than 6 Hours Per Day (ICD-10-PCS; 2020-12-09)
PROC: 30233N1 Transfusion of Nonautologous Red Blood Cells into Peripheral Vein, Percutaneous Approach (ICD-10-PCS; 2020-12-11)
PROC: 0JH63XZ Insertion of Tunneled Vascular Access Device into Chest Subcutaneous Tissue and Fascia, Percutaneous Approach (ICD-10-PCS; 2020-12-12)
PROC: 02H633Z Insertion of Infusion Device into Right Atrium, Percutaneous Approach (ICD-10-PCS; 2020-12-12)
PROC: B5181ZA Fluoroscopy of Superior Vena Cava using Low Osmolar Contrast, Guidance (ICD-10-PCS; 2020-12-12)
PROC: 5A1D70Z Performance of Urinary Filtration, Intermittent, Less than 6 Hours Per Day (ICD-10-PCS; 2020-12-12)
PROC: 5A1D70Z Performance of Urinary Filtration, Intermittent, Less than 6 Hours Per Day (ICD-10-PCS; 2020-12-15)
DX: A41.50 Gram-negative sepsis, unspecified (principal); G93.41 Metabolic encephalopathy; I21.4 Non-ST elevation (NSTEMI) myocardial infarction; N18.6 End stage renal disease; N17.9 Acute kidney failure, unspecified; N13.30 Unspecified hydronephrosis; I12.0 Hypertensive chronic kidney disease with stage 5 chronic kidney disease or end stage renal disease; N39.0 Urinary tract infection, site not specified; I42.9 Cardiomyopathy, unspecified; D64.9 Anemia, unspecified; K52.9 Noninfective gastroenteritis and colitis, unspecified; R59.9 Enlarged lymph nodes, unspecified; E11.22 Type 2 diabetes mellitus with diabetic chronic kidney disease; Z20.822 Contact with and (suspected) exposure to COVID-19; R65.20 Severe sepsis without septic shock; Z86.718 Personal history of other venous thrombosis and embolism; Z79.899 Other long term (current) drug therapy; Z79.4 Long term (current) use of insulin; Z79.01 Long term (current) use of anticoagulants
CPT/HCPCS: 36415; 36556; 36558; 70450; 71045; 74176; 76770; 77001; 78580; 80048; 80053; 80061; 80307; 80320; 81001; 82140; 82550; 82570; 82607; 82728; 82747; 82947; 82962; 83010; 83520; 83550; 83615; 83880; 84100; 84145; 84153; 84154; 84165; 84300; 84443; 84484; 85007; 85014; 85018; 85025; 85027; 85379; 85610; 85730; 86021; 86038; 86140; 86160; 86706; 86803; 86850; 86900; 86901; 86920; 87040; 87076; 87086; 87186; 93005; 93306; 93970; G0378; A9540; C1750; C1752; C9113; G0480; J0690; J0692; J0696; J0885; J1200; J1630; J1644; J1940; J2250; J3010; J7030; J7050; P9016; U0003

== ENCOUNTER 2021-01-20 12:07 | Inpatient (IN) | payer MEDICARE ==
[2021-01-20] MEDS ORDERED: SODIUM CHLORIDE 0.9% 1000 ML IV SOLN IV ONE (12:46)
--- NOTE | 2021-01-20 13:13 | Emergency Department Report ---
ED Abdominal Pain HPI - General Chief Complaint: Abdominal Pain Stated Complaint: ABD PAIN Time Seen by Provider: 01/20/21 12:15 Source: EMS Mode of arrival: Ambulatory Limitations: No Limitations - History of Present Illness Initial Comments: 70-year-old male presents to ED from home with complaint of abdominal pain x2 days, per EMS. When I evaluate patient he complains of pain to the right hand he denies any abdominal pain. Patient seems to be confused. Apparently no history of dementia, per EMS. Patient lives at home with his . He was di alyzed on yesterday. Patient cannot tell me the year. Poor historian. Complaint: abdominal pain -: days(s) (2) - Related Data Home Medications Medication Instructions Recorded Confirmed Last Taken Apixaban [Eliquis] 5 mg PO BID 12/06/20 12/06/20 Unknown AtorvaSTATin [Lipitor] 40 mg PO QHS 12/06/20 12/06/20 Unknown Previous Rx's Medication Instructions Recorded Last Taken Type Pantoprazole [Protonix TAB] 40 mg PO QDAC #30 tablet 12/15/20 Unknown Rx carvediloL [Coreg] 3.125 mg PO BID #60 tablet 12/15/20 Unknown Rx Allergies Allergy/AdvReac Type Severity Reaction Status Date / Time No Known Allergies Allergy Unverified 12/06/20 12:39 ED Review of Systems ROS: Stated complaint: ABD PAIN Other details as noted in HPI Comment: Unobtainable due to pts medical conditions ED Past Medical Hx - Past Medical History Previous Medical History?: Yes Hx Hypertension: Yes Hx Congestive Heart Failure: Yes Hx Diabetes: Yes Hx Renal Disease: Yes (ESRD) Additional medical history: high cholesterol - Surgical History Hx Coronary Stent: Yes Additional Surgical History: unobtainable - Social History Smoking Status: Never Smoker - Medications Home Medications: Home Medications Medication Instructions Recorded Confirmed Last Taken Type Apixaban [Eliquis] 5 mg PO BID 12/06/20 12/06/20 Unknown History AtorvaSTATin [Lipitor] 40 mg PO QHS 12/06/20 12/06/20 Unknown History Pantoprazole [Protonix TAB] 40 mg PO QDAC #30 tablet 12/15/20 Unknown Rx carvediloL [Coreg] 3.125 mg PO BID #60 tablet 12/15/20 Unknown Rx ED Physical Exam - General Limitations: No Limitations General appearance: alert, in no apparent distress - Head Head exam: Present: atraumatic, normocephalic - Eye Eye exam: Present: normal appearance, EOMI - ENT ENT exam: Present: mucous membranes moist - Neck Neck exam: Present: normal inspection - Respiratory Respiratory exam: Present: other (Tachypnea present) - Cardiovascular Cardiovascular Exam: Present: normal rhythm, tachycardia - GI/Abdominal GI/Abdominal exam: Present: soft, tenderness (diffuse). Absent: distended - Extremities Exam Extremities exam: Present: normal inspection - Neurological Exam Neurological exam: Present: alert, altered. Absent: oriented X3 - Psychiatric Psychiatric exam: Present: normal affect, normal mood - Skin Skin exam: Present: warm, dry, intact, normal color ED Course Vital Signs 01/20/21 01/20/21 01/20/21 12:17 12:20 12:30 Temperature 99.0 F Pulse Rate 122 H 118 H Respiratory 28 H 24 Rate Blood Pressure 93/60 93/60 Blood Pressure [Right] O2 Sat by Pulse 95 95 96 Oximetry 01/20/21 01/20/21 01/20/21 12:31 12:46 13:00 Temperature Pulse Rate 112 H 109 H Respiratory 27 H 23 37 H Rate Blood Pressure 93/60 97/75 Blood Pressure [Right] O2 Sat by Pulse 100 97 Oximetry 01/20/21 01/20/21 01/20/21 13:16 13:30 13:46 Temperature Pulse Rate 111 H Respiratory 35 H Rate Blood Pressure 97/75 93/60 117/89 Blood Pressure [Right] O2 Sat by Pulse 96 95 96 Oximetry 01/20/21 01/20/21 01/20/21 14:00 14:16 14:42 Temperature Pulse Rate 107 H 110 H 109 H Respiratory 21 22 21 Rate Blood Pressure 103/72 103/72 117/89 Blood Pressure [Right] O2 Sat by Pulse 97 96 99 Oximetry 01/20/21 01/20/21 01/20/21 14:46 14:58 15:00 Temperature 98.6 F Pulse Rate 105 H 105 H Respiratory 28 H 24 Rate Blood Pressure 117/89 103/72 Blood Pressure [Right] O2 Sat by Pulse 98 98 Oximetry 01/20/21 01/20/21 01/20/21 15:15 15:31 15:45 Temperature Pulse Rate 104 H 104 H Respiratory 29 H 33 H 19 Rate Blood Pressure 113/77 113/77 Blood Pressure [Right] O2 Sat by Pulse 99 96 98 Oximetry 01/20/21 01/20/21 01/20/21 16:01 16:15 16:31 Temperature Pulse Rate 107 H 106 H 102 H Respiratory 24 20 18 Rate Blood Pressure 112/76 112/76 100/71 Blood Pressure [Right] O2 Sat by Pulse 97 95 98 Oximetry 01/20/21 01/20/21 01/20/21 16:45 17:01 17:15 Temperature Pulse Rate 98 H 103 H 104 H Respiratory 26 H 21 27 H Rate Blood Pressure 100/71 112/76 112/76 Blood Pressure [Right] O2 Sat by Pulse 95 97 96 Oximetry 01/20/21 01/20/21 01/20/21 17:31 17:45 18:01 Temperature Pulse Rate 99 H 101 H Respiratory 30 H 29 H 28 H Rate Blood Pressure 112/76 112/76 116/73 Blood Pressure [Right] O2 Sat by Pulse 99 95 96 Oximetry 01/20/21 01/20/21 01/20/21 18:15 18:31 18:45 Temperature Pulse Rate 101 H 100 H 96 H Respiratory 30 H 23 25 H Rate Blood Pressure 104/72 109/72 109/72 Blood Pressure [Right] O2 Sat by Pulse 97 98 99 Oximetry 01/20/21 01/20/21 01/20/21 19:01 19:15 19:31 Temperature Pulse Rate 96 H 90 97 H Respiratory 28 H 28 H 30 H Rate Blood Pressure 105/79 105/79 100/73 Blood Pressure [Right] O2 Sat by Pulse 99 97 96 Oximetry 01/20/21 01/20/21 01/20/21 19:41 19:51 20:01 Temperature Pulse Rate Respiratory 32 H 26 H 14 Rate Blood Pressure 100/73 100/73 120/78 Blood Pressure [Right] O2 Sat by Pulse 98 97 97 Oximetry 01/20/21 01/20/21 01/20/21 20:11 20:21 20:31 Temperature Pulse Rate Respiratory 10 L 20 21 Rate Blood Pressure 120/78 120/78 125/87 Blood Pressure [Right] O2 Sat by Pulse 97 97 94 Oximetry 01/20/21 01/20/21 01/20/21 20:41 20:51 20:58 Temperature Pulse Rate Respiratory 19 12 21 Rate Blood Pressure 125/87 125/87 125/87 Blood Pressure [Right] O2 Sat by Pulse 92 98 95 Oximetry 01/20/21 01/20/21 01/20/21 21:01 21:08 21:10 Temperature Pulse Rate Respiratory 19 16 24 Rate Blood Pressure 121/73 125/87 121/73 Blood Pressure [Right] O2 Sat by Pulse 92 95 95 Oximetry 01/20/21 01/20/21 01/21/21 21:36 21:44 01:43 Temperature 97.3 F L 97.3 F L Pulse Rate 111 H 114 H 111 H Respiratory 22 22 Rate Blood Pressure 121/88 Blood Pressure 121/88 [Right] O2 Sat by Pulse 99 99 Oximetry 01/21/21 04:52 Temperature Pulse Rate Respiratory Rate Blood Pressure Blood Pressure [Right] O2 Sat by Pulse 98 Oximetry ED Medical Decision Making - Lab Data Result diagrams: 01/20/21 12:51 01/20/21 12:51 - EKG Data -: EKG Interpreted by Nh EKG shows normal: sinus rhythm Rate: tachycardia (rate 113) - EKG Data Interpretation: nonspecific ST-T wave julien, other ([facility]) - Radiology Data Radiology results: report reviewed, image reviewed - Medical Decision Making 70-year-old male presents to ED with complaint of abdominal pain. Upon ED arrival patient denies abdominal pain. Patient presented with tachycardia, low- grade fever, and hypotension. WBCs normal, however lactic acid of 3.9. Chest x-ray normal. UA shows evidence of UTI. CT abdomen pelvis shows some persistent perinephric asymmetric stranding as compared to last CT. Urine culture has been sent. Patient has been given IV Rocephin. 30 cc/kg bolus of IV fluids was ordered, which amounted to 3040 mL. Patient was given 1 L bolus by EMS. He was given 2 L here in the ED. Patient will be admitted by hospitalist, Dr. Camarena, for further management. - Differential Diagnosis Pneumonia, UTI, diverticulitis, bowel obstruction Critical Care Time: Yes Critical care time in (mins) excluding proc time.: 35 Critical care attestation.: If time is entered above; I have spent that time in minutes in the direct care of this critically ill patient, excluding procedure time. Critical Care Time: 35 min ED Disposition Clinical Impression: Sepsis, Acute encephalopathy, Hypokalemia, ESRD on hemodialysis UTI (urinary tract infection) Qualifiers: Urinary tract infection type: acute cystitis Disposition: OP ADMIT IP TO THIS HOSP Is pt being admited?: Yes Condition: Stable Time of Disposition: 15:19
[2021-01-20 13:17] LABS: Hematocrit 31.9 % (35.5-45.6); Hemoglobin 10.6 gm/dl (11.8-15.2); Mean Corpuscular HGB Conc 33 % (32-34); Mean Corpuscular Volume 97 fl (84-94); Platelet Count 146 K/mm3 (140-440); Red Blood Count 3.28 M/mm3 (3.65-5.03)
[2021-01-20 13:23] LABS: Bacteria,Urine 1+ /HPF (Negative); Bilirubin,Urine NEG (Negative); Blood,Urine SM (Negative); Color,Urine Amber (Yellow)
--- NOTE | 2021-01-20 13:25 | XRay Report ---
CHEST 1 VIEW INDICATION: ams. COMPARISON: 12/06/2020 FINDINGS: Support devices: Right-sided central venous catheter tip projects over the right atrium. Heart: Stable. Lungs/Pleura: No acute pulmonary or pleural findings. IMPRESSION: 1. No acute pulmonary or pleural findings. 2. Right-sided central line tip projects over the right atrium. Signer Name: Ye Burr MD Signed: 01/20/2021 1:21 PM Workstation Name: [id number]
[2021-01-20 13:28] LABS: Protein,Urine >500 mg/dL (Negative)
[2021-01-20 13:30] LABS: Albumin 3.6 g/dL (3.9-5); Calcium 8.9 mg/dL (8.4-10.2)
[2021-01-20 13:31] LABS: WBC,Urine > 182.0 /HPF (0.0-6.0)
[2021-01-20] MEDS ORDERED: cefTRIAXone/NS 1 GM/50 ML 1 GM/50 ML BAG IV ONE (13:36)
--- NOTE | 2021-01-20 15:00 | Cat Scan Report ---
CT head/brain wo con INDICATION: AMS. TECHNIQUE: Head CT without contrast. All CT scans at this location are performed using CT dose reduction for ALA RA by means of automated exposure control. COMPARISON: Previous head CT on 12/06/2020 FINDINGS: There is no evidence of hemorrhage, hydrocephalus, brain edema, or mass effect/mass lesion. There is stable mild global brain atrophy and mild chronic small vessel ischemic change in the cerebral white matter. Visualized paranasal sinuses are clear. There are scattered foci of subcutaneous air in the visualize d portions of face. IMPRESSION: 1. No acute intracranial abnormality. Signer Name: Irvin Espinal MD Signed: 01/20/2021 2:56 PM Workstation Name: [id number]
--- NOTE | 2021-01-20 15:12 | Cat Scan Report ---
CT ABDOMEN AND PELVIS WITHOUT IV CONTRAST INDICATION: abd pain. COMPARISON: None available. TECHNIQUE: All CT scans at this facility use dose modulation, automated exposure control, iterative reconstructi on or weight based dosing, when appropriate, to reduce radiation dose to as low as reasonably achieva ble. FINDINGS: Lung Bases: Cardiomegaly, small effusions, and predominantly dependent bilateral airspace disease are noted. These pulmonary/pleural findings are new. Skeletal System: No acute abnormality. ABDOMEN: Liver: No significant abnormality. Gallbladder: Punctate stones are again noted. Bile Ducts: No significant abnormality. Pancreas: Diffuse atrophy. Coarse calcification in the region of the body/uncinate is unchanged. Spleen: No significant abnormality. Adrenals: No significant abnormality. Right Kidney: Mild perinephric stranding. Left Kidney: Moderate perinephric stranding. Upper GI tract: No significant abnormality. Lymph Nodes: Mild retroperitoneal adenopathy is stable. Aorta: Atherosclerotic calcification within the aorta and mesenteric arterial tree is stable. Additional Findings: No significant abnormality. PELVIS: Colon: No acute abnormality. Diverticulosis is noted. Urinary Bladder and Distal Ureters: No significant abnormality. Appendix: No significant abnormality. Lymph Nodes: No significant adenopathy. Additional Findings: None. IMPRESSION: 1. There is persistent asymmetric perinephric stranding, left greater than right. Previously seen mi ld left hydroureteronephrosis has resolved, as has bladder wall thickening. 2. Findings in the lower chest are suggestive of mild congestive heart failure, correlate clinically . 3. Mild retroperitoneal adenopathy is stable. 4. Minimal cholelithiasis, unchanged. 5. There is diffuse atrophy of the pancreas with 2 cm coarse calcification in the head/uncinate. Signer Name: Ye Burr MD Signed: 01/20/2021 3:07 PM Workstation Name: [id number]
[2021-01-20 17:31] LABS: Anisocytosis 1+; Band Neutrophils # (Manual) 1.4 K/mm3; Macrocytosis Few; Platelet Estimate Consistent w Auto; Total Cells Counted 100
[2021-01-20] MEDS: HYDROmorphone 1 MG/1 ML INJ IV PRN (18:18)
--- NOTE | 2021-01-20 22:39 | History and Physical Report ---
History of Present Illness Date of examination: 01/20/21 Date of admission: 01/20/21 15:22 Chief complaint: Abdominal pain for 1 day History of present illness: 70-year-old -Irish male with history of end-stage renal disease, hypertension, hyperlipidemia, GERD comes in for abdominal pain of 2 days duration. Also altered sensorium. Patient has some dysuria. Patient was dialyzed yesterday. Patient is a very poor historian. No fever or chills. No exposure to coronavirus. Last admission from December 06 to December 15 reviewed. At that time patient was admitted for metabolic encephalopathy end-stage renal disease non-STEMI sepsis acute gastrointestinal bleeding and anemia. Patient is followed by Dr. Marisol Wilcox. For nephrology. In the emergency room patient has altered sensorium and urinary tract infection. - Past Medical History Previous Medical History?: Yes --Hypertension: Yes --NoCcngestive Heart Failure: Yes --Diabetes: Yes --Renal Disease: Yes (ESRD) --Additional medical history: high cholesterol - Surgical History --Coronary Stent: Yes - Social History --Smoking Status: Never Smoker --Family history Htn Review of Systems ROS: Constitutional confused and lethargic HEENT no sore throat no post nasal drip no diplopia Neck no neck stiffness no lymph gland enlargement Chest and lungs no shortness of breath cough or wheezing CVS no chest pain no diaphoresis no palpitations GI abdominal discomfort Genitourinary system no dysuria no flank pain Musculoskeletal system no muscle pains no joint pains WOOLEN TESTER no syncope no seizures Skin no rash no itching Psychiatric no depression no homicidal or suicidal tendencies Hematologic no lymphedema or bruising Endocrine no polydipsia no polyuria no cold intolerance no heat intolerance Medications and Allergies Allergies Allergy/AdvReac Type Severity Reaction Status Date / Time No Known Allergies Allergy Unverified 12/06/20 12:39 Home Medications Medication Instructions Recorded Confirmed Last Taken Type Apixaban [Eliquis] 5 mg PO BID 12/06/20 12/06/20 Unknown History AtorvaSTATin [Lipitor] 40 mg PO QHS 12/06/20 12/06/20 Unknown History Pantoprazole [Protonix TAB] 40 mg PO QDAC #30 tablet 12/15/20 Unknown Rx carvediloL [Coreg] 3.125 mg PO BID #60 tablet 12/15/20 Unknown Rx Active Meds: Active Medications Hydromorphone HCl (Hydromorphone 1 Mg/1 Ml Inj) 0.5 mg IV Q3H PRN PRN Reason: Pain , Severe (7-10) Last Admin: 01/20/21 18:18 Dose: 0.5 mg Documented by: Exam - Constitutional Vitals: Temp Pulse Resp BP Pulse Ox 97.3 F L 114 H 22 121/88 99 01/20/21 21:36 01/20/21 21:44 01/20/21 21:36 01/20/21 21:36 01/20/21 21:36 General appearance: Present: no acute distress, well-nourished - EENT Eyes: Present: PERRL ENT: hearing intact, clear oral mucosa - Neck Neck: Present: supple, normal ROM - Respiratory Respiratory effort: normal Respiratory: bilateral: CTA - Cardiovascular Heart rate: 78 Rhythm: regular Heart Sounds: Present: S1 & S2. Absent: rub, click - Extremities Extremities: pulses symmetrical, No edema Peripheral Pulses: within normal limits - Abdominal General gastrointestinal: Present: soft, tender, non-distended, normal bowel sounds Localized gastrointestinal: tender: diffuse Male genitourinary: Present: normal - Integumentary Integumentary: Present: clear, warm, dry - Musculoskeletal Musculoskeletal: generalized weakness - Psychiatric Psychiatric: appropriate mood/affect, other (Altered sensorium) - Neurologic Neurologic: CNII-XII intact, moves all extremities, other (Altered sensorium) Results - Labs CBC & Chem 7: 01/20/21 12:51 01/20/21 12:51 Labs: Laboratory Last Values WBC 9.2 K/mm3 (4.5-11.0) 01/20/21 12:51 RBC 3.28 M/mm3 (3.65-5.03) L 01/20/21 12:51 Hgb 10.6 gm/dl (11.8-15.2) L 01/20/21 12:51 Hct 31.9 % (35.5-45.6) L 01/20/21 12:51 MCV 97 fl (84-94) H 01/20/21 12:51 MCH 32 pg (28-32) 01/20/21 12:51 MCHC 33 % (32-34) 01/20/21 12:51 RDW 19.0 % (13.2-15.2) H 01/20/21 12:51 Plt Count 146 K/mm3 (140-440) 01/20/21 12:51 Add Manual Diff Complete 01/20/21 12:51 Total Counted 100 01/20/21 12:51 Seg Neutrophils % Technical Services Specialist 01/20/21 12:51 Seg Neuts % (Manual) 79.0 % (40.0-70.0) H 01/20/21 12:51 Band Neutrophils % 15.0 % 01/20/21 12:51 Lymphocytes % (Manual) 4.0 % (13.4-35.0) L 01/20/21 12:51 Monocytes % (Manual) 2.0 % (0.0-7.3) 01/20/21 12:51 Nucleated RBC % Not Reportable 01/20/21 12:51 Seg Neutrophils # Man 7.3 K/mm3 (1.8-7.7) 01/20/21 12:51 Band Neutrophils # 1.4 K/mm3 01/20/21 12:51 Lymphocytes # (Manual) 0.4 K/mm3 (1.2-5.4) L 01/20/21 12:51 Abs React Lymphs (Man) 0.0 K/mm3 01/20/21 12:51 Monocytes # (Manual) 0.2 K/mm3 (0.0-0.8) 01/20/21 12:51 Eosinophils # (Manual) 0.0 K/mm3 (0.0-0.4) 01/20/21 12:51 Basophils # (Manual) 0.0 K/mm3 (0.0-0.1) 01/20/21 12:51 Metamyelocytes # 0.0 K/mm3 01/20/21 12:51 Myelocytes # 0.0 K/mm3 01/20/21 12:51 Promyelocytes # 0.0 K/mm3 01/20/21 12:51 Blast Cells # 0.0 K/mm3 01/20/21 12:51 WBC Morphology Not Reportable 01/20/21 12:51 Hypersegmented Neuts Not Reportable 01/20/21 12:51 Hyposegmented Neuts Not Reportable 01/20/21 12:51 Hypogranular Neuts Not Reportable 01/20/21 12:51 Smudge Cells Not Reportable 01/20/21 12:51 Toxic Granulation Not Reportable 01/20/21 12:51 Toxic Vacuolation Not Reportable 01/20/21 12:51 Dohle Bodies Not Reportable 01/20/21 12:51 Pelger-Huet Anomaly Not Reportable 01/20/21 12:51 Brianda Rods Not Reportable 01/20/21 12:51 Platelet Estimate Consistent w auto 01/20/21 12:51 Clumped Platelets Not Reportable 01/20/21 12:51 Plt Clumps, EDTA Not Reportable 01/20/21 12:51 Large Platelets Not Reportable 01/20/21 12:51 Giant Platelets Not Reportable 01/20/21 12:51 Platelet Satelliting Not Reportable 01/20/21 12:51 Plt Morphology Comment Not Reportable 01/20/21 12:51 RBC Morphology Not Reportable 01/20/21 12:51 Dimorphic RBCs Not Reportable 01/20/21 12:51 Polychromasia Not Reportable 01/20/21 12:51 Hypochromasia Not Reportable 01/20/21 12:51 Poikilocytosis Not Reportable 01/20/21 12:51 Anisocytosis 1+ 01/20/21 12:51 Microcytosis Not Reportable 01/20/21 12:51 Macrocytosis Few 01/20/21 12:51 Spherocytes Not Reportable 01/20/21 12:51 Pappenheimer Bodies Not Reportable 01/20/21 12:51 Sickle Cells Not Reportable 01/20/21 12:51 Target Cells Not Reportable 01/20/21 12:51 Tear Drop Cells Not Reportable 01/20/21 12:51 Ovalocytes Not Reportable 01/20/21 12:51 Helmet Cells Not Reportable 01/20/21 12:51 [place] Bodies Not Reportable 01/20/21 12:51 [place] Rings Not Reportable 01/20/21 12:51 [place] Cells Not Reportable 01/20/21 12:51 Bite Cells Not Reportable 01/20/21 12:51 Crenated Cell Not Reportable 01/20/21 12:51 Elliptocytes Not Reportable 01/20/21 12:51 Acanthocytes (Spur) Not Reportable 01/20/21 12:51 Rouleaux Not Reportable 01/20/21 12:51 Hemoglobin C Crystals Not Reportable 01/20/21 12:51 Schistocytes Not Reportable 01/20/21 12:51 Malaria parasites Not Reportable 01/20/21 12:51 [place] Bodies Not Reportable 01/20/21 12:51 Hem Pathologist Commnt No 01/20/21 12:51 Sodium 137 mmol/L (137-145) 01/20/21 12:51 Potassium 3.2 mmol/L (3.6-5.0) L 01/20/21 12:51 Chloride 96.4 mmol/L (98-107) L 01/20/21 12:51 Carbon Dioxide 23 mmol/L (22-30) 01/20/21 12:51 Anion Gap 21 mmol/L 01/20/21 12:51 BUN 18 mg/dL (9-20) 01/20/21 12:51 Creatinine 4.1 mg/dL (0.8-1.3) H 01/20/21 12:51 Estimated GFR 14 ml/min 01/20/21 12:51 BUN/Creatinine Ratio 4 % 01/20/21 12:51 Glucose 109 mg/dL (75-100) H 01/20/21 12:51 Lactic Acid 3.90 mmol/L (0.7-2.0) H* 01/20/21 18:28 Calcium 8.9 mg/dL (8.4-10.2) 01/20/21 12:51 Total Bilirubin 0.90 mg/dL (0.1-1.2) 01/20/21 12:51 AST 23 units/L (5-40) 01/20/21 12:51 ALT 9 units/L (7-56) 01/20/21 12:51 Alkaline Phosphatase 70 units/L (35-129) 01/20/21 12:51 Total Protein 8.9 g/dL (6.3-8.2) H 01/20/21 12:51 Albumin 3.6 g/dL (3.9-5) L 01/20/21 12:51 Albumin/Globulin Ratio 0.7 % 01/20/21 12:51 Urine Color Hina (Yellow) 01/20/21 13:04 Urine Turbidity Cloudy (Clear) 01/20/21 13:04 Urine pH 7.0 (5.0-7.0) 01/20/21 13:04 Ur Specific [place] 1.015 (1.003-1.030) 01/20/21 13:04 Urine Protein >500 mg/dL (Negative) 01/20/21 13:04 Urine Glucose (UA) Neg mg/dL (Negative) 01/20/21 13:04 Urine Ketones Neg mg/dL (Negative) 01/20/21 13:04 Urine Blood Sm (Negative) 01/20/21 13:04 Urine Nitrite Neg (Negative) 01/20/21 13:04 Urine Bilirubin Neg (Negative) 01/20/21 13:04 Urine Urobilinogen 2.0 mg/dL (<2.0) 01/20/21 13:04 Ur Leukocyte Esterase Lg (Negative) 01/20/21 13:04 Urine WBC (Auto) > 182.0 /HPF (0.0-6.0) H 01/20/21 13:04 Urine RBC (Auto) 42.0 /HPF (0.0-6.0) 01/20/21 13:04 U Epithel Cells (Auto) < 1.0 /HPF (0-13.0) 01/20/21 13:04 Urine Bacteria (Auto) 1+ /HPF (Negative) 01/20/21 13:04 Urine WBC Clumps Few /HPF 01/20/21 13:04 Short CBC 01/20/21 Range/Units 12:51 WBC 9.2 (4.5-11.0) K/mm3 Hgb 10.6 L (11.8-15.2) gm/dl Hct 31.9 L (35.5-45.6) % Plt Count 146 (140-440) K/mm3 BMP 01/20/21 12:51 Sodium 137 Potassium 3.2 L Chloride 96.4 L Carbon Dioxide 23 BUN 18 Creatinine 4.1 H Glucose 109 H Calcium 8.9 Liver Function 01/20/21 Range/Units 12:51 Total Bilirubin 0.90 (0.1-1.2) mg/dL AST 23 (5-40) units/L ALT 9 (7-56) units/L Alkaline Phosphatase 70 (35-129) units/L Albumin 3.6 L (3.9-5) g/dL Urine 01/20/21 Range/Units 13:04 Urine Color Hina (Yellow) Urine pH 7.0 (5.0-7.0) Ur Specific [place] 1.015 (1.003-1.030) Urine Protein >500 (Negative) mg/dL Urine Glucose (UA) Neg (Negative) mg/dL Microbiology: Microbiology 01/20/21 12:51 Peripheral/Venous Blood Culture - Preliminary Culture in Progress 01/20/21 12:51 Peripheral/Venous Blood Culture - Preliminary Culture in Progress - Imaging and Cardiology EKG: report reviewed (Sinus tachycardia heart rate of 113/min) Imaging and Cardiology: chest x-ray No acute pulmonary or pleural findings Right-sided central line tip projects over the right atrium Abdominal CAT scan There is persistent asymmetric perinephric stranding left greater than right. P reviously seen mild left hydroureter nephrosis is resolved as has bladder wall thickening. Findings in the lower chest are suggestive of mild congestive heart failure. Correlate clinically. Mild retroperitoneal adenopathy stable. Minimal cholelithiasis unchanged. There is diffuse atrophy of the pancreas with 2 cm coarse calcification in the head by/uncinate. Assessment and Plan Advance Directives: Yes (Full code) VTE prophylaxis?: Chemical Plan of care discussed with patient/family: Yes - Patient Problems (1) Acute metabolic encephalopathy Current Visit: Yes Status: Acute Plan to address problem: Probably secondary to uremia and urinary tract infection We will treat the urinary tract infection and the continue hemodialysis (2) Sepsis Current Visit: Yes Status: Acute Plan to address problem: Lactic acidosis high Patient started on IV ceftriaxone pending urine cultures (3) UTI (urinary tract infection) Current Visit: Yes Status: Acute Qualifiers: Urinary tract infection type: acute cystitis Plan to address problem: Pending urine cultures patient started on IV ceftriaxone 1 g every 24 hours (4) ESRD on hemodialysis Current Visit: Yes Status: Chronic Plan to address problem: Continue hemodialysis Nephrology consulted (5) Lactic acidosis Current Visit: Yes Status: Acute Plan to address problem: Trending downwards Patient on IV antibiotics Consistent with sepsis (6) Hypokalemia Current Visit: Yes Status: Acute Plan to address problem: Supplemented (7) Hypertension Current Visit: No Status: Chronic Qualifiers: Hypertension type: essential hypertension Qualified Code(s): I10 - Essential (primary) hypertension Plan to address problem: Hypertension--continue antihypertensives and adjust medications (8) GERD (gastroesophageal reflux disease) Current Visit: Yes Status: Chronic Qualifiers: Esophagitis presence: without esophagitis Qualified Code(s): K21.9 - Gastro-esophageal reflux disease without esophagitis Plan to address problem: Continue PPIs/H2 blockers (9) Anemia Current Visit: Yes Status: Chronic Qualifiers: Anemia type: due to chronic kidney disease Plan to address problem: Due to chronic kidney disease and end-stage renal disease (10) DVT prophylaxis Current Visit: Yes Status: Acute Plan to address problem: On heparin and GI prophylaxis
[2021-01-20] MEDS ORDERED: ONDANSETRON 4 MG/2 ML INJ IV PRN (22:48)
[2021-01-20] MEDS ORDERED: METOCLOPRAMIDE 10 MG/2 ML INJ IV PRN ×2 (22:48→22:58)
[2021-01-20] MEDS ORDERED: NON-FORMULARY EACH (Apixaban 5 MG Tablet) PO SCH (23:00)
[2021-01-20] MEDS: oxyCODONE /ACETAMINOPHEN 5-325MG TAB PO PRN (23:39)
[2021-01-20] MEDS: APIXABAN 5 MG TAB PO SCH (23:39)
[2021-01-21 08:44] LABS: Albumin 3.4 g/dL (3.9-5); Calcium 8.5 mg/dL (8.4-10.2)
[2021-01-21 09:13] LABS: Basophils % (Auto) 0.3 % (0.0-1.8); Hematocrit 29.8 % (35.5-45.6); Hemoglobin 9.9 gm/dl (11.8-15.2); Lymphocytes # (Auto) 1.3 K/mm3 (1.2-5.4); Lymphocytes % (Auto) 9.7 % (13.4-35.0); Mean Corpuscular HGB Conc 33 % (32-34); Mean Corpuscular Volume 98 fl (84-94); Monocytes # (Auto) 0.7 K/mm3 (0.0-0.8); Monocytes % (Auto) 5.5 % (0.0-7.3); Platelet Count 116 K/mm3 (140-440); Red Blood Count 3.04 M/mm3 (3.65-5.03)
[2021-01-21 09:15] LABS: Red Cell Distribution Width 20.1 % (13.2-15.2)
--- NOTE | 2021-01-21 09:45 | Progress Note ---
Assessment and Plan Assessment and plan: 70-year-old -Dominican male with a past medical history of end-stage renal disease, heart failure, anemia who presents with acute metabolic encephalopathy. Acute metabolic encephalopathy Current Visit: Yes Status: Acute Plan to address problem: Probably secondary to uremia and urinary tract infection Will treat the underlying cause, treat UTI with ceftriaxone Obtain ammonia levels Sepsis secondary to urinary tract infection Current Visit: Yes Status: Acute Plan to address problem: Continue ceftriaxone Urine cultures blood cultures Trend lactic acid UTI (urinary tract infection) Current Visit: Yes Status: Acute Qualifiers: Urinary tract infection type: acute cystitis Plan to address problem: Continue ceftriaxone Urine cultures ESRD on hemodialysis Current Visit: Yes Status: Chronic Plan to address problem: Continue hemodialysis, normal scheduled Saturday Nephrology consulted, followed up to see if nephrology seen the patient, consult was placed late last night, called the lead front desk agent and there is no clerical secretary so consult probably has not been called. I spoke with the charge nurse and they will follow-up with to make sure nephrology is aware that patient is here needs dialysis today. Lactic acidosis Current Visit: Yes Status: Acute Plan to address problem: Continue to trend Patient on IV antibiotics Consistent with sepsis Hypokalemia Current Visit: Yes Status: Acute Plan to address problem: Supplementation as needed Chronic systolic heart failure with reduced ejection fraction Continue carvedilol, no ALEX or ARB due to ESRD Hypertension Current Visit: No Status: Chronic Qualifiers: Hypertension type: essential hypertension Qualified Code(s): I10 - Essential (primary) hypertension Plan to address problem: Carvedilol Hydralazine as needed with parameters. GERD (gastroesophageal reflux disease) Current Visit: Yes Status: Chronic Qualifiers: Esophagitis presence: without esophagitis Qualified Code(s): K21.9 - Gastro-esophageal reflux disease without esophagitis Plan to address problem: Continue PPIs/H2 blockers Anemia Current Visit: Yes Status: Chronic Qualifiers: Anemia type: due to chronic kidney disease Plan to address problem: Due to chronic kidney disease and end-stage renal disease No signs of bleeding, Transfuse patient if hemoglobin falls below 7.0 CODE STATUS: Full DVT prophylaxis: Eliquis Disposition: Continue to treat patient for UTI, blood cultures are pending, continue to trend lactic acid, patient will continue with hemodialysis during hospital stay. Apparently patient has PT and home health at home, I spoke with the and more amenable to have the patient at home without SNF. PT has been ordered to evaluate the patient. History Interval history: 01/21/2021: Patient seen and examined, patient seems somewhat confused. Waxing and waning and has some episodes of being lucid. Patient eating breakfast. Hospitalist Physical - Physical exam Narrative exam: General appearance: no acute distress, well-nourished EENT: PERRL, EOM intact, hearing intact, clear oral mucosa, poor dentition Neck: Present: supple, normal ROM Respiratory: Clear bilateral breath sounds, no rales or rhonchi heard. Cardiovascular: Permacath in right chest, regular rate/rhythm, Normal S1 & S2. No gallop, rub Extremities: no ischemia, No edema, normal temperature, normal color, Full ROM Abdominal: soft, no tenderness, non-distended, normal bowel sounds Integumentary: Present: clear, warm, dry no wounds, no erythema noted Psychiatric: appropriate mood/affect, mild confusion Neurologic: CNII-XII intact, moving upper extremities and lower extremities - Constitutional Vitals: Temp Pulse Resp BP Pulse Ox 97.6 F 98 H 20 108/67 98 01/21/21 05:07 01/21/21 05:07 01/21/21 05:07 01/21/21 05:07 01/21/21 08:25 Results - Labs CBC & Chem 7: 01/21/21 07:16 01/21/21 07:16 Labs: Laboratory Last Values WBC 13.2 K/mm3 (4.5-11.0) H 01/21/21 07:16 RBC 3.04 M/mm3 (3.65-5.03) L 01/21/21 07:16 Hgb 9.9 gm/dl (11.8-15.2) L 01/21/21 07:16 Hct 29.8 % (35.5-45.6) L 01/21/21 07:16 MCV 98 fl (84-94) H 01/21/21 07:16 MCH 33 pg (28-32) H 01/21/21 07:16 MCHC 33 % (32-34) 01/21/21 07:16 RDW 20.1 % (13.2-15.2) H 01/21/21 07:16 Plt Count 116 K/mm3 (140-440) L 01/21/21 07:16 Lymph % (Auto) 9.7 % (13.4-35.0) L 01/21/21 07:16 [place] % (Auto) 5.5 % (0.0-7.3) 01/21/21 07:16 Eos % (Auto) 0.0 % (0.0-4.3) 01/21/21 07:16 Baso % (Auto) 0.3 % (0.0-1.8) 01/21/21 07:16 Lymph # (Auto) 1.3 K/mm3 (1.2-5.4) 01/21/21 07:16 [place] # (Auto) 0.7 K/mm3 (0.0-0.8) 01/21/21 07:16 Eos # (Auto) 0.0 K/mm3 (0.0-0.4) 01/21/21 07:16 Baso # (Auto) 0.0 K/mm3 (0.0-0.1) 01/21/21 07:16 Add Manual Diff Complete 01/20/21 12:51 Total Counted 100 01/20/21 12:51 Seg Neutrophils % 84.5 % (40.0-70.0) H 01/21/21 07:16 Seg Neuts % (Manual) 79.0 % (40.0-70.0) H 01/20/21 12:51 Band Neutrophils % 15.0 % 01/20/21 12:51 Lymphocytes % (Manual) 4.0 % (13.4-35.0) L 01/20/21 12:51 Monocytes % (Manual) 2.0 % (0.0-7.3) 01/20/21 12:51 Nucleated RBC % Not Reportable 01/20/21 12:51 Seg Neutrophils # 11.2 K/mm3 (1.8-7.7) H 01/21/21 07:16 Seg Neutrophils # Man 7.3 K/mm3 (1.8-7.7) 01/20/21 12:51 Band Neutrophils # 1.4 K/mm3 01/20/21 12:51 Lymphocytes # (Manual) 0.4 K/mm3 (1.2-5.4) L 01/20/21 12:51 Abs React Lymphs (Man) 0.0 K/mm3 01/20/21 12:51 Monocytes # (Manual) 0.2 K/mm3 (0.0-0.8) 01/20/21 12:51 Eosinophils # (Manual) 0.0 K/mm3 (0.0-0.4) 01/20/21 12:51 Basophils # (Manual) 0.0 K/mm3 (0.0-0.1) 01/20/21 12:51 Metamyelocytes # 0.0 K/mm3 01/20/21 12:51 Myelocytes # 0.0 K/mm3 01/20/21 12:51 Promyelocytes # 0.0 K/mm3 01/20/21 12:51 Blast Cells # 0.0 K/mm3 01/20/21 12:51 WBC Morphology Not Reportable 01/20/21 12:51 Hypersegmented Neuts Not Reportable 01/20/21 12:51 Hyposegmented Neuts Not Reportable 01/20/21 12:51 Hypogranular Neuts Not Reportable 01/20/21 12:51 Smudge Cells Not Reportable 01/20/21 12:51 Toxic Granulation Not Reportable 01/20/21 12:51 Toxic Vacuolation Not Reportable 01/20/21 12:51 Dohle Bodies Not Reportable 01/20/21 12:51 Pelger-Huet Anomaly Not Reportable 01/20/21 12:51 Brianda Rods Not Reportable 01/20/21 12:51 Platelet Estimate Consistent w auto 01/20/21 12:51 Clumped Platelets Not Reportable 01/20/21 12:51 Plt Clumps, EDTA Not Reportable 01/20/21 12:51 Large Platelets Not Reportable 01/20/21 12:51 Giant Platelets Not Reportable 01/20/21 12:51 Platelet Satelliting Not Reportable 01/20/21 12:51 Plt Morphology Comment Not Reportable 01/20/21 12:51 RBC Morphology Not Reportable 01/20/21 12:51 Dimorphic RBCs Not Reportable 01/20/21 12:51 Polychromasia Not Reportable 01/20/21 12:51 Hypochromasia Not Reportable 01/20/21 12:51 Poikilocytosis Not Reportable 01/20/21 12:51 Anisocytosis 1+ 01/20/21 12:51 Microcytosis Not Reportable 01/20/21 12:51 Macrocytosis Few 01/20/21 12:51 Spherocytes Not Reportable 01/20/21 12:51 Pappenheimer Bodies Not Reportable 01/20/21 12:51 Sickle Cells Not Reportable 01/20/21 12:51 Target Cells Not Reportable 01/20/21 12:51 Tear Drop Cells Not Reportable 01/20/21 12:51 Ovalocytes Not Reportable 01/20/21 12:51 Helmet Cells Not Reportable 01/20/21 12:51 Rangel-[place] Bodies Not Reportable 01/20/21 12:51 [place] Rings Not Reportable 01/20/21 12:51 [place] Cells Not Reportable 01/20/21 12:51 Bite Cells Not Reportable 01/20/21 12:51 Crenated Cell Not Reportable 01/20/21 12:51 Elliptocytes Not Reportable 01/20/21 12:51 Acanthocytes (Spur) Not Reportable 01/20/21 12:51 Rouleaux Not Reportable 01/20/21 12:51 Hemoglobin C Crystals Not Reportable 01/20/21 12:51 Schistocytes Not Reportable 01/20/21 12:51 Malaria parasites Not Reportable 01/20/21 12:51 [place] Bodies Not Reportable 01/20/21 12:51 Hem Pathologist Commnt No 01/20/21 12:51 Sodium 137 mmol/L (137-145) 01/21/21 07:16 Potassium 4.1 mmol/L (3.6-5.0) D 01/21/21 07:16 Chloride 98.0 mmol/L (98-107) 01/21/21 07:16 Carbon Dioxide 21 mmol/L (22-30) L 01/21/21 07:16 Anion Gap 22 mmol/L 01/21/21 07:16 BUN 28 mg/dL (9-20) H 01/21/21 07:16 Creatinine 4.9 mg/dL (0.8-1.3) H 01/21/21 07:16 Estimated GFR 12 ml/min 01/21/21 07:16 BUN/Creatinine Ratio 6 % 01/21/21 07:16 Glucose 122 mg/dL (75-100) H 01/21/21 07:16 Lactic Acid 3.90 mmol/L (0.7-2.0) H* 01/20/21 18:28 Calcium 8.5 mg/dL (8.4-10.2) 01/21/21 07:16 Total Bilirubin 0.80 mg/dL (0.1-1.2) 01/21/21 07:16 AST 37 units/L (5-40) 01/21/21 07:16 ALT 13 units/L (7-56) 01/21/21 07:16 Alkaline Phosphatase 68 units/L (35-129) 01/21/21 07:16 Total Protein 8.3 g/dL (6.3-8.2) H 01/21/21 07:16 Albumin 3.4 g/dL (3.9-5) L 01/21/21 07:16 Albumin/Globulin Ratio 0.7 % 01/21/21 07:16 Urine Color Hina (Yellow) 01/20/21 13:04 Urine Turbidity Cloudy (Clear) 01/20/21 13:04 Urine pH 7.0 (5.0-7.0) 01/20/21 13:04 Ur Specific [place] 1.015 (1.003-1.030) 01/20/21 13:04 Urine Protein >500 mg/dL (Negative) 01/20/21 13:04 Urine Glucose (UA) Neg mg/dL (Negative) 01/20/21 13:04 Urine Ketones Neg mg/dL (Negative) 01/20/21 13:04 Urine Blood Sm (Negative) 01/20/21 13:04 Urine Nitrite Neg (Negative) 01/20/21 13:04 Urine Bilirubin Neg (Negative) 01/20/21 13:04 Urine Urobilinogen 2.0 mg/dL (<2.0) 01/20/21 13:04 Ur Leukocyte Esterase Lg (Negative) 01/20/21 13:04 Urine WBC (Auto) > 182.0 /HPF (0.0-6.0) H 01/20/21 13:04 Urine RBC (Auto) 42.0 /HPF (0.0-6.0) 01/20/21 13:04 U Epithel Cells (Auto) < 1.0 /HPF (0-13.0) 01/20/21 13:04 Urine Bacteria (Auto) 1+ /HPF (Negative) 01/20/21 13:04 Urine WBC Clumps Few /HPF 01/20/21 13:04 Microbiology: Microbiology 01/20/21 12:51 Peripheral/Venous Blood Culture - Preliminary 01/20/21 12:51 Peripheral/Venous Blood Culture - Preliminary [place]/IV: Voiding Method Incontinent Active Medications - Current Medications Current Medications: Generic Name Dose Route Start Last Admin Trade Name Freq PRN Reason Stop Dose Admin Acetaminophen 650 mg 01/20/21 22:48 Acetaminophen 325 Mg Tab PO Q4H PRN Pain MILD(1-3)/Fever >100.5/MILLER Apixaban 5 mg 01/20/21 23:00 01/20/21 23:39 Apixaban 5 Mg Tab PO 5 mg BID KIRK Administration Atorvastatin Calcium 40 mg 01/21/21 22:00 Atorvastatin 40 Mg Tab PO QHS KIRK Carvedilol 3.125 mg 01/21/21 10:00 Carvedilol 3.125 Mg Tab PO BID [facility]1983 Hydromorphone HCl 0.5 mg 01/20/21 16:30 01/20/21 18:18 Hydromorphone 1 Mg/1 Ml Inj IV 0.5 mg Q3H PRN Administration Pain , Severe (7-10) Ceftriaxone Sodium 1 gm in 50 mls @ 100 mls/hr 01/21/21 10:00 Rocephin/Ns 1 Gm/50 Ml IV Q24H [facility]1983 Protocol Metoclopramide HCl 5 mg 01/20/21 22:58 Metoclopramide 10 Mg/2 Ml Inj IV Q6H PRN Nausea And Vomiting Ondansetron HCl 4 mg 01/20/21 22:48 Ondansetron 4 Mg/2 Ml Inj IV Q8H PRN Nausea And Vomiting Oxycodone/Acetaminophen 1 tab 01/20/21 22:48 01/20/21 23:39 Oxycodone /Acetaminophen 5-325mg Tab PO 1 tab Q6H PRN Administration Pain, Moderate (4-6) Pantoprazole Sodium 40 mg 01/21/21 07:30 Pantoprazole 40 Mg Tab PO QDAC KIRK Potassium Chloride 20 meq 01/21/21 10:00 Potassium Chloride Er 20 Meq Tab PO QDAY KIRK Sodium Chloride 10 ml 01/21/21 10:00 Sodium Chloride 0.9% 10 Ml Flush Syringe IV BID KIRK Sodium Chloride 10 ml 01/20/21 22:48 Sodium Chloride 0.9% 10 Ml Flush Syringe IV PRN PRN LINE FLUSH
[2021-01-21] MEDS: PANTOPRAZOLE 40 MG TAB PO SCH (10:12)
[2021-01-21] MEDS: oxyCODONE /ACETAMINOPHEN 5-325MG TAB PO PRN (10:12)
[2021-01-21] MEDS: POTASSIUM CHLORIDE ER 20 MEQ TAB PO SCH (10:13)
[2021-01-21] MEDS: carvediloL 3.125 MG TAB PO SCH ×2 (10:13→22:01)
[2021-01-21] MEDS: APIXABAN 5 MG TAB PO SCH ×2 (10:13→22:01)
[2021-01-21] MEDS: cefTRIAXone/NS 1 GM/50 ML 1 GM/50 ML BAG IV SCH (10:13)
[2021-01-21] MEDS ORDERED: SODIUM CHLORIDE 0.9% 100 ML IV PRN (13:29)
--- NOTE | 2021-01-21 14:19 | Consultation ---
History of Present Illness - Reason for Consult Consult date: 01/21/21 end stage renal disease Requesting physician: ALBANIA WALLACE - History of Present Illness This is a 70 y/o M with PMH of ESRD on HD, HTN, GERD, HFrEF,and HLD who presented to [facility] wtih c/o abdominal pain, altered mental status, and dysuria. Pt admitted with sepsis and UTI, started on Abx. Pt was given KCl replacement on admission for hypokalemia. Serum K+ level 4.1 today. We were consulted to devora santoyo this pt who has ESRD.This pt undergoes OP HD at [facility], under the care of last HD treatment was 01/19/21. Medications and Allergies Allergies Allergy/AdvReac Type Severity Reaction Status Date / Time No Known Allergies Allergy Unverified 12/06/20 12:39 Home Medications Medication Instructions Recorded Confirmed Last Taken Type Apixaban [Eliquis] 5 mg PO BID 12/06/20 12/06/20 Unknown History AtorvaSTATin [Lipitor] 40 mg PO QHS 12/06/20 12/06/20 Unknown History Pantoprazole [Protonix TAB] 40 mg PO QDAC #30 tablet 12/15/20 Unknown Rx carvediloL [Coreg] 3.125 mg PO BID #60 tablet 12/15/20 Unknown Rx Active Meds: Active Medications Acetaminophen (Acetaminophen 325 Mg Tab) 650 mg PO Q4H PRN PRN Reason: Pain MILD(1-3)/Fever >100.5/MILLER Apixaban (Apixaban 5 Mg Tab) 5 mg PO BID [facility] Last Admin: 01/21/21 10:13 Dose: 5 mg Documented by: Atorvastatin Calcium (Atorvastatin 40 Mg Tab) 40 mg PO QHS [facility] Carvedilol (Carvedilol 3.125 Mg Tab) 3.125 mg PO BID [facility] Last Admin: 01/21/21 10:13 Dose: 3.125 mg Documented by: Hydromorphone HCl (Hydromorphone 1 Mg/1 Ml Inj) 0.5 mg IV Q3H PRN PRN Reason: Pain , Severe (7-10) Last Admin: 01/20/21 18:18 Dose: 0.5 mg Documented by: Ceftriaxone Sodium (Rocephin/Ns 1 Gm/50 Ml) 1 gm in 50 mls @ 100 mls/hr IV Q24H [facility]; Protocol Last Admin: 01/21/21 10:13 Dose: 100 mls/hr Documented by: Sodium Chloride (Nacl 0.9%) 100 mls @ 999 mls/hr IV CHRISTA PRN PRN Reason: Hypotension Metoclopramide HCl (Metoclopramide 10 Mg/2 Ml Inj) 5 mg IV Q6H PRN PRN Reason: Nausea And Vomiting Ondansetron HCl (Ondansetron 4 Mg/2 Ml Inj) 4 mg IV Q8H PRN PRN Reason: Nausea And Vomiting Oxycodone/Acetaminophen (Oxycodone /Acetaminophen 5-325mg Tab) 1 tab PO Q6H PRN PRN Reason: Pain, Moderate (4-6) Last Admin: 01/21/21 10:12 Dose: 1 tab Documented by: Pantoprazole Sodium (Pantoprazole 40 Mg Tab) 40 mg PO QDAC [facility] Last Admin: 01/21/21 10:12 Dose: 40 mg Documented by: Potassium Chloride (Potassium Chloride Er 20 Meq Tab) 20 meq PO QDAY [facility] Last Admin: 01/21/21 10:13 Dose: 20 meq Documented by: Sodium Chloride (Sodium Chloride 0.9% 10 Ml Flush Syringe) 10 ml IV BID [facility] Last Admin: 01/21/21 10:13 Dose: 10 ml Documented by: Sodium Chloride (Sodium Chloride 0.9% 10 Ml Flush Syringe) 10 ml IV PRN PRN PRN Reason: LINE FLUSH Exam - Vital Signs Vital signs: Vital Signs Pulse Ox 95 01/20/21 12:17 Results - Lab Results 01/21/21 07:16 01/21/21 07:16 Most recent lab results Calcium 8.5 mg/dL (8.4-10.2) 01/21/21 07:16 Assessment and Plan Acute Encephalopathy ESRD on HD Sepsis 2/2 UTI UTI Chronic HFrEF GERD HTN Anemia Plan: -HD today for UF and clearance -Assess need for HD on daily basis -Renally dose meds -This pt undergoes OP HD at [facility] TTS -Renal plan reviewed by Dr Peters
--- NOTE | 2021-01-21 15:00 | Event Note ---
Date: 01/21/21 This pt was previously followed by us at our [place] [facility] location, but he transferred to [facility] TTS about 1 wk ago. I spoke with staff at [facility] who mentioned pt is under the care of Dr Amin (terrazzo roller) I notified Dr Amin about consult, he will see pt and provide HD orders for today Dr Peters updated We will sign off
--- NOTE | 2021-01-21 15:29 | Consultation ---
History of Present Illness - Reason for Consult Consult date: 01/21/21 end stage renal disease - History of Present Illness The patient is a 70 YO AAM known to our service with history significant for Hypertension, Hyperlipidemia, HFrEF, GERD, Anemia and ESRD on HD (TTS) who presented to [facility] ED 01/20 with c/o abdominal pain of 2 days duration. Patient was not able to provide history due to AMS and there was no family member at the bedside. Patient has some dysuria. No fever or chills and no exposure to coronavirus. Patient was admitted with UTI and Encephahlopathy. Nephrology was consulted for ESRD management. Past History Past Medical History: other (See HPI.) Medications and Allergies Allergies Allergy/AdvReac Type Severity Reaction Status Date / Time No Known Allergies Allergy Unverified 12/06/20 12:39 Home Medications Medication Instructions Recorded Confirmed Last Taken Type Apixaban [Eliquis] 5 mg PO BID 12/06/20 12/06/20 Unknown History AtorvaSTATin [Lipitor] 40 mg PO QHS 12/06/20 12/06/20 Unknown History Pantoprazole [Protonix TAB] 40 mg PO QDAC #30 tablet 12/15/20 Unknown Rx carvediloL [Coreg] 3.125 mg PO BID #60 tablet 12/15/20 Unknown Rx Active Meds: Active Medications Acetaminophen (Acetaminophen 325 Mg Tab) 650 mg PO Q4H PRN PRN Reason: Pain MILD(1-3)/Fever >100.5/MILLER Apixaban (Apixaban 5 Mg Tab) 5 mg PO BID [facility] Last Admin: 01/21/21 10:13 Dose: 5 mg Documented by: Atorvastatin Calcium (Atorvastatin 40 Mg Tab) 40 mg PO QHS [facility] Carvedilol (Carvedilol 3.125 Mg Tab) 3.125 mg PO BID [facility] Last Admin: 01/21/21 10:13 Dose: 3.125 mg Documented by: Hydromorphone HCl (Hydromorphone 1 Mg/1 Ml Inj) 0.5 mg IV Q3H PRN PRN Reason: Pain , Severe (7-10) Last Admin: 01/20/21 18:18 Dose: 0.5 mg Documented by: Ceftriaxone Sodium (Rocephin/Ns 1 Gm/50 Ml) 1 gm in 50 mls @ 100 mls/hr IV Q24H [facility]; Protocol Last Admin: 01/21/21 10:13 Dose: 100 mls/hr Documented by: Sodium Chloride (Nacl 0.9%) 100 mls @ 999 mls/hr IV CHRISTA PRN PRN Reason: Hypotension Metoclopramide HCl (Metoclopramide 10 Mg/2 Ml Inj) 5 mg IV Q6H PRN PRN Reason: Nausea And Vomiting Ondansetron HCl (Ondansetron 4 Mg/2 Ml Inj) 4 mg IV Q8H PRN PRN Reason: Nausea And Vomiting Oxycodone/Acetaminophen (Oxycodone /Acetaminophen 5-325mg Tab) 1 tab PO Q6H PRN PRN Reason: Pain, Moderate (4-6) Last Admin: 01/21/21 10:12 Dose: 1 tab Documented by: Pantoprazole Sodium (Pantoprazole 40 Mg Tab) 40 mg PO QDAC [facility] Last Admin: 01/21/21 10:12 Dose: 40 mg Documented by: Potassium Chloride (Potassium Chloride Er 20 Meq Tab) 20 meq PO QDAY [facility] Last Admin: 01/21/21 10:13 Dose: 20 meq Documented by: Sodium Chloride (Sodium Chloride 0.9% 10 Ml Flush Syringe) 10 ml IV BID [facility] Last Admin: 01/21/21 10:13 Dose: 10 ml Documented by: Sodium Chloride (Sodium Chloride 0.9% 10 Ml Flush Syringe) 10 ml IV PRN PRN PRN Reason: LINE FLUSH Review of Systems ROS unobtainable: due to mental status Exam - Vital Signs Vital signs: Vital Signs Pulse Ox 95 01/20/21 12:17 Results - Lab Results 01/23/21 05:33 01/23/21 05:33 Most recent lab results Calcium 8.5 mg/dL (8.4-10.2) 01/21/21 07:16 Assessment and Plan 1. ESRD: Patient is on maintenance hemodialysis three times a week, TTS schedule. Last outpatient HD 01/19. Meds dosage based on GFR. Hemodialysis: 2. FEN: Hypokalemia, improved. Monitor lytes and volume status. 3. Sepsis, POA: 2/2 urinary tract infection. Ceftriaxone. Follow culture results. 4. Acute metabolic encephalopathy, POA: Likely 2/2 UTI. Treat the underlying cause, treat UTI with Ceftriaxone. 5. Anemia, POA: 2/2 ESRD. Epogen with HD as needed. PRBC as needed. 6. HFrEF: Compensated. Monitor. 7. Hypertension: Monitor BP. Adjust meds as appropriate. Subjective: Patient was seen and examined at the bedside. General Appearance: General appearance: well-developed, appears stated age, not in distress HEENT: ATNC, pupils equal Neck: trachea midline Respiratory: ctab Heart: regular, S1S2, no murmur Abdomen: soft, bowel sounds heard, not tender Integumentary: no rash, warm and dry Neurologic: confused, able to move extremities Ext: no edema Hemodialysis access: R IJ tunnel catheter
[2021-01-21] MEDS ORDERED: diphenhydrAMINE 50 MG/ML VIAL IV ONE (16:01)
[2021-01-21 16:07] LABS: Hepatitis B Surface Antigen Non-Reactive (Negative); Hepatitis C Virus Antibody Non-Reactive (NonReactive)
[2021-01-21] MEDS: EPOETIN ALFA-EPBX 10,000 UNIT/1 ML VIAL IV PRN (16:37)
[2021-01-21] MEDS: HYDROmorphone 1 MG/1 ML INJ IV PRN (16:37)
[2021-01-21] MEDS ORDERED: LORazepam 2 MG/ML VIAL IV ONE (16:48)
[2021-01-22 05:48] LABS: Hematocrit 29.6 % (35.5-45.6); Mean Corpuscular HGB Conc 34 % (32-34); Mean Corpuscular Volume 97 fl (84-94); Platelet Count 121 K/mm3 (140-440); Red Blood Count 3.06 M/mm3 (3.65-5.03); Red Cell Distribution Width 19.6 % (13.2-15.2)
[2021-01-22 06:04] LABS: Calcium 8.4 mg/dL (8.4-10.2)
--- NOTE | 2021-01-22 08:21 | Progress Note ---
Assessment and Plan Assessment and plan: 70-year-old -Citizen Of [place] male with a past medical history of end-stage renal disease, heart failure, anemia who presents with acute metabolic encephalopathy. Acute metabolic encephalopathy Current Visit: Yes Status: Acute Plan to address problem: Probably secondary to uremia and urinary tract infection Will treat the underlying cause, treat UTI with ceftriaxone Obtain ammonia levels Sepsis secondary to urinary tract infection Current Visit: Yes Status: Acute Plan to address problem: Continue ceftriaxone Urine cultures no growth to date blood cultures no growth to date Trend lactic acid UTI (urinary tract infection) Current Visit: Yes Status: Acute Qualifiers: Urinary tract infection type: acute cystitis Plan to address problem: Continue ceftriaxone Urine cultures with no growth thus far ESRD on hemodialysis Current Visit: Yes Status: Chronic Plan to address problem: Continue hemodialysis, normal scheduled Saturday Nephrology consulted to manage dialysis, notified Lactic acidosis Current Visit: Yes Status: Acute Plan to address problem: Continue to trend, currently downtrending Patient on IV antibiotics Consistent with sepsis Hypokalemia Current Visit: Yes Status: Acute Plan to address problem: Supplementation as needed Chronic systolic heart failure with reduced ejection fraction Continue carvedilol, no ALEX or ARB due to ESRD Hypertension Current Visit: No Status: Chronic Qualifiers: Hypertension type: essential hypertension Qualified Code(s): I10 - Essential (primary) hypertension Plan to address problem: Carvedilol Hydralazine as needed with parameters. GERD (gastroesophageal reflux disease) Current Visit: Yes Status: Chronic Qualifiers: Esophagitis presence: without esophagitis Qualified Code(s): K21.9 - Gastro-esophageal reflux disease without esophagitis Plan to address problem: Continue PPIs/H2 blockers Anemia Current Visit: Yes Status: Chronic Qualifiers: Anemia type: due to chronic kidney disease Plan to address problem: Due to chronic kidney disease and end-stage renal disease No signs of bleeding, Transfuse patient if hemoglobin falls below 7.0 CODE STATUS: Full DVT prophylaxis: Eliquis Disposition: Continue to treat patient for UTI, blood cultures are pending, continue to trend lactic acid, patient will continue with hemodialysis during hospital stay. Apparently patient has PT and home health at home, I spoke with the and more amenable to have the patient at home without SNF. PT has been ordered to evaluate the patient. History Interval history: 01/21/2021: Patient seen and examined, patient seems somewhat confused. Waxing and waning and has some episodes of being lucid. Patient eating breakfast. 01/22/2021: Patient seen and examined, lying in bed, eating breakfast, states that he does not feel well but there is no specific thing that he can point to. Patient in no acute distress. Hospitalist Physical - Physical exam Narrative exam: General appearance: no acute distress, well-nourished EENT: PERRL, EOM intact, hearing intact, clear oral mucosa, poor dentition Neck: Present: supple, normal ROM Respiratory: Clear bilateral breath sounds, no rales or rhonchi heard. Cardiovascular: Permacath in right chest, regular rate/rhythm, Normal S1 & S2. No gallop, rub Extremities: no ischemia, No edema, normal temperature, normal color, Full ROM Abdominal: soft, no tenderness, non-distended, normal bowel sounds Integumentary: Present: clear, warm, dry no wounds, no erythema noted Psychiatric: appropriate mood/affect, mild confusion Neurologic: CNII-XII intact, moving upper extremities and lower extremities - Constitutional Vitals: Temp Pulse Resp BP Pulse Ox 99.0 F 90 18 106/75 96 01/22/21 03:48 01/22/21 03:48 01/22/21 03:48 01/22/21 03:48 01/22/21 07:38 General appearance: Present: no acute distress, well-nourished Results - Labs CBC & Chem 7: 01/22/21 05:03 01/22/21 05:03 Labs: Laboratory Last Values WBC 10.6 K/mm3 (4.5-11.0) 01/22/21 05:03 RBC 3.06 M/mm3 (3.65-5.03) L 01/22/21 05:03 Hgb 10.0 gm/dl (11.8-15.2) L 01/22/21 05:03 Hct 29.6 % (35.5-45.6) L 01/22/21 05:03 MCV 97 fl (84-94) H 01/22/21 05:03 MCH 33 pg (28-32) H 01/22/21 05:03 MCHC 34 % (32-34) 01/22/21 05:03 RDW 19.6 % (13.2-15.2) H 01/22/21 05:03 Plt Count 121 K/mm3 (140-440) L 01/22/21 05:03 Lymph % (Auto) 9.7 % (13.4-35.0) L 01/21/21 07:16 Pope % (Auto) 5.5 % (0.0-7.3) 01/21/21 07:16 Eos % (Auto) 0.0 % (0.0-4.3) 01/21/21 07:16 Baso % (Auto) 0.3 % (0.0-1.8) 01/21/21 07:16 Lymph # (Auto) 1.3 K/mm3 (1.2-5.4) 01/21/21 07:16 Pope # (Auto) 0.7 K/mm3 (0.0-0.8) 01/21/21 07:16 Eos # (Auto) 0.0 K/mm3 (0.0-0.4) 01/21/21 07:16 Baso # (Auto) 0.0 K/mm3 (0.0-0.1) 01/21/21 07:16 Add Manual Diff Complete 01/20/21 12:51 Total Counted 100 01/20/21 12:51 Seg Neutrophils % 84.5 % (40.0-70.0) H 01/21/21 07:16 Seg Neuts % (Manual) 79.0 % (40.0-70.0) H 01/20/21 12:51 Band Neutrophils % 15.0 % 01/20/21 12:51 Lymphocytes % (Manual) 4.0 % (13.4-35.0) L 01/20/21 12:51 Monocytes % (Manual) 2.0 % (0.0-7.3) 01/20/21 12:51 Nucleated RBC % Not Reportable 01/20/21 12:51 Seg Neutrophils # 11.2 K/mm3 (1.8-7.7) H 01/21/21 07:16 Seg Neutrophils # Man 7.3 K/mm3 (1.8-7.7) 01/20/21 12:51 Band Neutrophils # 1.4 K/mm3 01/20/21 12:51 Lymphocytes # (Manual) 0.4 K/mm3 (1.2-5.4) L 01/20/21 12:51 Abs React Lymphs (Man) 0.0 K/mm3 01/20/21 12:51 Monocytes # (Manual) 0.2 K/mm3 (0.0-0.8) 01/20/21 12:51 Eosinophils # (Manual) 0.0 K/mm3 (0.0-0.4) 01/20/21 12:51 Basophils # (Manual) 0.0 K/mm3 (0.0-0.1) 01/20/21 12:51 Metamyelocytes # 0.0 K/mm3 01/20/21 12:51 Myelocytes # 0.0 K/mm3 01/20/21 12:51 Promyelocytes # 0.0 K/mm3 01/20/21 12:51 Blast Cells # 0.0 K/mm3 01/20/21 12:51 WBC Morphology Not Reportable 01/20/21 12:51 Hypersegmented Neuts Not Reportable 01/20/21 12:51 Hyposegmented Neuts Not Reportable 01/20/21 12:51 Hypogranular Neuts Not Reportable 01/20/21 12:51 Smudge Cells Not Reportable 01/20/21 12:51 Toxic Granulation Not Reportable 01/20/21 12:51 Toxic Vacuolation Not Reportable 01/20/21 12:51 Dohle Bodies Not Reportable 01/20/21 12:51 Pelger-Huet Anomaly Not Reportable 01/20/21 12:51 Brianda Rods Not Reportable 01/20/21 12:51 Platelet Estimate Consistent w auto 01/20/21 12:51 Clumped Platelets Not Reportable 01/20/21 12:51 Plt Clumps, EDTA Not Reportable 01/20/21 12:51 Large Platelets Not Reportable 01/20/21 12:51 Giant Platelets Not Reportable 01/20/21 12:51 Platelet Satelliting Not Reportable 01/20/21 12:51 Plt Morphology Comment Not Reportable 01/20/21 12:51 RBC Morphology Not Reportable 01/20/21 12:51 Dimorphic RBCs Not Reportable 01/20/21 12:51 Polychromasia Not Reportable 01/20/21 12:51 Hypochromasia Not Reportable 01/20/21 12:51 Poikilocytosis Not Reportable 01/20/21 12:51 Anisocytosis 1+ 01/20/21 12:51 Microcytosis Not Reportable 01/20/21 12:51 Macrocytosis Few 01/20/21 12:51 Spherocytes Not Reportable 01/20/21 12:51 Pappenheimer Bodies Not Reportable 01/20/21 12:51 Sickle Cells Not Reportable 01/20/21 12:51 Target Cells Not Reportable 01/20/21 12:51 Tear Drop Cells Not Reportable 01/20/21 12:51 Ovalocytes Not Reportable 01/20/21 12:51 Helmet Cells Not Reportable 01/20/21 12:51 [place] Bodies Not Reportable 01/20/21 12:51 Deer Rings Not Reportable 01/20/21 12:51 [place] Cells Not Reportable 01/20/21 12:51 Bite Cells Not Reportable 01/20/21 12:51 Crenated Cell Not Reportable 01/20/21 12:51 Elliptocytes Not Reportable 01/20/21 12:51 Acanthocytes (Spur) Not Reportable 01/20/21 12:51 Rouleaux Not Reportable 01/20/21 12:51 Hemoglobin C Crystals Not Reportable 01/20/21 12:51 Schistocytes Not Reportable 01/20/21 12:51 Malaria parasites Not Reportable 01/20/21 12:51 [place] Bodies Not Reportable 01/20/21 12:51 Hem Pathologist Commnt No 01/20/21 12:51 Sodium 136 mmol/L (137-145) L 01/22/21 05:03 Potassium 3.8 mmol/L (3.6-5.0) 01/22/21 05:03 Chloride 96.3 mmol/L (98-107) L 01/22/21 05:03 Carbon Dioxide 26 mmol/L (22-30) 01/22/21 05:03 Anion Gap 18 mmol/L 01/22/21 05:03 BUN 21 mg/dL (9-20) H 01/22/21 05:03 Creatinine 3.7 mg/dL (0.8-1.3) H 01/22/21 05:03 Estimated GFR 16 ml/min 01/22/21 05:03 BUN/Creatinine Ratio 6 % 01/22/21 05:03 Glucose 102 mg/dL (75-100) H 01/22/21 05:03 POC Glucose 92 mg/dL (70-105) 01/21/21 23:52 Hemoglobin A1c < 4.0 % (4-6) L 01/21/21 07:16 Lactic Acid 3.00 mmol/L (0.7-2.0) H* 01/21/21 15:22 Calcium 8.4 mg/dL (8.4-10.2) 01/22/21 05:03 Total Bilirubin 0.80 mg/dL (0.1-1.2) 01/21/21 07:16 AST 37 units/L (5-40) 01/21/21 07:16 ALT 13 units/L (7-56) 01/21/21 07:16 Alkaline Phosphatase 68 units/L (35-129) 01/21/21 07:16 Ammonia 52.0 umol/L (25-60) 01/21/21 09:51 Total Protein 8.3 g/dL (6.3-8.2) H 01/21/21 07:16 Albumin 3.4 g/dL (3.9-5) L 01/21/21 07:16 Albumin/Globulin Ratio 0.7 % 01/21/21 07:16 Urine Color Hina (Yellow) 01/20/21 13:04 Urine Turbidity Cloudy (Clear) 01/20/21 13:04 Urine pH 7.0 (5.0-7.0) 01/20/21 13:04 Ur Specific Waite 1.015 (1.003-1.030) 01/20/21 13:04 Urine Protein >500 mg/dL (Negative) 01/20/21 13:04 Urine Glucose (UA) Neg mg/dL (Negative) 01/20/21 13:04 Urine Ketones Neg mg/dL (Negative) 01/20/21 13:04 Urine Blood Sm (Negative) 01/20/21 13:04 Urine Nitrite Neg (Negative) 01/20/21 13:04 Urine Bilirubin Neg (Negative) 01/20/21 13:04 Urine Urobilinogen 2.0 mg/dL (<2.0) 01/20/21 13:04 Ur Leukocyte Esterase Lg (Negative) 01/20/21 13:04 Urine WBC (Auto) > 182.0 /HPF (0.0-6.0) H 01/20/21 13:04 Urine RBC (Auto) 42.0 /HPF (0.0-6.0) 01/20/21 13:04 U Epithel Cells (Auto) < 1.0 /HPF (0-13.0) 01/20/21 13:04 Urine Bacteria (Auto) 1+ /HPF (Negative) 01/20/21 13:04 Urine WBC Clumps Few /HPF 01/20/21 13:04 Hepatitis A IgM Ab Non-reactive (NonReactive) 01/21/21 15:22 Hep Bs Antigen Non-reactive (Negative) 01/21/21 15:22 Hep B Core IgM Ab Non-reactive (NonReactive) 01/21/21 15:22 Hepatitis C Antibody Non-reactive (NonReactive) 01/21/21 15:22 Microbiology: Microbiology 01/20/21 12:51 Peripheral/Venous Blood Culture - Preliminary 01/20/21 12:51 Peripheral/Venous Blood Culture - Preliminary 01/20/21 12:59 Urine,Clean Catch Urine Culture - Preliminary NO GROWTH AFTER 24 HOURS Mcallister/IV: Voiding Method Incontinent Active Medications - Current Medications Current Medications: Generic Name Dose Route Start Last Admin Trade Name Freq PRN Reason Stop Dose Admin Acetaminophen 650 mg 01/20/21 22:48 Acetaminophen 325 Mg Tab PO Q4H PRN Pain MILD(1-3)/Fever >100.5/MILLER Apixaban 5 mg 01/20/21 23:00 01/21/21 22:01 Apixaban 5 Mg Tab PO 5 mg BID KIRK Administration Atorvastatin Calcium 40 mg 01/21/21 22:00 01/21/21 22:01 Atorvastatin 40 Mg Tab PO 40 mg QHS KIRK Administration Carvedilol 3.125 mg 01/21/21 10:00 01/21/21 22:01 Carvedilol 3.125 Mg Tab PO 3.125 mg BID KIRK Administration Hydromorphone HCl 0.5 mg 01/20/21 16:30 01/21/21 16:37 Hydromorphone 1 Mg/1 Ml Inj IV 0.5 mg Q3H PRN Administration Pain , Severe (7-10) Ceftriaxone Sodium 1 gm in 50 mls @ 100 mls/hr 01/21/21 10:00 01/21/21 10:13 Rocephin/Ns 1 Gm/50 Ml IV 100 mls/hr Q24H KIRK Administration Protocol Sodium Chloride 100 mls @ 999 mls/hr 01/21/21 13:29 Nacl 0.9% IV CHRISTA PRN Hypotension Metoclopramide HCl 5 mg 01/20/21 22:58 Metoclopramide 10 Mg/2 Ml Inj IV Q6H PRN Nausea And Vomiting Ondansetron HCl 4 mg 01/20/21 22:48 Ondansetron 4 Mg/2 Ml Inj IV Q8H PRN Nausea And Vomiting Oxycodone/Acetaminophen 1 tab 01/20/21 22:48 01/21/21 10:12 Oxycodone /Acetaminophen 5-325mg Tab PO 1 tab Q6H PRN Administration Pain, Moderate (4-6) Pantoprazole Sodium 40 mg 01/21/21 07:30 01/21/21 10:12 Pantoprazole 40 Mg Tab PO 40 mg QDAC KIRK Administration Potassium Chloride 20 meq 01/21/21 10:00 01/21/21 10:13 Potassium Chloride Er 20 Meq Tab PO 20 meq QDAY KIRK Administration Sodium Chloride 10 ml 01/21/21 10:00 01/21/21 22:02 Sodium Chloride 0.9% 10 Ml Flush Syringe IV 10 ml BID KIRK Administration Sodium Chloride 10 ml 01/20/21 22:48 Sodium Chloride 0.9% 10 Ml Flush Syringe IV PRN PRN LINE FLUSH
[2021-01-22] MEDS ORDERED: hydrALAZINE 20 MG/1 ML INJ IV PRN (09:00)
[2021-01-22] MEDS: PANTOPRAZOLE 40 MG TAB PO SCH (10:15)
[2021-01-22] MEDS: APIXABAN 5 MG TAB PO SCH ×2 (10:15→21:09)
[2021-01-22] MEDS: carvediloL 3.125 MG TAB PO SCH ×2 (10:15→21:09)
[2021-01-22] MEDS: POTASSIUM CHLORIDE ER 20 MEQ TAB PO SCH (10:15)
[2021-01-22] MEDS: cefTRIAXone/NS 1 GM/50 ML 1 GM/50 ML BAG IV SCH (10:15)
[2021-01-22] MEDS: oxyCODONE /ACETAMINOPHEN 5-325MG TAB PO PRN ×2 (12:11→20:12)
--- NOTE | 2021-01-22 15:35 | Progress Note ---
Assessment and Plan 1. ESRD: Patient is on maintenance hemodialysis three times a week, TTS schedule. Last outpatient HD 01/19. Meds dosage based on GFR. Hemodialysis: 01/21. 2. FEN: Hypokalemia, improved. Monitor lytes and volume status. 3. Sepsis, POA: E.Coli bacteremia. 2/2 urinary tract infection. Ceftriaxone. 4. Acute metabolic encephalopathy, POA: Likely 2/2 UTI. Treat the underlying cause, treat UTI. 5. Anemia, POA: 2/2 ESRD. Epogen with HD as needed. PRBC as needed. 6. HFrEF: Compensated. Monitor. 7. Hypertension: Monitor BP. Adjust meds as appropriate. Subjective: Patient was seen and examined at the bedside. General Appearance: General appearance: well-developed, appears stated age, not in distress HEENT: ATNC, pupils equal Neck: trachea midline Respiratory: ctab Heart: regular, S1S2, no murmur Abdomen: soft, bowel sounds heard, not tender Integumentary: no rash, warm and dry Neurologic: confused, able to move extremities Ext: no edema Hemodialysis access: R IJ tunnel catheter Subjective Date of service: 01/22/21 Objective - Vital Signs Vital signs: Vital Signs - 12hr 01/22/21 01/22/21 01/22/21 03:48 07:38 10:44 Temperature 99.0 F 97.7 F Pulse Rate 90 87 Respiratory 18 18 Rate Blood Pressure 106/75 95/71 O2 Sat by Pulse 97 96 91 Oximetry - Lab 01/23/21 05:33 01/23/21 05:33 Most recent lab results Calcium 8.4 mg/dL (8.4-10.2) 01/22/21 05:03 Medications & Allergies - Medications Allergies/Adverse Reactions: Allergies No Known Allergies Allergy (Unverified 12/06/20 12:39) Home Medications: Home Medications Medication Instructions Recorded Confirmed Last Taken Type Apixaban [Eliquis] 5 mg PO BID 12/06/20 12/06/20 Unknown History AtorvaSTATin [Lipitor] 40 mg PO QHS 12/06/20 12/06/20 Unknown History Pantoprazole [Protonix TAB] 40 mg PO QDAC #30 tablet 12/15/20 Unknown Rx carvediloL [Coreg] 3.125 mg PO BID #60 tablet 12/15/20 Unknown Rx Active Medications: Generic Name Dose Route Start Last Admin Trade Name Freq PRN Reason Stop Dose Admin Acetaminophen 650 mg 01/20/21 22:48 Acetaminophen 325 Mg Tab PO Q4H PRN Pain MILD(1-3)/Fever >100.5/MILLER Apixaban 5 mg 01/20/21 23:00 01/22/21 10:15 Apixaban 5 Mg Tab PO 5 mg BID KIRK Administration Atorvastatin Calcium 40 mg 01/21/21 22:00 01/21/21 22:01 Atorvastatin 40 Mg Tab PO 40 mg QHS KIRK Administration Carvedilol 3.125 mg 01/21/21 10:00 01/22/21 10:15 Carvedilol 3.125 Mg Tab PO 3.125 mg BID KIRK Administration Hydralazine HCl 10 mg 01/22/21 09:00 Hydralazine 20 Mg/1 Ml Inj IV Q4H PRN Blood Pressure Hydromorphone HCl 0.5 mg 01/20/21 16:30 01/21/21 16:37 Hydromorphone 1 Mg/1 Ml Inj IV 0.5 mg Q3H PRN Administration Pain , Severe (7-10) Ceftriaxone Sodium 1 gm in 50 mls @ 100 mls/hr 01/21/21 10:00 01/22/21 10:15 Rocephin/Ns 1 Gm/50 Ml IV 100 mls/hr Q24H KIRK Administration Protocol Sodium Chloride 100 mls @ 999 mls/hr 01/21/21 13:29 Nacl 0.9% IV CHRISTA PRN Hypotension Metoclopramide HCl 5 mg 01/20/21 22:58 Metoclopramide 10 Mg/2 Ml Inj IV Q6H PRN Nausea And Vomiting Ondansetron HCl 4 mg 01/20/21 22:48 Ondansetron 4 Mg/2 Ml Inj IV Q8H PRN Nausea And Vomiting Oxycodone/Acetaminophen 1 tab 01/20/21 22:48 01/22/21 12:11 Oxycodone /Acetaminophen 5-325mg Tab PO 1 tab Q6H PRN Administration Pain, Moderate (4-6) Pantoprazole Sodium 40 mg 01/21/21 07:30 01/22/21 10:15 Pantoprazole 40 Mg Tab PO 40 mg QDAC KIRK Administration Potassium Chloride 20 meq 01/21/21 10:00 01/22/21 10:15 Potassium Chloride Er 20 Meq Tab PO 20 meq QDAY KIRK Administration Sodium Chloride 10 ml 01/21/21 10:00 01/22/21 10:15 Sodium Chloride 0.9% 10 Ml Flush Syringe IV 10 ml BID KIRK Administration Sodium Chloride 10 ml 01/20/21 22:48 Sodium Chloride 0.9% 10 Ml Flush Syringe IV PRN PRN LINE FLUSH
[2021-01-22] MEDS: HYDROmorphone 1 MG/1 ML INJ IV PRN (23:34)
[2021-01-23 06:11] LABS: Hematocrit 28.9 % (35.5-45.6); Hemoglobin 9.6 gm/dl (11.8-15.2); Mean Corpuscular HGB Conc 33 % (32-34); Mean Corpuscular Volume 97 fl (84-94); Platelet Count 132 K/mm3 (140-440); Red Blood Count 2.99 M/mm3 (3.65-5.03); Red Cell Distribution Width 19.3 % (13.2-15.2)
[2021-01-23 06:23] LABS: Calcium 8.6 mg/dL (8.4-10.2)
[2021-01-23] MEDS: carvediloL 3.125 MG TAB PO SCH ×2 (09:15→21:21)
[2021-01-23] MEDS: POTASSIUM CHLORIDE ER 20 MEQ TAB PO SCH (09:16)
[2021-01-23] MEDS: PANTOPRAZOLE 40 MG TAB PO SCH (09:17)
[2021-01-23] MEDS: HYDROmorphone 1 MG/1 ML INJ IV PRN (09:22)
[2021-01-23] MEDS: APIXABAN 5 MG TAB PO SCH ×2 (09:22→21:22)
[2021-01-23] MEDS: cefTRIAXone/NS 1 GM/50 ML 1 GM/50 ML BAG IV SCH (09:41)
--- NOTE | 2021-01-23 10:47 | Progress Note ---
Assessment and Plan Assessment and plan: 70-year-old -[place] male with a past medical history of end-stage renal disease, heart failure, anemia who presents with acute metabolic encephalopathy. Acute metabolic encephalopathy Current Visit: Yes Status: Acute Plan to address problem: Probably secondary to uremia and urinary tract infection, resolving Will treat the underlying cause, treat UTI with ceftriaxone Sepsis secondary to urinary tract infection Current Visit: Yes Status: Acute Plan to address problem: Continue ceftriaxone Urine cultures no growth to date blood cultures growing E. coli, susceptible to ceftriaxone Repeat blood cultures are pending ID consulted UTI (urinary tract infection) Current Visit: Yes Status: Acute Qualifiers: Urinary tract infection type: acute cystitis Plan to address problem: Continue ceftriaxone Urine cultures showing E. coli, ESRD on hemodialysis Current Visit: Yes Status: Chronic Plan to address problem: Continue hemodialysis, normal scheduled Saturday Nephrology consulted to manage dialysis, notified Lactic acidosis Current Visit: Yes Status: Acute Plan to address problem: Continue to trend, currently downtrending Patient on IV antibiotics Consistent with sepsis Hypokalemia Current Visit: Yes Status: Acute Plan to address problem: Supplementation as needed Chronic systolic heart failure with reduced ejection fraction Continue carvedilol, no ALEX or ARB due to ESRD Hypertension Current Visit: No Status: Chronic Qualifiers: Hypertension type: essential hypertension Qualified Code(s): I10 - Essential (primary) hypertension Plan to address problem: Carvedilol Hydralazine as needed with parameters. GERD (gastroesophageal reflux disease) Current Visit: Yes Status: Chronic Qualifiers: Esophagitis presence: without esophagitis Qualified Code(s): K21.9 - Gastro-esophageal reflux disease without esophagitis Plan to address problem: Continue PPIs/H2 blockers Anemia Current Visit: Yes Status: Chronic Qualifiers: Anemia type: due to chronic kidney disease Plan to address problem: Due to chronic kidney disease and end-stage renal disease No signs of bleeding, Transfuse patient if hemoglobin falls below 7.0 CODE STATUS: Full DVT prophylaxis: Eliquis Disposition: Continue treatment for E. coli bacteremia. Patient currently on ceftriaxone, repeat cultures have been ordered, ID consulted. Physical therapy to see the patient to continue PT orders for home health. However patient needs to be reassessed to see if patient needs SNF. History Interval history: 01/21/2021: Patient seen and examined, patient seems somewhat confused. Waxing and waning and has some episodes of being lucid. Patient eating breakfast. 01/22/2021: Patient seen and examined, lying in bed, eating breakfast, states that he does not feel well but there is no specific thing that he can point to. Patient in no acute distress. 01/23/2021: Patient seen and examined, lying in bed, finished breakfast, states that he feels somewhat better. Patient with positive blood cultures, susceptible to current antibiotics, ceftriaxone. Repeat blood cultures have been ordered. Hospitalist Physical - Physical exam Narrative exam: General appearance: no acute distress, well-nourished EENT: PERRL, EOM intact, hearing intact, clear oral mucosa, poor dentition Neck: Present: supple, normal ROM Respiratory: Clear bilateral breath sounds, no rales or rhonchi heard. Cardiovascular: Permacath in right chest, regular rate/rhythm, Normal S1 & S2. No gallop, rub Extremities: no ischemia, No edema, normal temperature, normal color, Full ROM Abdominal: soft, no tenderness, non-distended, normal bowel sounds Integumentary: Present: clear, warm, dry no wounds, no erythema noted Psychiatric: appropriate mood/affect, mild confusion Neurologic: CNII-XII intact, moving upper extremities and lower extremities - Constitutional Vitals: Temp Pulse Resp BP Pulse Ox 98.6 F 96 H 20 105/76 93 01/23/21 07:41 01/23/21 09:15 01/23/21 07:41 01/23/21 07:41 01/23/21 07:41 General appearance: Present: no acute distress, well-nourished Results - Labs CBC & Chem 7: 01/23/21 05:33 01/23/21 05:33 Labs: Laboratory Last Values WBC 7.2 K/mm3 (4.5-11.0) 01/23/21 05:33 RBC 2.99 M/mm3 (3.65-5.03) L 01/23/21 05:33 Hgb 9.6 gm/dl (11.8-15.2) L 01/23/21 05:33 Hct 28.9 % (35.5-45.6) L 01/23/21 05:33 MCV 97 fl (84-94) H 01/23/21 05:33 MCH 32 pg (28-32) 01/23/21 05:33 MCHC 33 % (32-34) 01/23/21 05:33 RDW 19.3 % (13.2-15.2) H 01/23/21 05:33 Plt Count 132 K/mm3 (140-440) L 01/23/21 05:33 Lymph % (Auto) 9.7 % (13.4-35.0) L 01/21/21 07:16 [place] % (Auto) 5.5 % (0.0-7.3) 01/21/21 07:16 Eos % (Auto) 0.0 % (0.0-4.3) 01/21/21 07:16 Baso % (Auto) 0.3 % (0.0-1.8) 01/21/21 07:16 Lymph # (Auto) 1.3 K/mm3 (1.2-5.4) 01/21/21 07:16 [place] # (Auto) 0.7 K/mm3 (0.0-0.8) 01/21/21 07:16 Eos # (Auto) 0.0 K/mm3 (0.0-0.4) 01/21/21 07:16 Baso # (Auto) 0.0 K/mm3 (0.0-0.1) 01/21/21 07:16 Add Manual Diff Complete 01/20/21 12:51 Total Counted 100 01/20/21 12:51 Seg Neutrophils % 84.5 % (40.0-70.0) H 01/21/21 07:16 Seg Neuts % (Manual) 79.0 % (40.0-70.0) H 01/20/21 12:51 Band Neutrophils % 15.0 % 01/20/21 12:51 Lymphocytes % (Manual) 4.0 % (13.4-35.0) L 01/20/21 12:51 Monocytes % (Manual) 2.0 % (0.0-7.3) 01/20/21 12:51 Nucleated RBC % Not Reportable 01/20/21 12:51 Seg Neutrophils # 11.2 K/mm3 (1.8-7.7) H 01/21/21 07:16 Seg Neutrophils # Man 7.3 K/mm3 (1.8-7.7) 01/20/21 12:51 Band Neutrophils # 1.4 K/mm3 01/20/21 12:51 Lymphocytes # (Manual) 0.4 K/mm3 (1.2-5.4) L 01/20/21 12:51 Abs React Lymphs (Man) 0.0 K/mm3 01/20/21 12:51 Monocytes # (Manual) 0.2 K/mm3 (0.0-0.8) 01/20/21 12:51 Eosinophils # (Manual) 0.0 K/mm3 (0.0-0.4) 01/20/21 12:51 Basophils # (Manual) 0.0 K/mm3 (0.0-0.1) 01/20/21 12:51 Metamyelocytes # 0.0 K/mm3 01/20/21 12:51 Myelocytes # 0.0 K/mm3 01/20/21 12:51 Promyelocytes # 0.0 K/mm3 01/20/21 12:51 Blast Cells # 0.0 K/mm3 01/20/21 12:51 WBC Morphology Not Reportable 01/20/21 12:51 Hypersegmented Neuts Not Reportable 01/20/21 12:51 Hyposegmented Neuts Not Reportable 01/20/21 12:51 Hypogranular Neuts Not Reportable 01/20/21 12:51 Smudge Cells Not Reportable 01/20/21 12:51 Toxic Granulation Not Reportable 01/20/21 12:51 Toxic Vacuolation Not Reportable 01/20/21 12:51 Dohle Bodies Not Reportable 01/20/21 12:51 Pelger-Huet Anomaly Not Reportable 01/20/21 12:51 Brianda Rods Not Reportable 01/20/21 12:51 Platelet Estimate Consistent w auto 01/20/21 12:51 Clumped Platelets Not Reportable 01/20/21 12:51 Plt Clumps, EDTA Not Reportable 01/20/21 12:51 Large Platelets Not Reportable 01/20/21 12:51 Giant Platelets Not Reportable 01/20/21 12:51 Platelet Satelliting Not Reportable 01/20/21 12:51 Plt Morphology Comment Not Reportable 01/20/21 12:51 RBC Morphology Not Reportable 01/20/21 12:51 Dimorphic RBCs Not Reportable 01/20/21 12:51 Polychromasia Not Reportable 01/20/21 12:51 Hypochromasia Not Reportable 01/20/21 12:51 Poikilocytosis Not Reportable 01/20/21 12:51 Anisocytosis 1+ 01/20/21 12:51 Microcytosis Not Reportable 01/20/21 12:51 Macrocytosis Few 01/20/21 12:51 Spherocytes Not Reportable 01/20/21 12:51 Pappenheimer Bodies Not Reportable 01/20/21 12:51 Sickle Cells Not Reportable 01/20/21 12:51 Target Cells Not Reportable 01/20/21 12:51 Tear Drop Cells Not Reportable 01/20/21 12:51 Ovalocytes Not Reportable 01/20/21 12:51 Helmet Cells Not Reportable 01/20/21 12:51 Rangel-[place] Bodies Not Reportable 01/20/21 12:51 Whiteface Rings Not Reportable 01/20/21 12:51 Dung Cells Not Reportable 01/20/21 12:51 Bite Cells Not Reportable 01/20/21 12:51 Crenated Cell Not Reportable 01/20/21 12:51 Elliptocytes Not Reportable 01/20/21 12:51 Acanthocytes (Spur) Not Reportable 01/20/21 12:51 Rouleaux Not Reportable 01/20/21 12:51 Hemoglobin C Crystals Not Reportable 01/20/21 12:51 Schistocytes Not Reportable 01/20/21 12:51 Malaria parasites Not Reportable 01/20/21 12:51 [place] Bodies Not Reportable 01/20/21 12:51 Hem Pathologist Commnt No 01/20/21 12:51 Sodium 136 mmol/L (137-145) L 01/23/21 05:33 Potassium 3.8 mmol/L (3.6-5.0) 01/23/21 05:33 Chloride 99.9 mmol/L (98-107) 01/23/21 05:33 Carbon Dioxide 23 mmol/L (22-30) 01/23/21 05:33 Anion Gap 17 mmol/L 01/23/21 05:33 BUN 31 mg/dL (9-20) H 01/23/21 05:33 Creatinine 4.9 mg/dL (0.8-1.3) H 01/23/21 05:33 Estimated GFR 12 ml/min 01/23/21 05:33 BUN/Creatinine Ratio 6 % 01/23/21 05:33 Glucose 126 mg/dL (75-100) H 01/23/21 05:33 POC Glucose 101 mg/dL (70-105) 01/23/21 05:19 Hemoglobin A1c < 4.0 % (4-6) L 01/21/21 07:16 Lactic Acid 2.60 mmol/L (0.7-2.0) H* 01/23/21 06:41 Calcium 8.6 mg/dL (8.4-10.2) 01/23/21 05:33 Total Bilirubin 0.80 mg/dL (0.1-1.2) 01/21/21 07:16 AST 37 units/L (5-40) 01/21/21 07:16 ALT 13 units/L (7-56) 01/21/21 07:16 Alkaline Phosphatase 68 units/L (35-129) 01/21/21 07:16 Ammonia 52.0 umol/L (25-60) 01/21/21 09:51 Total Protein 8.3 g/dL (6.3-8.2) H 01/21/21 07:16 Albumin 3.4 g/dL (3.9-5) L 01/21/21 07:16 Albumin/Globulin Ratio 0.7 % 01/21/21 07:16 Urine Color Hina (Yellow) 01/20/21 13:04 Urine Turbidity Cloudy (Clear) 01/20/21 13:04 Urine pH 7.0 (5.0-7.0) 01/20/21 13:04 Ur Specific [place] 1.015 (1.003-1.030) 01/20/21 13:04 Urine Protein >500 mg/dL (Negative) 01/20/21 13:04 Urine Glucose (UA) Neg mg/dL (Negative) 01/20/21 13:04 Urine Ketones Neg mg/dL (Negative) 01/20/21 13:04 Urine Blood Sm (Negative) 01/20/21 13:04 Urine Nitrite Neg (Negative) 01/20/21 13:04 Urine Bilirubin Neg (Negative) 01/20/21 13:04 Urine Urobilinogen 2.0 mg/dL (<2.0) 01/20/21 13:04 Ur Leukocyte Esterase Lg (Negative) 01/20/21 13:04 Urine WBC (Auto) > 182.0 /HPF (0.0-6.0) H 01/20/21 13:04 Urine RBC (Auto) 42.0 /HPF (0.0-6.0) 01/20/21 13:04 U Epithel Cells (Auto) < 1.0 /HPF (0-13.0) 01/20/21 13:04 Urine Bacteria (Auto) 1+ /HPF (Negative) 01/20/21 13:04 Urine WBC Clumps Few /HPF 01/20/21 13:04 Hepatitis A IgM Ab Non-reactive (NonReactive) 01/21/21 15:22 Hep Bs Antigen Non-reactive (Negative) 01/21/21 15:22 Hep B Core IgM Ab Non-reactive (NonReactive) 01/21/21 15:22 Hepatitis C Antibody Non-reactive (NonReactive) 01/21/21 15:22 Microbiology: Microbiology 01/20/21 12:51 Peripheral/Venous Blood Culture - Final Escherichia Coli 01/20/21 12:51 Peripheral/Venous Blood Culture - Final Escherichia Coli 01/20/21 12:59 Urine,Clean Catch Urine Culture - Final NO GROWTH AFTER 48 HOURS Mcallister/IV: Voiding Method Incontinent Active Medications - Current Medications Current Medications: Generic Name Dose Route Start Last Admin Trade Name Freq PRN Reason Stop Dose Admin Acetaminophen 650 mg 01/20/21 22:48 Acetaminophen 325 Mg Tab PO Q4H PRN Pain MILD(1-3)/Fever >100.5/MILLER Apixaban 5 mg 01/20/21 23:00 01/23/21 09:22 Apixaban 5 Mg Tab PO 5 mg BID KIRK Administration Atorvastatin Calcium 40 mg 01/21/21 22:00 01/22/21 21:09 Atorvastatin 40 Mg Tab PO 40 mg QHS KIRK Administration Carvedilol 3.125 mg 01/21/21 10:00 01/23/21 09:15 Carvedilol 3.125 Mg Tab PO 3.125 mg BID KIRK Administration Hydralazine HCl 10 mg 01/22/21 09:00 Hydralazine 20 Mg/1 Ml Inj IV Q4H PRN Blood Pressure Hydromorphone HCl 0.5 mg 01/20/21 16:30 01/23/21 09:22 Hydromorphone 1 Mg/1 Ml Inj IV 0.5 mg Q3H PRN Administration Pain , Severe (7-10) Ceftriaxone Sodium 1 gm in 50 mls @ 100 mls/hr 01/21/21 10:00 01/23/21 09:41 Rocephin/Ns 1 Gm/50 Ml IV 100 mls/hr Q24H KIRK Administration Protocol Sodium Chloride 100 mls @ 999 mls/hr 01/21/21 13:29 Nacl 0.9% IV CHRISTA PRN Hypotension Metoclopramide HCl 5 mg 01/20/21 22:58 Metoclopramide 10 Mg/2 Ml Inj IV Q6H PRN Nausea And Vomiting Ondansetron HCl 4 mg 01/20/21 22:48 Ondansetron 4 Mg/2 Ml Inj IV Q8H PRN Nausea And Vomiting Oxycodone/Acetaminophen 1 tab 01/20/21 22:48 01/22/21 20:12 Oxycodone /Acetaminophen 5-325mg Tab PO 1 tab Q6H PRN Administration Pain, Moderate (4-6) Pantoprazole Sodium 40 mg 01/21/21 07:30 01/23/21 09:17 Pantoprazole 40 Mg Tab PO 40 mg QDAC KIRK Administration Potassium Chloride 20 meq 01/21/21 10:00 01/23/21 09:16 Potassium Chloride Er 20 Meq Tab PO 20 meq QDAY KIRK Administration Sodium Chloride 10 ml 01/21/21 10:00 01/23/21 09:17 Sodium Chloride 0.9% 10 Ml Flush Syringe IV 10 ml BID KIRK Administration Sodium Chloride 10 ml 01/20/21 22:48 Sodium Chloride 0.9% 10 Ml Flush Syringe IV PRN PRN LINE FLUSH
--- NOTE | 2021-01-23 12:59 | Consultation ---
History of Present Illness - Reason for Consult Consult date: 01/23/21 Sepsis Requesting physician: PETER HALL - History of Present Illness The patient is a 70-year-old male with ESRD on HD, hypertension, hyperlipidemia, gastroesophageal reflux disease was admitted to the hospital with altered mental status and abdominal pain. The patient is a poor historian. Upon evaluation in the ER, was noted to have findings concerning for sepsis. His UA showed significant pyuria. Blood cultures turn positive for E. coli, hence infectious diseases was consulted. Currently is on ceftriaxone. Chest x-ray did not reveal any evidence of pneumonia. CT head did not reveal acute abnormalities. CT abdomen and pelvis showed perinephric stranding on the left side. Review of Systems: Limited due to AMS. Medications and Allergies Allergies Allergy/AdvReac Type Severity Reaction Status Date / Time No Known Allergies Allergy Unverified 12/06/20 12:39 Home Medications Medication Instructions Recorded Confirmed Last Taken Type Apixaban [Eliquis] 5 mg PO BID 12/06/20 12/06/20 Unknown History AtorvaSTATin [Lipitor] 40 mg PO QHS 12/06/20 12/06/20 Unknown History Pantoprazole [Protonix TAB] 40 mg PO QDAC #30 tablet 12/15/20 Unknown Rx carvediloL [Coreg] 3.125 mg PO BID #60 tablet 12/15/20 Unknown Rx Active Meds: Active Medications Acetaminophen (Acetaminophen 325 Mg Tab) 650 mg PO Q4H PRN PRN Reason: Pain MILD(1-3)/Fever >100.5/MILLER Apixaban (Apixaban 5 Mg Tab) 5 mg PO BID [facility] Last Admin: 01/23/21 09:22 Dose: 5 mg Documented by: Atorvastatin Calcium (Atorvastatin 40 Mg Tab) 40 mg PO QHS [facility] Last Admin: 01/22/21 21:09 Dose: 40 mg Documented by: Carvedilol (Carvedilol 3.125 Mg Tab) 3.125 mg PO BID [facility] Last Admin: 01/23/21 09:15 Dose: 3.125 mg Documented by: Hydralazine HCl (Hydralazine 20 Mg/1 Ml Inj) 10 mg IV Q4H PRN PRN Reason: Blood Pressure Hydromorphone HCl (Hydromorphone 1 Mg/1 Ml Inj) 0.5 mg IV Q3H PRN PRN Reason: Pain , Severe (7-10) Last Admin: 01/23/21 09:22 Dose: 0.5 mg Documented by: Ceftriaxone Sodium (Rocephin/Ns 1 Gm/50 Ml) 1 gm in 50 mls @ 100 mls/hr IV Q24H [facility]; Protocol Last Admin: 01/23/21 09:41 Dose: 100 mls/hr Documented by: Sodium Chloride (Nacl 0.9%) 100 mls @ 999 mls/hr IV CHRISTA PRN PRN Reason: Hypotension Metoclopramide HCl (Metoclopramide 10 Mg/2 Ml Inj) 5 mg IV Q6H PRN PRN Reason: Nausea And Vomiting Ondansetron HCl (Ondansetron 4 Mg/2 Ml Inj) 4 mg IV Q8H PRN PRN Reason: Nausea And Vomiting Oxycodone/Acetaminophen (Oxycodone /Acetaminophen 5-325mg Tab) 1 tab PO Q6H PRN PRN Reason: Pain, Moderate (4-6) Last Admin: 01/22/21 20:12 Dose: 1 tab Documented by: Pantoprazole Sodium (Pantoprazole 40 Mg Tab) 40 mg PO QDAC [facility] Last Admin: 01/23/21 09:17 Dose: 40 mg Documented by: Potassium Chloride (Potassium Chloride Er 20 Meq Tab) 20 meq PO QDAY [facility] Last Admin: 01/23/21 09:16 Dose: 20 meq Documented by: Sodium Chloride (Sodium Chloride 0.9% 10 Ml Flush Syringe) 10 ml IV BID [facility] Last Admin: 01/23/21 09:17 Dose: 10 ml Documented by: Sodium Chloride (Sodium Chloride 0.9% 10 Ml Flush Syringe) 10 ml IV PRN PRN PRN Reason: LINE FLUSH Physical Examination - Physical Exam Narrative exam: Physical Exam: Constitutional: Sleepy, can be awakened but poor historian Head, Ears, Nose: Normocephalic, atraumatic. External ears, nose normal Eyes: Conjunctivae/corneas clear. No icterus. No ptosis. Neck: Supple, no meningeal signs Cardiovascular: S1, S2 normal. Respiratory: Good air entry, clear to auscultation bilaterally GI: Soft, non-tender; bowel sounds normal. No peritoneal signs Musculoskeletal: No pedal edema, no cyanosis. Skin: No rash or abscess Hem/Lymphatic: No palpable cervical or supraclavicular nodes. No lymphangitis Psych: No agitation Neurological: Sleepy, can be awakened but poor historian - Constitutional Vitals: Vital Signs Temp Pulse Resp BP Pulse Ox 98.9 F 96 H 20 102/70 94 01/23/21 11:24 01/23/21 09:15 01/23/21 11:24 01/23/21 11:24 01/23/21 11:24 Temperature -Last 24 Hours Temperature 98.9 F Temperature 98.6 F Temperature 98.6 F Temperature 97.4 F Temperature 98.4 F Temperature 97.2 F Results - Labs CBC & Chem 7: 01/23/21 05:33 01/23/21 05:33 Labs: Abnormal lab results 01/22/21 01/23/21 01/23/21 Range/Units 23:42 01:44 05:33 RBC 2.99 L (3.65-5.03) M/mm3 Hgb 9.6 L (11.8-15.2) gm/dl Hct 28.9 L (35.5-45.6) % MCV 97 H (84-94) fl RDW 19.3 H (13.2-15.2) % Plt Count 132 L (140-440) K/mm3 Sodium (137-145) mmol/L BUN (9-20) mg/dL Creatinine (0.8-1.3) mg/dL Glucose (75-100) mg/dL POC Glucose 113 H (70-105) mg/dL Lactic Acid 2.70 H* (0.7-2.0) mmol/L 01/23/21 01/23/21 01/23/21 Range/Units 05:33 06:41 10:31 RBC (3.65-5.03) M/mm3 Hgb (11.8-15.2) gm/dl Hct (35.5-45.6) % MCV (84-94) fl RDW (13.2-15.2) % Plt Count (140-440) K/mm3 Sodium 136 L (137-145) mmol/L BUN 31 H (9-20) mg/dL Creatinine 4.9 H (0.8-1.3) mg/dL Glucose 126 H (75-100) mg/dL POC Glucose (70-105) mg/dL Lactic Acid 2.60 H* 2.40 H* (0.7-2.0) mmol/L - Imaging and Cardiology Chest x-ray: report reviewed, image reviewed (no pneumonia) Assessment and Plan Cultures: 01/20/2021 blood culture: E. coli 01/20/2021 urine culture: No growth A/P: 70-year-old male with ESRD on HD, hypertension, hyperlipidemia, gastroesophageal reflux disease was admitted to the hospital with altered mental status and abdominal pain: #Sepsis, secondary to E. coli bacteremia: Source is very likely urine given UA with significant pyuria, CT evidence of perinephric stranding. Urine culture however is without growth. Patient does have indwelling HD catheter, however it does not appear infected. #ESRD on HD: Has indwelling HD catheter. Renally dose antibiotics. #Acute encephalopathy: Possibly sepsis related Recs: Repeat blood cultures due to indwelling HD catheter, if negative, no need to remove it Continue IV ceftriaxone, once blood cultures negative, discharge on p.o. antibiotics Anthony Walker MD, FACP [facility] O: [phone] F: [phone]
--- NOTE | 2021-01-23 15:00 | Progress Note ---
Assessment and Plan 1. ESRD: Patient is on maintenance hemodialysis three times a week, TTS schedule. Last outpatient HD 01/19. Meds dosage based on GFR. Hemodialysis: 01/21. 2. FEN: Hypokalemia, improved. Monitor lytes and volume status. 3. Sepsis, POA: E.Coli bacteremia. 2/2 urinary tract infection. Ceftriaxone. 4. Acute metabolic encephalopathy, POA: Likely 2/2 UTI. Treat the underlying cause, treat UTI. 5. Anemia, POA: 2/2 ESRD. Epogen with HD as needed. PRBC as needed. 6. HFrEF: Compensated. Monitor. 7. Hypertension: Monitor BP. Adjust meds as appropriate. Subjective: Patient was seen and examined at the bedside. General Appearance: General appearance: well-developed, appears stated age, not in distress HEENT: ATNC, pupils equal Neck: trachea midline Respiratory: ctab Heart: regular, S1S2, no murmur Abdomen: soft, bowel sounds heard, not tender Integumentary: no rash, warm and dry Neurologic: confused, able to move extremities Ext: no edema Hemodialysis access: R IJ tunnel catheter Subjective Date of service: 01/23/21 Objective - Vital Signs Vital signs: Vital Signs - 12hr 01/23/21 01/23/21 01/23/21 03:54 07:41 09:15 Temperature 98.6 F 98.6 F Pulse Rate 89 87 96 H Respiratory 18 20 Rate Blood Pressure 97/71 105/76 O2 Sat by Pulse 85 93 Oximetry 01/23/21 11:24 Temperature 98.9 F Pulse Rate Respiratory 20 Rate Blood Pressure 102/70 O2 Sat by Pulse 94 Oximetry - Lab 01/23/21 05:33 01/23/21 05:33 Most recent lab results Calcium 8.6 mg/dL (8.4-10.2) 01/23/21 05:33 Medications & Allergies - Medications Allergies/Adverse Reactions: Allergies No Known Allergies Allergy (Unverified 12/06/20 12:39) Home Medications: Home Medications Medication Instructions Recorded Confirmed Last Taken Type Apixaban [Eliquis] 5 mg PO BID 12/06/20 12/06/20 Unknown History AtorvaSTATin [Lipitor] 40 mg PO QHS 12/06/20 12/06/20 Unknown History Pantoprazole [Protonix TAB] 40 mg PO QDAC #30 tablet 12/15/20 Unknown Rx carvediloL [Coreg] 3.125 mg PO BID #60 tablet 12/15/20 Unknown Rx Active Medications: Generic Name Dose Route Start Last Admin Trade Name Freq PRN Reason Stop Dose Admin Acetaminophen 650 mg 01/20/21 22:48 Acetaminophen 325 Mg Tab PO Q4H PRN Pain MILD(1-3)/Fever >100.5/MILLER Apixaban 5 mg 01/20/21 23:00 01/23/21 09:22 Apixaban 5 Mg Tab PO 5 mg BID KIRK Administration Atorvastatin Calcium 40 mg 01/21/21 22:00 01/22/21 21:09 Atorvastatin 40 Mg Tab PO 40 mg QHS KIRK Administration Carvedilol 3.125 mg 01/21/21 10:00 01/23/21 09:15 Carvedilol 3.125 Mg Tab PO 3.125 mg BID KIRK Administration Hydralazine HCl 10 mg 01/22/21 09:00 Hydralazine 20 Mg/1 Ml Inj IV Q4H PRN Blood Pressure Hydromorphone HCl 0.5 mg 01/20/21 16:30 01/23/21 09:22 Hydromorphone 1 Mg/1 Ml Inj IV 0.5 mg Q3H PRN Administration Pain , Severe (7-10) Ceftriaxone Sodium 1 gm in 50 mls @ 100 mls/hr 01/21/21 10:00 01/23/21 09:41 Rocephin/Ns 1 Gm/50 Ml IV 100 mls/hr Q24H KIRK Administration Protocol Sodium Chloride 100 mls @ 999 mls/hr 01/21/21 13:29 Nacl 0.9% IV CHRISTA PRN Hypotension Metoclopramide HCl 5 mg 01/20/21 22:58 Metoclopramide 10 Mg/2 Ml Inj IV Q6H PRN Nausea And Vomiting Ondansetron HCl 4 mg 01/20/21 22:48 Ondansetron 4 Mg/2 Ml Inj IV Q8H PRN Nausea And Vomiting Oxycodone/Acetaminophen 1 tab 01/20/21 22:48 01/22/21 20:12 Oxycodone /Acetaminophen 5-325mg Tab PO 1 tab Q6H PRN Administration Pain, Moderate (4-6) Pantoprazole Sodium 40 mg 01/21/21 07:30 01/23/21 09:17 Pantoprazole 40 Mg Tab PO 40 mg QDAC KIRK Administration Potassium Chloride 20 meq 01/21/21 10:00 01/23/21 09:16 Potassium Chloride Er 20 Meq Tab PO 20 meq QDAY KIRK Administration Sodium Chloride 10 ml 01/21/21 10:00 01/23/21 09:17 Sodium Chloride 0.9% 10 Ml Flush Syringe IV 10 ml BID KIRK Administration Sodium Chloride 10 ml 01/20/21 22:48 Sodium Chloride 0.9% 10 Ml Flush Syringe IV PRN PRN LINE FLUSH
[2021-01-24 06:30] LABS: Hematocrit 28.2 % (35.5-45.6); Hemoglobin 9.5 gm/dl (11.8-15.2); Mean Corpuscular HGB Conc 34 % (32-34); Mean Corpuscular Volume 96 fl (84-94); Platelet Count 136 K/mm3 (140-440); Red Blood Count 2.95 M/mm3 (3.65-5.03); Red Cell Distribution Width 18.2 % (13.2-15.2)
[2021-01-24 06:48] LABS: Calcium 8.4 mg/dL (8.4-10.2)
[2021-01-24] MEDS: PANTOPRAZOLE 40 MG TAB PO SCH (08:08)
[2021-01-24] MEDS: HYDROmorphone 1 MG/1 ML INJ IV PRN (08:09)
--- NOTE | 2021-01-24 09:09 | Progress Note ---
Assessment and Plan 1. ESRD: Patient is on maintenance hemodialysis three times a week, TTS schedule. Last outpatient HD 01/19. Meds dosage based on GFR. Hemodialysis: 01/21, 01/24. 2. FEN: Hypokalemia, improved. Monitor lytes and volume status. 3. Sepsis, POA: E.Coli bacteremia. 2/2 urinary tract infection. Ceftriaxone. 4. Acute metabolic encephalopathy, POA: Likely 2/2 UTI. Treat the underlying cause, treat UTI. 5. Anemia, POA: 2/2 ESRD. Epogen with HD as needed. PRBC as needed. 6. HFrEF: Compensated. Monitor. 7. Hypertension: Monitor BP. Adjust meds as appropriate. Subjective: Patient was seen and examined at the bedside. General Appearance: General appearance: well-developed, appears stated age, not in distress HEENT: ATNC, pupils equal Neck: trachea midline Respiratory: ctab Heart: regular, S1S2, no murmur Abdomen: soft, bowel sounds heard, not tender Integumentary: no rash, warm and dry Neurologic: confused, able to move extremities Ext: no edema Hemodialysis access: R IJ tunnel catheter Subjective Date of service: 01/24/21 Objective - Vital Signs Vital signs: Vital Signs - 12hr 01/23/21 01/23/21 01/24/21 21:21 23:05 04:02 Temperature 97.5 F L 98.2 F Pulse Rate 91 H 92 H 76 Respiratory 16 18 Rate Blood Pressure 105/77 101/70 Blood Pressure 99/72 [Right] O2 Sat by Pulse 92 96 Oximetry 01/24/21 08:02 Temperature 98.1 F Pulse Rate 79 Respiratory 18 Rate Blood Pressure 98/74 Blood Pressure [Right] O2 Sat by Pulse 97 Oximetry - Lab 01/24/21 06:03 01/24/21 06:03 Most recent lab results Calcium 8.4 mg/dL (8.4-10.2) 01/24/21 06:03 Medications & Allergies - Medications Allergies/Adverse Reactions: Allergies No Known Allergies Allergy (Unverified 12/06/20 12:39) Home Medications: Home Medications Medication Instructions Recorded Confirmed Last Taken Type Apixaban [Eliquis] 5 mg PO BID 12/06/20 12/06/20 Unknown History AtorvaSTATin [Lipitor] 40 mg PO QHS 12/06/20 12/06/20 Unknown History Pantoprazole [Protonix TAB] 40 mg PO QDAC #30 tablet 12/15/20 Unknown Rx carvediloL [Coreg] 3.125 mg PO BID #60 tablet 12/15/20 Unknown Rx Active Medications: Generic Name Dose Route Start Last Admin Trade Name Freq PRN Reason Stop Dose Admin Acetaminophen 650 mg 01/20/21 22:48 Acetaminophen 325 Mg Tab PO Q4H PRN Pain MILD(1-3)/Fever >100.5/MILLER Apixaban 5 mg 01/20/21 23:00 01/23/21 21:22 Apixaban 5 Mg Tab PO 5 mg BID KIRK Administration Atorvastatin Calcium 40 mg 01/21/21 22:00 01/23/21 21:22 Atorvastatin 40 Mg Tab PO 40 mg QHS KIRK Administration Carvedilol 3.125 mg 01/21/21 10:00 01/23/21 21:21 Carvedilol 3.125 Mg Tab PO 3.125 mg BID KIRK Administration Hydralazine HCl 10 mg 01/22/21 09:00 Hydralazine 20 Mg/1 Ml Inj IV Q4H PRN Blood Pressure Hydromorphone HCl 0.5 mg 01/20/21 16:30 01/24/21 08:09 Hydromorphone 1 Mg/1 Ml Inj IV 0.5 mg Q3H PRN Administration Pain , Severe (7-10) Ceftriaxone Sodium 1 gm in 50 mls @ 100 mls/hr 01/21/21 10:00 01/23/21 09:41 Rocephin/Ns 1 Gm/50 Ml IV 100 mls/hr Q24H KIRK Administration Protocol Sodium Chloride 100 mls @ 999 mls/hr 01/21/21 13:29 Nacl 0.9% IV CHRISTA PRN Hypotension Metoclopramide HCl 5 mg 01/20/21 22:58 Metoclopramide 10 Mg/2 Ml Inj IV Q6H PRN Nausea And Vomiting Ondansetron HCl 4 mg 01/20/21 22:48 Ondansetron 4 Mg/2 Ml Inj IV Q8H PRN Nausea And Vomiting Oxycodone/Acetaminophen 1 tab 01/20/21 22:48 01/22/21 20:12 Oxycodone /Acetaminophen 5-325mg Tab PO 1 tab Q6H PRN Administration Pain, Moderate (4-6) Pantoprazole Sodium 40 mg 06/19/21 07:30 01/24/21 08:08 Pantoprazole 40 Mg Tab PO 40 mg QDAC KIRK Administration Potassium Chloride 20 meq 01/21/21 10:00 01/23/21 09:16 Potassium Chloride Er 20 Meq Tab PO 20 meq QDAY KIRK Administration Sodium Chloride 10 ml 01/21/21 10:00 01/23/21 21:24 Sodium Chloride 0.9% 10 Ml Flush Syringe IV 10 ml BID KIRK Administration Sodium Chloride 10 ml 01/20/21 22:48 Sodium Chloride 0.9% 10 Ml Flush Syringe IV PRN PRN LINE FLUSH
[2021-01-24] MEDS: POTASSIUM CHLORIDE ER 20 MEQ TAB PO SCH (09:20)
[2021-01-24] MEDS: APIXABAN 5 MG TAB PO SCH ×2 (09:20→21:37)
[2021-01-24] MEDS: carvediloL 3.125 MG TAB PO SCH ×2 (09:21→22:57)
[2021-01-24] MEDS: HEPARIN 10,000 UNITS/10 ML VIAL IV PRN (10:29)
[2021-01-24] MEDS: EPOETIN ALFA-EPBX 10,000 UNIT/1 ML VIAL IV PRN (10:29)
--- NOTE | 2021-01-24 12:51 | Progress Note ---
Assessment and Plan Cultures: 01/20/2021 blood culture: E. coli 01/20/2021 urine culture: No growth 01/23/2021 blood culture: no growth A/P: 70-year-old male with ESRD on HD, hypertension, hyperlipidemia, gastroesophageal reflux disease was admitted to the hospital with altered mental status and abdominal pain: #Sepsis, secondary to E. coli bacteremia: Source is very likely urine given UA with significant pyuria, CT evidence of perinephric stranding. Urine culture however is without growth. Patient does have indwelling HD catheter, however it does not appear infected. #ESRD on HD: Has indwelling HD catheter. Renally dose antibiotics. #Acute encephalopathy: Possibly sepsis related, seems better. Recs: f/u blood cultures from 01/23/2021, if negative, no need to remove HD catheter Continue IV ceftriaxone, once blood cultures negative, discharge on p.o. Ciprofloxacin 500 mg daily ending 01/30/2021 Anthony Walker MD, FACP [facility] ([facility] O: [phone] F: [phone] Subjective Date of service: 01/24/21 Interval history: No fever. Seen at dialysis. Denies any complaints. Objective - Exam Narrative Exam: Physical Exam: Constitutional: awake, alert, no distress Head, Ears, Nose: Normocephalic, atraumatic. External ears, nose normal Eyes: Conjunctivae/corneas clear. No icterus. No ptosis. Neck: Supple, no meningeal signs Cardiovascular: S1, S2 normal. Respiratory: Good air entry, clear to auscultation bilaterally GI: Soft, non-tender; bowel sounds normal. No peritoneal signs Musculoskeletal: No pedal edema, no cyanosis. R subclavian HD cath +, non tender Skin: No rash or abscess Hem/Lymphatic: No palpable cervical or supraclavicular nodes. No lymphangitis Psych: No agitation Neurological: awake, alert - Constitutional Vitals: Vital Signs Temp Pulse Resp BP Pulse Ox 98.1 F 68 18 86/70 97 01/24/21 10:00 01/24/21 12:30 01/24/21 10:00 01/24/21 12:30 01/24/21 08:02 Temperature -Last 24 Hours Temperature 98.1 F Temperature 98.1 F Temperature 98.2 F Temperature 97.5 F Temperature 97.4 F Temperature 98.6 F - Labs CBC & Chem 7: 01/24/21 06:03 01/24/21 06:03 Labs: Abnormal lab results 01/24/21 01/24/21 Range/Units 06:03 06:03 RBC 2.95 L (3.65-5.03) M/mm3 Hgb 9.5 L (11.8-15.2) gm/dl Hct 28.2 L (35.5-45.6) % MCV 96 H (84-94) fl RDW 18.2 H (13.2-15.2) % Plt Count 136 L (140-440) K/mm3 Sodium 135 L (137-145) mmol/L Carbon Dioxide 20 L (22-30) mmol/L BUN 35 H (9-20) mg/dL Creatinine 5.6 H (0.8-1.3) mg/dL Glucose 132 H (75-100) mg/dL
--- NOTE | 2021-01-24 15:20 | Progress Note ---
Assessment and Plan 70-year-old -Prydeinig male with a past medical history of end-stage renal disease, heart failure, anemia who presents with acute metabolic encephalopathy. --Acute metabolic encephalopathy Probably secondary to uremia and urinary tract infection, resolving Will treat the underlying cause, treat UTI with ceftriaxone --Sepsis secondary to urinary tract infection Continue ceftriaxone Urine cultures no growth to date blood cultures growing E. coli, susceptible to ceftriaxone Repeat blood cultures are pending ID consulted --UTI (urinary tract infection) Continue ceftriaxone Urine cultures showing E. coli, --ESRD on hemodialysis Continue hemodialysis, normal scheduled Saturday Nephrology consulted to manage dialysis, notified --Lactic acidosis: Continue to trend, currently downtrending Patient on IV antibiotics Consistent with sepsis --Hypokalemia Supplementation as needed --Chronic systolic heart failure with reduced ejection fraction Continue carvedilol, no ALEX or ARB due to ESRD --Hypertension cont Carvedilol Hydralazine as needed with parameters. --GERD (gastroesophageal reflux disease) Continue PPIs/H2 blockers --Anemia Due to chronic kidney disease and end-stage renal disease No signs of bleeding, Transfuse patient if hemoglobin falls below 7.0 CODE STATUS: Full DVT prophylaxis: Eliquis Disposition: Continue treatment for E. coli bacteremia. Patient currently on ceftriaxone, repeat cultures have been ordered, ID consulted. Physical therapy to see the patient to continue PT orders for home health. However patient needs to be reassessed to see if patient needs SNF. Daily clinical course: 01/21/2021: Patient seen and examined, patient seems somewhat confused. Waxing and waning and has some episodes of being lucid. Patient eating breakfast. 01/22/2021: Patient seen and examined, lying in bed, eating breakfast, states that he does not feel well but there is no specific thing that he can point to. Patient in no acute distress. 01/23/2021: Patient seen and examined, lying in bed, finished breakfast, states that he feels somewhat better. Patient with positive blood cultures, susceptible to current antibiotics, ceftriaxone. Repeat blood cultures have been ordered. 01/24/21: Wait for repeat blood culture results from 01/23/2021. If blood culture remains negative at 48 hours patient should be discharged home with oral an tibiotics and no need to remove HD catheter. Subjective Date of service: 01/24/21 Interval history: Patient seen and examined. Medical records and medication list reviewed. No acute event overnight noted by the RN. Patient denies any chest pain or difficulty breathing. Patient is tolerating diet. Order for repeat blood culture yesterday-results pending Discussed plan of care at bedside with patient. Objective - Exam Narrative Exam: GENERAL: well-developed and well-nourished -Prydeinig male lying on bed appeared to be in no discomfort. HEENT: Normocephalic. Atraumatic. No conjunctival congestion or icterus. Patient has moist mucous membranes. NECK: Supple. Trachea midline. CHEST/LUNGS: Clear to auscultated bilaterally, breathing nonlabored. No wheezes crackles or rhonchi. HEART/CARDIOVASCULAR: Regular in rate and rhythm. S1 and S2 positive. ABDOMEN: Abdomen is soft, nontender. Patient has normal bowel sounds. SKIN: There is no rash. Warm and dry. NEURO: No focal motor deficit. Follows command. MUSCULOSKELETAL: No joint effusion or tenderness. EXTRIMITY: No edema, no cyanosis or clubbing. PSYCH: Cooperative. - Constitutional Vitals: Vital Signs - 12hr 01/24/21 01/24/21 01/24/21 04:02 08:02 10:00 Temperature 98.2 F 98.1 F 98.1 F Pulse Rate 76 79 86 Respiratory 18 18 18 Rate Blood Pressure 98/74 95/71 Blood Pressure 99/72 [Right] O2 Sat by Pulse 96 97 Oximetry 01/24/21 01/24/21 01/24/21 10:15 10:20 10:30 Temperature Pulse Rate 88 92 H 92 H Respiratory Rate Blood Pressure 89/65 102/75 96/76 Blood Pressure [Right] O2 Sat by Pulse Oximetry 01/24/21 01/24/21 01/24/21 10:45 10:49 11:00 Temperature Pulse Rate 85 86 91 H Respiratory Rate Blood Pressure 86/65 98/69 Blood Pressure [Right] O2 Sat by Pulse Oximetry 01/24/21 01/24/21 01/24/21 11:15 11:30 11:45 Temperature Pulse Rate 90 72 92 H Respiratory Rate Blood Pressure 99/68 93/30 93/66 Blood Pressure [Right] O2 Sat by Pulse Oximetry 01/24/21 01/24/21 01/24/21 12:00 12:15 12:30 Temperature Pulse Rate 92 H 88 68 Respiratory Rate Blood Pressure 93/68 99/68 86/70 Blood Pressure [Right] O2 Sat by Pulse Oximetry 01/24/21 01/24/21 01/24/21 12:45 13:00 13:15 Temperature 98.0 F Pulse Rate 78 76 81 Respiratory 18 Rate Blood Pressure 90/68 88/64 98/60 Blood Pressure [Right] O2 Sat by Pulse Oximetry - Labs CBC & Chem 7: 01/24/21 06:03 01/24/21 06:03 Labs: Abnormal lab results 01/24/21 01/24/21 Range/Units 06:03 06:03 RBC 2.95 L (3.65-5.03) M/mm3 Hgb 9.5 L (11.8-15.2) gm/dl Hct 28.2 L (35.5-45.6) % MCV 96 H (84-94) fl RDW 18.2 H (13.2-15.2) % Plt Count 136 L (140-440) K/mm3 Sodium 135 L (137-145) mmol/L Carbon Dioxide 20 L (22-30) mmol/L BUN 35 H (9-20) mg/dL Creatinine 5.6 H (0.8-1.3) mg/dL Glucose 132 H (75-100) mg/dL
[2021-01-24] MEDS: cefTRIAXone/NS 1 GM/50 ML 1 GM/50 ML BAG IV SCH (15:32)
[2021-01-25] MEDS: PANTOPRAZOLE 40 MG TAB PO SCH (08:47)
[2021-01-25] MEDS: POTASSIUM CHLORIDE ER 20 MEQ TAB PO SCH (09:47)
[2021-01-25] MEDS: APIXABAN 5 MG TAB PO SCH ×2 (09:47→21:26)
[2021-01-25] MEDS: carvediloL 3.125 MG TAB PO SCH ×2 (09:48→22:44)
[2021-01-25] MEDS: cefTRIAXone/NS 1 GM/50 ML 1 GM/50 ML BAG IV SCH (09:48)
--- NOTE | 2021-01-25 09:55 | Progress Note ---
Assessment and Plan 1. ESRD: Patient is on maintenance hemodialysis three times a week, TTS schedule. Last outpatient HD 01/19. Meds dosage based on GFR. Hemodialysis: 01/21, 01/24. 2. FEN: Hypokalemia, improved. Monitor lytes and volume status. 3. Sepsis, POA: E.Coli bacteremia. 2/2 urinary tract infection. Ceftriaxone. 4. Acute metabolic encephalopathy, POA: Likely 2/2 UTI. Treat the underlying cause. 5. Anemia, POA: 2/2 ESRD. Epogen with HD as needed. PRBC as needed. 6. HFrEF: Compensated. Monitor. 7. Hypertension: Monitor BP. Adjust meds as appropriate. Subjective: Patient was seen and examined at the bedside. Doing ok. General Appearance: General appearance: well-developed, appears stated age, not in distress HEENT: ATNC, pupils equal Neck: trachea midline Respiratory: ctab Heart: regular, S1S2, no murmur Abdomen: soft, bowel sounds heard, not tender Integumentary: no rash, warm and dry Neurologic: alert, confused, able to move extremities Ext: no edema Hemodialysis access: R IJ tunnel catheter Subjective Date of service: 01/25/21 Objective - Vital Signs Vital signs: Vital Signs - 12hr 01/24/21 01/24/21 01/25/21 22:50 22:57 03:43 Temperature 97.6 F 97.8 F Pulse Rate 85 88 Respiratory 20 18 Rate Blood Pressure 99/71 93/60 91/65 O2 Sat by Pulse 100 89 Oximetry 01/25/21 01/25/21 07:24 09:48 Temperature 98.0 F Pulse Rate 79 87 Respiratory 18 Rate Blood Pressure 94/65 109/74 O2 Sat by Pulse 97 Oximetry - Lab 01/24/21 06:03 01/24/21 06:03 Most recent lab results Calcium 8.4 mg/dL (8.4-10.2) 01/24/21 06:03 Medications & Allergies - Medications Allergies/Adverse Reactions: Allergies No Known Allergies Allergy (Unverified 12/06/20 12:39) Home Medications: Home Medications Medication Instructions Recorded Confirmed Last Taken Type Apixaban [Eliquis] 5 mg PO BID 12/06/20 12/06/20 Unknown History AtorvaSTATin [Lipitor] 40 mg PO QHS 12/06/20 12/06/20 Unknown History Pantoprazole [Protonix TAB] 40 mg PO QDAC #30 tablet 12/15/20 Unknown Rx carvediloL [Coreg] 3.125 mg PO BID #60 tablet 12/15/20 Unknown Rx Active Medications: Generic Name Dose Route Start Last Admin Trade Name Freq PRN Reason Stop Dose Admin Acetaminophen 650 mg 01/20/21 22:48 Acetaminophen 325 Mg Tab PO Q4H PRN Pain MILD(1-3)/Fever >100.5/MILLER Apixaban 5 mg 01/20/21 23:00 01/25/21 09:47 Apixaban 5 Mg Tab PO 5 mg BID KIRK Administration Atorvastatin Calcium 40 mg 01/21/21 22:00 01/24/21 21:37 Atorvastatin 40 Mg Tab PO 40 mg QHS KIRK Administration Carvedilol 3.125 mg 01/21/21 10:00 01/25/21 09:48 Carvedilol 3.125 Mg Tab PO 3.125 mg BID KIRK Administration Heparin Sodium (Porcine) 3,000 unit 01/24/21 10:00 01/24/21 10:29 Heparin 10,000 Units/10 Ml Vial IV 3,000 unit CHRISTA PRN Administration hemodialysis Hydralazine HCl 10 mg 01/22/21 09:00 Hydralazine 20 Mg/1 Ml Inj IV Q4H PRN Blood Pressure Hydromorphone HCl 0.5 mg 01/20/21 16:30 01/24/21 08:09 Hydromorphone 1 Mg/1 Ml Inj IV 0.5 mg Q3H PRN Administration Pain , Severe (7-10) Ceftriaxone Sodium 1 gm in 50 mls @ 100 mls/hr 01/21/21 10:00 01/25/21 09:48 Rocephin/Ns 1 Gm/50 Ml IV 01/30/21 10:29 100 mls/hr Q24H KIRK Administration Protocol Sodium Chloride 100 mls @ 999 mls/hr 01/21/21 13:29 Nacl 0.9% IV CHRISTA PRN Hypotension Metoclopramide HCl 5 mg 01/20/21 22:58 Metoclopramide 10 Mg/2 Ml Inj IV Q6H PRN Nausea And Vomiting Ondansetron HCl 4 mg 01/20/21 22:48 01/24/21 10:28 Ondansetron 4 Mg/2 Ml Inj IV 4 mg Q8H PRN Administration Nausea And Vomiting Oxycodone/Acetaminophen 1 tab 01/20/21 22:48 01/22/21 20:12 Oxycodone /Acetaminophen 5-325mg Tab PO 1 tab Q6H PRN Administration Pain, Moderate (4-6) Pantoprazole Sodium 40 mg 01/21/21 07:30 01/25/21 08:47 Pantoprazole 40 Mg Tab PO 40 mg QDAC KIRK Administration Potassium Chloride 20 meq 01/21/21 10:00 01/25/21 09:47 Potassium Chloride Er 20 Meq Tab PO 20 meq QDAY KIRK Administration Sodium Chloride 10 ml 01/21/21 10:00 01/25/21 09:48 Sodium Chloride 0.9% 10 Ml Flush Syringe IV 10 ml BID KIRK Administration Sodium Chloride 10 ml 01/20/21 22:48 Sodium Chloride 0.9% 10 Ml Flush Syringe IV PRN PRN LINE FLUSH
--- NOTE | 2021-01-25 12:56 | Progress Note ---
Assessment and Plan Cultures: 01/20/2021 blood culture: E. coli 01/20/2021 urine culture: No growth 01/23/2021 blood culture: no growth A/P: 70-year-old male with ESRD on HD, hypertension, hyperlipidemia, gastroesophageal reflux disease was admitted to the hospital with altered mental status and abdominal pain: #Sepsis, secondary to E. coli bacteremia: Source is very likely urine given UA with significant pyuria, CT evidence of perinephric stranding. Urine culture however is without growth. Patient does have indwelling HD catheter, however it does not appear infected. #ESRD on HD: Has indwelling HD catheter. Renally dose antibiotics. #Acute encephalopathy: Possibly sepsis related, seems better. Recs: From ID standpoint, OK for discharge on p.o. Ciprofloxacin 500 mg daily ending 01/30/2021 (6 more days) repeat blood cultures negative, no need to remove Mervin Walker MD, FACP [facility] ([facility] O: [phone] F: [phone] Subjective Date of service: 01/25/21 Interval history: No fever. Denies any complaints. Knows he is in the hospital. Objective - Exam Narrative Exam: Physical Exam: Constitutional: awake, alert, no distress Head, Ears, Nose: Normocephalic, atraumatic. External ears, nose normal Eyes: Conjunctivae/corneas clear. No icterus. No ptosis. Neck: Supple, no meningeal signs Cardiovascular: S1, S2 normal. Respiratory: Good air entry, clear to auscultation bilaterally GI: Soft, non-tender; bowel sounds normal. No peritoneal signs Musculoskeletal: No pedal edema, no cyanosis. R subclavian HD cath +, non tender Skin: No rash or abscess Hem/Lymphatic: No palpable cervical or supraclavicular nodes. No lymphangitis Psych: No agitation Neurological: awake, alert, answeirng questions. - Constitutional Vitals: Vital Signs Temp Pulse Resp BP Pulse Ox 98.0 F 87 18 109/74 97 01/25/21 07:24 01/25/21 09:48 01/25/21 07:24 01/25/21 09:48 01/25/21 07:24 Temperature -Last 24 Hours Temperature 98.0 F Temperature 97.8 F Temperature 97.6 F Temperature 97.4 F Temperature 98.0 F Temperature 98.0 F - Labs CBC & Chem 7: 01/24/21 06:03 01/24/21 06:03
[2021-01-25] MEDS: oxyCODONE /ACETAMINOPHEN 5-325MG TAB PO PRN (13:21)
--- NOTE | 2021-01-25 15:42 | Progress Note ---
Assessment and Plan 70-year-old -[place]anish male with a past medical history of end-stage renal disease, heart failure, anemia who presents with acute metabolic encephalopathy. --Acute metabolic encephalopathy Probably secondary to uremia and urinary tract infection, resolving Will treat the underlying cause, treat UTI with ceftriaxone --Sepsis secondary to urinary tract infection Continue ceftriaxone Urine cultures no growth to date blood cultures growing E. coli, susceptible to ceftriaxone Repeat blood cultures are pending ID consulted --UTI (urinary tract infection) Continue ceftriaxone Urine cultures showing E. coli, --ESRD on hemodialysis Continue hemodialysis, normal scheduled Saturday Nephrology consulted to manage dialysis, notified --Lactic acidosis: Continue to trend, currently downtrending Patient on IV antibiotics Consistent with sepsis --Hypokalemia Supplementation as needed --Chronic systolic heart failure with reduced ejection fraction Continue carvedilol, no ALEX or ARB due to ESRD --Hypertension cont Carvedilol Hydralazine as needed with parameters. --GERD (gastroesophageal reflux disease) Continue PPIs/H2 blockers --Anemia Due to chronic kidney disease and end-stage renal disease No signs of bleeding, Transfuse patient if hemoglobin falls below 7.0 CODE STATUS: Full DVT prophylaxis: Eliquis Disposition: Continue treatment for E. coli bacteremia. Patient currently on ceftriaxone, repeat cultures have been ordered, ID consulted. Physical therapy to see the patient to continue PT orders for home health. However patient needs to be reassessed to see if patient needs SNF. Daily clinical course: 01/21/2021: Patient seen and examined, patient seems somewhat confused. Waxing and waning and has some episodes of being lucid. Patient eating breakfast. 01/22/2021: Patient seen and examined, lying in bed, eating breakfast, states that he does not feel well but there is no specific thing that he can point to. Patient in no acute distress. 01/23/2021: Patient seen and examined, lying in bed, finished breakfast, states that he feels somewhat better. Patient with positive blood cultures, susceptible to current antibiotics, ceftriaxone. Repeat blood cultures have been ordered. 01/24/21: Wait for repeat blood culture results from 01/23/2021. If blood culture remains negative at 48 hours patient should be discharged home with oral an tibiotics and no need to remove HD catheter. 01/25/21; Repeat blood cultures from 01/24/2022 is negative. PT recommended subacute rehab. No need to remove HD catheter. Patient will need oral antibiot ics on discharge. manager administrative services consulted for placement. Subjective Date of service: 01/25/21 Interval history: Patient seen and examined. Medical records and medication list reviewed. No acute event overnight noted by the RN. Patient denies any chest pain or difficulty breathing. Patient is tolerating diet. PT recommended subacute rehab Discussed plan of care at bedside with patient. Objective - Exam Narrative Exam: GENERAL: well-developed and well-nourished -[place] male lying on bed appeared to be in no discomfort. HEENT: Normocephalic. Atraumatic. No conjunctival congestion or icterus. Patient has moist mucous membranes. NECK: Supple. Trachea midline. CHEST/LUNGS: Clear to auscultated bilaterally, breathing nonlabored. No wheezes crackles or rhonchi. HEART/CARDIOVASCULAR: Regular in rate and rhythm. S1 and S2 positive. ABDOMEN: Abdomen is soft, nontender. Patient has normal bowel sounds. SKIN: There is no rash. Warm and dry. NEURO: No focal motor deficit. Follows command. MUSCULOSKELETAL: No joint effusion or tenderness. EXTRIMITY: No edema, no cyanosis or clubbing. PSYCH: Cooperative. - Constitutional Vitals: Vital Signs - 12hr 01/25/21 01/25/21 01/25/21 03:43 07:24 09:48 Temperature 97.8 F 98.0 F Pulse Rate 88 79 87 Respiratory 18 18 Rate Blood Pressure 91/65 94/65 109/74 Blood Pressure [Right] O2 Sat by Pulse 89 97 Oximetry 01/25/21 01/25/21 01/25/21 10:00 13:21 13:24 Temperature 98.1 F Pulse Rate 89 Respiratory 17 17 17 Rate Blood Pressure Blood Pressure 108/74 [Right] O2 Sat by Pulse 97 98 Oximetry - Labs CBC & Chem 7: 01/24/21 06:03 01/24/21 06:03
[2021-01-25] MEDS: ACETAMINOPHEN 325 MG TAB PO PRN (17:19)
[2021-01-26] MEDS: PANTOPRAZOLE 40 MG TAB PO SCH (08:22)
--- NOTE | 2021-01-26 09:37 | Electrocardiograph Report ---
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
--- NOTE | 2021-01-26 10:05 | Progress Note ---
Assessment and Plan 1. ESRD: Patient is on maintenance hemodialysis three times a week, TTS schedule. Last outpatient HD 01/19. Meds dosage based on GFR. Hemodialysis: 01/21, 01/24, 01/26. 2. FEN: Hypokalemia, improved. Monitor lytes and volume status. 3. Sepsis, POA: E.Coli bacteremia. 2/2 urinary tract infection. Ceftriaxone. 4. Acute metabolic encephalopathy, POA: Likely 2/2 UTI. Supportive care. 5. Anemia, POA: 2/2 ESRD. Epogen with HD as needed. PRBC as needed. 6. HFrEF: Compensated. Monitor. 7. Hypertension: Monitor BP. Adjust meds as appropriate. Subjective: Patient was seen and examined at the bedside. Doing ok. General Appearance: General appearance: well-developed, appears stated age, not in distress HEENT: ATNC, pupils equal Neck: trachea midline Respiratory: ctab Heart: regular, S1S2, no murmur Abdomen: soft, bowel sounds heard, not tender Integumentary: no rash, warm and dry Neurologic: alert, some confusion noted, able to move extremities Ext: no edema Hemodialysis access: R IJ tunnel catheter Subjective Date of service: 01/26/21 Objective - Vital Signs Vital signs: Vital Signs - 12hr 01/25/21 01/26/21 01/26/21 22:44 03:24 03:25 Temperature 98.6 F Pulse Rate 78 80 78 Respiratory 19 Rate Blood Pressure 94/71 105/71 O2 Sat by Pulse 100 99 Oximetry 01/26/21 07:43 Temperature 98.0 F Pulse Rate 70 Respiratory 18 Rate Blood Pressure 100/65 O2 Sat by Pulse 94 Oximetry - Lab 01/24/21 06:03 01/24/21 06:03 Most recent lab results Calcium 8.4 mg/dL (8.4-10.2) 01/24/21 06:03 Medications & Allergies - Medications Allergies/Adverse Reactions: Allergies No Known Allergies Allergy (Unverified 12/06/20 12:39) Home Medications: Home Medications Medication Instructions Recorded Confirmed Last Taken Type Apixaban [Eliquis] 5 mg PO BID 12/06/20 12/06/20 Unknown History AtorvaSTATin [Lipitor] 40 mg PO QHS 12/06/20 12/06/20 Unknown History Pantoprazole [Protonix TAB] 40 mg PO QDAC #30 tablet 12/15/20 Unknown Rx carvediloL [Coreg] 3.125 mg PO BID #60 tablet 12/15/20 Unknown Rx Active Medications: Generic Name Dose Route Start Last Admin Trade Name Freq PRN Reason Stop Dose Admin Acetaminophen 650 mg 01/20/21 22:48 01/25/21 17:19 Acetaminophen 325 Mg Tab PO 650 mg Q4H PRN Administration Pain MILD(1-3)/Fever >100.5/MILLER Apixaban 5 mg 01/20/21 23:00 01/25/21 21:26 Apixaban 5 Mg Tab PO 5 mg BID KIRK Administration Atorvastatin Calcium 40 mg 01/21/21 22:00 01/25/21 21:26 Atorvastatin 40 Mg Tab PO 40 mg QHS KIRK Administration Carvedilol 3.125 mg 01/21/21 10:00 01/25/21 22:44 Carvedilol 3.125 Mg Tab PO Not Given BID KIRK Heparin Sodium (Porcine) 3,000 unit 01/24/21 10:00 01/24/21 10:29 Heparin 10,000 Units/10 Ml Vial IV 3,000 unit CHRISTA PRN Administration hemodialysis Hydralazine HCl 10 mg 01/22/21 09:00 Hydralazine 20 Mg/1 Ml Inj IV Q4H PRN Blood Pressure Hydromorphone HCl 0.5 mg 01/20/21 16:30 01/24/21 08:09 Hydromorphone 1 Mg/1 Ml Inj IV 0.5 mg Q3H PRN Administration Pain , Severe (7-10) Ceftriaxone Sodium 1 gm in 50 mls @ 100 mls/hr 01/21/21 10:00 01/25/21 09:48 Rocephin/Ns 1 Gm/50 Ml IV 01/30/21 10:29 100 mls/hr Q24H KIRK Administration Protocol Sodium Chloride 100 mls @ 999 mls/hr 01/21/21 13:29 Nacl 0.9% IV CHRISTA PRN Hypotension Metoclopramide HCl 5 mg 01/20/21 22:58 Metoclopramide 10 Mg/2 Ml Inj IV Q6H PRN Nausea And Vomiting Ondansetron HCl 4 mg 01/20/21 22:48 01/24/21 10:28 Ondansetron 4 Mg/2 Ml Inj IV 4 mg Q8H PRN Administration Nausea And Vomiting Oxycodone/Acetaminophen 1 tab 01/20/21 22:48 01/25/21 13:21 Oxycodone /Acetaminophen 5-325mg Tab PO 1 tab Q6H PRN Administration Pain, Moderate (4-6) Pantoprazole Sodium 40 mg 01/21/21 07:30 01/26/21 08:22 Pantoprazole 40 Mg Tab PO 40 mg QDAC KIRK Administration Potassium Chloride 20 meq 01/21/21 10:00 01/25/21 09:47 Potassium Chloride Er 20 Meq Tab PO 20 meq QDAY KIRK Administration Sodium Chloride 10 ml 01/21/21 10:00 01/26/21 09:23 Sodium Chloride 0.9% 10 Ml Flush Syringe IV 10 ml BID KIRK Administration Sodium Chloride 10 ml 01/20/21 22:48 Sodium Chloride 0.9% 10 Ml Flush Syringe IV PRN PRN LINE FLUSH
[2021-01-26] MEDS: EPOETIN ALFA-EPBX 10,000 UNIT/1 ML VIAL IV PRN (11:43)
--- NOTE | 2021-01-26 12:18 | Progress Note ---
Assessment and Plan Cultures: 01/20/2021 blood culture: E. coli 01/20/2021 urine culture: No growth 01/23/2021 blood culture: no growth A/P: 70-year-old male with ESRD on HD, hypertension, hyperlipidemia, gastroesophageal reflux disease was admitted to the hospital with altered mental status and abdominal pain: #Sepsis, secondary to E. coli bacteremia: Source is very likely urine given UA with significant pyuria, CT evidence of perinephric stranding. Urine culture however is without growth. Patient does have indwelling HD catheter, however it does not appear infected. #ESRD on HD: Has indwelling HD catheter. Renally dose antibiotics. #Acute encephalopathy: Possibly sepsis related, seems better. Recs: From ID standpoint, OK for discharge on p.o. Ciprofloxacin 500 mg daily ending 01/30/2021 (5 more days) repeat blood cultures are negative, no need to remove Mervin Walker MD, FACP [facility] ([facility] O: [phone] F: [phone] Subjective Date of service: 01/26/21 Interval history: No fever. Seen at dialysis. Denies any complaints. Objective - Exam Narrative Exam: Physical Exam: Constitutional: awake, alert, no distress Head, Ears, Nose: Normocephalic, atraumatic. External ears, nose normal Eyes: Conjunctivae/corneas clear. No icterus. No ptosis. Neck: Supple, no meningeal signs Cardiovascular: S1, S2 normal. Respiratory: Good air entry, clear to auscultation bilaterally GI: Soft, non-tender; bowel sounds normal. No peritoneal signs Musculoskeletal: No pedal edema, no cyanosis. R subclavian HD cath +, non tender Skin: No rash or abscess Hem/Lymphatic: No palpable cervical or supraclavicular nodes. No lymphangitis Psych: No agitation Neurological: awake, alert, answeirng questions. - Constitutional Vitals: Vital Signs Temp Pulse Resp BP Pulse Ox 98.0 F 79 18 114/78 99 01/26/21 10:15 01/26/21 11:00 01/26/21 10:15 01/26/21 11:00 01/26/21 10:15 Temperature -Last 24 Hours Temperature 98.0 F Temperature 98.0 F Temperature 98.6 F Temperature 98.9 F Temperature 98.1 F Temperature 98.1 F - Labs CBC & Chem 7: 01/24/21 06:03 01/24/21 06:03
[2021-01-26] MEDS: cefTRIAXone/NS 1 GM/50 ML 1 GM/50 ML BAG IV SCH (13:40)
[2021-01-26] MEDS: POTASSIUM CHLORIDE ER 20 MEQ TAB PO SCH (13:41)
[2021-01-26] MEDS: carvediloL 3.125 MG TAB PO SCH ×2 (13:41→22:47)
[2021-01-26] MEDS: APIXABAN 5 MG TAB PO SCH ×2 (13:41→22:46)
--- NOTE | 2021-01-26 14:03 | Progress Note ---
Assessment and Plan 70-year-old -German male with a past medical history of end-stage renal disease, heart failure, anemia who presents with acute metabolic encephalopathy. --Acute metabolic encephalopathy Probably secondary to uremia and urinary tract infection, resolving Will treat the underlying cause, treat UTI with ceftriaxone --Sepsis secondary to urinary tract infection Continue ceftriaxone Urine cultures no growth to date blood cultures growing E. coli, susceptible to ceftriaxone Repeat blood cultures are pending ID consulted --UTI (urinary tract infection) Continue ceftriaxone Urine cultures showing E. coli, --ESRD on hemodialysis Continue hemodialysis, normal scheduled Saturday Nephrology consulted to manage dialysis, notified --Lactic acidosis: Continue to trend, currently downtrending Patient on IV antibiotics Consistent with sepsis --Hypokalemia Supplementation as needed --Chronic systolic heart failure with reduced ejection fraction Continue carvedilol, no ALEX or ARB due to ESRD --Hypertension cont Carvedilol Hydralazine as needed with parameters. --GERD (gastroesophageal reflux disease) Continue PPIs/H2 blockers --Anemia Due to chronic kidney disease and end-stage renal disease No signs of bleeding, Transfuse patient if hemoglobin falls below 7.0 CODE STATUS: Full DVT prophylaxis: Eliquis Disposition: Continue treatment for E. coli bacteremia. Patient currently on ceftriaxone, repeat cultures have been ordered, ID consulted. Physical therapy to see the patient to continue PT orders for home health. However patient needs to be reassessed to see if patient needs SNF. Daily clinical course: 01/21/2021: Patient seen and examined, patient seems somewhat confused. Waxing and waning and has some episodes of being lucid. Patient eating breakfast. 01/22/2021: Patient seen and examined, lying in bed, eating breakfast, states that he does not feel well but there is no specific thing that he can point to. Patient in no acute distress. 01/23/2021: Patient seen and examined, lying in bed, finished breakfast, states that he feels somewhat better. Patient with positive blood cultures, susceptible to current antibiotics, ceftriaxone. Repeat blood cultures have been ordered. 01/24/21: Wait for repeat blood culture results from 01/23/2021. If blood culture remains negative at 48 hours patient should be discharged home with oral an tibiotics and no need to remove HD catheter. 01/25/21; Repeat blood cultures from 01/24/2022 is negative. PT recommended subacute rehab. No need to remove HD catheter. Patient will need oral antibiot ics on discharge. pst manager consulted for placement. 01/26/21: Patient clinically stable, needs subacute rehab/SNF placement. pst manager assisting, discharge pending on placement. Subjective Date of service: 01/26/21 Interval history: Patient seen and examined. Medical records and medication list reviewed. No acute event overnight noted by the RN. Patient denies any chest pain or difficulty breathing. Patient is tolerating diet. PT recommended subacute rehab, pending placement Discussed plan of care at bedside with patient. Objective - Exam Narrative Exam: GENERAL: well-developed and well-nourished -German male lying on bed appeared to be in no discomfort. HEENT: Normocephalic. Atraumatic. No conjunctival congestion or icterus. Patient has moist mucous membranes. NECK: Supple. Trachea midline. CHEST/LUNGS: Clear to auscultated bilaterally, breathing nonlabored. No wheezes crackles or rhonchi. HEART/CARDIOVASCULAR: Regular in rate and rhythm. S1 and S2 positive. ABDOMEN: Abdomen is soft, nontender. Patient has normal bowel sounds. SKIN: There is no rash. Warm and dry. NEURO: No focal motor deficit. Follows command. MUSCULOSKELETAL: No joint effusion or tenderness. EXTRIMITY: No edema, no cyanosis or clubbing. PSYCH: Cooperative. - Constitutional Vitals: Vital Signs - 12hr 01/26/21 01/26/21 01/26/21 03:24 03:25 07:43 Temperature 98.6 F 98.0 F Pulse Rate 80 78 70 Pulse Rate [ Apical] Respiratory 19 18 Rate Blood Pressure 105/71 100/65 O2 Sat by Pulse 100 99 94 Oximetry O2 Sat by Pulse Oximetry [ Anterior Bilateral Throughout] 01/26/21 01/26/21 01/26/21 08:00 10:15 10:30 Temperature 98.0 F Pulse Rate 73 76 Pulse Rate [ 78 Apical] Respiratory 15 18 Rate Blood Pressure 121/58 108/76 O2 Sat by Pulse 96 Oximetry O2 Sat by Pulse 99 Oximetry [ Anterior Bilateral Throughout] 01/26/21 01/26/21 01/26/21 10:45 11:00 11:15 Temperature Pulse Rate 79 79 81 Pulse Rate [ Apical] Respiratory Rate Blood Pressure 120/71 114/78 119/76 O2 Sat by Pulse Oximetry O2 Sat by Pulse Oximetry [ Anterior Bilateral Throughout] 01/26/21 01/26/21 01/26/21 11:30 11:45 12:00 Temperature Pulse Rate 85 79 84 Pulse Rate [ Apical] Respiratory Rate Blood Pressure 113/77 110/70 99/74 O2 Sat by Pulse Oximetry O2 Sat by Pulse Oximetry [ Anterior Bilateral Throughout] 01/26/21 01/26/21 01/26/21 12:15 12:30 12:45 Temperature Pulse Rate 83 81 83 Pulse Rate [ Apical] Respiratory Rate Blood Pressure 105/72 101/70 104/72 O2 Sat by Pulse Oximetry O2 Sat by Pulse Oximetry [ Anterior Bilateral Throughout] 01/26/21 13:41 Temperature Pulse Rate 73 Pulse Rate [ Apical] Respiratory Rate Blood Pressure 110/74 O2 Sat by Pulse Oximetry O2 Sat by Pulse Oximetry [ Anterior Bilateral Throughout] - Labs CBC & Chem 7: 01/24/21 06:03 01/24/21 06:03
[2021-01-26] MEDS: oxyCODONE /ACETAMINOPHEN 5-325MG TAB PO PRN (17:09)
[2021-01-26] MEDS: HYDROmorphone 1 MG/1 ML INJ IV PRN (22:47)
[2021-01-27] MEDS: APIXABAN 5 MG TAB PO SCH ×2 (09:13→22:58)
[2021-01-27] MEDS: POTASSIUM CHLORIDE ER 20 MEQ TAB PO SCH (09:13)
[2021-01-27] MEDS: PANTOPRAZOLE 40 MG TAB PO SCH (09:13)
[2021-01-27] MEDS: carvediloL 3.125 MG TAB PO SCH ×2 (09:13→22:59)
[2021-01-27] MEDS: cefTRIAXone/NS 1 GM/50 ML 1 GM/50 ML BAG IV SCH (09:16)
--- NOTE | 2021-01-27 10:35 | Progress Note ---
Assessment and Plan 1. ESRD: Patient is on maintenance hemodialysis three times a week, TTS schedule. Last outpatient HD 01/19. Meds dosage based on GFR. Hemodialysis: 01/21, 01/24, 01/26. 2. FEN: Hypokalemia, improved. Monitor lytes and volume status. 3. Sepsis, POA: E.Coli bacteremia. 2/2 urinary tract infection. Ceftriaxone. 4. Acute metabolic encephalopathy, POA: Likely 2/2 UTI. Supportive care. 5. Anemia, POA: 2/2 ESRD. Epogen with HD as needed. PRBC as needed. 6. HFrEF: Compensated. Monitor. 7. Hypertension: Monitor BP. Adjust meds as appropriate. Subjective: Patient was seen and examined at the bedside. Doing ok. General Appearance: General appearance: well-developed, appears stated age, not in distress HEENT: ATNC, pupils equal Neck: trachea midline Respiratory: ctab Heart: regular, S1S2, no murmur Abdomen: soft, bowel sounds heard, not tender Integumentary: no rash, warm and dry Neurologic: alert, confused, able to move extremities Ext: no edema Hemodialysis access: R IJ tunnel catheter Subjective Date of service: 01/27/21 Objective - Vital Signs Vital signs: Vital Signs - 12hr 01/26/21 01/27/21 01/27/21 22:47 00:07 04:07 Temperature 98.4 F 98.0 F Pulse Rate 67 76 Respiratory 18 18 Rate Blood Pressure 97/66 102/73 96/70 O2 Sat by Pulse 100 85 Oximetry 01/27/21 01/27/21 07:30 09:13 Temperature 98.3 F Pulse Rate 73 73 Respiratory 18 Rate Blood Pressure 96/65 96/65 O2 Sat by Pulse 95 Oximetry - Lab 01/24/21 06:03 01/24/21 06:03 Most recent lab results Calcium 8.4 mg/dL (8.4-10.2) 01/24/21 06:03 Medications & Allergies - Medications Allergies/Adverse Reactions: Allergies No Known Allergies Allergy (Unverified 12/06/20 12:39) Home Medications: Home Medications Medication Instructions Recorded Confirmed Last Taken Type Apixaban [Eliquis] 5 mg PO BID 12/06/20 12/06/20 Unknown History AtorvaSTATin [Lipitor] 40 mg PO QHS 12/06/20 12/06/20 Unknown History Pantoprazole [Protonix TAB] 40 mg PO QDAC #30 tablet 12/15/20 Unknown Rx carvediloL [Coreg] 3.125 mg PO BID #60 tablet 12/15/20 Unknown Rx Active Medications: Generic Name Dose Route Start Last Admin Trade Name Freq PRN Reason Stop Dose Admin Acetaminophen 650 mg 01/20/21 22:48 01/25/21 17:19 Acetaminophen 325 Mg Tab PO 650 mg Q4H PRN Administration Pain MILD(1-3)/Fever >100.5/MILLER Apixaban 5 mg 01/20/21 23:00 01/27/21 09:13 Apixaban 5 Mg Tab PO 5 mg BID KIRK Administration Atorvastatin Calcium 40 mg 01/21/21 22:00 01/26/21 22:47 Atorvastatin 40 Mg Tab PO 40 mg QHS KIRK Administration Carvedilol 3.125 mg 01/21/21 10:00 01/27/21 09:13 Carvedilol 3.125 Mg Tab PO Not Given BID KIRK Heparin Sodium (Porcine) 3,000 unit 01/24/21 10:00 01/24/21 10:29 Heparin 10,000 Units/10 Ml Vial IV 3,000 unit CHRISTA PRN Administration hemodialysis Hydralazine HCl 10 mg 01/22/21 09:00 Hydralazine 20 Mg/1 Ml Inj IV Q4H PRN Blood Pressure Hydromorphone HCl 0.5 mg 01/20/21 16:30 01/26/21 22:47 Hydromorphone 1 Mg/1 Ml Inj IV 0.5 mg Q3H PRN Administration Pain , Severe (7-10) Ceftriaxone Sodium 1 gm in 50 mls @ 100 mls/hr 01/21/21 10:00 01/27/21 09:16 Rocephin/Ns 1 Gm/50 Ml IV 01/30/21 10:29 100 mls/hr Q24H KIRK Administration Protocol Sodium Chloride 100 mls @ 999 mls/hr 01/21/21 13:29 Nacl 0.9% IV CHRISTA PRN Hypotension Metoclopramide HCl 5 mg 01/20/21 22:58 Metoclopramide 10 Mg/2 Ml Inj IV Q6H PRN Nausea And Vomiting Ondansetron HCl 4 mg 01/20/21 22:48 01/24/21 10:28 Ondansetron 4 Mg/2 Ml Inj IV 4 mg Q8H PRN Administration Nausea And Vomiting Oxycodone/Acetaminophen 1 tab 01/20/21 22:48 01/26/21 17:09 Oxycodone /Acetaminophen 5-325mg Tab PO 1 tab Q6H PRN Administration Pain, Moderate (4-6) Pantoprazole Sodium 40 mg 01/21/21 07:30 01/27/21 09:13 Pantoprazole 40 Mg Tab PO 40 mg QDAC KIRK Administration Potassium Chloride 20 meq 01/21/21 10:00 01/27/21 09:13 Potassium Chloride Er 20 Meq Tab PO 20 meq QDAY KIRK Administration Sodium Chloride 10 ml 01/21/21 10:00 01/27/21 09:14 Sodium Chloride 0.9% 10 Ml Flush Syringe IV 10 ml BID KIRK Administration Sodium Chloride 10 ml 01/20/21 22:48 Sodium Chloride 0.9% 10 Ml Flush Syringe IV PRN PRN LINE FLUSH
--- NOTE | 2021-01-27 12:25 | Progress Note ---
Assessment and Plan Cultures: 01/20/2021 blood culture: E. coli 01/20/2021 urine culture: No growth 01/23/2021 blood culture: no growth A/P: 70-year-old male with ESRD on HD, hypertension, hyperlipidemia, gastroesophageal reflux disease was admitted to the hospital with altered mental status and abdominal pain: #Sepsis, secondary to E. coli bacteremia: Source is very likely urine given UA with significant pyuria, CT evidence of perinephric stranding. Urine culture however is without growth. Patient does have indwelling HD catheter, however it does not appear infected. #ESRD on HD: Has indwelling HD catheter. Renally dose antibiotics. #Acute encephalopathy: Possibly sepsis related, seems better. Recs: -From ID standpoint, OK for discharge on p.o. Ciprofloxacin 500 mg daily ending 01/30/2021 (4 more days) -repeat blood cultures are negative, no need to remove PermCath ID will sign off. Please call with questions. Anthony Walker MD, FACP [facility] ([facility] O: [phone] F: [phone] Subjective Date of service: 01/27/21 Interval history: No fever. Denies any complaints. No nausea, vomiting. No cough. Objective - Exam Narrative Exam: Physical Exam: Constitutional: awake, alert, no distress Head, Ears, Nose: Normocephalic, atraumatic. External ears, nose normal Eyes: Conjunctivae/corneas clear. No icterus. No ptosis. Neck: Supple, no meningeal signs Cardiovascular: S1, S2 normal. Respiratory: Good air entry, clear to auscultation bilaterally GI: Soft, non-tender; bowel sounds normal. No peritoneal signs Musculoskeletal: No pedal edema, no cyanosis. R subclavian HD cath +, non tender Skin: No rash or abscess Hem/Lymphatic: No palpable cervical or supraclavicular nodes. No lymphangitis Psych: No agitation Neurological: awake, alert, answeirng questions. - Constitutional Vitals: Vital Signs Temp Pulse Resp BP Pulse Ox 98.3 F 73 18 96/65 95 01/27/21 07:30 01/27/21 09:13 01/27/21 07:30 01/27/21 09:13 01/27/21 07:30 Temperature -Last 24 Hours Temperature 98.3 F Temperature 98.0 F Temperature 98.4 F Temperature 98.0 F Temperature 98.4 F Temperature 98.0 F - Labs CBC & Chem 7: 01/24/21 06:03 01/24/21 06:03
--- NOTE | 2021-01-27 14:36 | Progress Note ---
Assessment and Plan 70-year-old -[place]aur[place] male with a past medical history of end-stage renal disease, heart failure, anemia who presents with acute metabolic encephalopathy. --Acute metabolic encephalopathy Probably secondary to uremia and urinary tract infection, resolving Will treat the underlying cause, treat UTI with ceftriaxone --Sepsis secondary to urinary tract infection Continue ceftriaxone Urine cultures no growth to date blood cultures growing E. coli, susceptible to ceftriaxone Repeat blood cultures are pending ID consulted --UTI (urinary tract infection) Continue ceftriaxone till 01/30/21 Urine cultures showing E. coli, --ESRD on hemodialysis Continue hemodialysis, normal scheduled Saturday Nephrology consulted to manage dialysis, notified --Lactic acidosis: Continue to trend, currently downtrending Patient on IV antibiotics Consistent with sepsis --Hypokalemia Supplementation as needed --Chronic systolic heart failure with reduced ejection fraction Continue carvedilol, no ALEX or ARB due to ESRD --Hypertension cont Carvedilol Hydralazine as needed with parameters. --GERD (gastroesophageal reflux disease) Continue PPIs/H2 blockers --Anemia Due to chronic kidney disease and end-stage renal disease No signs of bleeding, Transfuse patient if hemoglobin falls below 7.0 CODE STATUS: Full DVT prophylaxis: Eliquis Disposition: Continue treatment for E. coli bacteremia. Patient currently on ceftriaxone, repeat cultures have been ordered, ID consulted. Physical therapy to see the patient to continue PT orders for home health. However patient needs to be reassessed to see if patient needs SNF. Daily clinical course: 01/21/2021: Patient seen and examined, patient seems somewhat confused. Waxing and waning and has some episodes of being lucid. Patient eating breakfast. 01/22/2021: Patient seen and examined, lying in bed, eating breakfast, states that he does not feel well but there is no specific thing that he can point to. Patient in no acute distress. 01/23/2021: Patient seen and examined, lying in bed, finished breakfast, states that he feels somewhat better. Patient with positive blood cultures, susceptible to current antibiotics, ceftriaxone. Repeat blood cultures have been ordered. 01/24/21: Wait for repeat blood culture results from 01/23/2021. If blood culture remains negative at 48 hours patient should be discharged home with oral antibiotics and no need to remove HD catheter. 01/25/21; Repeat blood cultures from 01/24/2022 is negative. PT recommended subacute rehab. No need to remove HD catheter. Patient will need oral antibiotics on discharge. hydrogen plant operations manager consulted for placement. 01/26/21 - todate: Patient clinically stable, needs subacute rehab/SNF placement. hydrogen plant operations manager assisting, discharge pending on placement. Subjective Date of service: 01/27/21 Interval history: Patient seen and examined. Medical records and medication list reviewed. No acute event overnight noted by the RN. Patient denies any chest pain or difficulty breathing. Patient is tolerating diet. PT recommended subacute rehab, pending placement Discussed plan of care at bedside with patient. Objective - Exam Narrative Exam: GENERAL: well-developed and well-nourished -[place] male lying on bed appeared to be in no discomfort. HEENT: Normocephalic. Atraumatic. No conjunctival congestion or icterus. Patient has moist mucous membranes. NECK: Supple. Trachea midline. CHEST/LUNGS: Clear to auscultated bilaterally, breathing nonlabored. No wheezes crackles or rhonchi. HEART/CARDIOVASCULAR: Regular in rate and rhythm. S1 and S2 positive. ABDOMEN: Abdomen is soft, nontender. Patient has normal bowel sounds. SKIN: There is no rash. Warm and dry. NEURO: No focal motor deficit. Follows command. MUSCULOSKELETAL: No joint effusion or tenderness. EXTRIMITY: No edema, no cyanosis or clubbing. PSYCH: Cooperative. - Constitutional Vitals: Vital Signs - 12hr 01/27/21 01/27/21 01/27/21 04:07 07:30 09:13 Temperature 98.0 F 98.3 F Pulse Rate 73 73 Respiratory 18 18 Rate Blood Pressure 96/70 96/65 96/65 O2 Sat by Pulse 85 95 Oximetry 01/27/21 01/27/21 01/27/21 10:00 12:00 12:44 Temperature 97.8 F Pulse Rate 71 73 Respiratory 18 Rate Blood Pressure 93/58 O2 Sat by Pulse Oximetry - Labs CBC & Chem 7: 01/24/21 06:03 01/24/21 06:03
[2021-01-28] MEDS: oxyCODONE /ACETAMINOPHEN 5-325MG TAB PO PRN (03:52)
[2021-01-28] MEDS: POTASSIUM CHLORIDE ER 20 MEQ TAB PO SCH (10:07)
[2021-01-28] MEDS: carvediloL 3.125 MG TAB PO SCH ×2 (10:07→22:58)
[2021-01-28] MEDS: APIXABAN 5 MG TAB PO SCH ×2 (10:07→22:55)
[2021-01-28] MEDS: cefTRIAXone/NS 1 GM/50 ML 1 GM/50 ML BAG IV SCH (10:09)
[2021-01-28] MEDS: PANTOPRAZOLE 40 MG TAB PO SCH (10:10)
[2021-01-28] MEDS: HEPARIN 10,000 UNITS/10 ML VIAL IV PRN (11:01)
[2021-01-28] MEDS: EPOETIN ALFA-EPBX 10,000 UNIT/1 ML VIAL IV PRN (11:01)
[2021-01-28] MEDS: HYDROmorphone 1 MG/1 ML INJ IV PRN ×2 (11:02→14:14)
[2021-01-28] MEDS: HALOPERIDOL LACTATE 5 MG/1 ML INJ IM PRN ×2 (12:33→19:35)
--- NOTE | 2021-01-28 13:13 | Progress Note ---
Assessment and Plan 1. ESRD: Patient is on maintenance hemodialysis three times a week, TTS schedule. Last outpatient HD 01/19. Meds dosage based on GFR. Hemodialysis: 01/21, 01/24, 01/26, 01/28. 2. FEN: Hypokalemia, improved. Monitor lytes and volume status. 3. Sepsis, POA: E.Coli bacteremia. 2/2 urinary tract infection. Ceftriaxone. 4. Acute metabolic encephalopathy, POA: Likely 2/2 UTI. Supportive care. 5. Anemia, POA: 2/2 ESRD. Epogen with HD as needed. PRBC as needed. 6. HFrEF: Compensated. Monitor. 7. Hypertension: Monitor BP. Adjust meds as appropriate. Subjective: Patient was seen and examined at the bedside. General Appearance: General appearance: well-developed, appears stated age, not in distress HEENT: ATNC, pupils equal Neck: trachea midline Respiratory: ctab Heart: regular, S1S2, no murmur Abdomen: soft, bowel sounds heard, not tender Integumentary: no rash, warm and dry Neurologic: alert, confused, able to move extremities Ext: no edema Hemodialysis access: R IJ tunnel catheter Subjective Date of service: 01/28/21 Objective - Vital Signs Vital signs: Vital Signs - 12hr 01/28/21 01/28/21 01/28/21 04:29 08:04 10:00 Temperature 98.0 F 98.4 F Pulse Rate 65 75 60 Respiratory 18 20 Rate Blood Pressure 93/62 102/67 O2 Sat by Pulse 86 93 Oximetry O2 Sat by Pulse Oximetry [ Anterior Bilateral Throughout] 01/28/21 01/28/21 01/28/21 11:05 11:12 11:15 Temperature 97.9 F Pulse Rate 65 71 68 Respiratory 18 Rate Blood Pressure 91/60 95/75 97/74 O2 Sat by Pulse Oximetry O2 Sat by Pulse 100 Oximetry [ Anterior Bilateral Throughout] 01/28/21 01/28/21 01/28/21 11:30 11:45 12:00 Temperature Pulse Rate 69 71 74 Respiratory Rate Blood Pressure 76/61 96/66 99/64 O2 Sat by Pulse Oximetry O2 Sat by Pulse Oximetry [ Anterior Bilateral Throughout] 01/28/21 01/28/21 01/28/21 12:15 12:30 12:45 Temperature Pulse Rate 73 75 73 Respiratory Rate Blood Pressure 93/52 101/71 99/74 O2 Sat by Pulse Oximetry O2 Sat by Pulse Oximetry [ Anterior Bilateral Throughout] 01/28/21 13:00 Temperature Pulse Rate 79 Respiratory Rate Blood Pressure 96/71 O2 Sat by Pulse Oximetry O2 Sat by Pulse Oximetry [ Anterior Bilateral Throughout] - Lab 01/24/21 06:03 01/24/21 06:03 Most recent lab results Calcium 8.4 mg/dL (8.4-10.2) 01/24/21 06:03 Medications & Allergies - Medications Allergies/Adverse Reactions: Allergies No Known Allergies Allergy (Unverified 12/06/20 12:39) Home Medications: Home Medications Medication Instructions Recorded Confirmed Last Taken Type Apixaban [Eliquis] 5 mg PO BID 12/06/20 01/28/21 Unknown History AtorvaSTATin [Lipitor] 40 mg PO QHS 12/06/20 01/28/21 Unknown History Pantoprazole [Protonix TAB] 40 mg PO QDAC #30 tablet 12/15/20 01/28/21 Unknown Rx carvediloL [Coreg] 3.125 mg PO BID #60 tablet 12/15/20 01/28/21 Unknown Rx Active Medications: Generic Name Dose Route Start Last Admin Trade Name Freq PRN Reason Stop Dose Admin Acetaminophen 650 mg 01/20/21 22:48 01/25/21 17:19 Acetaminophen 325 Mg Tab PO 650 mg Q4H PRN Administration Pain MILD(1-3)/Fever >100.5/MILLER Apixaban 5 mg 01/20/21 23:00 01/28/21 10:07 Apixaban 5 Mg Tab PO 5 mg BID KIRK Administration Atorvastatin Calcium 40 mg 01/21/21 22:00 01/27/21 22:58 Atorvastatin 40 Mg Tab PO 40 mg QHS KIRK Administration Carvedilol 3.125 mg 01/21/21 10:00 01/28/21 10:07 Carvedilol 3.125 Mg Tab PO 3.125 mg BID KIRK Administration Haloperidol Lactate 5 mg 01/28/21 12:06 01/28/21 12:33 Haloperidol Lactate 5 Mg/1 Ml Inj IM 5 mg Q6H PRN Administration Agitation Heparin Sodium (Porcine) 3,000 unit 01/24/21 10:00 01/28/21 11:01 Heparin 10,000 Units/10 Ml Vial IV 3,000 unit CHRSITA PRN Administration hemodialysis Hydralazine HCl 10 mg 01/22/21 09:00 Hydralazine 20 Mg/1 Ml Inj IV Q4H PRN Blood Pressure Hydromorphone HCl 0.5 mg 01/20/21 16:30 01/28/21 11:02 Hydromorphone 1 Mg/1 Ml Inj IV 0.5 mg Q3H PRN Administration Pain , Severe (7-10) Ceftriaxone Sodium 1 gm in 50 mls @ 100 mls/hr 01/21/21 10:00 01/28/21 10:09 Rocephin/Ns 1 Gm/50 Ml IV 01/30/21 10:29 100 mls/hr Q24H KIRK Administration Protocol Sodium Chloride 100 mls @ 999 mls/hr 01/21/21 13:29 Nacl 0.9% IV CHRISTA PRN Hypotension Metoclopramide HCl 5 mg 01/20/21 22:58 Metoclopramide 10 Mg/2 Ml Inj IV Q6H PRN Nausea And Vomiting Ondansetron HCl 4 mg 01/20/21 22:48 01/24/21 10:28 Ondansetron 4 Mg/2 Ml Inj IV 4 mg Q8H PRN Administration Nausea And Vomiting Oxycodone/Acetaminophen 1 tab 01/20/21 22:48 01/28/21 03:52 Oxycodone /Acetaminophen 5-325mg Tab PO 1 tab Q6H PRN Administration Pain, Moderate (4-6) Pantoprazole Sodium 40 mg 01/21/21 07:30 01/28/21 10:10 Pantoprazole 40 Mg Tab PO 40 mg QDAC KIRK Administration Potassium Chloride 20 meq 01/21/21 10:00 01/28/21 10:07 Potassium Chloride Er 20 Meq Tab PO 20 meq QDAY KIRK Administration Sodium Chloride 10 ml 01/21/21 10:00 01/28/21 10:08 Sodium Chloride 0.9% 10 Ml Flush Syringe IV 10 ml BID KIRK Administration Sodium Chloride 10 ml 01/20/21 22:48 Sodium Chloride 0.9% 10 Ml Flush Syringe IV PRN PRN LINE FLUSH
--- NOTE | 2021-01-28 16:03 | Progress Note ---
Assessment and Plan 70-year-old -[place]oc[place] male with a past medical history of end-stage renal disease, heart failure, anemia who presents with acute metabolic encephalopathy. --Acute metabolic encephalopathy Probably secondary to uremia and urinary tract infection, resolving Will treat the underlying cause, treat UTI with ceftriaxone --Sepsis secondary to urinary tract infection Continue ceftriaxone Urine cultures no growth to date blood cultures growing E. coli, susceptible to ceftriaxone Repeat blood cultures are pending ID consulted --UTI (urinary tract infection) Continue ceftriaxone till 01/30/21 Urine cultures showing E. coli, --ESRD on hemodialysis Continue hemodialysis, normal scheduled Saturday Nephrology consulted to manage dialysis, notified --Lactic acidosis: Continue to trend, currently downtrending Patient on IV antibiotics Consistent with sepsis --Hypokalemia Supplementation as needed --Chronic systolic heart failure with reduced ejection fraction Continue carvedilol, no ALEX or ARB due to ESRD --Hypertension cont Carvedilol Hydralazine as needed with parameters. --GERD (gastroesophageal reflux disease) Continue PPIs/H2 blockers --Anemia Due to chronic kidney disease and end-stage renal disease No signs of bleeding, Transfuse patient if hemoglobin falls below 7.0 CODE STATUS: Full DVT prophylaxis: Eliquis Disposition: Continue treatment for E. coli bacteremia. Patient currently on ceftriaxone, repeat cultures have been ordered, ID consulted. Physical therapy to see the patient to continue PT orders for home health. However patient needs to be reassessed to see if patient needs SNF. Daily clinical course: 01/21/2021: Patient seen and examined, patient seems somewhat confused. Waxing and waning and has some episodes of being lucid. Patient eating breakfast. 01/22/2021: Patient seen and examined, lying in bed, eating breakfast, states that he does not feel well but there is no specific thing that he can point to. Patient in no acute distress. 01/23/2021: Patient seen and examined, lying in bed, finished breakfast, states that he feels somewhat better. Patient with positive blood cultures, susceptible to current antibiotics, ceftriaxone. Repeat blood cultures have been ordered. 01/24/21: Wait for repeat blood culture results from 01/23/2021. If blood culture remains negative at 48 hours patient should be discharged home with oral antibiotics and no need to remove HD catheter. 01/25/21; Repeat blood cultures from 01/24/2022 is negative. PT recommended subacute rehab. No need to remove HD catheter. Patient will need oral antibiotics on discharge. manager financial services consulted for placement. 01/26/21 - todate: Patient clinically stable, needs subacute rehab/SNF placement. manager financial services assisting, discharge pending on placement. Subjective Date of service: 01/28/21 Interval history: Patient seen and examined. Medical records and medication list reviewed. No acute event overnight noted by the RN. Patient denies any chest pain or difficulty breathing. Patient is tolerating diet. PT recommended subacute rehab, pending placement Discussed plan of care at bedside with patient. Objective - Exam Narrative Exam: GENERAL: well-developed and well-nourished -[place] male lying on bed appeared to be in no discomfort. HEENT: Normocephalic. Atraumatic. No conjunctival congestion or icterus. Patient has moist mucous membranes. NECK: Supple. Trachea midline. CHEST/LUNGS: Clear to auscultated bilaterally, breathing nonlabored. No wheezes crackles or rhonchi. HEART/CARDIOVASCULAR: Regular in rate and rhythm. S1 and S2 positive. ABDOMEN: Abdomen is soft, nontender. Patient has normal bowel sounds. SKIN: There is no rash. Warm and dry. NEURO: No focal motor deficit. Follows command. MUSCULOSKELETAL: No joint effusion or tenderness. EXTRIMITY: No edema, no cyanosis or clubbing. PSYCH: Cooperative. - Constitutional Vitals: Vital Signs - 12hr 01/28/21 01/28/21 01/28/21 04:29 08:04 10:00 Temperature 98.0 F 98.4 F Pulse Rate 65 75 60 Respiratory 18 20 Rate Blood Pressure 93/62 102/67 O2 Sat by Pulse 86 93 Oximetry O2 Sat by Pulse Oximetry [ Anterior Bilateral Throughout] 01/28/21 01/28/21 01/28/21 11:05 11:12 11:15 Temperature 97.9 F Pulse Rate 65 71 68 Respiratory 18 Rate Blood Pressure 91/60 95/75 97/74 O2 Sat by Pulse Oximetry O2 Sat by Pulse 100 Oximetry [ Anterior Bilateral Throughout] 01/28/21 01/28/21 01/28/21 11:30 11:45 12:00 Temperature Pulse Rate 69 71 74 Respiratory Rate Blood Pressure 76/61 96/66 99/64 O2 Sat by Pulse Oximetry O2 Sat by Pulse Oximetry [ Anterior Bilateral Throughout] 01/28/21 01/28/21 01/28/21 12:15 12:30 12:45 Temperature Pulse Rate 73 75 73 Respiratory Rate Blood Pressure 93/52 101/71 99/74 O2 Sat by Pulse Oximetry O2 Sat by Pulse Oximetry [ Anterior Bilateral Throughout] 01/28/21 01/28/21 01/28/21 13:00 13:15 13:30 Temperature Pulse Rate 79 75 87 Respiratory Rate Blood Pressure 96/71 102/71 102/72 O2 Sat by Pulse Oximetry O2 Sat by Pulse Oximetry [ Anterior Bilateral Throughout] 01/28/21 01/28/21 01/28/21 13:45 14:00 14:10 Temperature 97.8 F Pulse Rate 78 83 79 Respiratory 20 Rate Blood Pressure 109/73 110/72 103/68 O2 Sat by Pulse Oximetry O2 Sat by Pulse Oximetry [ Anterior Bilateral Throughout] - Labs CBC & Chem 7: 01/24/21 06:03 01/24/21 06:03
--- NOTE | 2021-01-29 09:16 | Progress Note ---
Assessment and Plan 1. ESRD: Patient is on maintenance hemodialysis three times a week, TTS schedule. Last outpatient HD 01/19. Meds dosage based on GFR. Hemodialysis: 01/21, 01/24, 01/26, 01/28. 2. FEN: Hypokalemia, improved. Monitor lytes and volume status. 3. Sepsis, POA: E.Coli bacteremia. 2/2 urinary tract infection. Ceftriaxone. 4. Acute metabolic encephalopathy, POA: Likely 2/2 UTI. Supportive care. 5. Anemia, POA: 2/2 ESRD. Epogen with HD as needed. PRBC as needed. 6. HFrEF: Compensated. Monitor. 7. Hypertension: Monitor BP. Adjust meds as appropriate. Subjective: Patient was seen and examined at the bedside. General Appearance: General appearance: well-developed, appears stated age, not in distress HEENT: ATNC, pupils equal Neck: trachea midline Respiratory: ctab Heart: regular, S1S2, no murmur Abdomen: soft, bowel sounds heard, not tender Integumentary: no rash, warm and dry Neurologic: alert, confused, able to move extremities Ext: no edema Hemodialysis access: R IJ tunnel catheter Subjective Date of service: 01/29/21 Objective - Vital Signs Vital signs: Vital Signs - 12hr 01/28/21 01/28/21 01/28/21 22:00 22:58 23:21 Temperature 97.4 F L Pulse Rate 72 72 76 Pulse Rate [ 72 Apical] Respiratory 18 Rate Blood Pressure 100/87 102/68 O2 Sat by Pulse 94 Oximetry 01/29/21 01/29/21 01/29/21 04:17 04:39 08:20 Temperature 98.4 F 98.6 F Pulse Rate 75 62 Pulse Rate [ Apical] Respiratory 18 20 Rate Blood Pressure 98/61 95/56 O2 Sat by Pulse 100 47 L Oximetry - Lab 01/24/21 06:03 01/24/21 06:03 Most recent lab results Calcium 8.4 mg/dL (8.4-10.2) 01/24/21 06:03 Medications & Allergies - Medications Allergies/Adverse Reactions: Allergies No Known Allergies Allergy (Unverified 12/06/20 12:39) Home Medications: Home Medications Medication Instructions Recorded Confirmed Last Taken Type Apixaban [Eliquis] 5 mg PO BID 12/06/20 01/28/21 Unknown History AtorvaSTATin [Lipitor] 40 mg PO QHS 12/06/20 01/28/21 Unknown History Pantoprazole [Protonix TAB] 40 mg PO QDAC #30 tablet 12/15/20 01/28/21 Unknown Rx carvediloL [Coreg] 3.125 mg PO BID #60 tablet 12/15/20 01/28/21 Unknown Rx Active Medications: Generic Name Dose Route Start Last Admin Trade Name Freq PRN Reason Stop Dose Admin Acetaminophen 650 mg 01/20/21 22:48 01/25/21 17:19 Acetaminophen 325 Mg Tab PO 650 mg Q4H PRN Administration Pain MILD(1-3)/Fever >100.5/MILLER Apixaban 5 mg 01/20/21 23:00 01/28/21 22:55 Apixaban 5 Mg Tab PO 5 mg BID KIRK Administration Atorvastatin Calcium 40 mg 01/21/21 22:00 01/28/21 22:56 Atorvastatin 40 Mg Tab PO 40 mg QHS KIRK Administration Carvedilol 3.125 mg 01/21/21 10:00 01/28/21 22:58 Carvedilol 3.125 Mg Tab PO 3.125 mg BID KIRK Administration Haloperidol Lactate 5 mg 01/28/21 12:06 01/28/21 19:35 Haloperidol Lactate 5 Mg/1 Ml Inj IM 5 mg Q6H PRN Administration Agitation Heparin Sodium (Porcine) 3,000 unit 01/24/21 10:00 01/28/21 11:01 Heparin 10,000 Units/10 Ml Vial IV 3,000 unit CHRISTA PRN Administration hemodialysis Hydralazine HCl 10 mg 01/22/21 09:00 Hydralazine 20 Mg/1 Ml Inj IV Q4H PRN Blood Pressure Hydromorphone HCl 0.5 mg 01/20/21 16:30 01/28/21 14:14 Hydromorphone 1 Mg/1 Ml Inj IV 0.5 mg Q3H PRN Administration Pain , Severe (7-10) Ceftriaxone Sodium 1 gm in 50 mls @ 100 mls/hr 01/21/21 10:00 01/28/21 10:09 Rocephin/Ns 1 Gm/50 Ml IV 01/30/21 10:29 100 mls/hr Q24H KIRK Administration Protocol Sodium Chloride 100 mls @ 999 mls/hr 01/21/21 13:29 Nacl 0.9% IV CHRISTA PRN Hypotension Metoclopramide HCl 5 mg 01/20/21 22:58 01/28/21 22:57 Metoclopramide 10 Mg/2 Ml Inj IV 5 mg Q6H PRN Administration Nausea And Vomiting Ondansetron HCl 4 mg 01/20/21 22:48 01/24/21 10:28 Ondansetron 4 Mg/2 Ml Inj IV 4 mg Q8H PRN Administration Nausea And Vomiting Oxycodone/Acetaminophen 1 tab 01/20/21 22:48 01/28/21 03:52 Oxycodone /Acetaminophen 5-325mg Tab PO 1 tab Q6H PRN Administration Pain, Moderate (4-6) Pantoprazole Sodium 40 mg 01/21/21 07:30 01/28/21 10:10 Pantoprazole 40 Mg Tab PO 40 mg QDAC KIRK Administration Potassium Chloride 20 meq 01/21/21 10:00 01/28/21 10:07 Potassium Chloride Er 20 Meq Tab PO 20 meq QDAY KIRK Administration Sodium Chloride 10 ml 01/21/21 10:00 01/28/21 22:57 Sodium Chloride 0.9% 10 Ml Flush Syringe IV 10 ml BID KIRK Administration Sodium Chloride 10 ml 01/20/21 22:48 01/28/21 19:35 Sodium Chloride 0.9% 10 Ml Flush Syringe IV 10 ml PRN PRN Administration LINE FLUSH
[2021-01-29] MEDS: PANTOPRAZOLE 40 MG TAB PO SCH (10:04)
[2021-01-29] MEDS: cefTRIAXone/NS 1 GM/50 ML 1 GM/50 ML BAG IV SCH (10:05)
[2021-01-29] MEDS: POTASSIUM CHLORIDE ER 20 MEQ TAB PO SCH (10:05)
[2021-01-29] MEDS: APIXABAN 5 MG TAB PO SCH ×2 (10:05→21:40)
[2021-01-29] MEDS: carvediloL 3.125 MG TAB PO SCH ×2 (10:05→22:16)
--- NOTE | 2021-01-29 15:14 | Progress Note ---
Assessment and Plan 70-year-old -[place] male with a past medical history of end-stage renal disease, heart failure, anemia who presents with acute metabolic encephalopathy. --Acute metabolic encephalopathy Probably secondary to uremia and urinary tract infection, resolving Will treat the underlying cause, treat UTI with ceftriaxone --Sepsis secondary to urinary tract infection Continue ceftriaxone Urine cultures no growth to date blood cultures growing E. coli, susceptible to ceftriaxone Repeat blood cultures are pending ID consulted --UTI (urinary tract infection) Continue ceftriaxone till 01/30/21 Urine cultures showing E. coli, --ESRD on hemodialysis Continue hemodialysis, normal scheduled Saturday Nephrology consulted to manage dialysis, notified --Lactic acidosis: Continue to trend, currently downtrending Patient on IV antibiotics Consistent with sepsis --Hypokalemia Supplementation as needed --Chronic systolic heart failure with reduced ejection fraction Continue carvedilol, no ALEX or ARB due to ESRD --Hypertension cont Carvedilol Hydralazine as needed with parameters. --GERD (gastroesophageal reflux disease) Continue PPIs/H2 blockers --Anemia Due to chronic kidney disease and end-stage renal disease No signs of bleeding, Transfuse patient if hemoglobin falls below 7.0 CODE STATUS: Full DVT prophylaxis: Eliquis Disposition: Continue treatment for E. coli bacteremia. Patient currently on ceftriaxone, repeat cultures have been ordered, ID consulted. Physical therapy to see the patient to continue PT orders for home health. However patient needs to be reassessed to see if patient needs SNF. Daily clinical course: 01/21/2021: Patient seen and examined, patient seems somewhat confused. Waxing and waning and has some episodes of being lucid. Patient eating breakfast. 01/22/2021: Patient seen and examined, lying in bed, eating breakfast, states that he does not feel well but there is no specific thing that he can point to. Patient in no acute distress. 01/23/2021: Patient seen and examined, lying in bed, finished breakfast, states that he feels somewhat better. Patient with positive blood cultures, susceptible to current antibiotics, ceftriaxone. Repeat blood cultures have been ordered. 01/24/21: Wait for repeat blood culture results from 01/23/2021. If blood culture remains negative at 48 hours patient should be discharged home with oral antibiotics and no need to remove HD catheter. 01/25/21; Repeat blood cultures from 01/24/2022 is negative. PT recommended subacute rehab. No need to remove HD catheter. Patient will need oral antibiotics on discharge. manager learning consulted for placement. 01/26/21 - todate: Patient clinically stable, needs subacute rehab/SNF placement. manager learning assisting, discharge pending on placement. Subjective Date of service: 01/29/21 Interval history: Patient seen and examined. Medical records and medication list reviewed. No acute event overnight noted by the RN. Patient denies any chest pain or difficulty breathing. Patient is tolerating diet. PT recommended subacute rehab, pending placement Discussed plan of care at bedside with patient. Objective - Exam Narrative Exam: GENERAL: well-developed and well-nourished -[place] male lying on bed appeared to be in no discomfort. HEENT: Normocephalic. Atraumatic. No conjunctival congestion or icterus. Patient has moist mucous membranes. NECK: Supple. Trachea midline. CHEST/LUNGS: Clear to auscultated bilaterally, breathing nonlabored. No wheezes crackles or rhonchi. HEART/CARDIOVASCULAR: Regular in rate and rhythm. S1 and S2 positive. ABDOMEN: Abdomen is soft, nontender. Patient has normal bowel sounds. SKIN: There is no rash. Warm and dry. NEURO: No focal motor deficit. Follows command. MUSCULOSKELETAL: No joint effusion or tenderness. EXTRIMITY: No edema, no cyanosis or clubbing. PSYCH: Cooperative. - Constitutional Vitals: Vital Signs - 12hr 01/29/21 01/29/21 01/29/21 04:17 04:39 08:20 Temperature 98.4 F 98.6 F Pulse Rate 75 62 Respiratory 18 20 Rate Blood Pressure 98/61 95/56 Blood Pressure [Right] O2 Sat by Pulse 100 47 L Oximetry 01/29/21 01/29/21 10:00 12:40 Temperature 9.8 F L Pulse Rate 62 90 Respiratory 18 Rate Blood Pressure Blood Pressure 95/57 [Right] O2 Sat by Pulse 95 Oximetry - Labs CBC & Chem 7: 01/24/21 06:03 01/24/21 06:03
[2021-01-29] MEDS: ACETAMINOPHEN 325 MG TAB PO PRN (21:39)
[2021-01-29] MEDS: HALOPERIDOL LACTATE 5 MG/1 ML INJ IM PRN (21:40)
--- NOTE | 2021-01-30 08:33 | Progress Note ---
Assessment and Plan 1. ESRD: Patient is on maintenance hemodialysis three times a week, TTS schedule. Last outpatient HD 01/19. Meds dosage based on GFR. Hemodialysis: 01/21, 01/24, 01/26, 01/28. 2. FEN: Hypokalemia, improved. Monitor lytes and volume status. 3. Sepsis, POA: E.Coli bacteremia. 2/2 urinary tract infection. Ceftriaxone. 4. Acute metabolic encephalopathy, POA: Likely 2/2 UTI. Supportive care. 5. Anemia, POA: 2/2 ESRD. Epogen with HD as needed. PRBC as needed. 6. HFrEF: Compensated. Monitor. 7. Hypertension: Monitor BP. Adjust meds as appropriate. Subjective: Patient was seen and examined at the bedside. General Appearance: General appearance: well-developed, appears stated age, not in distress HEENT: ATNC, pupils equal Neck: trachea midline Respiratory: ctab Heart: regular, S1S2, no murmur Abdomen: soft, bowel sounds heard, not tender Integumentary: no rash, warm and dry Neurologic: alert, confused, able to move extremities Ext: no edema Hemodialysis access: R IJ tunnel catheter Subjective Date of service: 01/30/21 Objective - Vital Signs Vital signs: Vital Signs - 12hr 01/29/21 01/29/21 01/29/21 21:39 22:00 22:16 Temperature Pulse Rate 72 62 Respiratory 22 Rate Blood Pressure 97/61 O2 Sat by Pulse Oximetry 01/29/21 01/30/21 01/30/21 23:17 04:20 07:45 Temperature 98.3 F 97.5 F L 97.3 F L Pulse Rate 72 58 L Respiratory 19 18 18 Rate Blood Pressure 90/63 90/57 106/66 O2 Sat by Pulse 97 94 66 L Oximetry - Lab 01/24/21 06:03 01/24/21 06:03 Most recent lab results Calcium 8.4 mg/dL (8.4-10.2) 01/24/21 06:03 Medications & Allergies - Medications Allergies/Adverse Reactions: Allergies No Known Allergies Allergy (Unverified 12/06/20 12:39) Home Medications: Home Medications Medication Instructions Recorded Confirmed Last Taken Type Apixaban [Eliquis] 5 mg PO BID 12/06/20 01/28/21 Unknown History AtorvaSTATin [Lipitor] 40 mg PO QHS 12/06/20 01/28/21 Unknown History Pantoprazole [Protonix TAB] 40 mg PO QDAC #30 tablet 12/15/20 01/28/21 Unknown Rx carvediloL [Coreg] 3.125 mg PO BID #60 tablet 12/15/20 01/28/21 Unknown Rx Active Medications: Generic Name Dose Route Start Last Admin Trade Name Freq PRN Reason Stop Dose Admin Acetaminophen 650 mg 01/20/21 22:48 01/29/21 21:39 Acetaminophen 325 Mg Tab PO 650 mg Q4H PRN Administration Pain MILD(1-3)/Fever >100.5/MILLER Apixaban 5 mg 01/20/21 23:00 01/29/21 21:40 Apixaban 5 Mg Tab PO 5 mg BID KIRK Administration Atorvastatin Calcium 40 mg 01/21/21 22:00 01/29/21 21:39 Atorvastatin 40 Mg Tab PO 40 mg QHS KIRK Administration Carvedilol 3.125 mg 01/21/21 10:00 01/29/21 22:16 Carvedilol 3.125 Mg Tab PO Not Given BID KIRK Haloperidol Lactate 5 mg 01/28/21 12:06 01/29/21 21:40 Haloperidol Lactate 5 Mg/1 Ml Inj IM 5 mg Q6H PRN Administration Agitation Heparin Sodium (Porcine) 3,000 unit 01/24/21 10:00 01/28/21 11:01 Heparin 10,000 Units/10 Ml Vial IV 3,000 unit CHRISTA PRN Administration hemodialysis Hydralazine HCl 10 mg 01/22/21 09:00 Hydralazine 20 Mg/1 Ml Inj IV Q4H PRN Blood Pressure Hydromorphone HCl 0.5 mg 01/20/21 16:30 01/28/21 14:14 Hydromorphone 1 Mg/1 Ml Inj IV 0.5 mg Q3H PRN Administration Pain , Severe (7-10) Ceftriaxone Sodium 1 gm in 50 mls @ 100 mls/hr 01/21/21 10:00 01/29/21 10:05 Rocephin/Ns 1 Gm/50 Ml IV 01/30/21 10:29 100 mls/hr Q24H KIRK Administration Protocol Sodium Chloride 100 mls @ 999 mls/hr 01/21/21 13:29 Nacl 0.9% IV CHRISTA PRN Hypotension Metoclopramide HCl 5 mg 01/20/21 22:58 01/28/21 22:57 Metoclopramide 10 Mg/2 Ml Inj IV 5 mg Q6H PRN Administration Nausea And Vomiting Ondansetron HCl 4 mg 01/20/21 22:48 01/24/21 10:28 Ondansetron 4 Mg/2 Ml Inj IV 4 mg Q8H PRN Administration Nausea And Vomiting Oxycodone/Acetaminophen 1 tab 01/20/21 22:48 01/28/21 03:52 Oxycodone /Acetaminophen 5-325mg Tab PO 1 tab Q6H PRN Administration Pain, Moderate (4-6) Pantoprazole Sodium 40 mg 01/21/21 07:30 01/29/21 10:04 Pantoprazole 40 Mg Tab PO 40 mg QDAC KIRK Administration Potassium Chloride 20 meq 01/21/21 10:00 01/29/21 10:05 Potassium Chloride Er 20 Meq Tab PO 20 meq QDAY KIRK Administration Sodium Chloride 10 ml 01/21/21 10:00 01/29/21 21:40 Sodium Chloride 0.9% 10 Ml Flush Syringe IV 10 ml BID KIRK Administration Sodium Chloride 10 ml 01/20/21 22:48 01/28/21 19:35 Sodium Chloride 0.9% 10 Ml Flush Syringe IV 10 ml PRN PRN Administration LINE FLUSH
[2021-01-30] MEDS: carvediloL 3.125 MG TAB PO SCH ×2 (12:00→21:59)
[2021-01-30] MEDS: cefTRIAXone/NS 1 GM/50 ML 1 GM/50 ML BAG IV SCH (12:00)
[2021-01-30] MEDS: POTASSIUM CHLORIDE ER 20 MEQ TAB PO SCH (12:01)
[2021-01-30] MEDS: PANTOPRAZOLE 40 MG TAB PO SCH (12:01)
[2021-01-30] MEDS: APIXABAN 5 MG TAB PO SCH ×2 (12:01→21:59)
--- NOTE | 2021-01-30 15:56 | Progress Note ---
Assessment and Plan 70-year-old -[place] male with a past medical history of end-stage renal disease, heart failure, anemia who presents with acute metabolic encephalopathy. --Acute metabolic encephalopathy Probably secondary to uremia and urinary tract infection, resolving Will treat the underlying cause, treat UTI with ceftriaxone --Sepsis secondary to urinary tract infection Continue ceftriaxone Urine cultures no growth to date blood cultures growing E. coli, susceptible to ceftriaxone Repeat blood cultures are pending ID consulted --UTI (urinary tract infection) Continue ceftriaxone till 01/30/21 Urine cultures showing E. coli, --ESRD on hemodialysis Continue hemodialysis, normal scheduled Saturday Nephrology consulted to manage dialysis, notified --Lactic acidosis: Continue to trend, currently downtrending Patient on IV antibiotics Consistent with sepsis --Hypokalemia Supplementation as needed --Chronic systolic heart failure with reduced ejection fraction Continue carvedilol, no ALEX or ARB due to ESRD --Hypertension cont Carvedilol Hydralazine as needed with parameters. --GERD (gastroesophageal reflux disease) Continue PPIs/H2 blockers --Anemia Due to chronic kidney disease and end-stage renal disease No signs of bleeding, Transfuse patient if hemoglobin falls below 7.0 CODE STATUS: Full DVT prophylaxis: Eliquis Disposition: Continue treatment for E. coli bacteremia. Patient currently on ceftriaxone, repeat cultures have been ordered, ID consulted. Physical therapy to see the patient to continue PT orders for home health. However patient needs to be reassessed to see if patient needs SNF. Daily clinical course: 01/21/2021: Patient seen and examined, patient seems somewhat confused. Waxing and waning and has some episodes of being lucid. Patient eating breakfast. 01/22/2021: Patient seen and examined, lying in bed, eating breakfast, states that he does not feel well but there is no specific thing that he can point to. Patient in no acute distress. 01/23/2021: Patient seen and examined, lying in bed, finished breakfast, states that he feels somewhat better. Patient with positive blood cultures, susceptible to current antibiotics, ceftriaxone. Repeat blood cultures have been ordered. 01/24/21: Wait for repeat blood culture results from 01/23/2021. If blood culture remains negative at 48 hours patient should be discharged home with oral antibiotics and no need to remove HD catheter. 01/25/21; Repeat blood cultures from 01/24/2022 is negative. PT recommended subacute rehab. No need to remove HD catheter. Patient will need oral antibiotics on discharge. assistant site manager consulted for placement. 01/26/21 - todate: Patient clinically stable, needs subacute rehab/SNF placement. assistant site manager assisting, discharge pending on placement. Subjective Date of service: 01/30/21 Interval history: Patient seen and examined. Medical records and medication list reviewed. No acute event overnight noted by the RN. Patient denies any chest pain or difficulty breathing. Patient is tolerating diet. PT recommended subacute rehab, pending placement Discussed plan of care at bedside with patient. Objective - Exam Narrative Exam: GENERAL: well-developed and well-nourished -[place] male lying on bed appeared to be in no discomfort. HEENT: Normocephalic. Atraumatic. No conjunctival congestion or icterus. Patient has moist mucous membranes. NECK: Supple. Trachea midline. CHEST/LUNGS: Clear to auscultated bilaterally, breathing nonlabored. No wheezes crackles or rhonchi. HEART/CARDIOVASCULAR: Regular in rate and rhythm. S1 and S2 positive. ABDOMEN: Abdomen is soft, nontender. Patient has normal bowel sounds. SKIN: There is no rash. Warm and dry. NEURO: No focal motor deficit. Follows command. MUSCULOSKELETAL: No joint effusion or tenderness. EXTRIMITY: No edema, no cyanosis or clubbing. PSYCH: Cooperative. - Constitutional Vitals: Vital Signs - 12hr 01/30/21 01/30/21 04:20 07:45 Temperature 97.5 F L 97.3 F L Pulse Rate 58 L Respiratory 18 18 Rate Blood Pressure 90/57 106/66 O2 Sat by Pulse 94 66 L Oximetry - Labs CBC & Chem 7: 01/24/21 06:03 01/24/21 06:03
[2021-01-31] MEDS ORDERED: SODIUM CHLORIDE 0.9% 250ML 250 ML IV ONE (03:05)
[2021-01-31] MEDS ORDERED: ATROPINE 0.1% (1 MG/10 ML) CARDIAC SYRINGE ONE (07:15)
--- NOTE | 2021-01-31 07:28 | Event Note ---
Date: 01/31/21 I responded to CYNDI HERMOSILLO this morning. As per patient's nurse, patient had asystole, CYNDI HERMOSILLO was called, patient received brief CPR with chest compressions, no medications Patient also had brief bradycardia, resolved without treatment, when I arrived and examined the patient, patient is lethargic, responds to Loud verbal commands with simple yes/ no, bradycardia resolved, vital signs stable.Lungs: Bilateral air entry good, CVS; S1-S2 regular Ordered a set of labs, attending physician was informed. Please refer to the code sheet for details
[2021-01-31] MEDS ORDERED: NORepinephrine/NS 4 MG-250 ML 4 MG/250 ML BAG IV SCH (08:00)
[2021-01-31] MEDS ORDERED: SODIUM CHLORIDE 0.9% 1000 ML 1,000 ML IV SCH (08:00)
--- NOTE | 2021-01-31 08:05 | XRay Report ---
CHEST 1 VIEW INDICATION: s/p code blue. COMPARISON: 01/20/2021 FINDINGS: Support devices: Right IJ venous catheter is unchanged terminating in the right atrium. Heart: Stable mild cardiomegaly. Lungs/Pleura: The lungs are generally clear with no evidence for pneumonia, pleural effusion or pneum othorax. Additional findings: None. IMPRESSION: No acute findings. Mild cardiomegaly. Lungs clear. Signer Name: Wagner Reece Jr, MD Signed: 01/31/2021 8:01 AM Workstation Name: [id number]
[2021-01-31 08:14] LABS: Basophils # (Auto) 0.1 K/mm3 (0.0-0.1); Basophils % (Auto) 0.5 % (0.0-1.8); Eosinophils % (Auto) 0.1 % (0.0-4.3); Hematocrit 30.4 % (35.5-45.6); Hemoglobin 9.8 gm/dl (11.8-15.2); Lymphocytes # (Auto) 1.1 K/mm3 (1.2-5.4); Lymphocytes % (Auto) 10.4 % (13.4-35.0); Mean Corpuscular HGB Conc 32 % (32-34); Mean Corpuscular Volume 102 fl (84-94); Monocytes # (Auto) 0.7 K/mm3 (0.0-0.8); Red Blood Count 2.98 M/mm3 (3.65-5.03)
[2021-01-31 08:18] LABS: Platelet Count 65 K/mm3 (140-440); Red Cell Distribution Width 22.1 % (13.2-15.2)
[2021-01-31 08:38] LABS: Albumin 2.7 g/dL (3.9-5); Calcium 7.5 mg/dL (8.4-10.2)
[2021-01-31] MEDS ORDERED: SODIUM BICARB 8.4% 50 MEQ/50 ML SYRINGE IV NR (09:01)
[2021-01-31] MEDS: oxyCODONE /ACETAMINOPHEN 5-325MG TAB PO PRN (09:22)
[2021-01-31] MEDS: EPOETIN ALFA-EPBX 10,000 UNIT/1 ML VIAL IV PRN (09:27)
[2021-01-31] MEDS: HEPARIN 10,000 UNITS/10 ML VIAL IV PRN (09:27)
[2021-01-31] MEDS ORDERED: D5W/0.9% NACL 1,000 ML IV SCH (10:00)
--- NOTE | 2021-01-31 10:03 | Progress Note ---
Assessment and Plan 1. ESRD: Patient is on maintenance hemodialysis three times a week, TTS schedule. Last outpatient HD 01/19. Meds dosage based on GFR. Hemodialysis: 01/21, 01/24, 01/26, 01/28, 01/31. 2. FEN: Hyperkalemia, 1K/2K bath with HD. Kayexalate ordered. On IV fluids. Monitor lytes and volume status. 3. Sinus bradycardia: CYNDI HERMOSILLO was called this AM, patient received brief CPR with chest compressions, no medications. Suspect 2/2 hyperkalemia. Improved. Seen by Cards. 4. Sepsis, POA: E.Coli bacteremia. 2/2 urinary tract infection. S/p Ceftriaxone. 5. Acute metabolic encephalopathy, POA: Likely 2/2 UTI. Supportive care. 6. Anemia, POA: 2/2 ESRD. Epogen with HD as needed. PRBC as needed. 7. HFrEF: Compensated. Monitor. 8. Hypotension: IV fluids. Started on Midodrine. Monitor BP. Subjective: Patient was seen and examined at the bedside. General Appearance: General appearance: well-developed, appears stated age, not in distress HEENT: ATNC, pupils equal Neck: trachea midline Respiratory: ctab Heart: regular, S1S2, no murmur Abdomen: soft, bowel sounds heard, not tender Integumentary: no rash, warm and dry Neurologic: lethargic, not following any command Ext: no edema Hemodialysis access: R IJ tunnel catheter Subjective Date of service: 01/31/21 Objective - Vital Signs Vital signs: Vital Signs - 12hr 01/30/21 01/30/21 01/31/21 23:31 23:32 02:50 Temperature 97.4 F L Pulse Rate 56 L 58 L Respiratory 19 2 L Rate Blood Pressure 87/57 Blood Pressure 81/52 [Left] O2 Sat by Pulse 79 L 97 Oximetry O2 Sat by Pulse Oximetry [ Anterior Bilateral Throughout] 01/31/21 01/31/21 01/31/21 03:42 06:30 08:04 Temperature 97.2 F L 98.3 F Pulse Rate 71 66 78 Respiratory 20 22 Rate Blood Pressure 93/65 76/47 Blood Pressure 91/50 [Left] O2 Sat by Pulse 83 L 97 Oximetry O2 Sat by Pulse Oximetry [ Anterior Bilateral Throughout] 01/31/21 01/31/21 01/31/21 09:20 09:25 09:30 Temperature 97.9 F Pulse Rate 76 71 81 Respiratory 20 Rate Blood Pressure 160/143 119/96 92/35 Blood Pressure [Left] O2 Sat by Pulse Oximetry O2 Sat by Pulse 100 Oximetry [ Anterior Bilateral Throughout] 01/31/21 09:45 Temperature Pulse Rate 62 Respiratory Rate Blood Pressure 141/41 Blood Pressure [Left] O2 Sat by Pulse Oximetry O2 Sat by Pulse Oximetry [ Anterior Bilateral Throughout] - Lab 01/31/21 08:07 01/31/21 14:18 Most recent lab results Calcium 7.5 mg/dL (8.4-10.2) L 01/31/21 08:07 Phosphorus 7.20 mg/dL (2.5-4.5) H 01/31/21 08:07 Magnesium 2.30 mg/dL (1.7-2.3) 01/31/21 08:07 Medications & Allergies - Medications Allergies/Adverse Reactions: Allergies No Known Allergies Allergy (Unverified 12/06/20 12:39) Home Medications: Home Medications Medication Instructions Recorded Confirmed Last Taken Type Apixaban [Eliquis] 5 mg PO BID 12/06/20 01/28/21 Unknown History AtorvaSTATin [Lipitor] 40 mg PO QHS 12/06/20 01/28/21 Unknown History Pantoprazole [Protonix TAB] 40 mg PO QDAC #30 tablet 12/15/20 01/28/21 Unknown Rx carvediloL [Coreg] 3.125 mg PO BID #60 tablet 12/15/20 01/28/21 Unknown Rx Active Medications: Generic Name Dose Route Start Last Admin Trade Name Benjaminq PRN Reason Stop Dose Admin Acetaminophen 650 mg 01/20/21 22:48 01/29/21 21:39 Acetaminophen 325 Mg Tab PO 650 mg Q4H PRN Administration Pain MILD(1-3)/Fever >100.5/MILLER Apixaban 5 mg 01/20/21 23:00 01/30/21 21:59 Apixaban 5 Mg Tab PO 5 mg BID KIRK Administration Heparin Sodium (Porcine) 3,000 unit 01/24/21 10:00 01/31/21 09:27 Heparin 10,000 Units/10 Ml Vial IV 3,000 unit CHRISTA PRN Administration hemodialysis Hydralazine HCl 10 mg 01/22/21 09:00 Hydralazine 20 Mg/1 Ml Inj IV Q4H PRN Blood Pressure Sodium Chloride 100 mls @ 999 mls/hr 01/21/21 13:29 Nacl 0.9% IV CHRISTA PRN Hypotension Norepinephrine 4 mg in 250 mls @ 7.5 mls/hr 01/31/21 08:00 Levophed Drip 4 Mg/Ns 250 Ml IV TITR KIRK Protocol 2 MCG/MIN Dextrose/Sodium Chloride 1,000 mls @ 42 mls/hr 01/31/21 10:00 D5ns IV DIRECT KIRK Ondansetron HCl 4 mg 01/20/21 22:48 01/24/21 10:28 Ondansetron 4 Mg/2 Ml Inj IV 4 mg Q8H PRN Administration Nausea And Vomiting Oxycodone/Acetaminophen 1 tab 01/20/21 22:48 01/31/21 09:22 Oxycodone /Acetaminophen 5-325mg Tab PO 1 tab Q6H PRN Administration Pain, Moderate (4-6) Pantoprazole Sodium 40 mg 01/21/21 07:30 01/30/21 12:01 Pantoprazole 40 Mg Tab PO 40 mg QDAC KIRK Administration Sodium Bicarbonate 50 meq 01/31/21 09:01 Sodium Bicarb 8.4% 50 Meq/50 Ml Syringe IV 01/31/21 10:30 ONCE NR Sodium Chloride 10 ml 01/21/21 10:00 01/30/21 21:59 Sodium Chloride 0.9% 10 Ml Flush Syringe IV 10 ml BID KIRK Administration Sodium Chloride 10 ml 01/20/21 22:48 01/28/21 19:35 Sodium Chloride 0.9% 10 Ml Flush Syringe IV 10 ml PRN PRN Administration LINE FLUSH
--- NOTE | 2021-01-31 11:12 | Consultation ---
History of Present Illness Consult date: 01/31/21 Requesting physician: SHAHIDA SUE Consult reason: cardiac arrest History of present illness: This patient is a 70-year-old male with a significant history of insulin- dependent diabetes, DVT anticoagulated at home on Eliquis, hypertension, CKD. Patient has been seen by our practice on previous hospital admission. Patient presented to [facility] ER with altered mental status, sepsis secondary to UTI. Patient has been in hospital for over a week waiting for placement. Patient is currently altered mental status thus history is obtained via the chart. Cardiology is consulted after CODE BLUE event this a.m. patient underwent several minutes of CPR compressions. Review of telemetry renetta ws sinus bradycardia secondary to hyperkalemia. Patient was seen today post event in dialysis where excess potassium has been removed by low K bath. Review of telemetry after hemodialysis shows narrow QRS complex sinus rhythm with ventricular bigeminy. Patient remains somnolent, confused and lethargic. On previous admissions patient has expressed his wishes not to undergo invasive work-up and previously has refused ischemic evaluation. Family has stated intentions to come the hospital today during visiting hours during which time we will establish treatment goals. Past History Past Medical History: other (See HPI.) Medications and Allergies Allergies Allergy/AdvReac Type Severity Reaction Status Date / Time No Known Allergies Allergy Unverified 12/06/20 12:39 Home Medications Medication Instructions Recorded Confirmed Last Taken Type Apixaban [Eliquis] 5 mg PO BID 12/06/20 01/28/21 Unknown History AtorvaSTATin [Lipitor] 40 mg PO QHS 12/06/20 01/28/21 Unknown History Pantoprazole [Protonix TAB] 40 mg PO QDAC #30 tablet 12/15/20 01/28/21 Unknown Rx carvediloL [Coreg] 3.125 mg PO BID #60 tablet 12/15/20 01/28/21 Unknown Rx Active Meds: Active Medications Acetaminophen (Acetaminophen 325 Mg Tab) 650 mg PO Q4H PRN PRN Reason: Pain MILD(1-3)/Fever >100.5/MILLER Last Admin: 01/29/21 21:39 Dose: 650 mg Documented by: Apixaban (Apixaban 5 Mg Tab) 5 mg PO BID KIRK Last Admin: 01/30/21 21:59 Dose: 5 mg Documented by: Heparin Sodium (Porcine) (Heparin 10,000 Units/10 Ml Vial) 3,000 unit IV CHRISTA PRN PRN Reason: hemodialysis Last Admin: 01/31/21 09:27 Dose: 3,000 unit Documented by: Hydralazine HCl (Hydralazine 20 Mg/1 Ml Inj) 10 mg IV Q4H PRN PRN Reason: Blood Pressure Sodium Chloride (Nacl 0.9%) 100 mls @ 999 mls/hr IV CHRISTA PRN PRN Reason: Hypotension Norepinephrine (Levophed Drip 4 Mg/Ns 250 Ml) 4 mg in 250 mls @ 7.5 mls/hr IV TITR KIRK; Protocol Dextrose/Sodium Chloride (D5ns) 1,000 mls @ 42 mls/hr IV DIRECT KIRK Ondansetron HCl (Ondansetron 4 Mg/2 Ml Inj) 4 mg IV Q8H PRN PRN Reason: Nausea And Vomiting Last Admin: 01/24/21 10:28 Dose: 4 mg Documented by: Oxycodone/Acetaminophen (Oxycodone /Acetaminophen 5-325mg Tab) 1 tab PO Q6H PRN PRN Reason: Pain, Moderate (4-6) Last Admin: 01/31/21 09:22 Dose: 1 tab Documented by: Pantoprazole Sodium (Pantoprazole 40 Mg Tab) 40 mg PO QDAC [facility] Last Admin: 01/30/21 12:01 Dose: 40 mg Documented by: Sodium Chloride (Sodium Chloride 0.9% 10 Ml Flush Syringe) 10 ml IV BID [facility] Last Admin: 01/30/21 21:59 Dose: 10 ml Documented by: Sodium Chloride (Sodium Chloride 0.9% 10 Ml Flush Syringe) 10 ml IV PRN PRN PRN Reason: LINE FLUSH Last Admin: 01/28/21 19:35 Dose: 10 ml Documented by: Review of Systems ROS unobtainable: due to mental status Physical Examination Last Vital Signs Temp 97.9 F 01/31/21 09:20 Pulse 64 01/31/21 11:00 Resp 18 01/31/21 10:00 BP 145/70 01/31/21 11:00 Pulse Ox 95 01/31/21 10:00 General appearance: other (Altered mental status, confused and somnolent) Neck: Positive: neck supple, trachea midline Cardiac: Positive: Reg Rate and Rhythm, S1/S2 Lungs: Positive: Normal Breath Sounds Neuro: Positive: Other (AMS) Abdomen: Positive: Unremarkable, Soft Skin: Negative: Rash, Wound Musculoskeletal: other (AMS) Extremities: Present: upper extr. pulses, lower extr. pulses. Absent: edema Results 01/31/21 08:07 01/31/21 08:07 Cardiac Enzymes 01/31/21 Range/Units 08:07 AST 1646 H (5-40) units/L CBC 01/31/21 Range/Units 08:07 WBC 10.9 (4.5-11.0) K/mm3 RBC 2.98 L (3.65-5.03) M/mm3 Hgb 9.8 L (11.8-15.2) gm/dl Hct 30.4 L (35.5-45.6) % Plt Count 65 L (140-440) K/mm3 Lymph # (Auto) 1.1 L (1.2-5.4) K/mm3 [facility] # (Auto) 0.7 (0.0-0.8) K/mm3 Eos # (Auto) 0.0 (0.0-0.4) K/mm3 Baso # (Auto) 0.1 (0.0-0.1) K/mm3 Comprehensive Metabolic Panel 01/31/21 Range/Units 08:07 Sodium 136 L (137-145) mmol/L Potassium 7.6 H* (3.6-5.0) mmol/L Chloride 92.1 L (98-107) mmol/L Carbon Dioxide 15 L (22-30) mmol/L BUN 63 H (9-20) mg/dL Creatinine 7.5 H (0.8-1.3) mg/dL Glucose 56 L (75-100) mg/dL Calcium 7.5 L (8.4-10.2) mg/dL AST 1646 H (5-40) units/L ALT 1111 H (7-56) units/L Alkaline Phosphatase 438 H (35-129) units/L Total Protein 8.2 (6.3-8.2) g/dL Albumin 2.7 L (3.9-5) g/dL - Imaging and Cardiology Echo: report reviewed EKG: report reviewed, image reviewed EKG interpretations - Telemetry EKG Rhythm: Sinus Rhythm - EKG Sinus rhythms and dysrhythmias: sinus rhythm AV and intraventricular conduction: right bundle branch block Assessment and Plan Sinus bradycardia secondary to hyperkalemia * CODE BLUE event was called this a.m. with documented loss of pulse. Patient underwent several minutes of CPR with chest compressions. Review of telemetry shows bradycardic heart rate with wide QRS at time of arrest. * Post event labs indicate serum potassium 7.6. Patient for dialysis this a.m. Repeat BMP once complete. Continue to monitor on telemetry. * Patient has move orders to CCU. Continue to monitor on telemetry. Repeat labs in a.m. Sepsis secondary to UTI * Infectious diseases following. CKD on HD * Nephrology is following. Patient has Saturday dialysis schedule. Awaiting outpatient dialysis placement DVT prophylaxis * Currently on Eliquis 5 mg twice daily continuation of home medication for history of DVT Patient currently in guarded cardiac status. Will discuss treatment goals with family during visiting hours today. We will follow This patient was seen in conjunction with Dr Snell who agrees with assessment and plan of care - Patient Problems (1) Sinus bradycardia Current Visit: Yes Status: Acute (2) Hyperkalemia Current Visit: Yes Status: Acute (3) DVT prophylaxis Current Visit: Yes Status: Acute (4) Sepsis Current Visit: Yes Status: Acute (5) UTI (urinary tract infection) Current Visit: Yes Status: Acute Qualifiers: Urinary tract infection type: acute cystitis (6) ESRD on hemodialysis Current Visit: Yes Status: Chronic (7) History of DVT (deep vein thrombosis) Current Visit: Yes Status: Chronic
--- NOTE | 2021-01-31 13:29 | Progress Note ---
Assessment and Plan 70-year-old -[place]i male with a past medical history of end-stage renal disease, heart failure, anemia who presents with acute metabolic encephalopathy. he developed a event of bradycardia with syncope this am with hyperkalemia --Syncope with bradycardia Patient noted to be lethargic/unresponsive, was thought to have cardiac arrest and received cardiac compressions, did not require any medications Telemetry reviewed and revealed bradycardia, serum chemistry showed hyperkalemia, hypoglycemia Potassium level being corrected with hemodialysis, ordered for D5 normal saline at very low rate We will get 2D echocardiogram, cardiology consulted CT head --Acute metabolic encephalopathy Probably secondary to uremia and urinary tract infection, now got complicated with syncope, bradycardia, hyperkalemia and hypoglycemia Will treat the underlying cause, treated UTI with ceftriaxone till 10/02/20 --Sepsis secondary to urinary tract infection and bacteremia s/p ceftriaxone till 10/02/20 blood cultures growing E. coli, susceptible to ceftriaxone Repeat blood cultures are neg ID consulted --UTI (urinary tract infection) treated with ceftriaxone till 01/30/21 Urine cultures showing E. coli, --ESRD on hemodialysis Continue hemodialysis, normal scheduled Saturday Nephrology consulted to manage dialysis, notified --Lactic acidosis: Due to sepsis --Hypokalemia, repleted --Chronic systolic heart failure with reduced ejection fraction 20-25% Hold beta-varun for bradycardia, no ALEX or ARB due to ESRD --Hypertension Hydralazine as needed with parameters. Patient now hypotensive --Hypertension, hold any blood pressure medicine, gentle IV fluid hydration at the very low rate --Severe hyperkalemia with bradycardia and syncope S/p hemodialysis, will repeat the lab Kayexalate as needed --GERD (gastroesophageal reflux disease) Continue PPIs/H2 blockers --Anemia Due to chronic kidney disease and end-stage renal disease No signs of bleeding, Transfuse patient if hemoglobin falls below 7.0 --History of DVT, patient on Eliquis CODE STATUS: Full DVT prophylaxis: Eliquis Disposition: Patient will need SNF/subacute rehab on discharge. Grim prognosis The high probability of a clinically significant, sudden or life threatening deterioration of the [PLANOGRAMMER, CVS, renal] system(s) required my full and direct attention, intervention and personal management. The aggregate critical care time was [65] minutes. This time is in addition to time spent performing reported procedures but includes the following: [x] Data Review and interpretation [x] Patient assessment and monitoring of vital signs [x] Documentation [x] Medication orders and management Daily clinical course: 01/21/2021: Patient seen and examined, patient seems somewhat confused. Waxing and waning and has some episodes of being lucid. Patient eating breakfast. 01/22/2021: Patient seen and examined, lying in bed, eating breakfast, states that he does not feel well but there is no specific thing that he can point to. Patient in no acute distress. 01/23/2021: Patient seen and examined, lying in bed, finished breakfast, states that he feels somewhat better. Patient with positive blood cultures, susceptible to current antibiotics, ceftriaxone. Repeat blood cultures have been ordered. 01/24/21: Wait for repeat blood culture results from 01/23/2021. If blood culture remains negative at 48 hours patient should be discharged home with oral antibiotics and no need to remove HD catheter. 01/25/21; Repeat blood cultures from 01/24/2022 is negative. PT recommended subacute rehab. No need to remove HD catheter. Patient will need oral antibiotics on discharge. manager endoscopy consulted for placement. 01/26/21 : Patient clinically stable, needs subacute rehab/SNF placement. manager endoscopy assisting, discharge pending on placement. 01/27/21: clinically stable, discharge pending on placement 01/28/21: Vitals noted, resting comfortably. cont ceftriaxone till 01/30/21. pending placement. HD per renal 01/29/21: resting comfortably. cont abx. pending placement. HD per renal 01/30/21: Last dose of antibiotic today, patient resting on bed, no acute issue. Vitals noted. HD per renal. Pending placement. 01/31/21: called CYNDI HERMOSILLO this morning. As per patient's nurse, patient had asystole, CYNDI HERMOSILLO was called, patient received brief CPR with chest compressions, no medications. Telemetry showed Patient also had brief bradycardia, resolved without treatment, following code the patient is lethargic, responds to Loud verbal commands with simple yes/ no, bradycardia resolved, vital signs stable. K 7.6 today, received emergent HD. will order CT head. BG was 59 this am. will start low rate D5 bicarbonate drip if K level remains elevated. Called daughter and updated with all details. family wants to continue full code. Plan to transfer patient to ICU, discussed with Dr. Clark critical care attending in details. Dr. Clark recommended to order for ABG Subjective Date of service: 01/31/21 Interval history: Patient seen and examined. Medical records and medication list reviewed. Patient had a syncopal episode with a brief unconsciousness this morning Following that episode patient remains lethargic Received emergently hemodialysis Discussed with daughter by phone in details Objective - Exam Narrative Exam: GENERAL: Elderly -[place]i male appears to be very lethargic HEENT: Normocephalic. Atraumatic. No conjunctival congestion or icterus. Patient has dry mucous membranes. NECK: Supple. Trachea midline. CHEST/LUNGS: Clear to auscultated bilaterally, breathing nonlabored. No wheezes crackles or rhonchi. HEART/CARDIOVASCULAR: Bradycardic. S1 and S2 positive. ABDOMEN: Abdomen is soft, nontender. Patient has normal bowel sounds. SKIN: There is no rash. Warm and dry. NEURO: Patient appears lethargic and unable to follow any command but to move extremities randomly MUSCULOSKELETAL: No joint effusion or tenderness. EXTRIMITY: No edema, no cyanosis or clubbing. PSYCH: Unable to assess - Constitutional Vitals: Vital Signs - 12hr 01/31/21 01/31/21 01/31/21 02:50 03:42 06:30 Temperature 97.2 F L Pulse Rate 58 L 71 66 Respiratory 2 L 20 Rate Blood Pressure 93/65 Blood Pressure 81/52 91/50 [Left] O2 Sat by Pulse 83 L Oximetry O2 Sat by Pulse Oximetry [ Anterior Bilateral Throughout] 01/31/21 01/31/21 01/31/21 08:04 09:20 09:25 Temperature 98.3 F 97.9 F Pulse Rate 78 76 71 Respiratory 22 20 Rate Blood Pressure 76/47 160/143 119/96 Blood Pressure [Left] O2 Sat by Pulse 97 Oximetry O2 Sat by Pulse 100 Oximetry [ Anterior Bilateral Throughout] 01/31/21 01/31/21 01/31/21 09:30 09:45 10:00 Temperature Pulse Rate 81 62 58 L Respiratory 18 Rate Blood Pressure 92/35 141/41 98/64 Blood Pressure [Left] O2 Sat by Pulse 95 Oximetry O2 Sat by Pulse Oximetry [ Anterior Bilateral Throughout] 01/31/21 01/31/21 01/31/21 10:15 10:30 10:45 Temperature Pulse Rate 65 51 L 60 Respiratory Rate Blood Pressure 112/82 69/37 92/71 Blood Pressure [Left] O2 Sat by Pulse Oximetry O2 Sat by Pulse Oximetry [ Anterior Bilateral Throughout] 01/31/21 01/31/21 01/31/21 11:00 11:15 11:30 Temperature Pulse Rate 64 47 L 42 L Respiratory Rate Blood Pressure 145/70 158/135 158/129 Blood Pressure [Left] O2 Sat by Pulse Oximetry O2 Sat by Pulse Oximetry [ Anterior Bilateral Throughout] 01/31/21 01/31/21 01/31/21 11:45 11:50 12:17 Temperature 97.9 F 98.2 F Pulse Rate 118 H 97 H Respiratory 20 20 Rate Blood Pressure 155/72 168/118 90/56 Blood Pressure [Left] O2 Sat by Pulse Oximetry O2 Sat by Pulse Oximetry [ Anterior Bilateral Throughout] - Labs CBC & Chem 7: 02/01/21 05:08 02/01/21 05:08 Labs: Abnormal lab results 01/31/21 01/31/21 01/31/21 Range/Units 08:07 08:07 08:07 RBC 2.98 L (3.65-5.03) M/mm3 Hgb 9.8 L (11.8-15.2) gm/dl Hct 30.4 L (35.5-45.6) % MCV 102 H (84-94) fl MCH 33 H (28-32) pg RDW 22.1 H (13.2-15.2) % Plt Count 65 L (140-440) K/mm3 Lymph % (Auto) 10.4 L (13.4-35.0) % Lymph # (Auto) 1.1 L (1.2-5.4) K/mm3 Seg Neutrophils % 83.0 H (40.0-70.0) % Seg Neutrophils # 9.0 H (1.8-7.7) K/mm3 Sodium 136 L (137-145) mmol/L Potassium 7.6 H* (3.6-5.0) mmol/L Chloride 92.1 L (98-107) mmol/L Carbon Dioxide 15 L (22-30) mmol/L BUN 63 H (9-20) mg/dL Creatinine 7.5 H (0.8-1.3) mg/dL Glucose 56 L (75-100) mg/dL Calcium 7.5 L (8.4-10.2) mg/dL Phosphorus 7.20 H (2.5-4.5) mg/dL Total Bilirubin 4.80 H (0.1-1.2) mg/dL AST 1646 H (5-40) units/L ALT 1111 H (7-56) units/L Alkaline Phosphatase 438 H (35-129) units/L Albumin 2.7 L (3.9-5) g/dL
[2021-01-31] MEDS: PANTOPRAZOLE 40 MG TAB PO SCH (13:53)
[2021-01-31] MEDS: APIXABAN 5 MG TAB PO SCH ×2 (13:54→21:34)
--- NOTE | 2021-01-31 14:35 | Cat Scan Report ---
CT head/brain wo con INDICATION: AMS. TECHNIQUE: All CT scans at this location are performed using CT dose reduction for ALARA by means of automated e xposure control. COMPARISON: Head CT on 01/20/2021 FINDINGS: There is no evidence of hemorrhage, hydrocephalus, brain edema, or mass effect/mass lesion. There is stable mild global brain atrophy and mild chronic small vessel ischemic change in the cerebral white matter. The included paranasal sinuses and mastoid air cells are clear. The orbits appear unremarkable. IMPRESSION: 1. No acute findings or adverse change from the prior exam. Signer Name: Irvin Espinal MD Signed: 01/31/2021 2:31 PM Workstation Name: [id number]
[2021-01-31] MEDS ORDERED: SODIUM POLYSTYRENE 15 GM/60 ML ORAL LIQD PO NR (18:03)
--- NOTE | 2021-01-31 20:32 | XRay Report ---
ABDOMEN ONE VIEW INDICATION / CLINICAL INFORMATION: NG tube placement. COMPARISON: None available. FINDINGS: A feeding tube is present with the tip superimposed over the expected position of the gastric fundus Signer Name: Zach Mclean MD FACRisa Signed: 01/31/2021 8:27 PM Workstation Name: [id number]
[2021-01-31] MEDS: MIDODRINE 5 MG TAB PO SCH (21:34)
[2021-02-01 06:10] LABS: Hematocrit 27.9 % (35.5-45.6); Hemoglobin 8.9 gm/dl (11.8-15.2); Mean Corpuscular HGB Conc 32 % (32-34); Mean Corpuscular Volume 101 fl (84-94); Red Blood Count 2.75 M/mm3 (3.65-5.03)
[2021-02-01 06:15] LABS: Platelet Count 59 K/mm3 (140-440); Red Cell Distribution Width 23.3 % (13.2-15.2)
[2021-02-01 06:40] LABS: Calcium 7.5 mg/dL (8.4-10.2)
[2021-02-01 07:05] LABS: Total Cells Counted 100
[2021-02-01 07:52] LABS: Anisocytosis 1+
[2021-02-01 07:57] LABS: Macrocytosis 1+; Platelet Estimate Consistent w Auto
[2021-02-01] MEDS: MIDODRINE 5 MG TAB PO SCH ×3 (08:42→20:10)
[2021-02-01] MEDS: PANTOPRAZOLE 40 MG TAB PO SCH (08:49)
[2021-02-01] MEDS ORDERED: SODIUM POLYSTYRENE 15 GM/60 ML ORAL LIQD PR ONE (09:00)
[2021-02-01] MEDS: SODIUM BICARBONATE 150 MEQ in DEXTROSE 5% IN WATER 1,000 ML IV SCH (09:13)
[2021-02-01] MEDS: APIXABAN 5 MG TAB PO SCH ×2 (10:34→21:09)
--- NOTE | 2021-02-01 11:00 | Progress Note ---
<DAMEON ARELLANO - Last Filed: 02/01/21 11:12> Assessment and Plan Sinus bradycardia secondary to hyperkalemia * CODE BLUE event was called yesterday with documented loss of pulse. Patient underwent several minutes of CPR with chest compressions. Review of telemetry shows bradycardic heart rate with wide QRS at time of arrest. Post event labs indicate serum potassium 7.6. Patient has move orders to CCU. Continue to monitor on telemetry. * Continue to trend potassium Sepsis secondary to UTI * Infectious diseases following. CKD on HD * Nephrology is following. Patient has Saturday dialysis schedule. Awaiting outpatient dialysis placement DVT prophylaxis * Currently on Eliquis 5 mg twice daily continuation of home medication for history of DVT. Patient currently in guarded cardiac status. Dr. Lawrence is speaking with family regarding car goals. Will follow. This patient was seen in conjunction with Dr Snell who agrees with assessment and plan of care - Patient Problems (1) Sinus bradycardia Current Visit: Yes Status: Acute (2) Hyperkalemia Current Visit: Yes Status: Acute (3) DVT prophylaxis Current Visit: Yes Status: Acute (4) Sepsis Current Visit: Yes Status: Acute (5) UTI (urinary tract infection) Current Visit: Yes Status: Acute Qualifiers: Urinary tract infection type: acute cystitis (6) ESRD on hemodialysis Current Visit: Yes Status: Chronic (7) History of DVT (deep vein thrombosis) Current Visit: Yes Status: Chronic Subjective Date of service: 02/01/21 Principal diagnosis: AMS, CKD on HD Interval history: Patient resting in bed. Patient is confused and somnolent but in no apparent distress. Telemetry reviewed: Sinus bradycardia 55 with ventricular bigeminy. No events Objective Last Vital Signs Temp 98.4 F 02/01/21 09:10 Pulse 67 02/01/21 09:10 Resp 16 02/01/21 09:10 BP 96/54 02/01/21 09:10 Pulse Ox 100 02/01/21 09:10 - Physical Examination HEENT: Positive: PERRL, Normocephaly, Mucus Membranes Moist Neck: Positive: neck supple, trachea midline Cardiac: Positive: Reg Rate and Rhythm, S1/S2 Lungs: Positive: Normal Exam, Normal Breath Sounds Neuro: Positive: Grossly Intact, Other (AMS) Abdomen: Positive: Unremarkable, Soft Skin: Negative: Rash, Wound Musculoskeletal: other (AMS) Extremities: Present: upper extr. pulses, lower extr. pulses. Absent: edema - Labs and Meds CBC 02/01/21 Range/Units 05:08 WBC 10.6 (4.5-11.0) K/mm3 RBC 2.75 L (3.65-5.03) M/mm3 Hgb 8.9 L (11.8-15.2) gm/dl Hct 27.9 L (35.5-45.6) % Plt Count 59 L (140-440) K/mm3 Comprehensive Metabolic Panel 01/31/21 02/01/21 Range/Units 14:18 05:08 Sodium 138 (137-145) mmol/L Potassium 5.1 H D 5.8 H (3.6-5.0) mmol/L Chloride 94.5 L (98-107) mmol/L Carbon Dioxide 19 L (22-30) mmol/L BUN 40 H (9-20) mg/dL Creatinine 5.3 H (0.8-1.3) mg/dL Glucose 84 (75-100) mg/dL Calcium 7.5 L (8.4-10.2) mg/dL - Imaging and Cardiology EKG: report reviewed, image reviewed Echo: report reviewed - Telemetry EKG Rhythm: Sinus Bradycardia - EKG Sinus rhythms and dysrhythmias: sinus rhythm AV and intraventricular conduction: right bundle branch block <SHOBHA SNELL R - Last Filed: 02/02/21 09:29> Objective Vital Signs Temp Pulse Resp BP Pulse Ox 02/02/21 08:42 98.9 F 18 82/47 02/02/21 04:28 98.0 F 18 96/56 02/02/21 04:00 60 02/02/21 00:20 98.2 F 18 94/65 02/02/21 00:00 61 02/01/21 23:42 97.4 F L 61 19 94/54 100 02/01/21 22:00 18 02/01/21 20:16 98.9 F 54 L 18 96/55 92 02/01/21 20:00 54 L 02/01/21 17:59 104/59 02/01/21 16:23 98.7 F 64 18 146/128 94 02/01/21 16:00 63 02/01/21 12:00 62 02/01/21 10:00 54 L 18 - Labs and Meds Lipids 02/02/21 Range/Units 04:17 Triglycerides 72 (2-149) mg/dL Cholesterol 98 (50-199) mg/dL HDL Cholesterol 8 L (40-59) mg/dL Cholesterol/HDL Ratio 12.25 % CBC 02/02/21 Range/Units 04:17 WBC 9.9 (4.5-11.0) K/mm3 RBC 2.57 L (3.65-5.03) M/mm3 Hgb 8.6 L (11.8-15.2) gm/dl Hct 26.0 L (35.5-45.6) % Plt Count 45 L (140-440) K/mm3 Comprehensive Metabolic Panel 02/01/21 02/02/21 Range/Units 16:39 04:17 Sodium 141 142 (137-145) mmol/L Potassium 4.9 4.5 (3.6-5.0) mmol/L Chloride 97.1 L 94.9 L (98-107) mmol/L Carbon Dioxide 22 24 (22-30) mmol/L BUN 47 H 52 H (9-20) mg/dL Creatinine 5.8 H 6.4 H (0.8-1.3) mg/dL Glucose 147 H 145 H (75-100) mg/dL Calcium 6.8 L 6.8 L (8.4-10.2) mg/dL
--- NOTE | 2021-02-01 13:15 | Progress Note ---
Assessment and Plan 1. ESRD: Patient is on maintenance hemodialysis three times a week, TTS schedule. Last outpatient HD 01/19. Meds dosage based on GFR. Hemodialysis: 01/21, 01/24, 01/26, 01/28, 01/31. 2. FEN: Hyperkalemia, Kayexalate ordered. Metabolic acidosis, Sod bicarb drip. Monitor lytes and volume status. 3. Sinus bradycardia: CYND[facility] BAY was called 01/31 AM, patient received brief CPR with chest compressions, no medications. Suspected 2/2 hyperkalemia. Improved. Seen by Cards. 4. Sepsis, POA: E.Coli bacteremia. 2/2 urinary tract infection. S/p Ceftriaxone. 5. Acute metabolic encephalopathy, POA: Likely 2/2 UTI. Supportive care. 6. Anemia, POA: 2/2 ESRD. Epogen with HD as needed. PRBC as needed. 7. HFrEF: Compensated. Monitor. 8. Hypotension: IV fluids. On Midodrine. Monitor BP. Subjective: Patient was seen and examined at the bedside. General Appearance: General appearance: well-developed, appears stated age, not in distress, NG tube HEENT: ATNC, pupils equal Neck: trachea midline Respiratory: ctab Heart: regular, S1S2, no murmur Abdomen: soft, bowel sounds heard, not tender Integumentary: no rash, warm and dry Neurologic: lethargic, not following any command Ext: no edema Hemodialysis access: R IJ tunnel catheter Subjective Date of service: 02/01/21 Principal diagnosis: AMS, CKD on HD Objective - Vital Signs Vital signs: Vital Signs - 12hr 02/01/21 02/01/21 02/01/21 04:46 09:10 10:00 Temperature 98.0 F 98.4 F Pulse Rate 57 L 67 54 L Respiratory 22 18 18 Rate Blood Pressure 86/53 96/54 Blood Pressure 96/54 [Left] O2 Sat by Pulse 99 100 Oximetry - Lab 02/01/21 05:08 02/01/21 16:39 Most recent lab results Calcium 7.5 mg/dL (8.4-10.2) L 02/01/21 05:08 Phosphorus 7.20 mg/dL (2.5-4.5) H 01/31/21 08:07 Magnesium 2.00 mg/dL (1.7-2.3) 02/01/21 05:08 Medications & Allergies - Medications Allergies/Adverse Reactions: Allergies No Known Allergies Allergy (Unverified 12/06/20 12:39) Home Medications: Home Medications Medication Instructions Recorded Confirmed Last Taken Type Apixaban [Eliquis] 5 mg PO BID 12/06/20 01/28/21 Unknown History AtorvaSTATin [Lipitor] 40 mg PO QHS 12/06/20 01/28/21 Unknown History Pantoprazole [Protonix TAB] 40 mg PO QDAC #30 tablet 12/15/20 01/28/21 Unknown Rx carvediloL [Coreg] 3.125 mg PO BID #60 tablet 12/15/20 01/28/21 Unknown Rx Active Medications: Generic Name Dose Route Start Last Admin Trade Name Freq PRN Reason Stop Dose Admin Acetaminophen 650 mg 01/20/21 22:48 01/29/21 21:39 Acetaminophen 325 Mg Tab PO 650 mg Q4H PRN Administration Pain MILD(1-3)/Fever >100.5/MILLER Apixaban 5 mg 01/20/21 23:00 02/01/21 10:34 Apixaban 5 Mg Tab PO 5 mg BID KIRK Administration Heparin Sodium (Porcine) 3,000 unit 01/24/21 10:00 01/31/21 09:27 Heparin 10,000 Units/10 Ml Vial IV 3,000 unit CHRISTA PRN Administration hemodialysis Hydralazine HCl 10 mg 01/22/21 09:00 Hydralazine 20 Mg/1 Ml Inj IV Q4H PRN Blood Pressure Sodium Chloride 100 mls @ 999 mls/hr 01/21/21 13:29 Nacl 0.9% IV CHRISTA PRN Hypotension Sodium Bicarbonate 150 meq/ 1,150 mls @ 75 mls/hr 02/01/21 09:00 02/01/21 09:13 Dextrose IV 75 mls/hr DIRECT KIRK Administration Midodrine 10 mg 01/31/21 20:00 02/01/21 08:42 Midodrine 5 Mg Tab PO 10 mg TID KIRK Administration Ondansetron HCl 4 mg 01/20/21 22:48 01/24/21 10:28 Ondansetron 4 Mg/2 Ml Inj IV 4 mg Q8H PRN Administration Nausea And Vomiting Oxycodone/Acetaminophen 1 tab 01/20/21 22:48 01/31/21 09:22 Oxycodone /Acetaminophen 5-325mg Tab PO 1 tab Q6H PRN Administration Pain, Moderate (4-6) Pantoprazole Sodium 40 mg 01/21/21 07:30 02/01/21 08:49 Pantoprazole 40 Mg Tab PO 40 mg QDAC KIRK Administration Sodium Chloride 10 ml 01/21/21 10:00 02/01/21 10:36 Sodium Chloride 0.9% 10 Ml Flush Syringe IV 10 ml BID KIRK Administration Sodium Chloride 10 ml 01/20/21 22:48 01/28/21 19:35 Sodium Chloride 0.9% 10 Ml Flush Syringe IV 10 ml PRN PRN Administration LINE FLUSH
--- NOTE | 2021-02-01 15:39 | Progress Note ---
Assessment and Plan 70-year-old -[place] male with a past medical history of end-stage renal disease, heart failure, anemia who presents with acute metabolic encephalopathy. he developed a event of bradycardia with syncope on 01/31/21 with hyperkalemia --Syncope with bradycardia Patient noted to be lethargic/unresponsive, was thought to have cardiac arrest and received cardiac compressions, did not require any medications Telemetry reviewed and revealed bradycardia, serum chemistry showed hyperkalemia, hypoglycemia Potassium level being corrected with hemodialysis, ordered for D5 normal saline at very low rate Ordered for 2D echocardiogram, cardiology consulted, CT head w/o any acute process --Acute metabolic encephalopathy Probably secondary to uremia and urinary tract infection, now got complicated with syncope, bradycardia, hyperkalemia and hypoglycemia Will treat the underlying cause, treated UTI with ceftriaxone till 10/02/20 --Sepsis secondary to urinary tract infection and bacteremia s/p ceftriaxone till 10/02/20 blood cultures growing E. coli, susceptible to ceftriaxone Repeat blood cultures are neg ID consulted --UTI (urinary tract infection) treated with ceftriaxone till 01/30/21 Urine cultures showing E. coli, --ESRD on hemodialysis Continue hemodialysis, normal scheduled Saturday Nephrology consulted to manage dialysis, notified --Lactic acidosis: Due to sepsis --Hypokalemia, repleted --Chronic systolic heart failure with reduced ejection fraction 20-25% Hold beta-varun for bradycardia, no ALEX or ARB due to ESRD --Hypertension Hydralazine as needed with parameters. Patient now hypotensive --Hypertension, hold any blood pressure medicine, gentle IV fluid hydration at the very low rate --Severe hyperkalemia with bradycardia and syncope S/p hemodialysis, will repeat the lab Kayexalate as needed --GERD (gastroesophageal reflux disease) Continue PPIs/H2 blockers --Anemia Due to chronic kidney disease and end-stage renal disease No signs of bleeding, Transfuse patient if hemoglobin falls below 7.0 --History of DVT, patient on Eliquis CODE STATUS: Full DVT prophylaxis: Eliquis Disposition: Patient will need SNF/subacute rehab on discharge. Grim prognosis Daily clinical course: 01/21/2021: Patient seen and examined, patient seems somewhat confused. Waxing and waning and has some episodes of being lucid. Patient eating breakfast. 01/22/2021: Patient seen and examined, lying in bed, eating breakfast, states that he does not feel well but there is no specific thing that he can point to. Patient in no acute distress. 01/23/2021: Patient seen and examined, lying in bed, finished breakfast, states that he feels somewhat better. Patient with positive blood cultures, susceptible to current antibiotics, ceftriaxone. Repeat blood cultures have been ordered. 01/24/21: Wait for repeat blood culture results from 01/23/2021. If blood culture remains negative at 48 hours patient should be discharged home with oral antibiotics and no need to remove HD catheter. 01/25/21; Repeat blood cultures from 01/24/2022 is negative. PT recommended subacute rehab. No need to remove HD catheter. Patient will need oral antibiotics on discharge. lead generation marketing manager consulted for placement. 01/26/21 : Patient clinically stable, needs subacute rehab/SNF placement. lead generation marketing manager assisting, discharge pending on placement. 01/27/21: clinically stable, discharge pending on placement 01/28/21: Vitals noted, resting comfortably. cont ceftriaxone till 01/30/21. pending placement. HD per renal 01/29/21: resting comfortably. cont abx. pending placement. HD per renal 01/30/21: Last dose of antibiotic today, patient resting on bed, no acute issue. Vitals noted. HD per renal. Pending placement. 01/31/21: called [facility] HERMOSILLO this morning. As per patient's nurse, patient had asystole, [facility] HERMOSILLO was called, patient received brief CPR with chest co mpressions, no medications. Telemetry showed Patient also had brief bradycardia, resolved without treatment, following code the patient is lethargic, responds to Loud verbal commands with simple yes/ no, bradycardia resolved, vital signs stable. K 7.6 today, received emergent HD. will order CT head. BG was 59 this am. will start low rate D5 bicarbonate drip if K level remains elevated. Called daughter and updated with all details. family wants to continue full code. Plan to transfer patient to ICU, discussed with Dr. Clark critical care attending in details. Dr. Clark recommended to order for ABG 02/01/21: Patient was not transferred to ICU overnight. Patient remains in telemetry, BP slightly hypertensive but responding to midodrine. Patient more alert and awake today. Potassium level improved to 5.1 then again trended up to 5.8. Ordered for Kayexalate and initiated on bicarbonate drip. Continue to follow BMP daily and monitor mental status. Subjective Date of service: 02/01/21 Principal diagnosis: AMS, CKD on HD Interval history: Patient seen and examined. Medical records and medication list reviewed. Patient had a syncopal episode with a brief unconsciousness yesterday morning Following that episode patient remains lethargic Received emergently hemodialysis yesterday Discussed with daughter by phone in details Objective - Exam Narrative Exam: GENERAL: Elderly -[place] male appears to be very lethargic HEENT: Normocephalic. Atraumatic. No conjunctival congestion or icterus. Patient has dry mucous membranes. NECK: Supple. Trachea midline. CHEST/LUNGS: Clear to auscultated bilaterally, breathing nonlabored. No wheezes crackles or rhonchi. HEART/CARDIOVASCULAR: Bradycardic. S1 and S2 positive. ABDOMEN: Abdomen is soft, nontender. Patient has normal bowel sounds. SKIN: There is no rash. Warm and dry. NEURO: Patient appears lethargic and unable to follow any command but to move extremities randomly MUSCULOSKELETAL: No joint effusion or tenderness. EXTRIMITY: No edema, no cyanosis or clubbing. PSYCH: Unable to assess - Constitutional Vitals: Vital Signs - 12hr 02/01/21 02/01/21 02/01/21 04:46 09:10 10:00 Temperature 98.0 F 98.4 F Pulse Rate 57 L 67 54 L Respiratory 22 18 18 Rate Blood Pressure 86/53 96/54 Blood Pressure 96/54 [Left] O2 Sat by Pulse 99 100 Oximetry - Labs CBC & Chem 7: 02/02/21 04:17 02/02/21 04:17 Labs: Abnormal lab results 02/01/21 02/01/21 02/01/21 Range/Units 05:08 05:08 11:45 RBC 2.75 L (3.65-5.03) M/mm3 Hgb 8.9 L (11.8-15.2) gm/dl Hct 27.9 L (35.5-45.6) % MCV 101 H (84-94) fl MCH 33 H (28-32) pg RDW 23.3 H (13.2-15.2) % Plt Count 59 L (140-440) K/mm3 Seg Neuts % (Manual) 92.0 H (40.0-70.0) % Lymphocytes % (Manual) 5.0 L (13.4-35.0) % Nucleated RBC % 1.0 H (0.0-0.9) % Seg Neutrophils # Man 9.8 H (1.8-7.7) K/mm3 Lymphocytes # (Manual) 0.5 L (1.2-5.4) K/mm3 Potassium 5.8 H (3.6-5.0) mmol/L Chloride 94.5 L (98-107) mmol/L Carbon Dioxide 19 L (22-30) mmol/L BUN 40 H (9-20) mg/dL Creatinine 5.3 H (0.8-1.3) mg/dL POC Glucose 125 H (70-105) mg/dL Calcium 7.5 L (8.4-10.2) mg/dL
[2021-02-01 17:47] LABS: Calcium 6.8 mg/dL (8.4-10.2)
[2021-02-02] MEDS: SODIUM BICARBONATE 150 MEQ in DEXTROSE 5% IN WATER 1,000 ML IV SCH ×2 (01:40→22:29)
[2021-02-02 05:02] LABS: Hemoglobin 8.6 gm/dl (11.8-15.2); Mean Corpuscular HGB Conc 33 % (32-34); Mean Corpuscular Volume 101 fl (84-94); Platelet Count 45 K/mm3 (140-440); Red Blood Count 2.57 M/mm3 (3.65-5.03); Red Cell Distribution Width 23.2 % (13.2-15.2)
[2021-02-02 05:25] LABS: Calcium 6.8 mg/dL (8.4-10.2)
[2021-02-02 06:23] LABS: Chol/HDL Ratio 12.25 %
[2021-02-02] MEDS: MIDODRINE 5 MG TAB PO SCH ×3 (09:27→21:27)
[2021-02-02] MEDS: PANTOPRAZOLE 40 MG TAB PO SCH (09:28)
[2021-02-02] MEDS: APIXABAN 5 MG TAB PO SCH ×2 (09:42→21:27)
--- NOTE | 2021-02-02 09:56 | Progress Note ---
Assessment and Plan 1. ESRD: Patient is on maintenance hemodialysis three times a week, TTS schedule. Last outpatient HD 01/19. Meds dosage based on GFR. Hemodialysis: 01/21, 01/24, 01/26, 01/28, 01/31, 02/02. 2. FEN: Hyperkalemia, improved. Metabolic acidosis, Sod bicarb drip. Monitor lytes and volume status. 3. Sinus bradycardia: [facility] was called 01/31 AM, patient received brief CPR with chest compressions, no medications. Suspected 2/2 hyperkalemia. Improved. Seen by Cards. 4. Sepsis, POA: E.Coli bacteremia. 2/2 urinary tract infection. S/p Ceftriaxone. 5. Acute metabolic encephalopathy, POA: Likely 2/2 UTI. Supportive care. 6. Anemia, POA: 2/2 ESRD. Epogen with HD as needed. PRBC as needed. 7. HFrEF: Compensated. Monitor. 8. Hypotension: IV fluids. On Midodrine. Monitor BP. Subjective: Patient was seen and examined at the bedside. General Appearance: General appearance: well-developed, appears stated age, not in distress, NG tube HEENT: ATNC, pupils equal Neck: trachea midline Respiratory: ctab Heart: regular, S1S2, no murmur Abdomen: soft, bowel sounds heard, not tender Integumentary: no rash, warm and dry Neurologic: lethargic, not following any command Ext: no edema Hemodialysis access: R IJ tunnel catheter Subjective Date of service: 02/02/21 Principal diagnosis: AMS, CKD on HD Objective - Vital Signs Vital signs: Vital Signs - 12hr 02/01/21 02/01/21 02/02/21 22:00 23:42 00:00 Temperature 97.4 F L Pulse Rate 61 61 Respiratory 18 19 Rate Blood Pressure 94/54 O2 Sat by Pulse 100 Oximetry 02/02/21 02/02/21 02/02/21 00:20 04:00 04:28 Temperature 98.2 F 98.0 F Pulse Rate 60 Respiratory 18 18 Rate Blood Pressure 94/65 96/56 O2 Sat by Pulse Oximetry 02/02/21 08:42 Temperature 98.9 F Pulse Rate Respiratory 18 Rate Blood Pressure 82/47 O2 Sat by Pulse Oximetry - Lab 02/02/21 04:17 02/02/21 04:17 Most recent lab results Calcium 6.8 mg/dL (8.4-10.2) L 02/02/21 04:17 Phosphorus 7.20 mg/dL (2.5-4.5) H 01/31/21 08:07 Magnesium 2.00 mg/dL (1.7-2.3) 02/01/21 05:08 Medications & Allergies - Medications Allergies/Adverse Reactions: Allergies No Known Allergies Allergy (Unverified 12/06/20 12:39) Home Medications: Home Medications Medication Instructions Recorded Confirmed Last Taken Type Apixaban [Eliquis] 5 mg PO BID 12/06/20 01/28/21 Unknown History AtorvaSTATin [Lipitor] 40 mg PO QHS 12/06/20 01/28/21 Unknown History Pantoprazole [Protonix TAB] 40 mg PO QDAC #30 tablet 12/15/20 01/28/21 Unknown Rx carvediloL [Coreg] 3.125 mg PO BID #60 tablet 12/15/20 01/28/21 Unknown Rx Active Medications: Generic Name Dose Route Start Last Admin Trade Name Freq PRN Reason Stop Dose Admin Acetaminophen 650 mg 01/20/21 22:48 01/29/21 21:39 Acetaminophen 325 Mg Tab PO 650 mg Q4H PRN Administration Pain MILD(1-3)/Fever >100.5/MILLER Apixaban 5 mg 01/20/21 23:00 02/02/21 09:42 Apixaban 5 Mg Tab PO 5 mg BID KIRK Administration Heparin Sodium (Porcine) 3,000 unit 01/24/21 10:00 01/31/21 09:27 Heparin 10,000 Units/10 Ml Vial IV 3,000 unit CHRISTA PRN Administration hemodialysis Hydralazine HCl 10 mg 01/22/21 09:00 Hydralazine 20 Mg/1 Ml Inj IV Q4H PRN Blood Pressure Sodium Chloride 100 mls @ 999 mls/hr 01/21/21 13:29 Nacl 0.9% IV CHRISTA PRN Hypotension Sodium Bicarbonate 150 meq/ 1,150 mls @ 75 mls/hr 02/01/21 09:00 02/02/21 01:40 Dextrose IV 75 mls/hr DIRECT KIRK Administration Midodrine 10 mg 01/31/21 20:00 02/02/21 09:27 Midodrine 5 Mg Tab PO 10 mg TID KIRK Administration Ondansetron HCl 4 mg 01/20/21 22:48 01/24/21 10:28 Ondansetron 4 Mg/2 Ml Inj IV 4 mg Q8H PRN Administration Nausea And Vomiting Oxycodone/Acetaminophen 1 tab 01/20/21 22:48 01/31/21 09:22 Oxycodone /Acetaminophen 5-325mg Tab PO 1 tab Q6H PRN Administration Pain, Moderate (4-6) Pantoprazole Sodium 40 mg 01/21/21 07:30 02/02/21 09:28 Pantoprazole 40 Mg Tab PO 40 mg QDAC KIRK Administration Sodium Chloride 10 ml 01/21/21 10:00 02/02/21 09:42 Sodium Chloride 0.9% 10 Ml Flush Syringe IV 10 ml BID KIRK Administration Sodium Chloride 10 ml 01/20/21 22:48 01/28/21 19:35 Sodium Chloride 0.9% 10 Ml Flush Syringe IV 10 ml PRN PRN Administration LINE FLUSH
[2021-02-02] MEDS: HEPARIN 10,000 UNITS/10 ML VIAL IV PRN (10:25)
[2021-02-02] MEDS: EPOETIN ALFA-EPBX 10,000 UNIT/1 ML VIAL IV PRN (12:15)
--- NOTE | 2021-02-02 13:13 | Progress Note ---
Subjective Date of service: 02/02/21 Principal diagnosis: AMS, CKD on HD Interval history: 70-year-old -[place] male with a past medical history of end-stage renal disease, heart failure, anemia who presents with acute metabolic encephalopathy. he developed a event of bradycardia with syncope on 01/31/21 with hyperkalemia --Syncope with bradycardia-likely etiology hyperkalemia Patient noted to be lethargic/unresponsive, was thought to have cardiac arrest and received cardiac compressions, did not require any medications Telemetry reviewed and revealed bradycardia, serum chemistry showed hyperkalemia, hypoglycemia Potassium level being corrected with hemodialysis, ordered for D5 normal saline at very low rate Ordered for 2D echocardiogram, cardiology consulted, CT head w/o any acute process --Acute metabolic encephalopathy Probably secondary to uremia and urinary tract infection, now got complicated with syncope, bradycardia, hyperkalemia and hypoglycemia --Sepsis secondary to urinary tract infection and E. coli bacteremia s/p ceftriaxone till 01/30/21 Repeat blood cultures are neg ID following Urine cultures showing E. coli, --ESRD on hemodialysis Continue hemodialysis, normal scheduled Saturday Nephrology consulted to manage dialysis, notified --Hypokalemia, repleted --Chronic systolic heart failure with reduced ejection fraction 20-25% Hold beta-varun 2/2 bradycardia, no ALEX or ARB due to ESRD --Hypertension Hydralazine as needed with parameters. Patient now hypotensive Continue midodrine --Severe hyperkalemia with bradycardia and syncope Resolved --GERD (gastroesophageal reflux disease) Continue PPI --Anemia Due to chronic kidney disease and end-stage renal disease No signs of bleeding, Transfuse patient if hemoglobin falls below 7.0 --History of DVT, patient on Eliquis CODE STATUS: Full DVT prophylaxis: Eliquis Disposition: Patient will need SNF/subacute rehab on discharge. Grim prognosis Daily clinical course: 01/21/2021: Patient seen and examined, patient seems somewhat confused. Waxing and waning and has some episodes of being lucid. Patient eating breakfast. 01/22/2021: Patient seen and examined, lying in bed, eating breakfast, states that he does not feel well but there is no specific thing that he can point to. Patient in no acute distress. 01/23/2021: Patient seen and examined, lying in bed, finished breakfast, states that he feels somewhat better. Patient with positive blood cultures, susceptible to current antibiotics, ceftriaxone. Repeat blood cultures have been ordered. 01/24/21: Wait for repeat blood culture results from 01/23/2021. If blood culture remains negative at 48 hours patient should be discharged home with oral antibiotics and no need to remove HD catheter. 01/25/21; Repeat blood cultures from 01/24/2022 is negative. PT recommended subacute rehab. No need to remove HD catheter. Patient will need oral antibiotics on discharge. manager applied consulted for placement. 01/26/21 : Patient clinically stable, needs subacute rehab/SNF placement. manager applied assisting, discharge pending on placement. 01/27/21: clinically stable, discharge pending on placement 01/28/21: Vitals noted, resting comfortably. cont ceftriaxone till 01/30/21. pending placement. HD per renal 01/29/21: resting comfortably. cont abx. pending placement. HD per renal 01/30/21: Last dose of antibiotic today, patient resting on bed, no acute issue. Vitals noted. HD per renal. Pending placement. 01/31/21: called [facility] HERMOS[facility] this morning. As per patient's nurse, patient had asystole, [facility] BLUE was called, patient received brief CPR with chest compressions, no medications. Telemetry showed Patient also had brief bradycardia, resolved without treatment, following code the patient is lethargic, responds to Loud verbal commands with simple yes/ no, bradycardia resolved, vital signs stable. K 7.6 today, received emergent HD. will order CT head. BG was 59 this am. will start low rate D5 bicarbonate drip if K level remains elevated. Called daughter and updated with all details. family wants to continue full code. Plan to transfer patient to ICU, discussed with Dr. Clark critical care attending in details. Dr. Clark recommended to order for ABG 02/01/21: Patient was not transferred to ICU overnight. Patient remains in telemetry, BP slightly hypertensive but responding to midodrine. Patient more alert and awake today. Potassium level improved to 5.1 then again trended up to 5.8. Ordered for Kayexalate and initiated on bicarbonate drip. Continue to follow BMP daily and monitor mental status. 02/02 patient is lethargic, barely opens eyes with voice stimulus, intermittently moaningm has mittens, has a Dobbhoff tube. No family in the room Lab results reviewed. All interdisciplinary notes reviewed. Discussed with Dr. mckinley. For longterm facility placement Objective - Constitutional Vitals: Vital Signs - 12hr 02/02/21 02/02/21 02/02/21 04:00 04:28 08:42 Temperature 98.0 F 98.9 F Pulse Rate 60 Respiratory 18 18 Rate Blood Pressure 96/56 82/47 02/02/21 02/02/21 02/02/21 10:25 10:30 10:45 Temperature 98.2 F Pulse Rate 59 L 62 61 Respiratory 16 Rate Blood Pressure 87/50 89/55 98/52 02/02/21 02/02/21 02/02/21 11:00 11:15 11:30 Temperature Pulse Rate 68 113 H 113 H Respiratory Rate Blood Pressure 96/52 94/57 98/62 02/02/21 02/02/21 02/02/21 11:45 12:00 12:15 Temperature Pulse Rate 111 H 117 H 109 H Respiratory Rate Blood Pressure 86/42 81/65 94/61 02/02/21 12:30 Temperature Pulse Rate 99 H Respiratory Rate Blood Pressure 104/65 General appearance: Present: no acute distress, disheveled - EENT Eyes: PERRL, EOM intact - Neck Neck: supple, normal ROM - Respiratory Respiratory effort: normal Respiratory: bilateral: CTA, diminished - Cardiovascular Rhythm: regular Heart Sounds: Present: S1 & S2 Extremities: No edema - Gastrointestinal General gastrointestinal: Present: soft, non-tender Rectal Exam: deferred - Genitourinary Male genitourinary: deferred - Musculoskeletal Musculoskeletal: other (Unable to evaluate) - Neurologic Neurologic: other (Unable to evaluate as the patient is very lethargic) - Psychiatric Psychiatric: other (Lethargic) - Labs CBC & Chem 7: 02/02/21 04:17 02/02/21 04:17 Labs: Abnormal lab results 02/01/21 02/01/21 02/02/21 Range/Units 16:21 16:39 04:17 RBC (3.65-5.03) M/mm3 Hgb (11.8-15.2) gm/dl Hct (35.5-45.6) % MCV (84-94) fl MCH (28-32) pg RDW (13.2-15.2) % Plt Count (140-440) K/mm3 Chloride 97.1 L 94.9 L (98-107) mmol/L BUN 47 H 52 H (9-20) mg/dL Creatinine 5.8 H 6.4 H (0.8-1.3) mg/dL Glucose 147 H 145 H (75-100) mg/dL POC Glucose 152 H (70-105) mg/dL Calcium 6.8 L 6.8 L (8.4-10.2) mg/dL Troponin T 1.770 H* (0.00-0.029) ng/mL HDL Cholesterol 8 L (40-59) mg/dL 02/02/21 Range/Units 04:17 RBC 2.57 L (3.65-5.03) M/mm3 Hgb 8.6 L (11.8-15.2) gm/dl Hct 26.0 L (35.5-45.6) % MCV 101 H (84-94) fl MCH 33 H (28-32) pg RDW 23.2 H (13.2-15.2) % Plt Count 45 L (140-440) K/mm3 Chloride (98-107) mmol/L BUN (9-20) mg/dL Creatinine (0.8-1.3) mg/dL Glucose (75-100) mg/dL POC Glucose (70-105) mg/dL Calcium (8.4-10.2) mg/dL Troponin T (0.00-0.029) ng/mL HDL Cholesterol (40-59) mg/dL HEART Score - HEART Score Troponin: Troponin T 1.770 ng/mL (0.00-0.029) H* 02/02/21 04:17
[2021-02-02] MEDS: oxyCODONE /ACETAMINOPHEN 5-325MG TAB PO PRN (13:26)
--- NOTE | 2021-02-02 13:57 | Progress Note ---
Assessment and Plan Awaiting SNF placement. Pt is unable to tolerate GDMT for HF due to hypotension. Nothing further to add from a cardiac perspective at this time. Will see on an as-needed basis. Pt seen in conjunction with Dr. Snell, who agrees with the assessment and plan of care. - Patient Problems (1) Acute encephalopathy Current Visit: Yes Status: Acute (2) Sepsis Current Visit: Yes Status: Acute (3) UTI (urinary tract infection) Current Visit: Yes Status: Acute Qualifiers: Urinary tract infection type: acute cystitis (4) Symptomatic bradycardia Current Visit: Yes Status: Resolved (5) Hypotension Current Visit: Yes Status: Chronic (6) ESRD on hemodialysis Current Visit: Yes Status: Chronic (7) Anemia Current Visit: Yes Status: Chronic (8) Chronic HFrEF (heart failure with reduced ejection fraction) Current Visit: Yes Status: Chronic (9) Cardiomyopathy Current Visit: Yes Status: Chronic (10) Hypertension Current Visit: No Status: Chronic Qualifiers: Hypertension type: essential hypertension (11) Insulin dependent diabetes mellitus Current Visit: Yes Status: Chronic (12) History of DVT (deep vein thrombosis) Current Visit: Yes Status: Chronic Subjective Date of service: 02/02/21 Principal diagnosis: AMS, Symptomatic Bradycardia Interval history: Seen in HD. Lethargic, not answering questions. BP remains on the low side. Tele reviewed - SR 60s w/PVCs, intermittently in a pattern of ventricular bigeminy. Objective Last Vital Signs Temp 97.9 F 02/02/21 13:29 Pulse 103 H 02/02/21 13:29 Resp 20 02/02/21 13:29 BP 101/62 02/02/21 13:29 Pulse Ox 100 02/01/21 23:42 - Physical Examination General: No Apparent Distress HEENT: Positive: EOMI, Normocephaly, Mucus Membranes Moist Neck: Positive: neck supple, trachea midline. Negative: JVD/HJR Cardiac: Positive: Reg Rate and Rhythm, S1/S2 Lungs: Positive: Decreased Breath Sounds (anteriorly) Neuro: Positive: Other (AMS) Abdomen: Positive: Soft, Other (NGT in situ). Negative: Tender Skin: Negative: Rash Musculoskeletal: No Fluid Collection Extremities: Present: upper extr. pulses, lower extr. pulses. Absent: edema - Labs and Meds Lipids 02/02/21 Range/Units 04:17 Triglycerides 72 (2-149) mg/dL Cholesterol 98 (50-199) mg/dL HDL Cholesterol 8 L (40-59) mg/dL Cholesterol/HDL Ratio 12.25 % CBC 02/02/21 Range/Units 04:17 WBC 9.9 (4.5-11.0) K/mm3 RBC 2.57 L (3.65-5.03) M/mm3 Hgb 8.6 L (11.8-15.2) gm/dl Hct 26.0 L (35.5-45.6) % Plt Count 45 L (140-440) K/mm3 Comprehensive Metabolic Panel 02/01/21 02/02/21 Range/Units 16:39 04:17 Sodium 141 142 (137-145) mmol/L Potassium 4.9 4.5 (3.6-5.0) mmol/L Chloride 97.1 L 94.9 L (98-107) mmol/L Carbon Dioxide 22 24 (22-30) mmol/L BUN 47 H 52 H (9-20) mg/dL Creatinine 5.8 H 6.4 H (0.8-1.3) mg/dL Glucose 147 H 145 H (75-100) mg/dL Calcium 6.8 L 6.8 L (8.4-10.2) mg/dL - Imaging and Cardiology EKG: report reviewed, image reviewed Echo: report reviewed (12/2020 - EF 20-25%, mild-mod LVH, RV markedly hypokinetic, RV mod dilated, mild MR, mild TR, RVSP 30mmHg, mild AR ) - Telemetry EKG Rhythm: Sinus Rhythm - EKG Sinus rhythms and dysrhythmias: sinus rhythm AV and intraventricular conduction: right bundle branch block
[2021-02-03] MEDS: PANTOPRAZOLE 40 MG TAB PO SCH (08:47)
[2021-02-03] MEDS: MIDODRINE 5 MG TAB PO SCH ×2 (08:47→15:00)
[2021-02-03] MEDS: APIXABAN 5 MG TAB PO SCH (09:33)
[2021-02-03] MEDS: SODIUM BICARBONATE 150 MEQ in DEXTROSE 5% IN WATER 1,000 ML IV SCH (12:37)
--- NOTE | 2021-02-03 13:17 | Progress Note ---
Assessment and Plan 1. ESRD: Patient is on maintenance hemodialysis three times a week, TTS schedule. Last outpatient HD 01/19. Meds dosage based on GFR. Hemodialysis: 01/21, 01/24, 01/26, 01/28, 01/31, 02/02. 2. FEN: Hyperkalemia, improved. Metabolic acidosis, Sod bicarb drip. Monitor lytes and volume status. 3. Sinus bradycardia: CYNDI BAY was called 01/31 AM, patient received brief CPR with chest compressions, no medications. Suspected 2/2 hyperkalemia. Improved. Seen by Cards. 4. Sepsis, POA: E.Coli bacteremia. 2/2 urinary tract infection. S/p Ceftriaxone. 5. Acute metabolic encephalopathy, POA: Likely 2/2 UTI. Supportive care. 6. Anemia, POA: 2/2 ESRD. Epogen with HD as needed. PRBC as needed. 7. HFrEF: Compensated. Monitor. 8. Hypotension: IV fluids. On Midodrine. Monitor BP. Prognosis appears poor. Subjective: Patient was seen and examined at the bedside. General Appearance: General appearance: well-developed, appears stated age, not in distress, NG tube HEENT: ATNC, pupils equal Neck: trachea midline Respiratory: ctab Heart: regular, S1S2, no murmur Abdomen: soft, bowel sounds heard, not tender Integumentary: no rash, warm and dry Neurologic: lethargic, not following any command Ext: no edema Hemodialysis access: R IJ tunnel catheter Subjective Date of service: 02/03/21 Principal diagnosis: AMS, CKD on HD Objective - Vital Signs Vital signs: Vital Signs - 12hr 02/03/21 02/03/21 02/03/21 04:00 04:59 05:00 Temperature 97.3 F L Pulse Rate 69 63 61 Respiratory 19 Rate Blood Pressure 69/41 Blood Pressure [Left] O2 Sat by Pulse 90 100 Oximetry 02/03/21 02/03/21 02/03/21 05:06 09:58 11:59 Temperature 98.2 F Pulse Rate 67 61 Respiratory 17 20 Rate Blood Pressure 81/47 Blood Pressure 80/52 [Left] O2 Sat by Pulse 95 99 Oximetry 02/03/21 12:43 Temperature Pulse Rate 64 Respiratory Rate Blood Pressure Blood Pressure 89/74 [Left] O2 Sat by Pulse Oximetry - Lab 02/02/21 04:17 02/02/21 04:17 Most recent lab results Calcium 6.8 mg/dL (8.4-10.2) L 02/02/21 04:17 Phosphorus 7.20 mg/dL (2.5-4.5) H 01/31/21 08:07 Magnesium 2.00 mg/dL (1.7-2.3) 02/01/21 05:08 Medications & Allergies - Medications Allergies/Adverse Reactions: Allergies No Known Allergies Allergy (Unverified 12/06/20 12:39) Home Medications: Home Medications Medication Instructions Recorded Confirmed Last Taken Type Apixaban [Eliquis] 5 mg PO BID 12/06/20 01/28/21 Unknown History AtorvaSTATin [Lipitor] 40 mg PO QHS 12/06/20 01/28/21 Unknown History Pantoprazole [Protonix TAB] 40 mg PO QDAC #30 tablet 12/15/20 01/28/21 Unknown Rx carvediloL [Coreg] 3.125 mg PO BID #60 tablet 12/15/20 01/28/21 Unknown Rx Active Medications: Generic Name Dose Route Start Last Admin Trade Name Freq PRN Reason Stop Dose Admin Acetaminophen 650 mg 01/20/21 22:48 01/29/21 21:39 Acetaminophen 325 Mg Tab PO 650 mg Q4H PRN Administration Pain MILD(1-3)/Fever >100.5/MILLER Apixaban 5 mg 01/20/21 23:00 02/03/21 09:33 Apixaban 5 Mg Tab PO 5 mg BID KIRK Administration Heparin Sodium (Porcine) 3,000 unit 01/24/21 10:00 02/02/21 10:25 Heparin 10,000 Units/10 Ml Vial IV 3,000 unit CHRISTA PRN Administration hemodialysis Hydralazine HCl 10 mg 01/22/21 09:00 Hydralazine 20 Mg/1 Ml Inj IV Q4H PRN Blood Pressure Sodium Chloride 100 mls @ 999 mls/hr 01/21/21 13:29 Nacl 0.9% IV CHRISTA PRN Hypotension Sodium Bicarbonate 150 meq/ 1,150 mls @ 75 mls/hr 02/01/21 09:00 02/03/21 12:37 Dextrose IV 75 mls/hr DIRECT KIRK Administration Midodrine 10 mg 01/31/21 20:00 02/03/21 08:47 Midodrine 5 Mg Tab PO 10 mg TID KIRK Administration Ondansetron HCl 4 mg 01/20/21 22:48 01/24/21 10:28 Ondansetron 4 Mg/2 Ml Inj IV 4 mg Q8H PRN Administration Nausea And Vomiting Oxycodone/Acetaminophen 1 tab 01/20/21 22:48 02/02/21 13:26 Oxycodone /Acetaminophen 5-325mg Tab PO 1 tab Q6H PRN Administration Pain, Moderate (4-6) Pantoprazole Sodium 40 mg 01/21/21 07:30 02/03/21 08:47 Pantoprazole 40 Mg Tab PO 40 mg QDAC KIRK Administration Sodium Chloride 10 ml 01/21/21 10:00 02/03/21 09:33 Sodium Chloride 0.9% 10 Ml Flush Syringe IV 10 ml BID KIRK Administration Sodium Chloride 10 ml 01/20/21 22:48 01/28/21 19:35 Sodium Chloride 0.9% 10 Ml Flush Syringe IV 10 ml PRN PRN Administration LINE FLUSH
--- NOTE | 2021-02-03 14:12 | Progress Note ---
Subjective Date of service: 02/03/21 Principal diagnosis: AMS, CKD on HD Interval history: 70-year-old -[place] male with a past medical history of end-stage renal disease, heart failure, anemia who presents with acute metabolic encephalopathy. he developed a event of bradycardia with syncope on 01/31/21 with hyperkalemia --Syncope with bradycardia-likely etiology hyperkalemia Patient noted to be lethargic/unresponsive, was thought to have cardiac arrest and received cardiac compressions, did not require any medications Telemetry reviewed and revealed bradycardia, serum chemistry showed hyperkalemia, hypoglycemia Potassium level being corrected with hemodialysis, ordered for D5 normal saline at very low rate Ordered for 2D echocardiogram, cardiology consulted, CT head w/o any acute process --Acute metabolic encephalopathy Probably secondary to uremia and urinary tract infection, now got complicated with syncope, bradycardia, hyperkalemia and hypoglycemia --Sepsis secondary to urinary tract infection and E. coli bacteremia s/p ceftriaxone till 01/30/21 Repeat blood cultures are neg ID following Urine cultures showing E. coli, --ESRD on hemodialysis Continue hemodialysis, normal scheduled Saturday Nephrology consulted to manage dialysis, notified --Hypokalemia, repleted --Chronic systolic heart failure with reduced ejection fraction 20-25% Hold beta-varun 2/2 bradycardia, no ALEX or ARB due to ESRD --Hypertension Hydralazine as needed with parameters. Patient now hypotensive Continue midodrine --Severe hyperkalemia with bradycardia and syncope Resolved --GERD (gastroesophageal reflux disease) Continue PPI --Anemia Due to chronic kidney disease and end-stage renal disease No signs of bleeding, Transfuse patient if hemoglobin falls below 7.0 --History of DVT, patient on Eliquis CODE STATUS: Full DVT prophylaxis: Eliquis Disposition: Patient will need SNF/subacute rehab on discharge. Grim prognosis Daily clinical course: 01/21/2021: Patient seen and examined, patient seems somewhat confused. Waxing and waning and has some episodes of being lucid. Patient eating breakfast. 01/22/2021: Patient seen and examined, lying in bed, eating breakfast, states that he does not feel well but there is no specific thing that he can point to. Patient in no acute distress. 01/23/2021: Patient seen and examined, lying in bed, finished breakfast, states that he feels somewhat better. Patient with positive blood cultures, susceptible to current antibiotics, ceftriaxone. Repeat blood cultures have been ordered. 01/24/21: Wait for repeat blood culture results from 01/23/2021. If blood culture remains negative at 48 hours patient should be discharged home with oral antibiotics and no need to remove HD catheter. 01/25/21; Repeat blood cultures from 01/24/2022 is negative. PT recommended subacute rehab. No need to remove HD catheter. Patient will need oral antibiotics on discharge. managing manager consulted for placement. 01/26/21 : Patient clinically stable, needs subacute rehab/SNF placement. managing manager assisting, discharge pending on placement. 01/27/21: clinically stable, discharge pending on placement 01/28/21: Vitals noted, resting comfortably. cont ceftriaxone till 01/30/21. pending placement. HD per renal 01/29/21: resting comfortably. cont abx. pending placement. HD per renal 01/30/21: Last dose of antibiotic today, patient resting on bed, no acute issue. Vitals noted. HD per renal. Pending placement. 01/31/21: called CYNDI HERMOSILLO this morning. As per patient's nurse, patient had asystole, CYNDI BLUE was called, patient received brief CPR with chest compressions, no medications. Telemetry showed Patient also had brief bradycardia, resolved without treatment, following code the patient is lethargic, responds to Loud verbal commands with simple yes/ no, bradycardia resolved, vital signs stable. K 7.6 today, received emergent HD. will order CT head. BG was 59 this am. will start low rate D5 bicarbonate drip if K level remains elevated. Called daughter and updated with all details. family wants to continue full code. Plan to transfer patient to ICU, discussed with Dr. Clark critical care attending in details. Dr. Clark recommended to order for ABG 02/01/21: Patient was not transferred to ICU overnight. Patient remains in telemetry, BP slightly hypertensive but responding to midodrine. Patient more alert and awake today. Potassium level improved to 5.1 then again trended up to 5.8. Ordered for Kayexalate and initiated on bicarbonate drip. Continue to follow BMP daily and monitor mental status. 02/02 patient is lethargic, barely opens eyes with voice stimulus, intermittently moaningm has mittens, has a Dobbhoff tube. No family in the room Lab results reviewed. All interdisciplinary notes reviewed. Discussed with Dr. mckinley. For nursing home facility placement 02/03 no acute events overnight, patient has bilateral wrist restraints, more awake today, does not follow simple commands, moaning intermittently Waiting for placement Objective - Constitutional Vitals: Vital Signs - 12hr 02/03/21 02/03/21 02/03/21 04:00 04:59 05:00 Temperature 97.3 F L Pulse Rate 69 63 61 Respiratory 19 Rate Blood Pressure 69/41 Blood Pressure [Left] O2 Sat by Pulse 90 100 Oximetry 02/03/21 02/03/21 02/03/21 05:06 09:58 11:59 Temperature 98.2 F Pulse Rate 67 61 Respiratory 17 20 Rate Blood Pressure 81/47 Blood Pressure 80/52 [Left] O2 Sat by Pulse 95 99 Oximetry 02/03/21 12:43 Temperature Pulse Rate 64 Respiratory Rate Blood Pressure Blood Pressure 89/74 [Left] O2 Sat by Pulse Oximetry General appearance: Present: no acute distress, other (Confused) - EENT Eyes: PERRL, EOM intact - Neck Neck: supple, normal ROM - Respiratory Respiratory effort: normal Respiratory: bilateral: CTA, diminished - Cardiovascular Rhythm: regular Heart Sounds: Present: S1 & S2 Extremities: No edema - Gastrointestinal General gastrointestinal: Present: soft, non-tender - Neurologic Neurologic: no focal deficits, moves all extremities - Psychiatric Psychiatric: other (Confused) - Labs CBC & Chem 7: 02/02/21 04:17 02/02/21 04:17 HEART Score - HEART Score Troponin: Troponin T 1.770 ng/mL (0.00-0.029) H* 02/02/21 04:17
--- NOTE | 2021-02-03 14:38 | Event Note ---
Date: 02/03/21 Plan of care discussed with pt's daughter 'Unique' via phone. Prognosis explained in detail. Family would like to pursue inpatient hospice at this time.
[2021-02-03 16:41] VITALS: BP 82/47
--- NOTE | 2021-02-03 18:35 | Vascular Lab Report ---
DUPLEX DOPPLER LOWER EXTREMITY VEINS, BILATERAL INDICATION / CLINICAL INFORMATION: History of DVT. Bilateral leg pain/swelling. Altered mental status . TECHNIQUE: Duplex doppler imaging was performed through the veins of both lower extremities using sam ous compression and other maneuvers. COMPARISON: Bilateral lower extremity venous Doppler 12/06/2020. FINDINGS: RIGHT COMMON FEMORAL VEIN: Negative. RIGHT FEMORAL VEIN: Negative. RIGHT POPLITEAL VEIN: Negative. RIGHT CALF VEINS: Negative. LEFT COMMON FEMORAL VEIN: Negative. LEFT FEMORAL VEIN: Negative. LEFT POPLITEAL VEIN: Negative. LEFT CALF VEINS: Negative. ADDITIONAL FINDINGS: There is no evidence of a popliteal cyst or other abnormality. IMPRESSION: No sonographic evidence for DVT in either lower extremity. Scribed by: Afua Broussard RDMS, RVT Scribed: 02/03/2021 4:00 PM I have reviewed the images, agree with this report, and edited this report as needed. Signer Name: Barry Moctezuma MD Signed: 02/03/2021 6:31 PM Workstation Name: [id number]
--- NOTE | 2021-02-17 10:08 | Electrocardiograph Report ---
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
--- NOTE | 2021-03-19 07:25 | Discharge Summary ---
Providers - Providers Date of Admission: 01/20/21 15:22 Date of discharge: 02/03/21 Attending physician: KARISSA LANCASTER 01/21/21 09:42 Physical Therapy Evaluation and Treat [CONS] Routine Comment: Reason For Exam: debility 01/21/21 14:55 Consult to Physician [CONS] Routine Comment: Consulting Provider: TED WHITE Physician Instructions: Reason For Exam: esrd 01/23/21 07:29 Consult to Physician [CONS] Routine Comment: Consulting Provider: LAKHWINDER AGUILAR Physician Instructions: Reason For Exam: sepsis 01/25/21 09:49 Consult to Case Management [CONS] Routine Services Needed at Discharge: Other Notified:: case management Additional Physician Instructions: RANDY 01/27/21 11:11 Occupational Therapy Evaluate and Treat [CONS] Urgent Comment: Reason For Exam: Debility 01/31/21 07:50 Consult to Physician [CONS] Routine Comment: Consulting Provider: MAILE HANEY Physician Instructions: Reason For Exam: cardiac arrest 01/31/21 19:05 Consult to Physician [CONS] Routine Comment: Consulting Provider: JEYSON CASON Physician Instructions: Reason For Exam: AMS hypotension 02/01/21 07:28 Consult to PICC Line RN [CONS] Stat Reason For Exam: peripheral access 9current 24 g infiltrated Type Line:: Midline 02/03/21 11:23 Speech Therapy Evaluation and Treat [CONS] Routine Reason For Exam: swallowing assessment Primary care physician: DRAY DRIVER Hospitalization Reason for admission: syncope/bradycardi/hyperkalemia Condition: Stable Hospital course: 70-year-old -[place] male with a past medical history of end-stage renal disease, heart failure, anemia who presents with acute metabolic encephalopathy. he developed a event of bradycardia with syncope on 01/31/21 with hyperkalemia --Syncope with bradycardia-likely etiology hyperkalemia Patient noted to be lethargic/unresponsive, was thought to have cardiac arrest and received cardiac compressions, did not require any medications Telemetry reviewed and revealed bradycardia, serum chemistry showed hyperkalemia, hypoglycemia Potassium level being corrected with hemodialysis, ordered for D5 normal saline at very low rate Ordered for 2D echocardiogram, cardiology consulted, CT head w/o any acute process --Acute metabolic encephalopathy Probably secondary to uremia and urinary tract infection, now got complicated with syncope, bradycardia, hyperkalemia and hypoglycemia --Sepsis secondary to urinary tract infection and E. coli bacteremia s/p ceftriaxone till 01/30/21 Repeat blood cultures are neg ID following Urine cultures showing E. coli, --ESRD on hemodialysis Continue hemodialysis, normal scheduled Saturday Nephrology consulted to manage dialysis, notified --Hypokalemia, repleted --Chronic systolic heart failure with reduced ejection fraction 20-25% Hold beta-varun 2/2 bradycardia, no ALEX or ARB due to ESRD --Hypertension Hydralazine as needed with parameters. Patient now hypotensive Continue midodrine --Severe hyperkalemia with bradycardia and syncope Resolved --GERD (gastroesophageal reflux disease) Continue PPI --Anemia Due to chronic kidney disease and end-stage renal disease No signs of bleeding, Transfuse patient if hemoglobin falls below 7.0 --History of DVT, patient on Eliquis Family signed patient AMA Disposition: LEFT AGAINST MEDICAL ADVICE Final Discharge Diagnosis (Prints w/discharge instructions): syncope/ bradycardia/ hyperkalemia/ESRD Time spent for discharge: 38 min Core Measure Documentation - Palliative Care Palliative Care/ Comfort Measures: Palliative Care/Comfort Measures - Core Measures Any of the following diagnoses?: none Exam - Constitutional Vitals: Temp Pulse Resp BP Pulse Ox 98.6 F 57 L 20 82/47 97 02/03/21 16:20 02/03/21 16:20 02/03/21 16:20 02/03/21 16:20 02/03/21 16:20 General appearance: Present: no acute distress, disheveled - EENT Eyes: Present: PERRL, EOM intact ENT: other - Neck Neck: Present: supple. Absent: masses or JVD - Respiratory Respiratory effort: normal Respiratory: bilateral: CTA, diminished - Cardiovascular Rhythm: regular - Extremities Extremities: No edema - Abdominal General gastrointestinal: Present: soft, non-tender Male genitourinary: Present: deferred - Rectal Rectal Exam: deferred - Integumentary Integumentary: Present: clear - Musculoskeletal Musculoskeletal: other (unable to assess) - Psychiatric Psychiatric: other (non verbal, confused) - Neurologic Neurologic: other (con fused, does not follow commands, moves all ext) Plan Activity: up only with assistance, other (bed rest) Diet: regular, low fat, low salt, renal Follow up with: PRIMARY CARE, [Primary Care Provider] - 3-5 Days Forms: AMA Form
== END 2021-02-03 19:32 | disposition left against medical advice (07) | DRG 871 ==
LOC: ED 12:07 → 4A 15:22 → OBSVTOIN 15:22 → 4A 18:45
PROVIDERS: ADMIT Internal Medicine; ATTEND Internal Medicine
PROC: 5A1D70Z Performance of Urinary Filtration, Intermittent, Less than 6 Hours Per Day (ICD-10-PCS; principal; 2021-01-28)
PROC: 5A1D70Z Performance of Urinary Filtration, Intermittent, Less than 6 Hours Per Day (ICD-10-PCS; 2021-01-28)
PROC: 5A1D70Z Performance of Urinary Filtration, Intermittent, Less than 6 Hours Per Day (ICD-10-PCS; 2021-01-28)
DX: A41.51 Sepsis due to Escherichia coli [E. coli] (principal); N18.6 End stage renal disease; G93.41 Metabolic encephalopathy; E87.2 Acidosis; N30.00 Acute cystitis without hematuria; I13.0 Hypertensive heart and chronic kidney disease with heart failure and stage 1 through stage 4 chronic kidney disease, or unspecified chronic kidney disease; I50.22 Chronic systolic (congestive) heart failure; I42.9 Cardiomyopathy, unspecified; D63.1 Anemia in chronic kidney disease; R00.1 Bradycardia, unspecified; Z20.822 Contact with and (suspected) exposure to COVID-19; E87.6 Hypokalemia; I95.9 Hypotension, unspecified; E11.22 Type 2 diabetes mellitus with diabetic chronic kidney disease; Z53.29 Procedure and treatment not carried out because of patient's decision for other reasons; E87.5 Hyperkalemia; Z79.4 Long term (current) use of insulin; R55 Syncope and collapse; K21.9 Gastro-esophageal reflux disease without esophagitis; E78.5 Hyperlipidemia, unspecified; D69.6 Thrombocytopenia, unspecified; Z86.718 Personal history of other venous thrombosis and embolism
CPT/HCPCS: 36415; 70450; 71045; 74018; 74176; 80048; 80053; 80061; 80074; 81001; 82140; 82805; 82962; 83036; 83735; 84100; 84132; 84484; 85007; 85025; 85027; 87040; 87076; 87086; 87186; 93005; 93970; 96361; 96365; G0378; A9270-GY; J0696; J0885; J1170; J1200; J1630; J1644; J2060; J2405; J2765; J7030; J7042; J7050; J7070; U0003